=== PATIENT | male | born 1945 | race Caucasian/White ===

== ENCOUNTER 2020-04-14 15:52 | Inpatient (IN) | payer MEDICARE, BC ==
--- NOTE | 2020-04-14 16:37 | ED ---
General Adult HPI - General Chief complaint: Shortness of Breath Stated complaint: Chest Pressure Time Seen by Provider: 04/14/20 15:55 Source: patient, EMS, RN notes reviewed, old records reviewed Mode of arrival: EMS Limitations: no limitations - History of Present Illness Initial comments: This is a 75-year-old male who presents emergency Department stating he has a history of some asthma but it's never been bad enough to take an inhaler. Patient states he also has a little bit of anxiety as well per patient states he was up about 45 minutes away from the hospital when he walked into a restaurant and had a lot of smoke in the room started to have some difficulty breathing and he thought he needed to come into the hospital so they drove 45 minutes to get here by the time they got here his symptoms had resolved. Patient denies any chest pain. Patient denies any fever chills or cough. Patient denies headache patient denies numbness weakness. Patient denies any lightheadedness or dizziness. Patient denies abdominal pain patient denies nausea vomiting or diarrhea. - Related Data Home Medications Medication Instructions Recorded Confirmed Synthroid (Uknown Dose) 05/26/14 05/26/14 Previous Rx's Medication Instructions Recorded Hydrocodone/Acetaminophen [[place] 1 each PO Q6HR PRN #20 tab 05/26/14 5-325] Allergies Allergy/AdvReac Type Severity Reaction Status Date / Time No Known Allergies Allergy Verified 04/14/20 15:59 Review of Systems ROS Statement: Those systems with pertinent positive or pertinent negative responses have been documented in the HPI. ROS Other: All systems not noted in ROS Statement are negative. Past Medical History Past Medical History: Asthma, Thyroid Disorder Additional Past Medical History / Comment(s): gout, History of Any Multi-Drug Resistant Organisms: None Reported Past Surgical History: Appendectomy, Heart Catheterization Past Psychological History: Anxiety Smoking Status: Never smoker Past Alcohol Use History: None Reported Past Drug Use History: None Reported General Exam - General Exam Comments Initial Comments: GENERAL: Patient is well-developed and well-nourished. Patient is nontoxic and well- hydrated and is in no acute distress. ENT: Neck is soft and supple. No significant lymphadenopathy is noted. Oropharynx i s clear. Moist mucous membranes. Neck has full range of motion without eliciting any pain. EYES: The sclera were anicteric and conjunctiva were pink and moist. Extraocular movements were intact and pupils were equal round and reactive to light. Eyelids were unremarkable. PULMONARY: Unlabored respirations. Good breath sounds bilaterally. No audible rales rhonchi or wheezing was noted. CARDIOVASCULAR: There is a regular rate and rhythm without any murmurs gallops or rubs. ABDOMEN: Soft and nontender with normal bowel sounds. No palpable organomegaly was noted. There is no palpable pulsatile mass. SKIN: Skin is clear with no lesions or rashes and otherwise unremarkable. NEUROLOGIC: Patient is alert and oriented x3. Cranial nerves II through XII are grossly intact. Motor and sensory are also intact. Normal speech, volume and content. Symmetrical smile. MUSCULOSKELETAL: Normal extremities with adequate strength and full range of motion. No lower extremity swelling or edema. No calf tenderness. LYMPHATICS: No significant lymphadenopathy is noted PSYCHIATRIC: Normal psychiatric evaluation. Limitations: no limitations Course Vital Signs 04/14/20 15:53 Pulse Rate 81 Respiratory 18 Rate Blood Pressure 132/62 O2 Sat by Pulse 98 Oximetry Medical Decision Making - Medical Decision Making EKG shows sinus rhythm with occasional PVCs at 78 bpm SC interval is 150 QRS is 94 QT interval 352 QTC is 411. Patient is asymptomatic currently. Chest x-ray shows no acute abnormality.I spoke with Dr. Awad he agreed to admit the patient admitted the patient wrote admitting orders. - Lab Data Result diagrams: 04/14/20 16:37 04/14/20 16:37 Lab Results 04/14/20 04/14/20 04/14/20 Range/Units 16:37 16:37 16:37 WBC 6.3 (3.8-10.6) k/uL RBC 2.02 L (4.30-5.90) m/uL Hgb 8.4 L (13.0-17.5) gm/dL Hct 26.9 L (39.0-53.0) % MCV 132.7 H (80.0-100.0) fL MCH 41.3 H (25.0-35.0) pg MCHC 31.1 (31.0-37.0) g/dL RDW 17.3 H (11.5-15.5) % Plt Count 285 (150-450) k/uL Neutrophils % 86 % Lymphocytes % 7 % Monocytes % 5 % Eosinophils % 1 % Basophils % 0 % Neutrophils # 5.4 (1.3-7.7) k/uL Lymphocytes # 0.5 L (1.0-4.8) k/uL Monocytes # 0.3 (0-1.0) k/uL Eosinophils # 0.1 (0-0.7) k/uL Basophils # 0.0 (0-0.2) k/uL Hypochromasia Slight Anisocytosis Slight Macrocytosis Marked A PT 9.6 (9.0-12.0) sec INR 0.9 (<1.2) APTT 21.6 L (22.0-30.0) sec Sodium 138 (137-145) mmol/L Potassium 4.8 (3.5-5.1) mmol/L Chloride 107 (98-107) mmol/L Carbon Dioxide 19 L (22-30) mmol/L Anion Gap 12 mmol/L BUN 42 H (9-20) mg/dL Creatinine 2.06 H (0.66-1.25) mg/dL Est GFR (CKD-EPI)AfAm 35 (>60 ml/min/1.73 sqM) Est GFR (CKD-EPI)NonAf 31 (>60 ml/min/1.73 sqM) Glucose 103 H (74-99) mg/dL Calcium 9.3 (8.4-10.2) mg/dL Magnesium 2.1 (1.6-2.3) mg/dL Total Bilirubin 0.5 (0.2-1.3) mg/dL AST 44 (17-59) U/L ALT 25 (4-49) U/L Alkaline Phosphatase 64 (38-126) U/L Troponin I (0.000-0.034) ng/mL Total Protein 8.4 H (6.3-8.2) g/dL Albumin 4.8 (3.5-5.0) g/dL 04/14/20 Range/Units 16:37 WBC (3.8-10.6) k/uL RBC (4.30-5.90) m/uL Hgb (13.0-17.5) gm/dL Hct (39.0-53.0) % MCV (80.0-100.0) fL MCH (25.0-35.0) pg MCHC (31.0-37.0) g/dL RDW (11.5-15.5) % Plt Count (150-450) k/uL Neutrophils % % Lymphocytes % % Monocytes % % Eosinophils % % Basophils % % Neutrophils # (1.3-7.7) k/uL Lymphocytes # (1.0-4.8) k/uL Monocytes # (0-1.0) k/uL Eosinophils # (0-0.7) k/uL Basophils # (0-0.2) k/uL Hypochromasia Anisocytosis Macrocytosis PT (9.0-12.0) sec INR (<1.2) APTT (22.0-30.0) sec Sodium (137-145) mmol/L Potassium (3.5-5.1) mmol/L Chloride (98-107) mmol/L Carbon Dioxide (22-30) mmol/L Anion Gap mmol/L BUN (9-20) mg/dL Creatinine (0.66-1.25) mg/dL Est GFR (CKD-EPI)AfAm (>60 ml/min/1.73 sqM) Est GFR (CKD-EPI)NonAf (>60 ml/min/1.73 sqM) Glucose (74-99) mg/dL Calcium (8.4-10.2) mg/dL Magnesium (1.6-2.3) mg/dL Total Bilirubin (0.2-1.3) mg/dL AST (17-59) U/L ALT (4-49) U/L Alkaline Phosphatase (38-126) U/L Troponin I <0.012 (0.000-0.034) ng/mL Total Protein (6.3-8.2) g/dL Albumin (3.5-5.0) g/dL Disposition Clinical Impression: Dyspnea, Anemia, Renal insufficiency Disposition: ADMITTED IP TO THIS HOSP Referrals: Chuck Macedo MD [STAFF PHYSICIAN] - 1-2 days Time of Disposition: 18:09
[2020-04-14 16:58] LABS: INR 0.9 (<1.2); Prothrombin Time 9.6 sec (9.0-12.0)
[2020-04-14 16:59] LABS: Albumin 4.8 g/dL (3.5-5.0); Calcium 9.3 mg/dL (8.4-10.2); Magnesium 2.1 mg/dL (1.6-2.3); Potassium 4.8 mmol/L (3.5-5.1); Total Bilirubin 0.5 mg/dL (0.2-1.3); Total Protein 8.4 g/dL (6.3-8.2)
--- NOTE | 2020-04-14 17:12 | XR ---
EXAMINATION TYPE: XR chest 2V DATE OF EXAM: 04/14/2020 COMPARISON: 04/13/2012 HISTORY: Difficulty breathing TECHNIQUE: FINDINGS: Heart and mediastinum are normal. Lungs are clear. Diaphragm is normal. Bony thorax appears normal. IMPRESSION: Normal chest. No change.
[2020-04-14 17:17] LABS: Partial Thromboplastin Time 21.6 sec (22.0-30.0)
[2020-04-14 17:21] LABS: Anisocytosis Slight; Basophils % (A) 0 %; Eosinophils # (A) 0.1 k/uL (0-0.7); Eosinophils % (A) 1 %; HCT 26.9 % (39.0-53.0); HGB 8.4 gm/dL (13.0-17.5); Hypochromasia Slight; Lymphocytes # (A) 0.5 k/uL (1.0-4.8); Lymphocytes % (A) 7 %; MCH 41.3 pg (25.0-35.0); MCHC 31.1 g/dL (31.0-37.0); MCV 132.7 fL (80.0-100.0); Macrocytosis Marked; Mean Platelet Volume 9.6; Monocytes # (A) 0.3 k/uL (0-1.0); Monocytes % (A) 5 %; Neutrophils # (A) 5.4 k/uL (1.3-7.7); Neutrophils % (A) 86 %; Platelet Count 285 k/uL (150-450); RBC 2.02 m/uL (4.30-5.90); RDW 17.3 % (11.5-15.5); WBC 6.3 k/uL (3.8-10.6)
[2020-04-14] MEDS ORDERED: SODIUM CHLORIDE 0.9% 1,000 ML IV ONE (18:10)
[2020-04-14 18:32] LABS: Reticulocyte % 2.2 % (0.5-2.0)
[2020-04-14] MEDS ORDERED: ACETAMINOPHEN TAB 500 MG TAB PO STA (18:50)
--- NOTE | 2020-04-14 22:30 | HP ---
HISTORY AND PHYSICAL This patient is a 75-year-old white male with history of some asthma, was unable to take inhaler. He walked into a restaurant with a lot of smoking and today he had difficulty breathing. Came to the hospital 45 minutes he could not breathe. Denies any fevers or cough. Denies headache or weakness. Denies lightheadedness, dizziness, syncope. Denies abdominal pain, nausea, vomiting. HOME MEDICINES: Synthroid. ALLERGIES: NEGATIVE. REVIEW OF SYSTEMS: Otherwise negative. PAST MEDICAL HISTORY: Asthma, thyroid disorder, history of appendectomy, heart catheterization, gout, anxiety. PHYSICAL EXAMINATION: Well developed, well nourished, nontoxic. Well hydrated. No acute distress. HEENT: Neck supple. No mass. Ophthalmologic: Pupils equal, round, reactive to light and accommodation. LUNGS: Good air flow bilaterally. HEART: Regular rate and rhythm. ABDOMEN: Soft, nontender. Normal bowel sounds. SKIN: No rash, excoriations or bruising. NEUROLOGIC: Alert and oriented x3. MUSCULOSKELETAL: Full range of motion. No lymphadenopathy. PSYCH: Normal. VITAL SIGNS: Pulse 81, respiratory rate 18-20, blood pressure 132/62, O2 98%. EKG sinus rhythm, PVCs. Chest x-ray negative. Hemoglobin is 8.4, which is new onset. BUN is 42, creatinine 2.06. ASSESSMENT: 1. Acute on acute on chronic anemia, unclear etiology. Check stools for bleeding. 2. Acute prerenal renal insufficiency. 3. Acute renal tubular insult. 4. Renal insufficiency. 5. Anemia. 6. Dyspnea. Admit the patient. Monitor for signs of bleeding. Continue to rehydrate overnight. Prognosis guarded. Please see further orders. MMODL / IJN: [id number] /
[2020-04-15] MEDS ORDERED: ACETAMINOPHEN TAB 325 MG TAB PO PRN (01:27)
[2020-04-15 03:04] LABS: % Iron Saturation 12.24 (15.00-50.00)
[2020-04-15 03:14] LABS: Ferritin 118.7 ng/mL (22.0-322.0)
[2020-04-15] MEDS: LEVOTHYROXINE 137 MCG TAB PO SCH (04:44)
[2020-04-15 07:11] LABS: Glucose,Whole Blood 124 mg/dL (75-99)
[2020-04-15] MEDS: TAMSULOSIN 0.4 MG CAP.ER.24H PO SCH (08:01)
[2020-04-15 08:11] LABS: Albumin 3.9 g/dL (3.5-5.0); Calcium 8.4 mg/dL (8.4-10.2); Phosphorus 2.8 mg/dL (2.5-4.5); Potassium 4.3 mmol/L (3.5-5.1); Total Bilirubin 0.6 mg/dL (0.2-1.3); Total Protein 6.9 g/dL (6.3-8.2)
[2020-04-15 09:18] LABS: Anisocytosis Slight; Basophils % (A) 0 %; Eosinophils # (A) 0.1 k/uL (0-0.7); Eosinophils % (A) 1 %; HCT 21.6 % (39.0-53.0); Hypochromasia Moderate; Lymphocytes # (A) 0.7 k/uL (1.0-4.8); Lymphocytes % (A) 10 %; MCHC 32.5 g/dL (31.0-37.0); MCV 132.7 fL (80.0-100.0); Macrocytosis Marked; Monocytes # (A) 0.4 k/uL (0-1.0); Monocytes % (A) 6 %; Neutrophils # (A) 5.3 k/uL (1.3-7.7); Neutrophils % (A) 82 %; Platelet Count 205 k/uL (150-450); RBC 1.62 m/uL (4.30-5.90); RDW 17.5 % (11.5-15.5); WBC 6.4 k/uL (3.8-10.6)
[2020-04-15 09:25] LABS: MCH 43.1 pg (25.0-35.0)
[2020-04-15 10:47] LABS: Polychromasia Present; RBC Fragments Present
[2020-04-15 10:48] LABS: Poikilocytosis (M) Present
[2020-04-15 10:56] LABS: C Reactive Protein 40.9 mg/L (<10.0); LDH 530 U/L (313-618)
[2020-04-15 11:23] LABS: Reticulocyte % 2.1 % (0.5-2.0)
[2020-04-15 11:43] LABS: Glucose,Whole Blood 99 mg/dL (75-99)
[2020-04-15] MEDS: SODIUM FERRIC GLUCONAT-SUCROSE 125 MG in SODIUM CHLORIDE 0.9% 100 ML IVPB SCH (11:56)
--- NOTE | 2020-04-15 12:55 | US ---
EXAMINATION TYPE: US kidneys/renal and bladder DATE OF EXAM: 04/15/2020 COMPARISON: NONE CLINICAL HISTORY: RF. RF EXAM MEASUREMENTS: Right Kidney: 9.7 x 5.9 x 5.1 cm Left Kidney: 12.3 x 7.1 x 4.0 cm Right Kidney: severe hydronephrosis, hydroureter Left Kidney: severe hydronephrosis, hydroureter Bladder: debris noted within Bilateral Jets seen: no Prostate appears prominent = 6.8cm IMPRESSION: Severe bilateral hydronephrosis and hydroureter. Debris within the bladder should be correlated with urinalysis for infectious etiology or hematuria. Prostate appears to be markedly enlarged. Correlate with PSA.
--- NOTE | 2020-04-15 13:05 | CONS ---
CONSULTATION REASON FOR CONSULT: Renal failure. HISTORY OF PRESENT ILLNESS: Patient is a 75-year-old male who was admitted to the hospital with complaints of shortness of breath. He stated [place] and inhaled the smoke from cigarette and developed significant shortness of breath. He denied any fever, chills. No nausea, vomiting, abdominal pain or diarrhea. Patient also denied Sharon previous kidney diseases. His serum creatinine was 2.0 mg/dL on admission it is down to 1.89. Review of previous labs in 2013 showed creatinine 1.0. The patient is currently maintained on IV fluids. He states he is voiding okay. The patient denies use of any nonsteroidal anti- inflammatory agents prior to admission. He was maintained on oral Lasix. PAST MEDICAL HISTORY: Type 2 diabetes, hypertension, hypothyroidism, asthma. PAST SURGICAL HISTORY: Appendectomy, cardiac catheterization. SOCIAL HISTORY: Negative for smoking, drug abuse or alcohol abuse. MEDICATIONS: Medications at home prior to admission included Synthroid, [place], Glucotrol, Glucophage, Zyloprim, Flomax in past medical history add type 2 diabetes and BPH allergies none. PHYSICAL EXAMINATION: Patient is comfortable, awake, not in any acute distress. Blood pressure is 130/61, heart rate 66 per minute, he is had a temperature of 100.7 degrees Fahrenheit early this morning. ASSESSMENT: 1. Acute kidney injury prerenal currently improving with IV hydration. I will continue with the IV fluids. Check postvoid residual rule out urine retention. Check ultrasound of the kidneys and check urinalysis. 2. Fever. No evidence of infiltrates on chest x-ray. Check urinalysis. 3. Anemia. No active bleeding noted. Check iron profile. Check stool for occult blood. Iron profile was ordered. There is evidence of iron deficiency, so I will start the patient on IV iron plan start IV iron. PLAN Check UA, urine culture continuE to hold off on the metformin for now. Repeat labs in a.m. Check ultrasound of the kidneys.Check post void residual. Thank you for this consultation. Will continue to follow the patient with you during his hospitalization. IVANA / ROSALINDA: [id number] / MTDSandro
[2020-04-15 16:24] LABS: Appearance,Urine Clear (Clear); Bacteria,Urine Occasional /hpf; Bilirubin,Urine Negative (Negative); Blood,Urine Moderate (Negative); Color,Urine Light Yellow; Glucose,Urine (UA) Negative (Negative); Ketones,Urine Negative (Negative); Leukocyte Esterase,Urine Large (Negative); Nitrite,Urine Negative (Negative); Protein,Urine Negative (Negative); RBC,Urine 5 /hpf (0-5); Specific Gravity,Urine 1.007 (1.001-1.035); Urobilinogen,Urine <2.0 mg/dL (<2.0); WBC,Urine 27 /hpf (0-5)
[2020-04-15 16:40] LABS: Glucose,Whole Blood 93 mg/dL (75-99)
--- NOTE | 2020-04-15 17:20 | P.CONS ---
History of Present Illness - Reason for Consult Consult date: 04/15/20 Anemia Requesting physician: Chuck Awad - Chief Complaint Fever/Chills - History of Present Illness Arnav is a pleasant male patient who has controlled overall medical problems. He presents after being on a day trip with family, after a long car ride he states he developed rigors and felt horrible, therefore he was brought to hospital through ER for further evaluation. He has fever 100.4 - 101. He does complain of lower back pain, but states this is generally chronic in nature. He has urinary hesistance, and frequency as well at baseline. He denies any loss of blood via stool or urine. No change in appetite or bowels. Patient has been johnson cultured and urine culture and blood cultures ordered. On presentation he is found to be macrocytic anemia and therefore hematology consulted. He also as acute renal insufficiency. Bladder and renal ultrasound reveals severe hydronephrosis. A fll anemia work-up has been ordered. On presentation there is high suspicion for a pyelonephritis, so we will hold off on parental iron if this is low. Review of Systems A 14 point review of systems assessed and completed and all negative except HPI Past Medical History Past Medical History: Asthma, Heart Failure, Diabetes Mellitus, Prostate Disorder, Thyroid Disorder Additional Past Medical History / Comment(s): gout, chf History of Any Multi-Drug Resistant Organisms: None Reported Past Surgical History: Appendectomy, Heart Catheterization Past Psychological History: Depression Additional Psychological History / Comment(s): states when he was very depressed 25 years ago Smoking Status: Never smoker Past Alcohol Use History: None Reported Past Drug Use History: None Reported Medications and Allergies Home Medications Medication Instructions Recorded Confirmed Type Allopurinol [Zyloprim] 100 mg PO BID 04/14/20 04/14/20 History Furosemide [Lasix] 20 mg PO DAILY 04/14/20 04/14/20 History Levothyroxine Sodium [Synthroid] 137 mcg PO DAILY 04/14/20 04/14/20 History Tamsulosin [Flomax] 0.4 mg PO DAILY 04/14/20 04/14/20 History glipiZIDE [Glucotrol XL] 2.5 mg PO DAILY 04/14/20 04/14/20 History metFORMIN HCL [Glucophage] 500 mg PO BID 04/14/20 04/14/20 History Allergies Allergy/AdvReac Type Severity Reaction Status Date / Time No Known Allergies Allergy Verified 04/14/20 18:42 Physical Exam Vitals: Vital Signs Temp Pulse Pulse Resp BP BP BP 04/15/20 14:28 99.6 F 66 17 115/55 04/15/20 07:45 66 17 04/15/20 07:00 99.6 F 66 17 130/61 04/15/20 04:00 100.0 F H 04/15/20 01:19 100.7 F H 78 24 128/62 04/14/20 23:10 16 04/14/20 20:24 04/14/20 20:00 99.5 F 67 16 119/50 04/14/20 18:44 100.4 F H 85 16 126/57 Pulse Ox 04/15/20 14:28 98 04/15/20 07:45 04/15/20 07:00 97 04/15/20 04:00 04/15/20 01:19 98 04/14/20 23:10 04/14/20 20:24 97 04/14/20 20:00 97 04/14/20 18:44 99 Intake and Output 04/15/20 04/15/20 04/15/20 06:59 14:59 22:59 Other: Voiding Method Toilet Toilet # Voids 5 4 Weight 92 kg - Constitutional General appearance: cooperative, no acute distress - EENT Eyes: EOMI, PERRLA ENT: NA/AT, normal oropharynx - Neck no lymphadenopathy Neck: normal ROM - Respiratory Respiratory: bilateral: CTA - Cardiovascular Rhythm: regular Heart sounds: normal: S1, S2 - Gastrointestinal General gastrointestinal: normal bowel sounds, soft, tenderness - Integumentary Integumentary: pale - Musculoskeletal Musculoskeletal: generalized weakness, strength equal bilaterally - Psychiatric Psychiatric: A&O x's 3, appropriate affect, intact judgment & insight Results CBC & Chem 7: 04/15/20 07:11 04/15/20 07:11 Labs: Abnormal Lab Results - Last 24 Hours (Table) 04/14/20 04/14/20 04/14/20 Range/Units 16:37 16:37 17:50 RBC 2.02 L (4.30-5.90) m/uL Hgb 8.4 L (13.0-17.5) gm/dL Hct 26.9 L (39.0-53.0) % MCV 132.7 H (80.0-100.0) fL MCH 41.3 H (25.0-35.0) pg RDW 17.3 H (11.5-15.5) % Lymphocytes # 0.5 L (1.0-4.8) k/uL Macrocytosis Marked A Retic Count 2.2 H (0.5-2.0) % APTT 21.6 L (22.0-30.0) sec Chloride (98-107) mmol/L Carbon Dioxide (22-30) mmol/L BUN (9-20) mg/dL Creatinine (0.66-1.25) mg/dL Glucose (74-99) mg/dL POC Glucose (mg/dL) (75-99) mg/dL Iron (65-175) ug/dL % Saturation (15.00-50.00) C-Reactive Protein (<10.0) mg/L Urine Blood (Negative) Ur Leukocyte Esterase (Negative) Urine WBC (0-5) /hpf Urine Bacteria (None) /hpf 04/14/20 04/15/20 04/15/20 Range/Units 17:50 07:10 07:11 RBC (4.30-5.90) m/uL Hgb (13.0-17.5) gm/dL Hct (39.0-53.0) % MCV (80.0-100.0) fL MCH (25.0-35.0) pg RDW (11.5-15.5) % Lymphocytes # (1.0-4.8) k/uL Macrocytosis Retic Count (0.5-2.0) % APTT (22.0-30.0) sec Chloride 109 H (98-107) mmol/L Carbon Dioxide 21 L (22-30) mmol/L BUN 37 H (9-20) mg/dL Creatinine 1.89 H (0.66-1.25) mg/dL Glucose 104 H (74-99) mg/dL POC Glucose (mg/dL) 124 H (75-99) mg/dL Iron 42 L (65-175) ug/dL % Saturation 12.24 L (15.00-50.00) C-Reactive Protein (<10.0) mg/L Urine Blood (Negative) Ur Leukocyte Esterase (Negative) Urine WBC (0-5) /hpf Urine Bacteria (None) /hpf 04/15/20 04/15/20 04/15/20 Range/Units 07:11 07:11 07:11 RBC 1.62 L (4.30-5.90) m/uL Hgb 7.0 L (13.0-17.5) gm/dL Hct 21.6 L (39.0-53.0) % MCV 132.7 H (80.0-100.0) fL MCH 43.1 H (25.0-35.0) pg RDW 17.5 H (11.5-15.5) % Lymphocytes # 0.7 L (1.0-4.8) k/uL Macrocytosis Marked A Retic Count 2.1 H (0.5-2.0) % APTT (22.0-30.0) sec Chloride (98-107) mmol/L Carbon Dioxide (22-30) mmol/L BUN (9-20) mg/dL Creatinine (0.66-1.25) mg/dL Glucose (74-99) mg/dL POC Glucose (mg/dL) (75-99) mg/dL Iron (65-175) ug/dL % Saturation (15.00-50.00) C-Reactive Protein 40.9 H (<10.0) mg/L Urine Blood (Negative) Ur Leukocyte Esterase (Negative) Urine WBC (0-5) /hpf Urine Bacteria (None) /hpf 04/15/20 Range/Units 14:35 RBC (4.30-5.90) m/uL Hgb (13.0-17.5) gm/dL Hct (39.0-53.0) % MCV (80.0-100.0) fL MCH (25.0-35.0) pg RDW (11.5-15.5) % Lymphocytes # (1.0-4.8) k/uL Macrocytosis Retic Count (0.5-2.0) % APTT (22.0-30.0) sec Chloride (98-107) mmol/L Carbon Dioxide (22-30) mmol/L BUN (9-20) mg/dL Creatinine (0.66-1.25) mg/dL Glucose (74-99) mg/dL POC Glucose (mg/dL) (75-99) mg/dL Iron (65-175) ug/dL % Saturation (15.00-50.00) C-Reactive Protein (<10.0) mg/L Urine Blood Moderate H (Negative) Ur Leukocyte Esterase Large H (Negative) Urine WBC 27 H (0-5) /hpf Urine Bacteria Occasional H (None) /hpf Assessment and Plan Plan: Macrocytic Anemia: - Full anemia work-up in place - Transfuse hemoglobin less than 7 Fever and Rigors: - Johnson Culture - COncern for pyelonephritis so would hold off on parental iron at this time until blood cultures are resulted - Recommend initiation of antibiotics after all cultures drawn Acute Renal Insufficiency: - Nephrology is following -Ultrasound is ordered
[2020-04-15 17:22] LABS: % Iron Saturation 10.61 (15.00-50.00); Iron 33 ug/dL (65-175); Total Iron Binding Capacity 311 ug/dL (228-460)
[2020-04-15 17:31] LABS: Ferritin 157.7 ng/mL (22.0-322.0); Folate, Serum >24.0 ng/mL
--- NOTE | 2020-04-15 18:20 | P.GSCN ---
History of Present Illness Consult date: 04/15/20 History of present illness: 75-year-old gentleman who came into the hospital with shortness of breath. The evaluation identified anemia, renal failure, bilateral severe hydronephrosis, urine retention. We are asked to see the patient for the hydronephrosis in urine retention. The patient is known to our office many years ago for kidney stones and hematuria secondary to those. He has not been seen in over 10 years. He has not had any problems of kidney stones in the last several years. He denies problems urinating. He denies incontinence excessive frequency blood in the urine infections. He does not urinate a lot of nighttime. He had a bladder scan for over thousand cc. I reviewed the ultrasound that shows significant bilateral hydronephrosis that appears to be chronic. He has anemia which is probably due to chronic renal failure. Review of Systems - Constitutional Reports lethargy, Reports malaise, Reports weakness - Cardiovascular Reports dyspnea on exertion - Genitourinary Reports as per HPI Past Medical History Past Medical History: Asthma, Heart Failure, Diabetes Mellitus, Prostate Disorder, Thyroid Disorder Additional Past Medical History / Comment(s): gout, chf History of Any Multi-Drug Resistant Organisms: None Reported Past Surgical History: Appendectomy, Heart Catheterization Past Psychological History: Depression Additional Psychological History / Comment(s): states when he was very depressed 25 years ago Smoking Status: Never smoker Past Alcohol Use History: None Reported Past Drug Use History: None Reported Medications and Allergies Home Medications Medication Instructions Recorded Confirmed Type Allopurinol [Zyloprim] 100 mg PO BID 04/14/20 04/14/20 History Furosemide [Lasix] 20 mg PO DAILY 04/14/20 04/14/20 History Levothyroxine Sodium [Synthroid] 137 mcg PO DAILY 04/14/20 04/14/20 History Tamsulosin [Flomax] 0.4 mg PO DAILY 04/14/20 04/14/20 History glipiZIDE [Glucotrol XL] 2.5 mg PO DAILY 04/14/20 04/14/20 History metFORMIN HCL [Glucophage] 500 mg PO BID 04/14/20 04/14/20 History Allergies Allergy/AdvReac Type Severity Reaction Status Date / Time No Known Allergies Allergy Verified 04/14/20 18:42 Surgical - Exam Vital Signs Pulse Resp BP Pulse Ox 81 18 132/62 98 04/14/20 15:53 04/14/20 15:53 04/14/20 15:53 04/14/20 15:53 - General Mild distress, pale well developed, well nourished - Eyes PERRL - ENT no hearing loss - Neck no masses, trachea midline - Respiratory normal expansion, normal respiratory effort - Cardiovascular Rhythm: regular - Abdomen Bladder feels full Abdomen: soft, non tender - Genitourinary Prostate is 40-50 g soft and benign normal penis with no external lesions, testicles present - Integumentary no rash, no growths - Neurologic normal coordination, normal sensation - Musculoskeletal normal posture - Psychiatric oriented to time, oriented to person, oriented to place, speech is normal, memory intact Results - Labs 04/15/20 07:11 04/15/20 07:11 Abnormal Lab Results - Last 24 Hours (Table) 04/14/20 04/14/20 04/15/20 Range/Units 17:50 17:50 07:10 RBC (4.30-5.90) m/uL Hgb (13.0-17.5) gm/dL Hct (39.0-53.0) % MCV (80.0-100.0) fL MCH (25.0-35.0) pg RDW (11.5-15.5) % Lymphocytes # (1.0-4.8) k/uL Macrocytosis Retic Count 2.2 H (0.5-2.0) % Chloride (98-107) mmol/L Carbon Dioxide (22-30) mmol/L BUN (9-20) mg/dL Creatinine (0.66-1.25) mg/dL Glucose (74-99) mg/dL POC Glucose (mg/dL) 124 H (75-99) mg/dL Iron 42 L (65-175) ug/dL % Saturation 12.24 L (15.00-50.00) C-Reactive Protein (<10.0) mg/L Vitamin B12 (200.0-944.0) pg/mL Urine Blood (Negative) Ur Leukocyte Esterase (Negative) Urine WBC (0-5) /hpf Urine Bacteria (None) /hpf 04/15/20 04/15/20 04/15/20 Range/Units 07:11 07:11 07:11 RBC 1.62 L (4.30-5.90) m/uL Hgb 7.0 L (13.0-17.5) gm/dL Hct 21.6 L (39.0-53.0) % MCV 132.7 H (80.0-100.0) fL MCH 43.1 H (25.0-35.0) pg RDW 17.5 H (11.5-15.5) % Lymphocytes # 0.7 L (1.0-4.8) k/uL Macrocytosis Marked A Retic Count 2.1 H (0.5-2.0) % Chloride 109 H (98-107) mmol/L Carbon Dioxide 21 L (22-30) mmol/L BUN 37 H (9-20) mg/dL Creatinine 1.89 H (0.66-1.25) mg/dL Glucose 104 H (74-99) mg/dL POC Glucose (mg/dL) (75-99) mg/dL Iron (65-175) ug/dL % Saturation (15.00-50.00) C-Reactive Protein (<10.0) mg/L Vitamin B12 (200.0-944.0) pg/mL Urine Blood (Negative) Ur Leukocyte Esterase (Negative) Urine WBC (0-5) /hpf Urine Bacteria (None) /hpf 04/15/20 04/15/20 Range/Units 07:11 14:35 RBC (4.30-5.90) m/uL Hgb (13.0-17.5) gm/dL Hct (39.0-53.0) % MCV (80.0-100.0) fL MCH (25.0-35.0) pg RDW (11.5-15.5) % Lymphocytes # (1.0-4.8) k/uL Macrocytosis Retic Count (0.5-2.0) % Chloride (98-107) mmol/L Carbon Dioxide (22-30) mmol/L BUN (9-20) mg/dL Creatinine (0.66-1.25) mg/dL Glucose (74-99) mg/dL POC Glucose (mg/dL) (75-99) mg/dL Iron 33 L (65-175) ug/dL % Saturation 10.61 L (15.00-50.00) C-Reactive Protein 40.9 H (<10.0) mg/L Vitamin B12 1165.0 H (200.0-944.0) pg/mL Urine Blood Moderate H (Negative) Ur Leukocyte Esterase Large H (Negative) Urine WBC 27 H (0-5) /hpf Urine Bacteria Occasional H (None) /hpf Diabetes panel 04/15/20 Range/Units 07:11 Sodium 139 (137-145) mmol/L Potassium 4.3 (3.5-5.1) mmol/L Chloride 109 H (98-107) mmol/L Carbon Dioxide 21 L (22-30) mmol/L BUN 37 H (9-20) mg/dL Creatinine 1.89 H (0.66-1.25) mg/dL Glucose 104 H (74-99) mg/dL Calcium 8.4 (8.4-10.2) mg/dL AST 46 (17-59) U/L ALT 32 (4-49) U/L Alkaline Phosphatase 62 (38-126) U/L Total Protein 6.9 (6.3-8.2) g/dL Albumin 3.9 (3.5-5.0) g/dL Thyroid panel 04/15/20 Range/Units 07:11 TSH 0.626 (0.465-4.680) mIU/L Calcium panel 04/15/20 Range/Units 07:11 Calcium 8.4 (8.4-10.2) mg/dL Phosphorus 2.8 (2.5-4.5) mg/dL Albumin 3.9 (3.5-5.0) g/dL Pituitary panel 04/15/20 Range/Units 07:11 Sodium 139 (137-145) mmol/L Potassium 4.3 (3.5-5.1) mmol/L Chloride 109 H (98-107) mmol/L Carbon Dioxide 21 L (22-30) mmol/L BUN 37 H (9-20) mg/dL Creatinine 1.89 H (0.66-1.25) mg/dL Glucose 104 H (74-99) mg/dL Calcium 8.4 (8.4-10.2) mg/dL TSH 0.626 (0.465-4.680) mIU/L Adrenal panel 04/15/20 Range/Units 07:11 Sodium 139 (137-145) mmol/L Potassium 4.3 (3.5-5.1) mmol/L Chloride 109 H (98-107) mmol/L Carbon Dioxide 21 L (22-30) mmol/L BUN 37 H (9-20) mg/dL Creatinine 1.89 H (0.66-1.25) mg/dL Glucose 104 H (74-99) mg/dL Calcium 8.4 (8.4-10.2) mg/dL Total Bilirubin 0.6 (0.2-1.3) mg/dL AST 46 (17-59) U/L ALT 32 (4-49) U/L Alkaline Phosphatase 62 (38-126) U/L Total Protein 6.9 (6.3-8.2) g/dL Albumin 3.9 (3.5-5.0) g/dL - Imaging US - kidney/bladder: report reviewed, image reviewed Assessment and Plan Assessment: Impression: Acute and chronic renal failure. Urinary retention chronic. Bilateral hydronephrosis secondary to urinary retention, chronic. Anemia probably secondary to chronic renal failure. Multiple medical illnesses Recommendations: This patient should have an indwelling catheter which I explained to him and he consents. We'll see whether his urinary function improves with an indwelling catheter. At some point in time he will need urodynamic studies and cystoscopy to assess the lower urinary tract to determine whether he'll need either intermittent catheterization, a long-term indwelling catheter or whether a TURP will be of benefit. He has been on chronic tamsulosin. I wouldn't be surprised if he develops hematuria after the catheter due to decompressed and not of a chronically distended bladder. I will follow this patient with you. Time with Patient: Greater than 30
[2020-04-15 18:40] LABS: Protein, Total 6.3 g/dL (6.2-8.2)
--- NOTE | 2020-04-15 18:53 | P.PN ---
Progress Note - Text Progress Note Date: 04/15/20 The patient had 1500 ml of urine drained. He will need an indwelling catheter for a while. He eventually will need a cmg cysto to determine the function of the bladder and the size of the prostate.
[2020-04-15 20:32] LABS: Hemoglobin A1C 5.3 % (4.0-6.0)
[2020-04-15 20:33] LABS: Glucose,Whole Blood 101 mg/dL (75-99)
--- NOTE | 2020-04-15 23:29 | PN ---
PROGRESS NOTE This patient was seen by Urology today. He had 1500 mL of urine drained. He will need an indwelling catheter for awhile. He eventually will need a cysto to determine the function of the bladder and the size of the prostate. He was seen by Urology today. Bladder ultrasound showed bilateral severe and an enlarged prostate. PSA has been ordered. Hemoglobin is 7. He was given IV iron and GI bleeding workup is being done. BUN is 37, creatinine 1.89. He is being rehydrated for dehydration. ASSESSMENT: 1. Acute on chronic renal failure. 2. Urinary retention, chronic. 3. Bilateral hydronephrosis secondary to urinary retention. 4. Anemia; may be secondary to chronic renal failure. Cystoscopy will be done as an outpatient. Maybe a TURP or long-term Fair catheter will be needed. He has been trying with no success. Prognosis is guarded. Possible transfuse if hemoglobin drops below 7. MMODL / IJN: [id number] /
[2020-04-16] MEDS: LEVOTHYROXINE 137 MCG TAB PO SCH (06:19)
[2020-04-16 07:08] LABS: Glucose,Whole Blood 107 mg/dL (75-99)
[2020-04-16] MEDS: TAMSULOSIN 0.4 MG CAP.ER.24H PO SCH (08:05)
--- NOTE | 2020-04-16 08:19 | P.PN ---
Subjective Progress Note Date: 04/16/20 The patient came in the hospital shortness of breath. He is found to be anemic, renal failure, bilateral hydronephrosis chronic and severe, urine retention. He was catheterized for 1500 mL urine. There were white blood cells and bacteria. A culture will be obtained. He should be started on antibiotic. He'll need indwelling catheter for some time. He'll need a CMG and cystoscopy to determine the function of the bladder and the size of the prostate Objective - Vital Signs Vital signs: Vital Signs Temp 98.2 F 04/16/20 07:02 Pulse 61 04/16/20 07:02 Resp 20 04/16/20 07:02 BP 106/56 04/16/20 07:02 Pulse Ox 95 04/16/20 07:02 Intake & Output 04/15/20 04/16/20 04/16/20 18:59 06:59 18:59 Output Total 1500 3000 Balance -1500 -3000 Weight 90.6 kg Output: Urine 1500 3000 Coude 1500 Other: Voiding Method Toilet Indwelling Catheter # Voids 4 - Labs CBC & Chem 7: 04/15/20 07:11 04/15/20 07:11 Labs: Abnormal Lab Results - Last 24 Hours (Table) 04/15/20 04/15/20 04/15/20 Range/Units 07:11 07:11 07:11 RBC 1.62 L (4.30-5.90) m/uL Hgb 7.0 L (13.0-17.5) gm/dL Hct 21.6 L (39.0-53.0) % MCV 132.7 H (80.0-100.0) fL MCH 43.1 H (25.0-35.0) pg RDW 17.5 H (11.5-15.5) % Lymphocytes # 0.7 L (1.0-4.8) k/uL Macrocytosis Marked A Retic Count 2.1 H (0.5-2.0) % POC Glucose (mg/dL) (75-99) mg/dL Iron (65-175) ug/dL % Saturation (15.00-50.00) C-Reactive Protein (<10.0) mg/L Vitamin B12 (200.0-944.0) pg/mL PTH Intact 93.4 H (14.0-72.0) pg/mL Urine Blood (Negative) Ur Leukocyte Esterase (Negative) Urine WBC (0-5) /hpf Urine Bacteria (None) /hpf 04/15/20 04/15/20 04/15/20 Range/Units 07:11 14:35 20:32 RBC (4.30-5.90) m/uL Hgb (13.0-17.5) gm/dL Hct (39.0-53.0) % MCV (80.0-100.0) fL MCH (25.0-35.0) pg RDW (11.5-15.5) % Lymphocytes # (1.0-4.8) k/uL Macrocytosis Retic Count (0.5-2.0) % POC Glucose (mg/dL) 101 H (75-99) mg/dL Iron 33 L (65-175) ug/dL % Saturation 10.61 L (15.00-50.00) C-Reactive Protein 40.9 H (<10.0) mg/L Vitamin B12 1165.0 H (200.0-944.0) pg/mL PTH Intact (14.0-72.0) pg/mL Urine Blood Moderate H (Negative) Ur Leukocyte Esterase Large H (Negative) Urine WBC 27 H (0-5) /hpf Urine Bacteria Occasional H (None) /hpf 04/16/20 Range/Units 07:06 RBC (4.30-5.90) m/uL Hgb (13.0-17.5) gm/dL Hct (39.0-53.0) % MCV (80.0-100.0) fL MCH (25.0-35.0) pg RDW (11.5-15.5) % Lymphocytes # (1.0-4.8) k/uL Macrocytosis Retic Count (0.5-2.0) % POC Glucose (mg/dL) 107 H (75-99) mg/dL Iron (65-175) ug/dL % Saturation (15.00-50.00) C-Reactive Protein (<10.0) mg/L Vitamin B12 (200.0-944.0) pg/mL PTH Intact (14.0-72.0) pg/mL Urine Blood (Negative) Ur Leukocyte Esterase (Negative) Urine WBC (0-5) /hpf Urine Bacteria (None) /hpf
[2020-04-16] MEDS: SODIUM FERRIC GLUCONAT-SUCROSE 125 MG in SODIUM CHLORIDE 0.9% 100 ML IVPB SCH (08:39)
[2020-04-16 09:24] LABS: Albumin 3.2 g/dL (3.5-5.0); Potassium 4.1 mmol/L (3.5-5.1); Total Bilirubin 0.4 mg/dL (0.2-1.3); Total Protein 6.2 g/dL (6.3-8.2)
[2020-04-16 09:27] LABS: Anisocytosis Slight; Basophils % (A) 0 %; Eosinophils # (A) 0.1 k/uL (0-0.7); Eosinophils % (A) 1 %; Hypochromasia Moderate; Lymphocytes # (A) 0.9 k/uL (1.0-4.8); Lymphocytes % (A) 21 %; MCHC 32.2 g/dL (31.0-37.0); Macrocytosis Marked; Mean Platelet Volume 10.6; Monocytes # (A) 0.4 k/uL (0-1.0); Monocytes % (A) 9 %; Neutrophils # (A) 2.8 k/uL (1.3-7.7); Neutrophils % (A) 66 %; Platelet Count 176 k/uL (150-450); RBC 1.47 m/uL (4.30-5.90); RDW 17.6 % (11.5-15.5); WBC 4.3 k/uL (3.8-10.6)
[2020-04-16 09:33] LABS: MCH 42.5 pg (25.0-35.0)
[2020-04-16 09:37] LABS: HGB 6.2 gm/dL (13.0-17.5)
[2020-04-16 09:38] LABS: HCT 19.4 % (39.0-53.0)
[2020-04-16] MEDS: SULFAMETHOX-TMP 800-160MG 1 EACH TAB PO SCH ×2 (09:39→21:00)
[2020-04-16 10:19] LABS: Free Kappa Lt Chain Qnt, Serum 6.11 mg/dL (0.33-1.94)
[2020-04-16 11:31] LABS: Glucose,Whole Blood 96 mg/dL (75-99)
[2020-04-16 12:15] LABS: Large Platelets Present
[2020-04-16 12:17] LABS: Poikilocytosis (M) Present
[2020-04-16 12:53] LABS: Albumin 3.36 g/dL (3.80-4.90); Gamma Globulin 1.23 g/dL (0.70-1.50)
[2020-04-16 13:14] LABS: Immunoglobulin M 76.3 mg/dL (40.0-280.0)
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
[2020-04-16 16:29] LABS: Glucose,Whole Blood 86 mg/dL (75-99)
[2020-04-16] MEDS ORDERED: FUROSEMIDE 10 MG/ML 2 ML VIAL IV STA (16:58)
--- NOTE | 2020-04-16 17:01 | PN ---
PROGRESS NOTE Patient is seen for followup for acute kidney injury. He was found to have significant bilateral hydronephrosis. The patient was seen by Urology. Initially he was refusing the Fair catheter but currently has an indwelling Fair catheter with good urine output. Patient has had urine retention and bilateral hydronephrosis previously as well. On examination today he is comfortable. Blood pressure is 122/69, heart rate is 60 per minute. He is afebrile. EXAMINATION OF THE HEART: S1 and S2. EXAMINATION OF LUNGS: Bilateral breath sounds are heard. ABDOMEN: Soft, non-tender. Examination of lower extremities shows no significant edema. SR. LOGISTICS ANALYST exam is grossly intact. Labs show hemoglobin 6.2, white cell count 4.3, sodium 138, potassium 4.1, chloride 112. CO2 is 18, BUN 32, creatinine 1.6 mg/dL. ASSESSMENT: 1. Acute kidney injury, mostly obstructive uropathy, currently improving. 2. Anemia. No active bleeding noted. The patient has received packed RBCs transfusion. 3. Low-grade fever, currently improved. The patient is currently on Bactrim. His UA showed 27 WBCs. Urine culture is pending. 4. Non-gap metabolic acidosis. Add oral sodium bicarb. PLAN: Add oral sodium bicarb. Add IV iron as well. Continue with Flomax. Continue with indwelling Fair catheter. Patient is advised to follow up as outpatient with Urology. MMODL / IJN: [id number] /
--- NOTE | 2020-04-16 20:13 | P.PN ---
Subjective Progress Note Date: 04/16/20 Principal diagnosis: Fever and Anemia Objective - Vital Signs Vital signs: Vital Signs Temp 98.7 F 04/16/20 19:46 Pulse 61 04/16/20 19:46 Resp 17 04/16/20 19:46 BP 130/68 04/16/20 19:46 Pulse Ox 99 04/16/20 19:46 Intake & Output 04/16/20 04/16/20 04/17/20 06:59 18:59 06:59 Intake Total 1093 Output Total 3000 4250 Balance -3000 -3157 Weight 90.6 kg Intake: Oral 473 Blood Product 620 Rc Pheresis 2 As3 Unit 310 [id number] Rc Pheresis As-3 Unit 310 [id number] Output: Urine 3000 4250 Other: Voiding Method Indwelling Catheter Indwelling Catheter Indwelling Catheter # Voids 2 # Bowel Movements 1 - Exam - Constitutional General appearance: cooperative, no acute distress - EENT Eyes: EOMI, PERRLA ENT: NA/AT, normal oropharynx - Neck no lymphadenopathy Neck: normal ROM - Respiratory Respiratory: bilateral: CTA - Cardiovascular Rhythm: regular Heart sounds: normal: S1, S2 - Gastrointestinal General gastrointestinal: normal bowel sounds, soft, tenderness - Integumentary Integumentary: pale - Musculoskeletal Musculoskeletal: generalized weakness, strength equal bilaterally - Psychiatric Psychiatric: A&O x's 3, appropriate affect, intact judgment & insight - Labs CBC & Chem 7: 04/16/20 07:10 04/16/20 07:10 Labs: Abnormal Lab Results - Last 24 Hours (Table) 04/15/20 04/15/20 04/15/20 Range/Units 07:11 11:01 11:01 RBC (4.30-5.90) m/uL Hgb (13.0-17.5) gm/dL Hct (39.0-53.0) % MCV (80.0-100.0) fL MCH (25.0-35.0) pg RDW (11.5-15.5) % Lymphocytes # (1.0-4.8) k/uL Macrocytosis Chloride (98-107) mmol/L Carbon Dioxide (22-30) mmol/L BUN (9-20) mg/dL Creatinine (0.66-1.25) mg/dL POC Glucose (mg/dL) (75-99) mg/dL Calcium (8.4-10.2) mg/dL Erythropoietin 322.42 H (2.00-30.00) mIU/mL Total Protein (6.3-8.2) g/dL Albumin (3.5-5.0) g/dL Albumin (PEP) 3.36 L (3.80-4.90) g/dL RBC Folate 1,901 H (280 - 791) ng/mL Free [place] LC, Quant 6.11 H (0.33-1.94) mg/dL Free Lambda LC, Quant 3.69 H (0.57-2.63) mg/dL Crossmatch 04/15/20 04/16/20 04/16/20 Range/Units 20:32 07:06 07:10 RBC 1.47 L (4.30-5.90) m/uL Hgb 6.2 L* (13.0-17.5) gm/dL Hct 19.4 L* (39.0-53.0) % MCV 132.0 H (80.0-100.0) fL MCH 42.5 H (25.0-35.0) pg RDW 17.6 H (11.5-15.5) % Lymphocytes # 0.9 L (1.0-4.8) k/uL Macrocytosis Marked A Chloride (98-107) mmol/L Carbon Dioxide (22-30) mmol/L BUN (9-20) mg/dL Creatinine (0.66-1.25) mg/dL POC Glucose (mg/dL) 101 H 107 H (75-99) mg/dL Calcium (8.4-10.2) mg/dL Erythropoietin (2.00-30.00) mIU/mL Total Protein (6.3-8.2) g/dL Albumin (3.5-5.0) g/dL Albumin (PEP) (3.80-4.90) g/dL RBC Folate (280 - 791) ng/mL Free [place] LC, Quant (0.33-1.94) mg/dL Free Lambda LC, Quant (0.57-2.63) mg/dL Crossmatch 04/16/20 04/16/20 Range/Units 07:10 10:45 RBC (4.30-5.90) m/uL Hgb (13.0-17.5) gm/dL Hct (39.0-53.0) % MCV (80.0-100.0) fL MCH (25.0-35.0) pg RDW (11.5-15.5) % Lymphocytes # (1.0-4.8) k/uL Macrocytosis Chloride 112 H (98-107) mmol/L Carbon Dioxide 18 L (22-30) mmol/L BUN 32 H (9-20) mg/dL Creatinine 1.60 H (0.66-1.25) mg/dL POC Glucose (mg/dL) (75-99) mg/dL Calcium 8.0 L (8.4-10.2) mg/dL Erythropoietin (2.00-30.00) mIU/mL Total Protein 6.2 L (6.3-8.2) g/dL Albumin 3.2 L (3.5-5.0) g/dL Albumin (PEP) (3.80-4.90) g/dL RBC Folate (280 - 791) ng/mL Free [place] LC, Quant (0.33-1.94) mg/dL Free Lambda LC, Quant (0.57-2.63) mg/dL Crossmatch See Detail Microbiology - Last 24 Hours (Table) 04/16/20 09:00 Urine Culture - Preliminary Urine,Catheterized 04/15/20 11:01 Blood Culture - Preliminary Blood No Growth after 24 hours Assessment and Plan Plan: Macrocytic Anemia: - Full anemia work-up in place - Transfuse hemoglobin less than 7 - MCV is quite elevated although the preliminary anemia work-up all appears to be without abnormalities. - Will plan bone marrow biopsy next week Sunday by Dr. Saavedra, this has been discussed with patient in detail and understanding stated. Fever and Rigors: Afebrile since day 1 admission - [place] Culture Acute Renal Insufficiency: Improving - Nephrology is following - Ultrasound reviewed revealing hydronephrosis. Urology is following Physician Attest: I have completed the full history and physical and agree with above dictation, dictated as a scribe.
[2020-04-16] MEDS: SODIUM BICARBONATE TAB 650 MG TAB PO SCH (21:01)
[2020-04-16 21:11] LABS: Glucose,Whole Blood 103 mg/dL (75-99)
--- NOTE | 2020-04-17 02:31 | PN ---
PROGRESS NOTE Followup anemia, dyspnea, hydronephrosis. The patient was given 2 units of blood for severe hematuria. Cardiovascular S1-S2. Lungs clear. GI soft. Hematology: Negative Homans. ASSESSMENT: 1. Anemia. 2. Hydronephrosis. GI workup pending. 3. Hematuria. Continue current treatment. Possible discharge home once sources of bleeding are stopped. MMODL / IJN: [id number] /
[2020-04-17] MEDS: LEVOTHYROXINE 137 MCG TAB PO SCH (05:52)
[2020-04-17 06:56] LABS: Glucose,Whole Blood 101 mg/dL (75-99)
[2020-04-17] MEDS: SODIUM BICARBONATE TAB 650 MG TAB PO SCH ×2 (07:51→21:48)
[2020-04-17] MEDS: TAMSULOSIN 0.4 MG CAP.ER.24H PO SCH (07:51)
[2020-04-17] MEDS: SULFAMETHOX-TMP 800-160MG 1 EACH TAB PO SCH (07:52)
[2020-04-17] MEDS: SODIUM FERRIC GLUCONAT-SUCROSE 125 MG in SODIUM CHLORIDE 0.9% 100 ML IVPB SCH (10:18)
--- NOTE | 2020-04-17 10:21 | P.PN ---
Subjective Progress Note Date: 04/17/20 The patient came in the hospital with shortness of breath. He is found to be anemic with chronic renal failure due to urine retention with bilateral hydronephrosis. He apparently has significant damage to his kidney based on the renal ultrasound. He is making voluminous amounts of urine post drainage as expected. I suspect his ability to concentrate his urine is diminished.. From a urologic standpoint he'll need a cystometrogram and cystoscopy. Hopefully his bladder function will recuperate and a TURP can liberate him of his urine retention. He may however need clean intermittent catheterization of the bladder function does not return. Urine culture is pending Objective - Vital Signs Vital signs: Vital Signs Temp 98.6 F 04/17/20 07:00 Pulse 55 L 04/17/20 08:00 Resp 18 04/17/20 08:00 BP 105/57 04/17/20 07:00 Pulse Ox 98 04/17/20 07:00 Intake & Output 04/16/20 04/17/20 04/17/20 18:59 06:59 18:59 Intake Total 1093 Output Total 4250 2800 Balance -3157 -2800 Weight 90.5 kg Intake: Oral 473 Blood Product 620 Rc Pheresis 2 As3 Unit 310 [id number] Rc Pheresis As-3 Unit 310 [id number] Output: Urine 4250 2800 Other: Voiding Method Indwelling Catheter Indwelling Catheter Indwelling Catheter # Voids 2 # Bowel Movements 1 - Labs CBC & Chem 7: 04/16/20 07:10 04/16/20 07:10 Labs: Abnormal Lab Results - Last 24 Hours (Table) 04/15/20 04/15/20 04/15/20 Range/Units 07:11 11:01 11:01 RBC (4.30-5.90) m/uL Hgb (13.0-17.5) gm/dL Hct (39.0-53.0) % MCV (80.0-100.0) fL MCH (25.0-35.0) pg RDW (11.5-15.5) % Lymphocytes # (1.0-4.8) k/uL Macrocytosis POC Glucose (mg/dL) (75-99) mg/dL Erythropoietin 322.42 H (2.00-30.00) mIU/mL Albumin (PEP) 3.36 L (3.80-4.90) g/dL RBC Folate 1,901 H (280 - 791) ng/mL Free [place] LC, Quant 6.11 H (0.33-1.94) mg/dL Free Lambda LC, Quant 3.69 H (0.57-2.63) mg/dL Crossmatch 04/16/20 04/16/20 04/16/20 Range/Units 07:10 10:45 21:04 RBC 1.47 L (4.30-5.90) m/uL Hgb 6.2 L* (13.0-17.5) gm/dL Hct 19.4 L* (39.0-53.0) % MCV 132.0 H (80.0-100.0) fL MCH 42.5 H (25.0-35.0) pg RDW 17.6 H (11.5-15.5) % Lymphocytes # 0.9 L (1.0-4.8) k/uL Macrocytosis Marked A POC Glucose (mg/dL) 103 H (75-99) mg/dL Erythropoietin (2.00-30.00) mIU/mL Albumin (PEP) (3.80-4.90) g/dL RBC Folate (280 - 791) ng/mL Free [place] LC, Quant (0.33-1.94) mg/dL Free Lambda LC, Quant (0.57-2.63) mg/dL Crossmatch See Detail 04/17/20 Range/Units 06:55 RBC (4.30-5.90) m/uL Hgb (13.0-17.5) gm/dL Hct (39.0-53.0) % MCV (80.0-100.0) fL MCH (25.0-35.0) pg RDW (11.5-15.5) % Lymphocytes # (1.0-4.8) k/uL Macrocytosis POC Glucose (mg/dL) 101 H (75-99) mg/dL Erythropoietin (2.00-30.00) mIU/mL Albumin (PEP) (3.80-4.90) g/dL RBC Folate (280 - 791) ng/mL Free [place] LC, Quant (0.33-1.94) mg/dL Free Lambda LC, Quant (0.57-2.63) mg/dL Crossmatch Microbiology - Last 24 Hours (Table) 04/16/20 09:00 Urine Culture - Preliminary Urine,Catheterized 04/15/20 11:01 Blood Culture - Preliminary Blood No Growth after 24 hours
[2020-04-17 11:31] LABS: Glucose,Whole Blood 37 mg/dL (75-99)
[2020-04-17] MEDS ORDERED: GLUCAGON 1 MG/ML VIAL ONE (11:35)
[2020-04-17 11:46] LABS: Glucose,Whole Blood 74 mg/dL (75-99)
[2020-04-17] MEDS ORDERED: DEXTROSE 50% SYRINGE 50 ML IVP ONE (11:52)
[2020-04-17 12:11] LABS: Anisocytosis Marked; HCT 25.8 % (39.0-53.0); Hypochromasia Moderate; MCH 36.3 pg (25.0-35.0); MCV 113.4 fL (80.0-100.0); Macrocytosis Marked; Mean Platelet Volume 9.9; Platelet Count 197 k/uL (150-450); RBC 2.28 m/uL (4.30-5.90); WBC 3.9 k/uL (3.8-10.6)
[2020-04-17 12:24] LABS: HGB 8.3 gm/dL (13.0-17.5)
[2020-04-17 12:27] LABS: Calcium 8.4 mg/dL (8.4-10.2); Potassium 3.5 mmol/L (3.5-5.1)
[2020-04-17 12:46] LABS: Eosinophils # (M) 0.12 k/uL (0-0.7); Lymphocytes # (M) 1.13 k/uL (1.0-4.8); Mixed Population RBC Present; Monocytes # (M) 0.35 k/uL (0-1.0); Neutrophils % (M) 59 %; Nucleated Red Blood Cells 0 /100 WBC (0-0); Total Cells Counted 100
[2020-04-17 12:47] LABS: Poikilocytosis (M) Present
--- NOTE | 2020-04-17 13:05 | PN ---
PROGRESS NOTE Patient is seen for followup for acute kidney injury which was mainly obstructive uropathy. Patient is currently with an indwelling Fair catheter. Renal function had improved and creatinine was down to 1.6 yesterday. PHYSICAL EXAMINATION: On examination, blood pressure is 105/57, heart rate 55 per minute, patient is afebrile. Examination of the heart S1, S2. Examination of the lungs, bilateral breath sounds are heard. Abdomen is soft, nontender. Examination of lower extremities shows no significant edema. LABS: Not available from today. ASSESSMENT: 1. Acute kidney injury, obstructive uropathy, currently improved. Patient has an indwelling Fair catheter. He will follow up with Urology as outpatient. 2. Anemia with evidence of iron deficiency maintained on IV iron. No active bleeding noted. 3. Fever, maintained on Bactrim. Urine culture is pending. UA showed 25 WBCs. 4. Hematuria associated with bladder decompression. Repeat CBC today. PLAN: Repeat CBC today and follow up with Urology post discharge. MMODL / IJN: [id number] /
[2020-04-17 13:58] LABS: Glucose,Whole Blood 88 mg/dL (75-99)
--- NOTE | 2020-04-17 16:06 | P.PN ---
Subjective Progress Note Date: 04/17/20 Principal diagnosis: This is a 75-year-old male who was recently admitted with severe hematuria, anemia and is being closely monitored. Patient was also found to be short of breath. patient was also found to have acute kidney injury with obstructive uropathy. Currently patient denies any chest pains, shortness of breath, or palpitations. Patient is afebrile. No reports of nausea or vomiting and patient is tolerating diet. Patient was also found to have bilateral hydroneph rosis and urology following. During hospitalization patient has received 2 units of PRBCs and hemoglobin today is 8.3 with no active signs of bleeding at this time. Patient does have an indwelling Fair catheter that is clear yellow urine on exam. nephrology and urology following. patient will be following up with urology in the outpatient setting. Objective - Vital Signs Vital signs: Vital Signs Temp 97.9 F 04/17/20 15:00 Pulse 57 L 04/17/20 15:00 Resp 17 04/17/20 15:00 BP 99/51 04/17/20 15:00 Pulse Ox 94 L 04/17/20 15:00 Intake & Output 04/16/20 04/17/20 04/17/20 18:59 06:59 18:59 Intake Total 1093 Output Total 4250 2800 Balance -3157 -2800 Weight 90.5 kg Intake: Oral 473 Blood Product 620 Rc Pheresis 2 As3 Unit 310 [id number] Rc Pheresis As-3 Unit 310 [id number] Output: Urine 4250 2800 Other: Voiding Method Indwelling Catheter Indwelling Catheter Indwelling Catheter # Voids 2 2 # Bowel Movements 1 - Exam Gen: This is a 75-year-old male sitting up in bed awake, alert and oriented 3, well-developed, well-nourished. HEENT: Head is atraumatic, normocephalic. Pupils equal, round. Sclerae is anicteric. NECK: Supple. No JVD. No lymphadenopathy. No thyromegaly. LUNGS: menisci sounds bilaterally with no wheezing or rhonchi noted. No intercostal retractions. HEART: Regular rate and rhythm. No murmur. ABDOMEN: Soft. Bowel sounds are present. No masses. No tenderness. indwelling Fair catheter noted. EXTREMITIES: No pedal edema. No calf tenderness. NEUROLOGICAL: Patient is awake, alert and oriented x3. Cranial nerves 2 through 12 are grossly intact. - Labs CBC & Chem 7: 04/17/20 11:51 04/17/20 11:51 Labs: Abnormal Lab Results - Last 24 Hours (Table) 04/15/20 04/16/20 04/16/20 Range/Units 07:11 10:45 21:04 RBC (4.30-5.90) m/uL Hgb (13.0-17.5) gm/dL Hct (39.0-53.0) % MCV (80.0-100.0) fL MCH (25.0-35.0) pg RDW (11.5-15.5) % Macrocytosis Chloride (98-107) mmol/L Carbon Dioxide (22-30) mmol/L BUN (9-20) mg/dL Creatinine (0.66-1.25) mg/dL POC Glucose (mg/dL) 103 H (75-99) mg/dL RBC Folate 1,901 H (280 - 791) ng/mL Crossmatch See Detail 04/17/20 04/17/20 04/17/20 Range/Units 06:55 11:27 11:44 RBC (4.30-5.90) m/uL Hgb (13.0-17.5) gm/dL Hct (39.0-53.0) % MCV (80.0-100.0) fL MCH (25.0-35.0) pg RDW (11.5-15.5) % Macrocytosis Chloride (98-107) mmol/L Carbon Dioxide (22-30) mmol/L BUN (9-20) mg/dL Creatinine (0.66-1.25) mg/dL POC Glucose (mg/dL) 101 H 37 L 74 L (75-99) mg/dL RBC Folate (280 - 791) ng/mL Crossmatch 04/17/20 04/17/20 Range/Units 11:51 11:51 RBC 2.28 L (4.30-5.90) m/uL Hgb 8.3 L D (13.0-17.5) gm/dL Hct 25.8 L (39.0-53.0) % MCV 113.4 H D (80.0-100.0) fL MCH 36.3 H (25.0-35.0) pg RDW 27.0 H (11.5-15.5) % Macrocytosis Marked A Chloride 112 H (98-107) mmol/L Carbon Dioxide 21 L (22-30) mmol/L BUN 33 H (9-20) mg/dL Creatinine 1.67 H (0.66-1.25) mg/dL POC Glucose (mg/dL) (75-99) mg/dL RBC Folate (280 - 791) ng/mL Crossmatch Microbiology - Last 24 Hours (Table) 04/15/20 11:01 Blood Culture - Preliminary Blood No Growth after 48 hours 04/16/20 09:00 Urine Culture - Final Urine,Catheterized Assessment and Plan Assessment: anemia Hydronephrosis Hematuria acute kidney injury, obstructive uropathy diabetes mellitus 2 with hypoglycemia episode plan: Bactrim will be discontinued and patient will be maintained on IV ceftriaxone and will continue at this time. Patient to continue on sodium bicarbonate tablets and fluids have been discontinued. Patient had a episodeof hypoglycemia and was given an amp of D50 and is eating and tolerating. Patient is also being maintained on iron infusion. Nephrology and urology following. Will repeat a.m. labs and monitor hemoglobin closely. Further recommendations to follow.
[2020-04-17 16:15] LABS: Glucose,Whole Blood 115 mg/dL (75-99)
[2020-04-17] MEDS: INSULIN ASPART (NovoLOG) 100 UNIT/ML VIAL SQ SCH ×2 (18:31→21:48)
[2020-04-17 20:30] LABS: Glucose,Whole Blood 116 mg/dL (75-99)
[2020-04-18] MEDS: LEVOTHYROXINE 137 MCG TAB PO SCH (06:33)
[2020-04-18 07:07] LABS: Glucose,Whole Blood 106 mg/dL (75-99)
[2020-04-18] MEDS: INSULIN ASPART (NovoLOG) 100 UNIT/ML VIAL SQ SCH ×4 (08:01→21:40)
[2020-04-18] MEDS: TAMSULOSIN 0.4 MG CAP.ER.24H PO SCH (08:14)
[2020-04-18 08:27] LABS: Anisocytosis Marked; HCT 26.6 % (39.0-53.0); HGB 8.4 gm/dL (13.0-17.5); Hypochromasia Moderate; MCH 36.3 pg (25.0-35.0); MCHC 31.6 g/dL (31.0-37.0); Macrocytosis Marked; Mean Platelet Volume 10.6; Platelet Count 199 k/uL (150-450); RBC 2.32 m/uL (4.30-5.90); WBC 3.9 k/uL (3.8-10.6)
[2020-04-18 08:32] LABS: MCV 114.9 fL (80.0-100.0); RDW 26.3 % (11.5-15.5)
[2020-04-18 08:38] LABS: Calcium 8.4 mg/dL (8.4-10.2); Potassium 4.7 mmol/L (3.5-5.1)
[2020-04-18] MEDS: SODIUM BICARBONATE TAB 650 MG TAB PO SCH ×2 (09:01→21:40)
--- NOTE | 2020-04-18 11:15 | PN ---
PROGRESS NOTE Patient is seen for followup for acute kidney injury, which is mostly obstructive uropathy, currently with indwelling Fair catheter. His renal function has improved with creatinine staying at about 1.6-1.7 mg/dL now. We do not have any recent old labs for patient's baseline renal function. Previous creatinine was 1, but that was in 2014. PHYSICAL EXAMINATION: On examination today, blood pressure is 103/51, heart rate 58 per minute, he is afebrile. Examination of the heart S1, S2. Examination of the lungs, bilateral breath sounds are heard. Abdomen is soft, nontender. Examination of lower extremities shows no evidence of edema. [employer] exam grossly intact. LAB: Show sodium of 139, potassium 4.7, chloride 110, CO2 is 19, BUN 33, creatinine 1.7, hemoglobin 8.4 g/dL. ASSESSMENT: 1. Acute kidney injury, obstructive uropathy with bilateral hydronephrosis, mostly chronic. Currently with indwelling Fair catheter. To follow up with Urology as outpatient. 2. Anemia with evidence of iron deficiency maintained on IV iron. No active bleeding noted. 3. Hematuria, currently resolved. 4. Possible underlying chronic kidney disease, NKF stage 3. Baseline not known. Previous creatinine 1.0 in 2014, however, most recently serum creatinine has been staying at 1.6-1.7. Etiology is secondary to chronic obstructive uropathy. We will continue to monitor renal function down the road for possible further improvement. The patient will need followup as outpatient in 1-2 weeks post discharge with Nephrology and Urology. MMODL / IJN: [id number] /
[2020-04-18 11:51] LABS: Glucose,Whole Blood 117 mg/dL (75-99)
[2020-04-18 16:34] LABS: Glucose,Whole Blood 118 mg/dL (75-99)
[2020-04-18 20:37] LABS: Glucose,Whole Blood 131 mg/dL (75-99)
--- NOTE | 2020-04-18 23:45 | PN ---
PROGRESS NOTE This 75-year-old white male with severe hematuria, anemia. He is closely monitored. He was found to be short of breath. The patient has acute kidney injury with obstructive uropathy. Currently patient denies any chest pain or shortness of breath, or palpitations. No nausea, vomiting. He has had 2 units of packed red blood cells. Hemoglobin is 8.3 with no active signs of bleeding at this time. The patient does have an indwelling Fair catheter, it is clear yellow at this time. Temperature 97.9, pulse 57 to 60, respiratory rate 16 to 18, O2 of 94, blood pressure is 99/51. CARDIOVASCULAR: S1, S2. HEMATOLOGY: Negative Homans. PSYCH: Fair mood and affect. VASCULAR: Normal dorsalis pedis, posterior tibial and radial pulse. OPHTHALMOLOGIC: Pupils equal, round, reactive. Hemoglobin is 8.3, white count 3.9, BUN is 33, creatinine 1.67. ASSESSMENT: 1. Anemia. 2. Hydronephrosis. 3. Hematuria. 4. Acute kidney injury. 5. Type 2 diabetes mellitus. 6. Hyperglycemia. Glipizide has been discontinued. Antibiotics will be discontinued orally, start on IV Rocephin, sodium bicarbonate fluids, continue D50, eating and tolerating. Patient has been maintained on . Possible discharge home with patient stabilized. MMODL / IJN: [id number] /
[2020-04-19] MEDS: LEVOTHYROXINE 137 MCG TAB PO SCH (06:01)
[2020-04-19 06:41] LABS: Glucose,Whole Blood 124 mg/dL (75-99)
[2020-04-19 07:37] LABS: Anisocytosis Marked; Basophils % (A) 1 %; Eosinophils # (A) 0.1 k/uL (0-0.7); Eosinophils % (A) 5 %; HCT 25.2 % (39.0-53.0); Hypochromasia Marked; Lymphocytes # (A) 1.1 k/uL (1.0-4.8); Lymphocytes % (A) 33 %; MCHC 31.9 g/dL (31.0-37.0); Macrocytosis Marked; Mean Platelet Volume 10.8; Monocytes # (A) 0.2 k/uL (0-1.0); Monocytes % (A) 5 %; Neutrophils # (A) 1.7 k/uL (1.3-7.7); Neutrophils % (A) 54 %; Platelet Count 208 k/uL (150-450); RBC 2.17 m/uL (4.30-5.90); WBC 3.2 k/uL (3.8-10.6)
[2020-04-19] MEDS: INSULIN ASPART (NovoLOG) 100 UNIT/ML VIAL SQ SCH ×4 (07:40→21:25)
[2020-04-19 07:47] LABS: Albumin 3.3 g/dL (3.5-5.0); Calcium 8.1 mg/dL (8.4-10.2); Potassium 4.7 mmol/L (3.5-5.1); Total Bilirubin 0.5 mg/dL (0.2-1.3); Total Protein 6.3 g/dL (6.3-8.2)
[2020-04-19 08:22] LABS: RDW 25.8 % (11.5-15.5)
[2020-04-19 08:58] LABS: RBC Fragments Present
[2020-04-19] MEDS: TAMSULOSIN 0.4 MG CAP.ER.24H PO SCH (09:13)
[2020-04-19] MEDS: SODIUM BICARBONATE TAB 650 MG TAB PO SCH ×2 (09:19→21:25)
[2020-04-19 09:48] LABS: Methylmalonic Acid 0.47 umol/L (<0.40)
[2020-04-19 11:35] LABS: Glucose,Whole Blood 104 mg/dL (75-99)
--- NOTE | 2020-04-19 11:51 | P.PN ---
Subjective Patient is seen in follow-up for acute kidney injury secondary to obstructive uropathy. He has a Fair catheter. Nonoliguric. Creatinine down to 1.43 today. Oral intake is good. No vomiting or diarrhea. Vital signs are stable. General: The patient appeared well nourished and normally developed. HEENT: Head exam is unremarkable. Neck is without jugular venous distension. LUNGS: Lungs are clear to auscultation and percussion. Breath sounds decreased. HEART: Rate and Rhythm are regular. ABDOMEN: Soft, nontender. EXTREMITITES: No clubbing, cyanosis, or edema. Objective - Vital Signs Vital signs: Vital Signs Temp 98.3 F 04/19/20 07:00 Pulse 66 04/19/20 07:00 Resp 18 04/19/20 07:00 BP 111/61 04/19/20 07:00 Pulse Ox 97 04/19/20 07:00 Intake & Output 04/18/20 04/19/20 04/19/20 18:59 06:59 18:59 Intake Total 250 Output Total 1600 3400 510 Balance -1350 -3400 -510 Weight 90.3 kg Intake: Oral 250 Output: Urine 1600 3400 510 Coude 1500 Other: Voiding Method Indwelling Catheter Indwelling Catheter Indwelling Catheter # Voids 2 2 - Labs CBC & Chem 7: 04/19/20 06:32 04/19/20 06:32 Labs: Abnormal Lab Results - Last 24 Hours (Table) 04/15/20 04/18/20 04/18/20 Range/Units 07:11 11:48 16:32 WBC (3.8-10.6) k/uL RBC (4.30-5.90) m/uL Hgb (13.0-17.5) gm/dL Hct (39.0-53.0) % MCV (80.0-100.0) fL MCH (25.0-35.0) pg RDW (11.5-15.5) % Macrocytosis Chloride (98-107) mmol/L Carbon Dioxide (22-30) mmol/L BUN (9-20) mg/dL Creatinine (0.66-1.25) mg/dL Glucose (74-99) mg/dL POC Glucose (mg/dL) 117 H 118 H (75-99) mg/dL Calcium (8.4-10.2) mg/dL ALT (4-49) U/L Albumin (3.5-5.0) g/dL Methylmalonic Acid 0.47 H (<0.40) umol/L 04/18/20 04/19/20 04/19/20 Range/Units 20:34 06:32 06:32 WBC 3.2 L (3.8-10.6) k/uL RBC 2.17 L (4.30-5.90) m/uL Hgb 8.0 L (13.0-17.5) gm/dL Hct 25.2 L (39.0-53.0) % MCV 116.0 H (80.0-100.0) fL MCH 37.0 H (25.0-35.0) pg RDW 25.8 H (11.5-15.5) % Macrocytosis Marked A Chloride 114 H (98-107) mmol/L Carbon Dioxide 21 L (22-30) mmol/L BUN 30 H (9-20) mg/dL Creatinine 1.43 H (0.66-1.25) mg/dL Glucose 108 H (74-99) mg/dL POC Glucose (mg/dL) 131 H (75-99) mg/dL Calcium 8.1 L (8.4-10.2) mg/dL ALT 75 H (4-49) U/L Albumin 3.3 L (3.5-5.0) g/dL Methylmalonic Acid (<0.40) umol/L 04/19/20 04/19/20 Range/Units 06:39 11:34 WBC (3.8-10.6) k/uL RBC (4.30-5.90) m/uL Hgb (13.0-17.5) gm/dL Hct (39.0-53.0) % MCV (80.0-100.0) fL MCH (25.0-35.0) pg RDW (11.5-15.5) % Macrocytosis Chloride (98-107) mmol/L Carbon Dioxide (22-30) mmol/L BUN (9-20) mg/dL Creatinine (0.66-1.25) mg/dL Glucose (74-99) mg/dL POC Glucose (mg/dL) 124 H 104 H (75-99) mg/dL Calcium (8.4-10.2) mg/dL ALT (4-49) U/L Albumin (3.5-5.0) g/dL Methylmalonic Acid (<0.40) umol/L Microbiology - Last 24 Hours (Table) 04/15/20 11:01 Blood Culture - Preliminary Blood No Growth after 72 hours Assessment and Plan Plan: Assessment: 1. Acute kidney injury secondary to obstructive uropathy. Renal function improving. Creatinine 1.43 today. No proteinuria on UA. 2. Metabolic acidosis secondary to acute kidney injury. Improving. Maintained on oral sodium bicarbonate. 3. Urinary retention with bilateral hydronephrosis. Urology following. Potential cystoscopy outpatient. Currently has Fair catheter. Also on Flomax. 4. Acute blood loss anemia status post blood transfusion. Stable. Plan: Stable for discharge from nephrology standpoint. Follow up outpatient in 2 weeks.
--- NOTE | 2020-04-19 14:11 | P.PN ---
Subjective Progress Note Date: 04/19/20 Principal diagnosis: Anemia and mild leukopenia In follow-up today patient states feeling pretty well, he denies any complaints of a 10 point review of systems. Objective - Vital Signs Vital signs: Vital Signs Temp 98.3 F 04/19/20 07:00 Pulse 66 04/19/20 07:00 Resp 18 04/19/20 07:00 BP 111/61 04/19/20 07:00 Pulse Ox 97 04/19/20 07:00 Intake & Output 04/18/20 04/19/20 04/19/20 18:59 06:59 18:59 Intake Total 250 Output Total 1600 3400 510 Balance -1350 -3400 -510 Weight 90.3 kg Intake: Oral 250 Output: Urine 1600 3400 510 Coude 1500 Other: Voiding Method Indwelling Catheter Indwelling Catheter Indwelling Catheter # Voids 2 2 - Constitutional General appearance: Present: average body habitus, cooperative, no acute distress - EENT Eyes: Present: anicteric sclerae, EOMI ENT: Present: hearing grossly normal - Respiratory Respiratory: bilateral: CTA - Cardiovascular Rhythm: regular Heart sounds: normal: S1, S2 Abnormal Heart Sounds: Present: systolic murmur - Peripheral edema leg Peripheral Edema: bilateral: None - Gastrointestinal General gastrointestinal: Present: normal bowel sounds, soft - Neurologic Neurologic: Present: CNII-XII intact - Musculoskeletal Musculoskeletal: Present: strength equal bilaterally - Psychiatric Psychiatric: Present: A&O x's 3, appropriate affect, intact judgment & insight - Labs CBC & Chem 7: 04/19/20 06:32 04/19/20 06:32 Labs: Abnormal Lab Results - Last 24 Hours (Table) 04/15/20 04/18/20 04/18/20 Range/Units 07:11 11:48 16:32 WBC (3.8-10.6) k/uL RBC (4.30-5.90) m/uL Hgb (13.0-17.5) gm/dL Hct (39.0-53.0) % MCV (80.0-100.0) fL MCH (25.0-35.0) pg RDW (11.5-15.5) % Macrocytosis Chloride (98-107) mmol/L Carbon Dioxide (22-30) mmol/L BUN (9-20) mg/dL Creatinine (0.66-1.25) mg/dL Glucose (74-99) mg/dL POC Glucose (mg/dL) 117 H 118 H (75-99) mg/dL Calcium (8.4-10.2) mg/dL ALT (4-49) U/L Albumin (3.5-5.0) g/dL Methylmalonic Acid 0.47 H (<0.40) umol/L 04/18/20 04/19/20 04/19/20 Range/Units 20:34 06:32 06:32 WBC 3.2 L (3.8-10.6) k/uL RBC 2.17 L (4.30-5.90) m/uL Hgb 8.0 L (13.0-17.5) gm/dL Hct 25.2 L (39.0-53.0) % MCV 116.0 H (80.0-100.0) fL MCH 37.0 H (25.0-35.0) pg RDW 25.8 H (11.5-15.5) % Macrocytosis Marked A Chloride 114 H (98-107) mmol/L Carbon Dioxide 21 L (22-30) mmol/L BUN 30 H (9-20) mg/dL Creatinine 1.43 H (0.66-1.25) mg/dL Glucose 108 H (74-99) mg/dL POC Glucose (mg/dL) 131 H (75-99) mg/dL Calcium 8.1 L (8.4-10.2) mg/dL ALT 75 H (4-49) U/L Albumin 3.3 L (3.5-5.0) g/dL Methylmalonic Acid (<0.40) umol/L 04/19/20 Range/Units 06:39 WBC (3.8-10.6) k/uL RBC (4.30-5.90) m/uL Hgb (13.0-17.5) gm/dL Hct (39.0-53.0) % MCV (80.0-100.0) fL MCH (25.0-35.0) pg RDW (11.5-15.5) % Macrocytosis Chloride (98-107) mmol/L Carbon Dioxide (22-30) mmol/L BUN (9-20) mg/dL Creatinine (0.66-1.25) mg/dL Glucose (74-99) mg/dL POC Glucose (mg/dL) 124 H (75-99) mg/dL Calcium (8.4-10.2) mg/dL ALT (4-49) U/L Albumin (3.5-5.0) g/dL Methylmalonic Acid (<0.40) umol/L Microbiology - Last 24 Hours (Table) 04/15/20 11:01 Blood Culture - Preliminary Blood No Growth after 72 hours Assessment and Plan (1) Bicytopenia Current Visit: Yes Status: Acute Priority: High Code(s): D75.89 - OTHER SPECIFIED DISEASES OF BLOOD AND BLOOD-FORMING ORGANS SNOMED Code(s): 65826316 (2) Renal insufficiency Current Visit: Yes Status: Acute Code(s): N28.9 - DISORDER OF KIDNEY AND URETER, UNSPECIFIED SNOMED Code(s): 408837899 Plan: Bone marrow biopsy and aspirate scheduled for tomorrow morning at 7 AM. Patient does have iron deficiency as well as chronic kidney disease. GI workup in the future would be appropriate. EPO levels are elevated, BM Bx and asp sched for AM
[2020-04-19 16:41] LABS: Glucose,Whole Blood 88 mg/dL (75-99)
[2020-04-19 20:34] LABS: Glucose,Whole Blood 118 mg/dL (75-99)
--- NOTE | 2020-04-20 00:21 | PN ---
PROGRESS NOTE Anemia, mild leukopenia. He Is giving appropriate answers. No chest pain. No shortness of breath. No lightheadedness, dizziness or syncope. O2 of 97. Blood pressure 111/61, temperature 98.3, pulse 60s, respiratory rate 18 to 20. GI: Soft. Fair catheter is clear urine. CARDIOVASCULAR: S1, S2. LUNGS: Clear. White count 3.2, hemoglobin 8, platelets , BUN 30, creatinine 1.43. ASSESSMENT: 1. Renal insufficiency. 2. Bicytopenia, unclear etiology. 3. Severe anemia despite hematuria which has resolved. He is going to get a bone marrow biopsy and aspirate tomorrow morning at 7 a.m. 4. Iron deficiency. 5. Chronic kidney disease. GI workup would be appropriate. EPO levels are elevated. Bone marrow biopsy and aspiration is scheduled for morning. Continue current treatment. MMODL / IJN: [id number] /
[2020-04-20] MEDS: LEVOTHYROXINE 137 MCG TAB PO SCH (06:47)
[2020-04-20] MEDS ORDERED: LIDOCAINE 2% INJ 20 MG/ML SQ ONE ×2 (07:05→07:16)
[2020-04-20] MEDS ORDERED: ePHEDrine SULFATE/0.9% NACL/PF 50 MG/5 ML SYRINGE IV ONE (07:09)
[2020-04-20] MEDS ORDERED: MIDAZOLAM 2 MG/2 ML VIAL ONE (07:09)
[2020-04-20] MEDS ORDERED: LIDOCAINE 1% INJ 10MG/ML (20 ML MDV) ONE (07:09)
[2020-04-20] MEDS ORDERED: fentaNYL (PF) 50 MCG/ML 2 ML AMP ONE (07:09)
[2020-04-20] MEDS ORDERED: PROPOFOL 10 MG/ML 20 ML VIAL IV ONE (07:09)
[2020-04-20] MEDS ORDERED: IV FLUID CONTINUATION 1,000 ML IV ONE (07:09)
--- NOTE | 2020-04-20 07:26 | P.PCN ---
Date of Procedure: 04/20/20 Preoperative Diagnosis: Macrocytic anemia Postoperative Diagnosis: Same Procedure(s) Performed: Bone marrow aspiration and biopsy Anesthesia: MAC Surgeon: Braden Saavedra [employer] #1: Stated None Pathology: other Condition: stable Disposition: floor Indications for Procedure: Macrocytic anemia with negative lab work up Operative Findings: Adequate samples Description of Procedure: The procedure was explained in detail to the patient on the floor. Informed consent was obtained on the floor. He was brought to outpatient endoscopy suite and placed in the left lateral decubitus position. The area over both posterior iliac crest was cleaned and prepped with chlorhexidine and sterile draping. IV sedation was then initiated. Local anesthesia was administered with Xylocaine to the right posterior iliac crest. A Jamshidi needle was then inserted and bone marrow aspirate and biopsy obtained. On withdrawal of the needle hemostasis was easily achieved. Blood loss was minimal and recovery from sedation was satisfactory. He appeared to have tolerated the procedure well without any obvious immediate complications.
[2020-04-20 07:42] LABS: Glucose,Whole Blood 110 mg/dL (75-99)
[2020-04-20] MEDS: INSULIN ASPART (NovoLOG) 100 UNIT/ML VIAL SQ SCH ×4 (07:57→20:46)
[2020-04-20] MEDS: TAMSULOSIN 0.4 MG CAP.ER.24H PO SCH (08:00)
[2020-04-20] MEDS: SODIUM BICARBONATE TAB 650 MG TAB PO SCH ×2 (08:00→20:53)
[2020-04-20 08:51] LABS: Anisocytosis Marked; HCT 26.6 % (39.0-53.0); HGB 8.5 gm/dL (13.0-17.5); Hypochromasia Marked; MCH 36.7 pg (25.0-35.0); MCHC 31.8 g/dL (31.0-37.0); MCV 115.5 fL (80.0-100.0); Macrocytosis Marked; Mean Platelet Volume 10.7; Platelet Count 279 k/uL (150-450); RBC 2.31 m/uL (4.30-5.90); WBC 4.2 k/uL (3.8-10.6)
[2020-04-20 09:21] LABS: Albumin 3.8 g/dL (3.5-5.0); Calcium 8.5 mg/dL (8.4-10.2); Potassium 5.2 mmol/L (3.5-5.1); Total Bilirubin 0.5 mg/dL (0.2-1.3); Total Protein 7.1 g/dL (6.3-8.2)
[2020-04-20 09:27] LABS: RDW 25.9 % (11.5-15.5)
[2020-04-20 11:19] LABS: Band Neutrophils % 2 %; Eosinophils # (M) 0.08 k/uL (0-0.7); Monocytes # (M) 0.38 k/uL (0-1.0); Neutrophils % (M) 56 %; Nucleated Red Blood Cells 0 /100 WBC (0-0); Total Cells Counted 100
[2020-04-20 11:20] LABS: Large Platelets Present
[2020-04-20 11:23] LABS: Poikilocytosis (M) Present
[2020-04-20 11:27] LABS: Reticulocyte % 1.6 % (0.5-2.0)
[2020-04-20 11:47] LABS: Glucose,Whole Blood 121 mg/dL (75-99)
--- NOTE | 2020-04-20 13:01 | P.PN ---
Subjective Patient is seen in follow-up for acute kidney injury secondary to obstructive uropathy. He has a Fair catheter. Nonoliguric. Renal function stable. Creatinine 1.4 today. Oral intake is good. No vomiting or diarrhea. Vital signs are stable. General: The patient appeared well nourished and normally developed. HEENT: Head exam is unremarkable. Neck is without jugular venous distension. LUNGS: Lungs are clear to auscultation and percussion. Breath sounds decreased. HEART: Rate and Rhythm are regular. ABDOMEN: Soft, nontender. EXTREMITITES: No clubbing, cyanosis, or edema. Objective - Vital Signs Vital signs: Vital Signs Temp 97.7 F 04/20/20 07:00 Pulse 54 L 04/20/20 07:00 Resp 18 04/20/20 08:00 BP 107/63 04/20/20 07:00 Pulse Ox 96 04/20/20 07:00 Intake & Output 04/19/20 04/20/20 04/20/20 18:59 06:59 18:59 Intake Total 1200 200 Output Total 2690 600 Balance -1490 -600 200 Weight 90.4 kg Intake: IV 200 Oral 1200 Output: Urine 2690 600 Coude 2180 Other: Voiding Method Indwelling Catheter Indwelling Catheter Indwelling Catheter # Voids 1 - Labs CBC & Chem 7: 04/20/20 08:08 04/20/20 08:08 Labs: Abnormal Lab Results - Last 24 Hours (Table) 04/16/20 04/19/20 04/20/20 Range/Units 07:10 20:32 07:40 RBC (4.30-5.90) m/uL Hgb (13.0-17.5) gm/dL Hct (39.0-53.0) % MCV (80.0-100.0) fL MCH (25.0-35.0) pg RDW (11.5-15.5) % Macrocytosis Potassium (3.5-5.1) mmol/L Chloride (98-107) mmol/L BUN (9-20) mg/dL Creatinine (0.66-1.25) mg/dL POC Glucose (mg/dL) 118 H 110 H (75-99) mg/dL ALT (4-49) U/L Total PSA 4.2 H (<=4.0) ng/mL 04/20/20 04/20/20 04/20/20 Range/Units 08:08 08:08 11:46 RBC 2.31 L (4.30-5.90) m/uL Hgb 8.5 L (13.0-17.5) gm/dL Hct 26.6 L (39.0-53.0) % MCV 115.5 H (80.0-100.0) fL MCH 36.7 H (25.0-35.0) pg RDW 25.9 H (11.5-15.5) % Macrocytosis Marked A Potassium 5.2 H (3.5-5.1) mmol/L Chloride 111 H (98-107) mmol/L BUN 32 H (9-20) mg/dL Creatinine 1.48 H (0.66-1.25) mg/dL POC Glucose (mg/dL) 121 H (75-99) mg/dL ALT 69 H (4-49) U/L Total PSA (<=4.0) ng/mL Microbiology - Last 24 Hours (Table) 04/15/20 11:01 Blood Culture - Preliminary Blood No Growth after 96 hours Assessment and Plan Plan: Assessment: 1. Acute kidney injury secondary to obstructive uropathy. Renal function stable. Creatinine 1.48 today. No proteinuria on UA. 2. Metabolic acidosis secondary to acute kidney injury. Improving. Maintained on oral sodium bicarbonate. 3. Urinary retention with bilateral hydronephrosis. Urology following. Potential cystoscopy outpatient. Currently has Fair catheter. Also on Flomax. 4. Acute blood loss anemia status post blood transfusion. Stable. Status post bone marrow biopsy this morning. Plan: Check iron studies. Continue to monitor renal function and urine output.juju
[2020-04-20 17:04] LABS: Glucose,Whole Blood 110 mg/dL (75-99)
[2020-04-20 20:06] LABS: Glucose,Whole Blood 100 mg/dL (75-99)
[2020-04-20 21:22] LABS: % Iron Saturation 43.87 (15.00-50.00); Ferritin 554.5 ng/mL (22.0-322.0)
--- NOTE | 2020-04-21 00:29 | PN ---
PROGRESS NOTE A 75-year-old white male has large amount hematuria tonight. We are going to monitor him for large hematuria and GI bleeding. Wait for bone marrow biopsy to be done. Otherwise patient could be discharged except for the severe bleeding from urine too. CARDIOVASCULAR: S1, S2. LUNGS: Clear. GI: Soft. ASSESSMENT: 1. Severe anemia. 2. Hematuria of unclear etiology. 3. Urinary hematuria. Prognosis guarded. Follow up in the next 24 to 48 hours for possible discharge if hematuria stops. Fair catheter is still in place. He feels good. Will recheck hemoglobin in the morning. Prognosis guarded due to large amount of blood in the urine. MMODL / IJN: [id number] /
[2020-04-21] MEDS: LEVOTHYROXINE 137 MCG TAB PO SCH (05:54)
[2020-04-21 06:59] LABS: Glucose,Whole Blood 144 mg/dL (75-99)
[2020-04-21] MEDS: SODIUM BICARBONATE TAB 650 MG TAB PO SCH (07:19)
[2020-04-21] MEDS: INSULIN ASPART (NovoLOG) 100 UNIT/ML VIAL SQ SCH ×2 (07:19→11:47)
[2020-04-21] MEDS: TAMSULOSIN 0.4 MG CAP.ER.24H PO SCH (07:19)
[2020-04-21 08:38] LABS: Albumin 3.8 g/dL (3.5-5.0); Calcium 8.5 mg/dL (8.4-10.2); Magnesium 1.7 mg/dL (1.6-2.3); Potassium 4.7 mmol/L (3.5-5.1); Total Bilirubin 0.4 mg/dL (0.2-1.3); Total Protein 6.9 g/dL (6.3-8.2)
[2020-04-21 08:49] LABS: Anisocytosis Marked; Basophils % (A) 0 %; Eosinophils # (A) 0.1 k/uL (0-0.7); Eosinophils % (A) 3 %; HCT 25.5 % (39.0-53.0); HGB 8.3 gm/dL (13.0-17.5); Hypochromasia Marked; Lymphocytes # (A) 1.4 k/uL (1.0-4.8); Lymphocytes % (A) 38 %; MCH 37.8 pg (25.0-35.0); MCHC 32.4 g/dL (31.0-37.0); MCV 116.6 fL (80.0-100.0); Macrocytosis Marked; Mean Platelet Volume 10.9; Monocytes # (A) 0.2 k/uL (0-1.0); Monocytes % (A) 5 %; Neutrophils # (A) 1.9 k/uL (1.3-7.7); Neutrophils % (A) 52 %; Platelet Count 224 k/uL (150-450); RBC 2.18 m/uL (4.30-5.90); WBC 3.7 k/uL (3.8-10.6)
[2020-04-21 08:50] LABS: RDW 25.9 % (11.5-15.5)
--- NOTE | 2020-04-21 09:13 | P.PN ---
Subjective Progress Note Date: 04/21/20 The patient is in the hospital with acute renal failure on chronic with urine retention, acute and probably chronic. The patient has done well. From a urologic standpoint I would leave the catheter in upon discharge and he should be set up in the office for cmg and cystoscopy Objective - Vital Signs Vital signs: Vital Signs Temp 98.0 F 04/21/20 07:00 Pulse 56 L 04/21/20 07:00 Resp 16 04/21/20 07:15 BP 103/56 04/21/20 07:00 Pulse Ox 96 04/21/20 07:00 Intake & Output 04/20/20 04/21/20 04/21/20 18:59 06:59 18:59 Intake Total 200 260 Output Total 1400 Balance 200 -1140 Weight 90.3 kg Intake: IV 200 Intake, IV Titration 260 Amount IV Fluid Continuation 1, 260 000 ml @ 0 mls/hr IV .[employer] [facility] Rx#:[id number] Output: Urine 1400 Other: Voiding Method Indwelling Catheter Indwelling Catheter Indwelling Catheter - Labs CBC & Chem 7: 04/21/20 08:03 04/21/20 08:03 Labs: Abnormal Lab Results - Last 24 Hours (Table) 04/20/20 04/20/20 04/20/20 Range/Units 07:00 08:08 08:08 WBC (3.8-10.6) k/uL RBC 2.31 L (4.30-5.90) m/uL Hgb 8.5 L (13.0-17.5) gm/dL Hct 26.6 L (39.0-53.0) % MCV 115.5 H (80.0-100.0) fL MCH 36.7 H (25.0-35.0) pg RDW 25.9 H (11.5-15.5) % Macrocytosis Marked A Potassium 5.2 H (3.5-5.1) mmol/L Chloride 111 H (98-107) mmol/L Carbon Dioxide (22-30) mmol/L BUN 32 H (9-20) mg/dL Creatinine 1.48 H (0.66-1.25) mg/dL Glucose (74-99) mg/dL POC Glucose (mg/dL) (75-99) mg/dL Ferritin 554.5 H (22.0-322.0) ng/mL ALT 69 H (4-49) U/L 04/20/20 04/20/20 04/20/20 Range/Units 11:46 17:03 20:05 WBC (3.8-10.6) k/uL RBC (4.30-5.90) m/uL Hgb (13.0-17.5) gm/dL Hct (39.0-53.0) % MCV (80.0-100.0) fL MCH (25.0-35.0) pg RDW (11.5-15.5) % Macrocytosis Potassium (3.5-5.1) mmol/L Chloride (98-107) mmol/L Carbon Dioxide (22-30) mmol/L BUN (9-20) mg/dL Creatinine (0.66-1.25) mg/dL Glucose (74-99) mg/dL POC Glucose (mg/dL) 121 H 110 H 100 H (75-99) mg/dL Ferritin (22.0-322.0) ng/mL ALT (4-49) U/L 04/21/20 04/21/20 04/21/20 Range/Units 06:57 08:03 08:03 WBC 3.7 L (3.8-10.6) k/uL RBC 2.18 L (4.30-5.90) m/uL Hgb 8.3 L (13.0-17.5) gm/dL Hct 25.5 L (39.0-53.0) % MCV 116.6 H (80.0-100.0) fL MCH 37.8 H (25.0-35.0) pg RDW 25.9 H (11.5-15.5) % Macrocytosis Marked A Potassium (3.5-5.1) mmol/L Chloride 110 H (98-107) mmol/L Carbon Dioxide 21 L (22-30) mmol/L BUN 36 H (9-20) mg/dL Creatinine 1.44 H (0.66-1.25) mg/dL Glucose 134 H (74-99) mg/dL POC Glucose (mg/dL) 144 H (75-99) mg/dL Ferritin (22.0-322.0) ng/mL ALT (4-49) U/L Microbiology - Last 24 Hours (Table) 04/15/20 11:01 Blood Culture - Preliminary Blood No Growth after 120 hours
[2020-04-21 09:30] LABS: Poikilocytosis (M) Present
--- NOTE | 2020-04-21 09:58 | P.PN ---
Subjective Patient is seen in follow-up for acute kidney injury secondary to obstructive uropathy. He has a Fair catheter. Nonoliguric. Renal function stable. Creatinine 1.44 today. Oral intake is good. No vomiting or diarrhea. Hematuria noted in the Fair bag. He has been seen by urology this morning. Vital signs are stable. General: The patient appeared well nourished and normally developed. HEENT: Head exam is unremarkable. Neck is without jugular venous distension. LUNGS: Lungs are clear to auscultation and percussion. Breath sounds decreased. HEART: Rate and Rhythm are regular. ABDOMEN: Soft, nontender. EXTREMITITES: No clubbing, cyanosis, or edema. Objective - Vital Signs Vital signs: Vital Signs Temp 98.0 F 04/21/20 07:00 Pulse 56 L 04/21/20 07:00 Resp 16 04/21/20 07:15 BP 103/56 04/21/20 07:00 Pulse Ox 96 04/21/20 07:00 Intake & Output 04/20/20 04/21/20 04/21/20 18:59 06:59 18:59 Intake Total 200 260 Output Total 1400 Balance 200 -1140 Weight 90.3 kg Intake: IV 200 Intake, IV Titration 260 Amount IV Fluid Continuation 1, 260 000 ml @ 0 mls/hr IV .[facility] ONE Rx#:[id number] Output: Urine 1400 Other: Voiding Method Indwelling Catheter Indwelling Catheter Indwelling Catheter - Labs CBC & Chem 7: 04/21/20 08:03 04/21/20 08:03 Labs: Abnormal Lab Results - Last 24 Hours (Table) 04/20/20 04/20/20 04/20/20 Range/Units 07:00 08:08 11:46 WBC (3.8-10.6) k/uL RBC 2.31 L (4.30-5.90) m/uL Hgb 8.5 L (13.0-17.5) gm/dL Hct 26.6 L (39.0-53.0) % MCV 115.5 H (80.0-100.0) fL MCH 36.7 H (25.0-35.0) pg RDW 25.9 H (11.5-15.5) % Macrocytosis Marked A Chloride (98-107) mmol/L Carbon Dioxide (22-30) mmol/L BUN (9-20) mg/dL Creatinine (0.66-1.25) mg/dL Glucose (74-99) mg/dL POC Glucose (mg/dL) 121 H (75-99) mg/dL Ferritin 554.5 H (22.0-322.0) ng/mL 04/20/20 04/20/20 04/21/20 Range/Units 17:03 20:05 06:57 WBC (3.8-10.6) k/uL RBC (4.30-5.90) m/uL Hgb (13.0-17.5) gm/dL Hct (39.0-53.0) % MCV (80.0-100.0) fL MCH (25.0-35.0) pg RDW (11.5-15.5) % Macrocytosis Chloride (98-107) mmol/L Carbon Dioxide (22-30) mmol/L BUN (9-20) mg/dL Creatinine (0.66-1.25) mg/dL Glucose (74-99) mg/dL POC Glucose (mg/dL) 110 H 100 H 144 H (75-99) mg/dL Ferritin (22.0-322.0) ng/mL 04/21/20 04/21/20 Range/Units 08:03 08:03 WBC 3.7 L (3.8-10.6) k/uL RBC 2.18 L (4.30-5.90) m/uL Hgb 8.3 L (13.0-17.5) gm/dL Hct 25.5 L (39.0-53.0) % MCV 116.6 H (80.0-100.0) fL MCH 37.8 H (25.0-35.0) pg RDW 25.9 H (11.5-15.5) % Macrocytosis Marked A Chloride 110 H (98-107) mmol/L Carbon Dioxide 21 L (22-30) mmol/L BUN 36 H (9-20) mg/dL Creatinine 1.44 H (0.66-1.25) mg/dL Glucose 134 H (74-99) mg/dL POC Glucose (mg/dL) (75-99) mg/dL Ferritin (22.0-322.0) ng/mL Microbiology - Last 24 Hours (Table) 04/15/20 11:01 Blood Culture - Preliminary Blood No Growth after 120 hours Assessment and Plan Plan: Assessment: 1. Acute kidney injury secondary to obstructive uropathy. Renal function stable. Creatinine 1.44 today. No proteinuria on UA. 2. Metabolic acidosis secondary to acute kidney injury. Improving. Maintained on oral sodium bicarbonate. 3. Urinary retention with bilateral hydronephrosis. Urology following. Potential cystoscopy outpatient. Currently has Fair catheter. Also on Flomax. 4. Acute blood loss anemia status post blood transfusion. Stable. Status post bone marrow biopsy on April 20. Iron replete. Plan: Stable for discharge from nephrology standpoint. Follow up outpatient in 2 weeks.
[2020-04-21 11:36] LABS: Glucose,Whole Blood 85 mg/dL (75-99)
[2020-04-21 13:24] VITALS: BMI 24.8
[2020-04-21 14:23] VITALS: BP 125/62; PULSE 52; RESP 17; TEMP 97.9
--- NOTE | 2020-04-21 14:49 | P.PN ---
Subjective Progress Note Date: 04/21/20 Principal diagnosis: Anemia and mild leukopenia In follow-up today patient is in good spirits. He denies any pain, his bone marrow biopsy site is not painful. She has no complaints of a 10 point review of system. Objective - Vital Signs Vital signs: Vital Signs Temp 97.9 F 04/21/20 14:22 Pulse 52 L 04/21/20 14:22 Resp 17 04/21/20 14:22 BP 125/62 04/21/20 14:22 Pulse Ox 96 04/21/20 14:22 Intake & Output 04/20/20 04/21/20 04/21/20 18:59 06:59 18:59 Intake Total 200 260 Output Total 1400 Balance 200 -1140 Weight 90.3 kg 90.3 kg Intake: IV 200 Intake, IV Titration 260 Amount IV Fluid Continuation 1, 260 000 ml @ 0 mls/hr IV [email or web address] ONE Rx#:[id number] Output: Urine 1400 Other: Voiding Method Indwelling Catheter Indwelling Catheter Indwelling Catheter - Exam Well-developed, well-nourished, no acute distress, alert and oriented 4, independently ambulatory, patient looks well, able to carry on a conversation without any difficulty breathing. Bone marrow biopsy site evaluated, pressure dressing still in place, no palpable hematoma, swelling, no pain in the area. - Labs CBC & Chem 7: 04/21/20 08:03 04/21/20 08:03 Labs: Abnormal Lab Results - Last 24 Hours (Table) 04/20/20 04/20/20 04/20/20 Range/Units 07:00 17:03 20:05 WBC (3.8-10.6) k/uL RBC (4.30-5.90) m/uL Hgb (13.0-17.5) gm/dL Hct (39.0-53.0) % MCV (80.0-100.0) fL MCH (25.0-35.0) pg RDW (11.5-15.5) % Macrocytosis Chloride (98-107) mmol/L Carbon Dioxide (22-30) mmol/L BUN (9-20) mg/dL Creatinine (0.66-1.25) mg/dL Glucose (74-99) mg/dL POC Glucose (mg/dL) 110 H 100 H (75-99) mg/dL Ferritin 554.5 H (22.0-322.0) ng/mL 04/21/20 04/21/20 04/21/20 Range/Units 06:57 08:03 08:03 WBC 3.7 L (3.8-10.6) k/uL RBC 2.18 L (4.30-5.90) m/uL Hgb 8.3 L (13.0-17.5) gm/dL Hct 25.5 L (39.0-53.0) % MCV 116.6 H (80.0-100.0) fL MCH 37.8 H (25.0-35.0) pg RDW 25.9 H (11.5-15.5) % Macrocytosis Marked A Chloride 110 H (98-107) mmol/L Carbon Dioxide 21 L (22-30) mmol/L BUN 36 H (9-20) mg/dL Creatinine 1.44 H (0.66-1.25) mg/dL Glucose 134 H (74-99) mg/dL POC Glucose (mg/dL) 144 H (75-99) mg/dL Ferritin (22.0-322.0) ng/mL Microbiology - Last 24 Hours (Table) 04/15/20 11:01 Blood Culture - Final Blood No Growth after 144 hours Assessment and Plan (1) Bicytopenia Current Visit: Yes Status: Acute Priority: High Code(s): D75.89 - OTHER SPECIFIED DISEASES OF BLOOD AND BLOOD-FORMING ORGANS SNOMED Code(s): 21886737 (2) Renal insufficiency Current Visit: Yes Status: Acute Code(s): N28.9 - DISORDER OF KIDNEY AND URETER, UNSPECIFIED SNOMED Code(s): 392208445 Plan: Persistent anemia, no need for transfusion. Bone marrow biopsy and aspirate completed yesterday. Follow-up 7-10 days for results. Patient does have iron deficiency as well as chronic kidney disease. GI workup in the future would be appropriate. Patient is going to go home with Fair catheter with follow-up with Urology.
== END 2020-04-21 15:25 | disposition home or self-care (01) | DRG 683 ==
LOC: EC 15:52 → 4SSUR 18:10
PROVIDERS: ADMIT Family Medicine; ATTEND Family Medicine
PROC: 30233N1 Transfusion of Nonautologous Red Blood Cells into Peripheral Vein, Percutaneous Approach (ICD-10-PCS; 2020-04-16)
PROC: 07DR3ZX Extraction of Iliac Bone Marrow, Percutaneous Approach, Diagnostic (ICD-10-PCS; principal; 2020-04-20 07:00)
DX: N17.9 Acute kidney failure, unspecified (principal); D62 Acute posthemorrhagic anemia; E87.2 Acidosis; I13.0 Hypertensive heart and chronic kidney disease with heart failure and stage 1 through stage 4 chronic kidney disease, or unspecified chronic kidney disease; N18.3 Chronic kidney disease, stage 3 (moderate); N13.30 Unspecified hydronephrosis; D63.1 Anemia in chronic kidney disease; E11.22 Type 2 diabetes mellitus with diabetic chronic kidney disease; I50.9 Heart failure, unspecified; E11.65 Type 2 diabetes mellitus with hyperglycemia; D50.9 Iron deficiency anemia, unspecified; D53.9 Nutritional anemia, unspecified; D72.819 Decreased white blood cell count, unspecified; E03.9 Hypothyroidism, unspecified; E86.0 Dehydration; F41.9 Anxiety disorder, unspecified; I49.3 Ventricular premature depolarization; J45.909 Unspecified asthma, uncomplicated; Z20.828 Contact with and (suspected) exposure to other viral communicable diseases; N40.0 Benign prostatic hyperplasia without lower urinary tract symptoms; F32.9 Major depressive disorder, single episode, unspecified; M10.9 Gout, unspecified; M54.5 Low back pain; R31.9 Hematuria, unspecified; R33.8 Other retention of urine; G89.29 Other chronic pain; Z79.84 Long term (current) use of oral hypoglycemic drugs; Z79.890 Hormone replacement therapy; Z79.899 Other long term (current) drug therapy; Z87.442 Personal history of urinary calculi; Z90.49 Acquired absence of other specified parts of digestive tract
CPT/HCPCS: 36415; 38222; 71046; 76770; 80048; 80053; 81001; 82272; 82607; 82668; 82728; 82746; 82747; 82784; 83010; 83036; 83540; 83550; 83615; 83735; 83883; 83921; 83970; 84100; 84153; 84154; 84165; 84443; 84484; 85025; 85027; 85045; 85610; 85730; 86140; 86334; 86850; 86900; 86901; 86920; 87040; 87086; 93005; 94760; 99285

== ENCOUNTER 2020-05-22 07:39 | Emergency (ER) | payer MEDICARE, BC ==
[2020-05-22 07:48] VITALS: BP 105/51; PULSE 76; RESP 18; TEMP 98.3
--- NOTE | 2020-05-22 07:58 | ED ---
Male Urogenital HPI - General Source: patient, RN notes reviewed Mode of arrival: wheelchair Limitations: no limitations <Tolu Kumar - Last Filed: 05/22/20 08:19> <Zeb Wilson - Last Filed: 05/22/20 08:32> - General Chief complaint: Urogenital Stated complaint: catheter problem Time Seen by Provider: 05/22/20 07:42 - History of Present Illness Initial comments: This is a 75-year-old male presents emergency Department with chief complaint of Fair catheter problem. Patient states that he had prostate surgery by Dr. Le yesterday afternoon. Patient states that his Fair catheter is not draining. He states that he feels not pressure buildup and states that weeks around his catheter that is bloody. He does have some lower abdominal pressure. Denies fevers or chills. Patient denies any diarrhea constipation patient offers no other associated complaints. (Tolu Kumar) - Related Data Home Medications Medication Instructions Recorded Confirmed Allopurinol [Zyloprim] 100 mg PO BID 04/14/20 04/14/20 Furosemide [Lasix] 20 mg PO DAILY 04/14/20 04/14/20 Levothyroxine Sodium [Synthroid] 137 mcg PO DAILY 04/14/20 04/14/20 Tamsulosin [Flomax] 0.4 mg PO DAILY 04/14/20 04/14/20 glipiZIDE [Glucotrol XL] 2.5 mg PO DAILY 04/14/20 04/14/20 metFORMIN HCL [Glucophage] 500 mg PO BID 04/14/20 04/14/20 Allergies Allergy/AdvReac Type Severity Reaction Status Date / Time No Known Allergies Allergy Verified 05/22/20 07:43 Review of Systems ROS Other: All systems not noted in ROS Statement are negative. <Tolu Kumar - Last Filed: 05/22/20 08:19> ROS Other: All systems not noted in ROS Statement are negative. <Zeb Wilson - Last Filed: 05/22/20 08:32> ROS Statement: Those systems with pertinent positive or pertinent negative responses have been documented in the HPI. Past Medical History Past Medical History: Asthma, Heart Failure, Diabetes Mellitus, Prostate Disorder, Thyroid Disorder Additional Past Medical History / Comment(s): gout, chf History of Any Multi-Drug Resistant Organisms: None Reported Past Surgical History: Appendectomy, Heart Catheterization, Prostate Surgery Past Psychological History: Depression Smoking Status: Never smoker Past Alcohol Use History: None Reported Past Drug Use History: None Reported <Tolu Kumar - Last Filed: 05/22/20 08:19> General Exam Limitations: no limitations General appearance: alert, in no apparent distress Head exam: Present: atraumatic, normocephalic, normal inspection Respiratory exam: Present: normal lung sounds bilaterally. Absent: respiratory distress, wheezes, rales, rhonchi, stridor Cardiovascular Exam: Present: regular rate, normal rhythm, normal heart sounds. Absent: systolic murmur, diastolic murmur, rubs, gallop, clicks GI/Abdominal exam: Present: soft, tenderness (Lower abdominal tenderness), normal bowel sounds. Absent: distended, guarding, rebound, rigid exam: Present: other (Fully catheter in place was blood-tinged urine noted) Neurological exam: Present: alert, oriented X3 Skin exam: Present: warm, dry, intact, normal color. Absent: rash <Tolu Kumar - Last Filed: 05/22/20 08:19> Course <Tolu Kumar - Last Filed: 05/22/20 08:19> <Zeb Wilson - Last Filed: 05/22/20 08:32> Vital Signs 05/22/20 07:43 Temperature 98.3 F Pulse Rate 76 Respiratory 18 Rate Blood Pressure 105/51 O2 Sat by Pulse 99 Oximetry - Reevaluation(s) Reevaluation #1: 05/22/20 07:58 Patient was evaluated, catheter will be irrigated by RN for possible blood clot causing obstruction (Tolu Kumar) Reevaluation #2: 05/22/20 08:31 PA supervision: I proceeded [id number] evaluation the patient. He did present with complaints of inability to urinate through his Fair catheter. He's been having leaking around the catheter since last night. He states he has a prostate procedure done yesterday. Complains of suprapubic pain no fever chills nausea vomiting sweats or other symptoms. He did have a distended bladder. Fair catheter was placed she did get decompression and feels much improved. I do agree with the assessment and plan (Zeb Wilson) Medical Decision Making <Tolu Kumar - Last Filed: 05/22/20 08:19> - Medical Decision Making 75-year-old male presented for 40 catheter from. Fair catheter was irrigated, balloon was deflated and advanced. Patient's catheter is draining with no comp medications. Patient states pain has resolved. Patient will be discharged in stable condition. (Tolu Kumar) Disposition Is patient prescribed a controlled substance at d/c from ED?: No Time of Disposition: 08:21 <Tolu Kumar - Last Filed: 05/22/20 08:19> <Zeb Wilson - Last Filed: 05/22/20 08:32> Clinical Impression: Fair catheter problem Disposition: HOME SELF-CARE Condition: Stable Instructions (If sedation given, give patient instructions): Fair Catheter Placement and Care (ED) Additional Instructions: Please return to the Emergency Department if symptoms worsen or any other concerns. Referrals: Chuck Awad MD [Primary Care Provider] - 1-2 days Luis F Le MD [STAFF PHYSICIAN] - 1-2 days
== END 2020-05-22 08:33 | disposition home or self-care (01) ==
LOC: EC 07:39
DX: T83.098A Other mechanical complication of other urinary catheter, initial encounter (principal); R10.2 Pelvic and perineal pain; E11.9 Type 2 diabetes mellitus without complications; I50.9 Heart failure, unspecified; M10.9 Gout, unspecified; E07.9 Disorder of thyroid, unspecified; Z79.899 Other long term (current) drug therapy; Z79.84 Long term (current) use of oral hypoglycemic drugs; Z95.5 Presence of coronary angioplasty implant and graft; Z98.890 Other specified postprocedural states
CPT/HCPCS: 99283

== ENCOUNTER → 2020-10-19 | Outpatient (CLI) | payer MEDICARE, BC ==
--- NOTE | 2020-10-20 10:24 | US ---
EXAMINATION TYPE: US renals and bladder DATE OF EXAM: 10/19/2020 COMPARISON: NONE CLINICAL HISTORY: R94.4 Abnormal Renal Function Test. abnormal labs. Patient states having right fla nk pain. EXAM MEASUREMENTS: Right Kidney: 10.4 x 5.3 x 5.1 cm Left Kidney: 10.9 x 4.6 x 5.7 cm Right Kidney: Moderate/Severe hydronephrosis visualized Left Kidney: Moderate/Severe hydronephrosis visualized Bladder: Distended, anechoic Bilateral Jets seen Prominent prostate visualized = 6.2 x 5.6 x 5.1 cm IMPRESSION: 1. Moderate to severe bilateral hydronephrosis. 2 Prominent prostate
== END | disposition home or self-care (01) ==
LOC: RADUSWWP 15:42
PROVIDERS: ATTEND Internal Medicine Hematology & Oncology
DX: N13.30 Unspecified hydronephrosis (principal)
CPT/HCPCS: 76770

== ENCOUNTER → 2021-02-04 | Outpatient (CLI) | payer MEDICARE, BC ==
--- NOTE | 2021-02-04 16:53 | US ---
EXAMINATION TYPE: US kidneys/renal and bladder DATE OF EXAM: 02/04/2021 COMPARISON: US's CLINICAL HISTORY: R93.41 ABN RADIOLOGIC FINDINGS. EXAM MEASUREMENTS: Right Kidney: 10.0 x 4.8 x 5.6 cm Left Kidney: 11.2 x 5.4 x 4.6 cm Right Kidney: moderate to severe hydronephrosis. Unchanged compared to prior examination. Left Kidney: mild hydro Bladder: wnl Bilateral Jets seen: Yes No nephrolithiasis is seen. No masses are identified. The urinary bladder is anechoic. Bilateral u reteral jets are seen. IMPRESSION: Moderately severe hydronephrosis on the right. Mild hydronephrosis on the left. Left-sided is improve d and no change on the right.
== END | disposition home or self-care (01) ==
LOC: RADUSWWP 16:19
PROVIDERS: ATTEND Internal Medicine Hematology & Oncology
DX: N13.30 Unspecified hydronephrosis (principal)
CPT/HCPCS: 76770

== ENCOUNTER → 2021-07-22 | Outpatient (CLI) | payer MEDICARE, BC ==
--- NOTE | 2021-07-22 11:28 | CT ---
EXAMINATION TYPE: High-resolution CT chest DATE OF EXAM: 07/22/2021 COMPARISON: Chest radiograph 04/14/2020 HISTORY: 76-year-old male R06.00, Dyspnea, shortness of breath TECHNIQUE: High-resolution axial scanning of the chest utilizing 1 mm slice thickness and 1 cm gap wi thout IV contrast per HRCT protocol. Both prone and supine imaging was performed. CT DLP: 220 mGycm Automated exposure control for dose reduction was used. FINDINGS: Heart normal size without pericardial effusion. Three-vessel coronary artery calcifications are prese nt. Mild to moderate aortic valvular calcifications. Ectatic ascending aorta 3.8 cm. Conventional arch vessel branching anatomy. No thoracic lymphadenopathy by CT size criteria. Minimal biapical pleural-parenchymal scarring. No cystic change, dominant groundglass, bronchiectasis , honeycombing, or thickening of the bronchovascular bundles is identified. No tree-in-bud opacities are significant interstitial thickening. While we note mild hyperinflation, no significant emphysematous cysts are identified. No consolidation or pleural effusion. Visualized upper abdomen shows a right renal calculus measuring 5 mm. Either parapelvic cysts or bila teral hydronephrosis partially visualized. Suspect a small 3 mm gallstone. Bones: Limited by HRCT technique. No osseous destructive process identified. IMPRESSION: 1. NO SPECIFIC FINDINGS OF INTERSTITIAL LUNG DISEASE OR INTERSTITIAL PNEUMONITIS. 2. HYPERINFLATION MAY REFLECT DEPTH OF INSPIRATION OR SUBTLE UNDERLYING EMPHYSEMA. NO DISCRETE EMPHYS EMATOUS CYSTS ARE IDENTIFIED. 3. 5 MM NONOBSTRUCTIVE RIGHT RENAL CALCULUS. EITHER BILATERAL PARAPELVIC CYSTS IN THE KIDNEYS OR BILA TERAL HYDRONEPHROSIS PARTIALLY VISUALIZED. FURTHER CLINICAL CORRELATION AND WORKUP INDICATED. 4. CAD.
== END | disposition home or self-care (01) ==
LOC: RADCTMAIN 08:33
PROVIDERS: ATTEND Internal Medicine Critical Care Medicine
DX: R91.8 Other nonspecific abnormal finding of lung field (principal); N20.0 Calculus of kidney
CPT/HCPCS: 71250

== ENCOUNTER → 2022-02-27 | Outpatient (CLI) | payer MEDICARE, BC ==
[2022-02-27 14:31] LABS: HCT 25.6 % (39.6-50.0); HGB 8.1 g/dL (13.0-17.0); MCH 41.8 pg (27.0-32.0); MCHC 31.6 g/dL (32.0-37.0); Mean Platelet Volume 12.3 fL (9.5-12.2); NRBC Per 100 WBC 0 /100 WBCS (0.0-0.0); Platelet Count 310 X 10*3/uL (140-440); RBC 1.94 X 10*6/uL (4.40-5.60); RDW 18.2 % (11.5-14.5); WBC 5.45 X 10*3/uL (4.50-10.00)
[2022-02-27 15:47] LABS: Magnesium 2.2 mg/dL (1.5-2.4); Phosphorus 2.7 mg/dL (2.4-5.1)
[2022-02-27 15:48] LABS: % Iron Saturation 32.41 (15.00-50.00); African American GFR (CKD) 40.3 (60.0-200.0); Albumin 4.4 g/dL (3.8-4.9); Albumin/Globulin Ratio 1.24 (1.60-3.17); Anion Gap 15.9 mmol/L (10.00-18.00); BUN/Creat Ratio 15.16 Ratio (12.00-20.00); Blood Urea Nitrogen 27.6 mg/dL (9.0-27.0); Calcium 9.1 mg/dL (8.7-10.3); Carbon Dioxide 19.7 mmol/L (20.0-27.5); Globulin 3.6 g/dL (1.6-3.3); Non-African American GFR(CKD) 34.8 (60.0-200.0); Potassium 4.3 mmol/L (3.5-5.5); Total Bilirubin 0.6 mg/dL (0.30-1.20); Uric Acid 5.9 mg/dL (3.7-8.7)
== END | disposition home or self-care (01) ==
LOC: LABWHC1 10:11
PROVIDERS: ATTEND Nurse Practitioner Family
DX: E55.9 Vitamin D deficiency, unspecified (principal); E21.3 Hyperparathyroidism, unspecified; D64.9 Anemia, unspecified; M10.9 Gout, unspecified; N18.4 Chronic kidney disease, stage 4 (severe); N39.0 Urinary tract infection, site not specified
CPT/HCPCS: 36415; 80053; 82306; 82728; 83540; 83550; 83735; 83970; 84100; 84550; 85027

== ENCOUNTER → 2022-05-10 | Outpatient (CLI) | payer MEDICARE, BC ==
--- NOTE | 2022-05-10 14:38 | US ---
EXAMINATION TYPE: US kidneys/renal and bladder DATE OF EXAM: 05/10/2022 COMPARISON: previous renal us 09/2020 CLINICAL HISTORY: 77-year-old male N13.30 HYDRONEPHROSIS. TECHNIQUE: Multiple sonographic images of the kidneys and bladder are obtained. FINDINGS: EXAM MEASUREMENTS: Right Kidney: 9.7 x 4.7 x 5.4 cm Left Kidney: 10.9 x 5.0 x 4.9cm cm Post Void Residual Volume: 606 mL Right Kidney: cortical lobulation, mild hydronephrosis Left Kidney: cortical lobulation, 1.2cm cyst at the upper pole, mildly prominent collecting system at the lower pole Bilateral cortical thinning suggests chronic medical renal disease. Bladder: enlarged prostate indenting the bladder base, pt unable to void Bilateral Jets seen: yet Normal Post Void Residual: no IMPRESSION: 1. Mild hydronephrosis on the right and developing pelvicaliectasis on the left. 2. Prominent distention of the bladder with a markedly increased post void bladder volume of 606 mL s uggesting bladder outlet obstruction and urinary retention. 3. Prostatomegaly with enlarged gland impressing onto the base of the bladder. Correlate for BPH.
== END | disposition home or self-care (01) ==
LOC: RADUSWWP 09:32
PROVIDERS: ATTEND Urology
DX: N13.30 Unspecified hydronephrosis (principal); N40.1 Benign prostatic hyperplasia with lower urinary tract symptoms
CPT/HCPCS: 76770

== ENCOUNTER 2022-06-25 23:08 | Inpatient (IN) | payer MEDICARE, BC ==
[2022-06-25] MEDS ORDERED: SODIUM CHLORIDE 0.9% 1,000 ML IV STA (23:22)
[2022-06-25] MEDS ORDERED: MORPHINE SULFATE 2 MG/ML SYRINGE IVP STA (23:22)
--- NOTE | 2022-06-25 23:23 | ED ---
Chest Pain HPI - General Chief Complaint: Shortness of Breath Stated Complaint: Shortness of Breath Time Seen by Provider: 06/25/22 23:21 Source: patient, RN notes reviewed, old records reviewed Mode of arrival: EMS Limitations: no limitations - History of Present Illness Initial Comments: Is a 69-year-old male DF for evaluation, severe shortness of breath hypoxia and chest pain. Patient is mildly altered mental status secondary to work of breathing and distress, history obtained from EMS and patient's prior charting MD Complaint: chest pain -: hour(s) Pain Location: substernal Pain Radiation: none Severity: moderate Severity scale (1-10): 4 Quality: aching Improves With: nothing Worsens With: nothing Anginal Symptoms: nausea Other Symptoms: palpitations Treatments Prior to Arrival: none - Related Data Home Medications Medication Instructions Recorded Confirmed Furosemide [Lasix] 20 mg PO DAILY 04/14/20 12/26/21 Levothyroxine Sodium [Synthroid] 137 mcg PO DAILY 04/14/20 12/26/21 Tamsulosin [Flomax] 0.4 mg PO DAILY 04/14/20 12/26/21 allopurinoL [Zyloprim] 100 mg PO BID 04/14/20 12/26/21 glipiZIDE [Glucotrol XL] 2.5 mg PO DAILY 04/14/20 12/26/21 Allergies Allergy/AdvReac Type Severity Reaction Status Date / Time No Known Allergies Allergy Verified 06/25/22 23:11 Review of Systems ROS Statement: Those systems with pertinent positive or pertinent negative responses have been documented in the HPI. ROS Other: All systems not noted in ROS Statement are negative. Past Medical History Past Medical History: Asthma, Heart Failure, Diabetes Mellitus, Prostate Disorder, Thyroid Disorder Additional Past Medical History / Comment(s): gout, chf, "blood cancer History of Any Multi-Drug Resistant Organisms: None Reported Past Surgical History: Appendectomy, Heart Catheterization, Prostate Surgery Past Anesthesia/Blood Transfusion Reactions: Unable to Obtain Past Psychological History: Depression Smoking Status: Never smoker General Exam Limitations: no limitations General appearance: alert, anxious, in distress Head exam: Present: atraumatic, normocephalic, normal inspection Eye exam: Present: normal appearance, PERRL, EOMI. Absent: scleral icterus, conjunctival injection, periorbital swelling ENT exam: Present: normal exam, mucous membranes moist Neck exam: Present: normal inspection. Absent: tenderness, meningismus, lymp hadenopathy Respiratory exam: Present: normal lung sounds bilaterally. Absent: respiratory distress, wheezes, rales, rhonchi, stridor Cardiovascular Exam: Present: regular rate, normal rhythm, normal heart sounds. Absent: systolic murmur, diastolic murmur, rubs, gallop, clicks GI/Abdominal exam: Present: soft, normal bowel sounds. Absent: distended, tenderness, guarding, rebound, rigid Extremities exam: Present: normal inspection, full ROM, normal capillary refill. Absent: tenderness, pedal edema, joint swelling, calf tenderness Back exam: Present: normal inspection Neurological exam: Present: alert, oriented X3, CN II-XII intact Psychiatric exam: Present: normal affect, normal mood Skin exam: Present: warm, dry, intact, normal color. Absent: rash Course Vital Signs 06/25/22 06/25/22 06/25/22 23:11 23:54 23:56 Temperature 98.4 F Pulse Rate 92 116 H Respiratory 32 H 32 H Rate Blood Pressure 97/31 109/39 O2 Sat by Pulse 98 Oximetry Fraction of 60 Inspired Oxygen (FIO2) - Reevaluation(s) Reevaluation #1: 06/25/22 23:43 medical record is reviewed Reevaluation #2: 06/25/22 23:43 STEMI is activated based on EKG Reevaluation #3: 06/26/22 00:02 Patient placed on BiPAP secondary to work of breathing - Consultations Consultation #1: Dr Holman, Dr Cortez aware of STEMI Consultation #2: spoke w [facility] aware of admission and will admit Chest Pain MDM - MDM 69 male to the emergency department positive ST elevated NV history of anemia severe shortness of breath and asthma placed on BiPAP. Critical Care Time Critical Care Time: Yes Total Critical Care Time: 31 Disposition Clinical Impression: Bicytopenia, Dyspnea, Anemia, STEMI (ST elevation myocardial infarction) Disposition: ADMITTED IP TO THIS HOSP Condition: Critical Is patient prescribed a controlled substance at d/c from ED?: No
[2022-06-25 23:39] LABS: Glucose,Whole Blood 112 mg/dL (70-110)
[2022-06-25] MEDS ORDERED: NITROGLYCERIN SL TABS 0.4 MG TAB SUBLINGUAL PRN (23:41)
[2022-06-25] MEDS ORDERED: HEPARIN SODIUM 1,000 UN/ML (10ML VL) IV ONE (23:41)
[2022-06-25] MEDS ORDERED: MORPHINE SULFATE 4 MG/ML SYRINGE IV PRN (23:41)
[2022-06-25] MEDS ORDERED: ASPIRIN 81 MG PO STA (23:41)
[2022-06-25] MEDS ORDERED: HEPARIN SOD,PORK IN 0.45% NACL 25,000 UNIT in 0.45% NACL 1 250ML.BAG IV SCH (23:45)
[2022-06-25] MEDS: NOREPINEPHRINE 4 MG in SODIUM CHLORIDE 0.9% 250 ML IV ONE (23:54)
[2022-06-26 00:07] LABS: Anisocytosis Slight; HCT 20.4 % (39.0-53.0); Hypochromasia Slight; MCHC 31.8 g/dL (31.0-37.0); MCV 126.1 fL (80.0-100.0); Macrocytosis Marked; Mean Platelet Volume 10.8; Platelet Count 212 k/uL (150-450); Poikilocytosis Slight; RBC 1.62 m/uL (4.30-5.90); RDW 18.9 % (11.5-15.5)
[2022-06-26 00:11] LABS: HGB 6.6 gm/dL (13.0-17.5); MCH 40.1 pg (25.0-35.0); Prothrombin Time 10.6 sec (9.0-12.0)
[2022-06-26 00:13] LABS: Albumin 3.9 g/dL (3.5-5.0); Calcium 9.1 mg/dL (8.4-10.2); Magnesium 1.7 mg/dL (1.6-2.3); Potassium 3.6 mmol/L (3.5-5.1); Total Bilirubin 0.8 mg/dL (0.2-1.3); Total Protein 7.1 g/dL (6.3-8.2)
[2022-06-26 00:15] LABS: Partial Thromboplastin Time 19.3 sec (22.0-30.0)
[2022-06-26] MEDS ORDERED: HYDROmorphone 0.5 MG/0.5 ML SYRINGE IVP ONE (00:17)
[2022-06-26] MEDS: MIDAZOLAM 2 MG/2 ML VIAL IVP ONE ×2 (00:18→00:55)
[2022-06-26] MEDS ORDERED: LIDOCAINE 1% INJ 10MG/ML (30 ML VIAL-PF) SQ ONE (00:19)
[2022-06-26] MEDS ORDERED: HEPARIN SODIUM 1,000 UN/ML (10ML VL) ONE (00:21)
[2022-06-26] MEDS ORDERED: IV FLUID CONTINUATION 1,000 ML IV ONE ×2 (00:26)
[2022-06-26] MEDS ORDERED: CLOPIDOGREL 75 MG TAB ONE (00:33)
[2022-06-26] MEDS: HEPARIN SODIUM 1,000 UN/ML (10ML VL) IV ONE ×4 (00:34→01:07)
[2022-06-26] MEDS ORDERED: CLOPIDOGREL 75 MG TAB PO ONE (00:37)
[2022-06-26 00:38] LABS: WBC 1.7 k/uL (3.8-10.6)
[2022-06-26 00:42] LABS: Anisocytosis (M) Present; Band Neutrophils % 8 %; Monocytes # (M) 0.07 k/uL (0-1.0); Neutrophils % (M) 76 %; Nucleated Red Blood Cells 0 /100 WBC (0-0); Poikilocytosis (M) Present; Polychromasia Present; Rouleaux Present; Total Cells Counted 100
--- NOTE | 2022-06-26 00:45 | XR ---
EXAMINATION TYPE: XR chest 1V portable DATE OF EXAM: 06/25/2022 COMPARISON: 04/13/2012 HISTORY: Short of breath TECHNIQUE: FINDINGS: Heart and mediastinum are normal. Lungs are clear. Diaphragm is normal. Bony thorax is inta ct. IMPRESSION: Normal chest. No change.
[2022-06-26] MEDS ORDERED: IOPAMIDOL-370 125ML BTL INJ ONE ×2 (00:59→01:08)
[2022-06-26] MEDS ORDERED: METOPROLOL TARTRATE 5 MG/5 ML VIAL IVP ONE ×2 (01:01→01:07)
[2022-06-26] MEDS ORDERED: ATROPINE SULFATE 0.1 MG/ML 10ML SYRINGE IV PRN (01:09)
[2022-06-26] MEDS ORDERED: RX INFO: IV CONTRAST WAS GIVEN 1 EACH MISC MISCELLANE PRN (01:09)
[2022-06-26] MEDS ORDERED: MAG HYDROX/AL HYDROX/SIMETH 30 ML CUP PO PRN (01:09)
[2022-06-26] MEDS ORDERED: ZOLPIDEM 5 MG TAB PO PRN (01:09)
[2022-06-26] MEDS ORDERED: NITROGLYCERIN SL TABS 0.4 MG TAB SUBLINGUAL PRN (01:09)
[2022-06-26] MEDS ORDERED: SODIUM CHLORIDE 0.9% 1,000 ML in EMPTY BAG 1 BAG IV SCH (01:15)
--- NOTE | 2022-06-26 01:18 | P.CARDCATH ---
Date of Procedure: 06/26/22 Description of Procedure: PERCUTANEOUS TRANSLUMINAL CORONARY ANGIOPLASTY CLINICAL INFORMATION: The patient is 77-year-old male who presented with an acute inferior wall myocardial infarction he had severe anemia and leukopenia and baseline renal insufficiency, he underwent cardiac catheterization by Dr. Emiliano colin and was found subtotally occluded distal dominant left circumflex. The patient was hypotensive on norepinephrine from the start of the procedure and on BiPAP. Recommendations were made regarding angioplasty and stenting. The procedure as well as the risks and the complications were discussed with the patient who was in full understanding and agreement. PROCEDURE: A 6 [place] EBU 4 guiding catheter was introduced into the system. After cannulating the left main, a 0.0 14 BMW GI was advanced across the lesion and positioned distally. Following that a 2.5 x 12 Treck balloon was advanced and inflated at 8 atmosphere. Following that and after removing the balloon a 0.014 BMW J wire was positioned in the left PDA. Following that a 3.0 x 15 Xience stent was deployed. It was dilated at 16. After the last inflation, after appropriate wait, the balloon and the guidewire were withdrawn back into the guiding catheter. Images were obtained and repeated. Those images reveal stable successful stenting. At that point, the guiding catheter, the balloon, and guidewire were removed. Attempt to cannulate the right coronary artery were unsuccessful but appears to be small nondominant and because of his renal function the decision was made not to pursue it further. The sheath was removed. Hemostasis was obtained with deployment of an Angio-Seal. There were no immediate complications. The patient was returned to the room in stable condition. Of note, the patient received 8000 units of heparin as well as Plavix. His ACT was followed. There was no immediate complications. His chest discomfort resolved. He had episodes of atrial fibrillation RESULTS: Successful stenting of the distal dominant left circumflex with reduction of stenosis from 99 % to 0 %. RECOMMENDATIONS: He will continue on dual antiplatelet treatment his aspirin and Plavix without any disruption for one year. He will be transfused and we will obtain hematology consultation. The prognosis is guarded. The findings and recommendations were discussed with the patient and the family, they are in full understanding and agreement. Duration of sedation: 32 minutes
[2022-06-26] MEDS ORDERED: AMIODARONE 50 MG/ML 3 ML VIAL IV ONE (01:35)
[2022-06-26 01:43] LABS: Glucose,Whole Blood 143 mg/dL (70-110)
[2022-06-26] MEDS ORDERED: AMIODARONE 360 MG in DEXTROSE 5% IN WATER 200 ML IV ONE ×2 (02:00)
[2022-06-26] MEDS: NOREPINEPHRINE 4 MG in SODIUM CHLORIDE 0.9% 250 ML IV ONE ×3 (04:41→16:27)
[2022-06-26] MEDS ORDERED: ASPIRIN 325 MG TAB PO SCH (09:00)
[2022-06-26] MEDS: ASPIRIN 81 MG PO SCH (09:30)
[2022-06-26] MEDS: METOPROLOL TARTRATE 25 MG TAB PO SCH ×2 (09:30→20:44)
[2022-06-26] MEDS: AMIODARONE 450 MG in DEXTROSE 5% IN WATER 250 ML IV SCH ×4 (09:31→23:00)
--- NOTE | 2022-06-26 09:45 | CONS ---
CONSULTATION CHIEF COMPLAINT: Chest pain. HISTORY OF PRESENT ILLNESS: This is a 77-year-old gentleman with history of myelodysplastic syndrome with severe anemia, who presented to hospital with shortness of breath, chest pain, and not feeling well. Apparently, the symptoms started this morning. He was found to be hypoxic and hypotensive on his initial presentation. An EKG showed acute ST-segment elevation in leads 3 and aVF. These are new compared to prior EKG. There is also extensive ST- segment depression in 1 to aVL. STEMI were called and I met the patient for the first time on his way to the cath lab tech. The patient is in pain, restless. He is on a BiPAP machine and Levophed was started per my instruction. I am not able to obtain any meaningful information from this patient, but he has history of myelodysplastic syndrome and has severe anemia on this presentation with hemoglobin of 6.5, and creatinine is elevated at 2. MEDICATIONS: As charted. ALLERGIES: As charted. REVIEW OF SYSTEMS: I am not able to obtain. PHYSICAL EXAMINATION: VITAL SIGNS: Heart rate is 90 beats per minute, blood pressure is 110/78, and respiratory rate is 36. GENERAL: The patient is in moderate respiratory distress. CHEST: Exam reveals diminished air entry with occasional rhonchi. HEART: Exam reveals first and second heart sounds, no gallop. ABDOMEN: Soft. EXTREMITIES: Did not reveal any edema. Peripheral pulses are palpable. ASSESSMENT: 1. Acute inferior wall myocardial infarction. 2. Cardiogenic shock. 3. Respiratory failure. 4. Renal insufficiency. 5. Severe anemia with a hemoglobin of 6.5. 6. History of myelodysplastic syndrome with leukopenia. PLAN: The patient will undergo emergent cardiac catheterization, it is a high-risk procedure, being considered as a life-saving measure at this time. MMODL / IJN: [id number] /
--- NOTE | 2022-06-26 09:51 | CC ---
CARDIAC CATHETERIZATION REPORT PROCEDURE NOTE: After obtaining informed consent, left heart catheterization and coronary angiogram were performed via the right femoral artery using standard Richa catheters. The left coronary artery was engaged using a size right Richa catheter. We could not selectively engage the right coronary artery. The hemodynamics were obtained using the right Richa. The patient received moderate conscious sedation. Total sedation time was 15 minutes. FINDINGS: 1. Left main coronary artery is a normal-sized vessel and is free of stenosis, divides into left anterior descending coronary artery and circumflex coronary artery. LAD and its branches show mild nonobstructive disease. Circumflex coronary artery is a large dominant vessel, has an area of plaque rupture and subtotal occlusion in the distal AV groove circ. 2. Right coronary artery will be engaged after the angioplasty. Left ventricular hemodynamics were obtained using right Richa. The left ventricular end-diastolic pressure appears elevated at 14 to 16 mm. There is no significant gradient across the aortic valve. 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 PLAN: The patient will undergo angioplasty with stent placement of the same. Given the profound anemia, he is going to receive 2 units of packed RBCs. PROGNOSIS: Guarded. MMODL / IJN: [id number] /
[2022-06-26 10:39] LABS: Anisocytosis Marked; HCT 24.9 % (39.0-53.0); Hypochromasia Slight; MCHC 32.3 g/dL (31.0-37.0); Macrocytosis Marked; Mean Platelet Volume 11.8; Platelet Count 253 k/uL (150-450); Poikilocytosis Slight; RBC 2.18 m/uL (4.30-5.90); WBC 21.1 k/uL (3.8-10.6)
[2022-06-26 10:42] LABS: HGB 8.1 gm/dL (13.0-17.5)
[2022-06-26 10:43] LABS: MCV 114.7 fL (80.0-100.0)
[2022-06-26 10:48] LABS: Albumin 3.3 g/dL (3.5-5.0); Potassium 3.9 mmol/L (3.5-5.1); Total Bilirubin 2.4 mg/dL (0.2-1.3); Total Protein 6.4 g/dL (6.3-8.2)
--- NOTE | 2022-06-26 10:48 | CA ---
Transthoracic Echo Report Name: Arnav Loza Age: 77 Gender: M : 1945 Exam Date: 06/26/2022 08:26 Exam Location: [facility] Ht (in): 72 Wt (lb): 220 Ordering Physician: Timothy Cortez MD ([id number]) Attending/Referring Phys: Post Adoption Coordinator Skye Rush RDCS Procedure CPT: Indications: [place] Cardiac Hx: Technical Quality: Technically difficult study Contrast 1: Lumason Total Dose (mL): Contrast 2: Total Dose (mL): MEASUREMENTS (Male / Female) Normal Values 2D ECHO LV Diastolic Diameter PLAX 5.2 cm 4.2 - 5.9 / 3.9 - 5.3 cm LV Systolic Diameter PLAX 3.8 cm IVS Diastolic Thickness 1.1 cm 0.6 - 1.0 / 0.6 - 0.9 cm LVPW Diastolic Thickness 1.3 cm 0.6 - 1.0 / 0.6 - 0.9 cm LV Relative Wall Thickness 0.5 RV Internal Dim ED PLAX 3.8 cm LA Systolic Diameter LX 4.3 cm 3.0 - 4.0 / 2.7 - 3.8 cm M-MODE Aortic Root Diameter MM 2.6 cm LA Systolic Diameter MM 4.6 cm LA Ao Ratio MM 1.8 MV E Point Septal Separation 0.4 cm AV Cusp Separation MM 1.4 cm DOPPLER AV Peak Velocity 345.2 cm/s AV Peak Gradient 47.7 mmHg AV Mean Velocity 263.6 cm/s AV Mean Gradient 30.2 mmHg AV Velocity Time Integral 53.8 cm LVOT Peak Velocity 180.1 cm/s LVOT Peak Gradient 13.0 mmHg MV Area PHT 4.9 cm??? Mitral E Point Velocity 119.3 cm/s Mitral A Point Velocity 88.3 cm/s Mitral E to A Ratio 1.4 MV Deceleration Time 153.5 ms MV E' Velocity 11.4 cm/s Mitral E to MV E' Ratio 10.4 TR Peak Velocity 284.7 cm/s TR Peak Gradient 32.4 mmHg Right Ventricular Systolic Press 36.0 mmHg FINDINGS Left Ventricle Left ventricular ejection fraction is estimated at 50-55%. Inferior basal hypokinesis, Mildly increased left ventricular wall thickness. Right Ventricle Right ventricular dilatation. Mild pulmonary hypertension. Right Atrium Left Atrium Mildly increased left atrial diameter. Mildly increased left atrial area. Mitral Valve Mitral annular calcification.mild mitral regurgitation. Aortic Valve Moderate aortic stenosis with a peak gradient of 48 mmHg and a mean gradient of 29 mmHg.aortic valve sclerosis. Tricuspid Valve Structurally normal tricuspid valve. Mild tricuspid regurgitation. Pulmonic Valve Structurally normal pulmonic valve. Pericardium Normal pericardium. Aorta Normal size aortic root and proximal ascending aorta. CONCLUSIONS 1. Mildly pale ventricle systolic function 2. Moderate aortic stenosis with mean gradient 29 mmHg 3. Mild mitral and tricuspid regurgitation Previewed by: Dr. Timothy Cortez MD (Electronically Signed) Final Date: 26 June 2022 10:47
[2022-06-26 11:04] LABS: Band Neutrophils % 7 %; Lymphocytes # (M) 0.42 k/uL (1.0-4.8); Monocytes # (M) 0.63 k/uL (0-1.0); Neutrophils % (M) 88 %; Nucleated Red Blood Cells 0 /100 WBC (0-0); Total Cells Counted 100
[2022-06-26 11:08] LABS: Large Platelets Present; Toxic Granulation Present; Toxic Vacuolation Present
[2022-06-26 13:25] VITALS: BMI 27.5
--- NOTE | 2022-06-26 14:49 | P.CONS ---
History of Present Illness - Reason for Consult Consult date: 06/26/22 Chronic anemia, AL - History of Present Illness Mr Loza is a 77 yr ol white male,Well-known to myself. His hematology history is as follows: He was initially seen in consultation at [facility] on 04/15/20. The patient had presented with rigors and marked malaise. He was found to have a fever up to 101 with complains of lower back pain. Back pain was actually chronic in nature. Bladder and renal ultrasound showed severe hydronephrosis bilaterally with hydroureter. Patient was treated for pyelonephritis. His labs showed hemoglobin of 7 with white count of 6.4, and MCV of 132.7. The patient's lab workup for macrocytosis including testing for deficiency states, hemolysis, and paraproteinemia were all negative. He therefore underwent a bone marrow aspiration biopsy on 04/20/20. 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 Flow cytometry was negative for increase in blasts or for presence of monoclonal B cells. It was therefore felt that this most likely represented a myelodysplastic syndrome if other causes for macrocytosis could be ruled out. he was discharged with a Fair catheter, plans for further urology workup as an outpatient. During hospitalization, WBC was intermittently low, generally in the 3-4 range. the patient was seen by urology as an outpatient and continues to have an indwelling Fair. He states that he was told that the prostate was not enlarged, and it appears that the retention was more due to bladder dysfunction the patient had additional workup with an outpatient for PNH, as well as hemolysis, which were negative. Iron studies were normal. 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 he was therefore started on BERNARDA weekly on 07/05/20. hemoglobin remained in the low 8 range due to with dose was increased to 30,000 units after his visit on 08/23/20. he appeared to respond initially with hemoglobin increasing into the 9 range. dose was increased to 40,000 units subcutaneous every week. However after his office visit in 10/14, it has dropped again into the 7-8 range. hemoglobin actually dropped back into the 7-8 range despite increase in BERNARDA dose to 40,000. He had repeat labs done in late 11/14 for anemia, which were negative. Renal function was actually better with creatinine 2.1, versus 3.3 in 10/14. Sed rate was > 100 The drop in hemoglobin is felt to be more likely due to Recurrent UTIs that he was having at that time.. Therefore he was continued at the same BERNARDA does been seen in 01/12. Hemoglobin was better since, mostly in the 9 range. US KUB in 02/11 showed right moderate to severe hydronephrosis, and mild on the left. He states he was seen by Urology since, and the US was felt to show some improvement patient's hemoglobin however has been again in the 7-8 range mostly, Since late 2020. Dose increase was recommended after his visit in 11/15, but not covered by his insurance. He does not qualify for Luspatercept yet , based on his transfusion requirements Most recent transfusion was in 04/14 Or a hemoglobin of 6.9. The patient has been remarkably well compensated, with generally no symptoms with hemoglobin ranging between high 6-8. The patient was admitted this time, as he developed lower mid chest discomfort which she describes as a tightness and pressure such as with gas. However other symptoms didn't improve he came into the emergency room. EKG And labs showed evidence of acute AL. Chest x-ray was negative. He cardiac catheterization that showed subtotal occlusion in the distal circumflex which was a dominant wasn't. He underwent anoplasty and stent placement. Hemoglobin on admission was 6.6. It had been 7.1 in the office in mid 06/15. Patient received 2 units PRBC, ordered by cardiology. He denied any obvious bleeding. His most recent weekly BERNARDA injection was on 06/19/22, and he was due for his next dose today. Review of Systems Constitutional: Reports fatigue, Denies chills, Denies fever Eyes: denies blurred vision, denies pain Ears: deny: decreased hearing, ear discharge, earache, tinnitus Ears, nose, mouth and throat: Denies headache, Denies sore throat Cardiovascular: Reports as per HPI, Reports chest pain, Reports lightheadedness, Reports shortness of breath Respiratory: Reports dyspnea Gastrointestinal: Denies abdominal pain, Denies diarrhea, Denies nausea, Denies vomiting Genitourinary: Reports as per HPI Musculoskeletal: Denies myalgias Integumentary: Denies pruritus, Denies rash Neurological: Reports weakness Psychiatric: Denies anxiety, Denies depression Endocrine: Reports fatigue Hematologic/Lymphatic: Reports as per HPI Past Medical History Past Medical History: Asthma, Heart Failure, Diabetes Mellitus, Prostate Disorder, Thyroid Disorder Additional Past Medical History / Comment(s): gout, chf, "blood cancer History of Any Multi-Drug Resistant Organisms: None Reported Past Surgical History: Appendectomy, Heart Catheterization, Prostate Surgery Past Anesthesia/Blood Transfusion Reactions: Unable to Obtain Past Psychological History: Depression Smoking Status: Never smoker Medications and Allergies Home Medications Medication Instructions Recorded Confirmed Type Furosemide [Lasix] 20 mg PO DAILY 04/14/20 06/26/22 History Levothyroxine Sodium [Synthroid] 137 mcg PO DAILY 04/14/20 06/26/22 History Tamsulosin [Flomax] 0.8 mg PO DAILY 04/14/20 06/26/22 History allopurinoL [Zyloprim] 100 mg PO BID 04/14/20 06/26/22 History glipiZIDE [Glucotrol XL] 2.5 mg PO DAILY 04/14/20 06/26/22 History Reblozyl 25mg Sq Injection 1 dose SQ Q21D 06/26/22 06/26/22 History Reblozyl 75mg Sq Injection 1 dose SQ Q21D 06/26/22 06/26/22 History Simvastatin [Zocor] 20 mg PO HS 06/26/22 06/26/22 History calcitrioL [Calcitriol] 0.25 mcg PO TUTH 06/26/22 06/26/22 History Allergies Allergy/AdvReac Type Severity Reaction Status Date / Time No Known Allergies Allergy Verified 06/26/22 09:33 Physical Exam Vitals: Vital Signs Temp Pulse Resp BP Pulse Ox FiO2 06/26/22 09:24 98.2 F 86 22 79/54 94 L 06/26/22 09:15 90 29 H 108/52 97 06/26/22 09:00 93 22 103/57 96 06/26/22 08:45 90 20 111/51 95 06/26/22 08:30 90 28 H 109/49 96 06/26/22 08:15 90 20 107/50 96 06/26/22 08:00 98.2 F 92 31 H 104/49 94 L 06/26/22 07:45 93 28 H 106/45 94 L 06/26/22 07:30 90 34 H 105/48 93 L 06/26/22 07:22 96 06/26/22 07:20 90 32 H 105/48 95 06/26/22 07:10 96 32 H 108/59 96 06/26/22 07:00 98 31 H 107/49 96 06/26/22 06:50 93 28 H 107/49 93 L 06/26/22 06:40 91 29 H 95/63 96 06/26/22 06:30 92 21 103/44 97 06/26/22 06:21 98.9 F 92 31 H 85/62 96 06/26/22 06:20 92 30 H 85/62 94 L 06/26/22 06:12 98.4 F 93 30 H 93/34 96 06/26/22 06:10 90 29 H 93/34 96 06/26/22 06:00 88 21 100/44 95 06/26/22 05:55 98.4 F 88 30 H 100/44 95 06/26/22 05:50 92 35 H 100/44 97 06/26/22 05:40 93 29 H 97/42 93 L 06/26/22 05:30 92 8 L 99/45 95 06/26/22 05:29 97.9 F 92 11 L 99/45 95 06/26/22 05:20 90 26 H 99/45 93 L 06/26/22 05:10 89 28 H 100/39 94 L 06/26/22 05:00 91 19 130/59 96 06/26/22 04:50 92 30 H 130/59 94 L 06/26/22 04:40 98 27 H 131/59 88 L 06/26/22 04:30 86 40 H 75/37 97 06/26/22 04:20 85 32 H 67/39 94 L 06/26/22 04:10 90 33 H 88/48 96 06/26/22 04:00 92 27 H 102/54 94 L 06/26/22 03:50 91 30 H 102/54 95 06/26/22 03:40 95 18 105/51 95 06/26/22 03:30 94 31 H 99/50 96 06/26/22 03:20 96 28 H 99/50 95 06/26/22 03:15 98 F 96 22 99/50 94 L 06/26/22 03:10 97 27 H 101/51 95 06/26/22 03:00 96 22 108/47 96 06/26/22 02:55 98.3 F 97 29 H 101/51 95 06/26/22 02:50 97 15 108/47 95 06/26/22 02:45 98.1 F 97 30 H 108/47 06/26/22 02:40 98 23 114/56 95 06/26/22 02:30 98 22 108/54 94 L 06/26/22 02:20 101 H 34 H 108/54 96 06/26/22 02:10 100 29 H 109/56 96 06/26/22 02:00 100 26 H 107/54 93 L 06/26/22 01:50 96 31 H 116/57 94 L 06/26/22 00:03 84/56 06/26/22 00:00 58 L 39 H 77/66 06/25/22 23:56 96 60 06/25/22 23:54 116 H 32 H 109/39 06/25/22 23:50 54 L 32 H 82/44 79 L 06/25/22 23:30 105 H 32 H 96/45 99 06/25/22 23:19 98 37 H 90/39 94 L 06/25/22 23:15 36 H 06/25/22 23:11 98.4 F 92 32 H 97/31 98 Intake and Output 06/25/22 06/26/22 06/26/22 22:59 06:59 14:59 Intake Total 1474.559 845.851 Output Total 200 250 Balance 1274.559 595.851 Intake: IV 800 300 Sodium Chloride 0.9% 1, 400 300 000 ml @ 100 mls/hr IV . Q10H STA Rx#:[id number] Intake, IV Titration 54.559 235.851 Amount Norepinephrine 4 mg In 54.559 235.851 Sodium Chloride 0.9% 250 ml @ 0.03 MCG/KG/MIN 11. 406 mls/hr IV .[id number] ONE Rx#:[id number] Blood Product 620 310 Rc As-1 Unit 310 [id number] Rc As-1 Unit 0 310 [id number] Output: Urine 200 250 Other: Voiding Method Urinal Weight 99.79 kg - Constitutional General appearance: no acute distress - EENT Eyes: EOMI, PERRLA ENT: hearing grossly normal, normal oropharynx - Neck Neck: no lymphadenopathy Thyroid: bilateral: normal size - Respiratory Respiratory: bilateral: CTA - Cardiovascular Rhythm: regular Heart sounds: normal: S1, S2 - Gastrointestinal General gastrointestinal: normal bowel sounds, soft - Integumentary Integumentary: normal - Neurologic Neurologic: CNII-XII intact - Musculoskeletal Musculoskeletal: generalized weakness, strength equal bilaterally - Psychiatric Psychiatric: A&O x's 3 Results CBC & Chem 7: 06/26/22 10:00 06/26/22 10:00 Labs: Abnormal Lab Results - Last 24 Hours (Table) 06/25/22 06/25/22 06/25/22 Range/Units 23:28 23:28 23:28 WBC 1.7 L (3.8-10.6) k/uL RBC 1.62 L (4.30-5.90) m/uL Hgb 6.6 L* (13.0-17.5) gm/dL Hct 20.4 L (39.0-53.0) % MCV 126.1 H (80.0-100.0) fL MCH 40.1 H (25.0-35.0) pg RDW 18.9 H (11.5-15.5) % Lymphocytes # (Manual) 0.20 L (1.0-4.8) k/uL Macrocytosis Marked A APTT 19.3 L (22.0-30.0) sec Carbon Dioxide 18 L (22-30) mmol/L BUN 33 H (9-20) mg/dL Creatinine 2.02 H (0.66-1.25) mg/dL Glucose 111 H (74-99) mg/dL POC Glucose (mg/dL) (70-110) mg/dL ALT 52 H (4-49) U/L Crossmatch 06/25/22 06/25/22 06/26/22 Range/Units 23:30 23:37 01:42 WBC (3.8-10.6) k/uL RBC (4.30-5.90) m/uL Hgb (13.0-17.5) gm/dL Hct (39.0-53.0) % MCV (80.0-100.0) fL MCH (25.0-35.0) pg RDW (11.5-15.5) % Lymphocytes # (Manual) (1.0-4.8) k/uL Macrocytosis APTT (22.0-30.0) sec Carbon Dioxide (22-30) mmol/L BUN (9-20) mg/dL Creatinine (0.66-1.25) mg/dL Glucose (74-99) mg/dL POC Glucose (mg/dL) 112 H 143 H (70-110) mg/dL ALT (4-49) U/L Crossmatch See Detail Comments: Cardiac catheterization report, echocardiogram report and EKG images reviewed Chest x-ray: report reviewed Assessment and Plan (1) Anemia Narrative/Plan: The patient is hypoproliferative anemia due to anemia of chronic kidney disease and MDS. Hemoglobin has been mostly in the low 7, occasionally 8 and occasionally high 6 range, since late 2020. The patient has been continued on the BERNARDA dose that he was on previously, without further increase. However he is not yet a candidate for the next step in treatment,Luspatercept, based on the criteria of transfusion requirements. - Actually says the patient received 2 units PRBCs this admission, he might become a candidate for the same, which can then be started at the time of discharge. - Continue to monitor and transfuse to keep hemoglobin greater than 7 Current Visit: Yes Status: Acute Code(s): D64.9 - ANEMIA, UNSPECIFIED SN OMED Code(s): 472954567 (2) STEMI (ST elevation myocardial infarction) Narrative/Plan: The patient did have evidence of Subtotal occlusion, and plaque rupture, and therefore primary CAD is felt to be the major component of his AL. The patient' s anemia is more likely to be a minor component, at most, as he has been very well compensated symptomatically with the same level of hemoglobin now for many months. - From the hematology standpoint, agree with supportive transfusions as needed - Defer to cardiology for ongoing management of his presenting complaint - No contraindication to endotracheal therapy, or anticoagulation from the hematology standpoint. Current Visit: Yes Status: Acute Code(s): I21.3 - ST ELEVATION (STEMI) MYOCARDIAL INFARCTION OF [facility] SITE SNOMED Code(s): 76329501
[2022-06-26 16:15] LABS: Chol/HDL Ratio 2.97 Ratio; LDL Cholesterol,Calculated 44.1 mg/dL (0.0-131.0)
--- NOTE | 2022-06-26 20:22 | P.HPIM ---
History of Present Illness H&P Date: 06/26/22 Chief Complaint: Chest pressure Patient is a 77-year-old male with a known history of diabetes type 2 [id number], hypothyroidism, hypertension, asthma and depression presents to ER with complaints of chest pressure millimeters styloglossus with shortness of breath and bilateral arm pain. Patient also states that he did have dizziness and diaphoretic. Patient was watching TV at home when he developed symptoms. Patient was placed on BiPAP secondary to labored breathing on admission. EKG showed ST elevation ND and patient also has history of severe anemia. Patient underwent cardiac catheterization with successful stenting of the distal dominant left circumflex with reduction of stenosis from 99 to 0%. Patient did improve symptomatically after the catheterization. Laboratory showed WBC 1.7 hemoglobin 6.6 and platelets 212 and MCV 126.1 Sodium 139 potassium 3.6 chloride 105 bicarb is 18 BUN 33 and creatinine 2.02 Liver enzymes are not elevated troponin 0.012 and 7.64 Lipase 112 Coronavirus PCR not detected. Chest x-ray showed normal chest. No change. Review of Systems Constitutional: Patient denies any fever or chills . no Generalized weakness. Abdomen: Patient denied any nausea or vomiting or abd. pain Cardiovascular: Patient denies any chest pain or short of breath no palpitations. Respiratory: patient denied any cough . no sputum production. No shortness of breath Neurologic: Patient denied any numbness or tingling headache. Musculoskeletal: Patient denies any complaints of joint swelling or deformity. Skin: Negative Psychiatric: Negative Endocrine: No heat or cold intolerance. No recent weight gain. Genitourinary: No dysuria or hematuria. All other 14 point ROS negative except the above Past Medical History Past Medical History: Asthma, Heart Failure, Diabetes Mellitus, Prostate Disorder, Thyroid Disorder Additional Past Medical History / Comment(s): gout, chf, "blood cancer History of Any Multi-Drug Resistant Organisms: None Reported Past Surgical History: Appendectomy, Heart Catheterization, Prostate Surgery Past Anesthesia/Blood Transfusion Reactions: Unable to Obtain Past Psychological History: Depression Smoking Status: Never smoker Medications and Allergies Home Medications Medication Instructions Recorded Confirmed Type Furosemide [Lasix] 20 mg PO DAILY 04/14/20 06/26/22 History Levothyroxine Sodium [Synthroid] 137 mcg PO DAILY 04/14/20 06/26/22 History Tamsulosin [Flomax] 0.8 mg PO DAILY 04/14/20 06/26/22 History allopurinoL [Zyloprim] 100 mg PO BID 04/14/20 06/26/22 History glipiZIDE [Glucotrol XL] 2.5 mg PO DAILY 04/14/20 06/26/22 History Reblozyl 25mg Sq Injection 1 dose SQ Q21D 06/26/22 06/26/22 History Reblozyl 75mg Sq Injection 1 dose SQ Q21D 06/26/22 06/26/22 History Simvastatin [Zocor] 20 mg PO HS 06/26/22 06/26/22 History calcitrioL [Calcitriol] 0.25 mcg PO TUTH 06/26/22 06/26/22 History Allergies Allergy/AdvReac Type Severity Reaction Status Date / Time No Known Allergies Allergy Verified 06/26/22 09:33 Physical Exam Vitals: Vital Signs Temp Pulse Resp BP Pulse Ox FiO2 06/26/22 11:00 76 11 L 88/57 96 06/26/22 10:45 75 18 71/44 96 06/26/22 10:30 78 12 95 06/26/22 10:15 5 L 61/42 96 06/26/22 10:00 82 27 H 117/62 97 06/26/22 09:45 83 23 105/46 95 06/26/22 09:30 88 24 79/54 96 06/26/22 09:24 98.2 F 86 22 79/54 94 L 06/26/22 09:15 90 29 H 108/52 97 06/26/22 09:00 93 22 103/57 96 06/26/22 08:45 90 20 111/51 95 06/26/22 08:30 90 28 H 109/49 96 06/26/22 08:15 90 20 107/50 96 06/26/22 08:00 98.2 F 92 31 H 104/49 94 L 06/26/22 07:45 93 28 H 106/45 94 L 06/26/22 07:30 90 34 H 105/48 93 L 06/26/22 07:22 96 06/26/22 07:20 90 32 H 105/48 95 06/26/22 07:10 96 32 H 108/59 96 06/26/22 07:00 98 31 H 107/49 96 06/26/22 06:50 93 28 H 107/49 93 L 10/03/22 06:40 91 29 H 95/63 96 06/26/22 06:30 92 21 103/44 97 06/26/22 06:21 98.9 F 92 31 H 85/62 96 06/26/22 06:20 92 30 H 85/62 94 L 06/26/22 06:12 98.4 F 93 30 H 93/34 96 06/26/22 06:10 90 29 H 93/34 96 06/26/22 06:00 88 21 100/44 95 06/26/22 05:55 98.4 F 88 30 H 100/44 95 06/26/22 05:50 92 35 H 100/44 97 06/26/22 05:40 93 29 H 97/42 93 L 06/26/22 05:30 92 8 L 99/45 95 06/26/22 05:29 97.9 F 92 11 L 99/45 95 06/26/22 05:20 90 26 H 99/45 93 L 06/26/22 05:10 89 28 H 100/39 94 L 06/26/22 05:00 91 19 130/59 96 06/26/22 04:50 92 30 H 130/59 94 L 06/26/22 04:40 98 27 H 131/59 88 L 06/26/22 04:30 86 40 H 75/37 97 06/26/22 04:20 85 32 H 67/39 94 L 06/26/22 04:10 90 33 H 88/48 96 06/26/22 04:00 92 27 H 102/54 94 L 06/26/22 03:50 91 30 H 102/54 95 06/26/22 03:40 95 18 105/51 95 06/26/22 03:30 94 31 H 99/50 96 06/26/22 03:20 96 28 H 99/50 95 06/26/22 03:15 98 F 96 22 99/50 94 L 06/26/22 03:10 97 27 H 101/51 95 06/26/22 03:00 96 22 108/47 96 06/26/22 02:55 98.3 F 97 29 H 101/51 95 06/26/22 02:50 97 15 108/47 95 06/26/22 02:45 98.1 F 97 30 H 108/47 06/26/22 02:40 98 23 114/56 95 06/26/22 02:30 98 22 108/54 94 L 06/26/22 02:20 101 H 34 H 108/54 96 06/26/22 02:10 100 29 H 109/56 96 06/26/22 02:00 100 26 H 107/54 93 L 06/26/22 01:50 96 31 H 116/57 94 L 06/26/22 00:03 84/56 06/26/22 00:00 58 L 39 H 77/66 06/25/22 23:56 96 60 06/25/22 23:54 116 H 32 H 109/39 06/25/22 23:50 54 L 32 H 82/44 79 L 06/25/22 23:30 105 H 32 H 96/45 99 06/25/22 23:19 98 37 H 90/39 94 L 06/25/22 23:15 36 H 06/25/22 23:11 98.4 F 92 32 H 97/31 98 Intake and Output 06/25/22 06/26/22 06/26/22 22:59 06:59 14:59 Intake Total 5998.121 5793.851 Output Total 200 550 Balance 1274.559 495.851 Intake: IV 800 500 Sodium Chloride 0.9% 1, 400 500 000 ml @ 100 mls/hr IV . Q10H [facility] Rx#:[id number] Intake, IV Titration 54.559 235.851 Amount Norepinephrine 4 mg In 54.559 235.851 Sodium Chloride 0.9% 250 ml @ 0.03 MCG/KG/MIN 11. 406 mls/hr IV .[id number] [facility] Rx#:[id number] Blood Product 620 310 As-1 Unit 310 [id number] As-1 Unit 0 310 [id number] Output: Urine 200 550 Other: Voiding Method Urinal Weight 99.79 kg PHYSICAL EXAMINATION: Patient is lying in the bed comfortably, no acute distress, awake alert and oriented.. HEENT: Normocephalic. Neck is supple. Pupils reactive. Nostrils clear. Oral cavity is moist. Neck reveals no JVD, carotid bruits, or thyromegaly. CHEST EXAMINATION: Trachea is central. Symmetrical expansion. Lung diane clear to auscultation and percussion. CARDIAC: Normal S1, S2 with no gallops. No murmurs ABDOMEN: Soft. Bowel sounds present. Nontender. No organomegaly. No abdominal bruits. Extremities: reveal no edema. No clubbing or cyanosis Neurologically awake, alert, oriented x3 with well-coordinated movements. No focal deficits noted Skin: No rash or skin lesions. Psychiatric: Coperative. Nonsuicidal, Musculoskeletal: No joint swelling or deformity. Normal range of motion. Results CBC & Chem 7: 06/26/22 10:00 06/26/22 10:00 Labs: Abnormal Lab Results - Last 24 Hours (Table) 06/25/22 06/25/22 06/25/22 Range/Units 23:28 23:28 23:28 WBC 1.7 L (3.8-10.6) k/uL RBC 1.62 L (4.30-5.90) m/uL Hgb 6.6 L* (13.0-17.5) gm/dL Hct 20.4 L (39.0-53.0) % MCV 126.1 H (80.0-100.0) fL MCH 40.1 H (25.0-35.0) pg RDW 18.9 H (11.5-15.5) % Neutrophils # (Manual) (1.3-7.7) k/uL Lymphocytes # (Manual) 0.20 L (1.0-4.8) k/uL Macrocytosis Marked A APTT 19.3 L (22.0-30.0) sec Carbon Dioxide 18 L (22-30) mmol/L BUN 33 H (9-20) mg/dL Creatinine 2.02 H (0.66-1.25) mg/dL Glucose 111 H (74-99) mg/dL POC Glucose (mg/dL) (70-110) mg/dL Calcium (8.4-10.2) mg/dL Total Bilirubin (0.2-1.3) mg/dL AST (17-59) U/L ALT 52 H (4-49) U/L Troponin I (0.000-0.034) ng/mL Albumin (3.5-5.0) g/dL Crossmatch 06/25/22 06/25/22 06/26/22 Range/Units 23:30 23:37 01:42 WBC (3.8-10.6) k/uL RBC (4.30-5.90) m/uL Hgb (13.0-17.5) gm/dL Hct (39.0-53.0) % MCV (80.0-100.0) fL MCH (25.0-35.0) pg RDW (11.5-15.5) % Neutrophils # (Manual) (1.3-7.7) k/uL Lymphocytes # (Manual) (1.0-4.8) k/uL Macrocytosis APTT (22.0-30.0) sec Carbon Dioxide (22-30) mmol/L BUN (9-20) mg/dL Creatinine (0.66-1.25) mg/dL Glucose (74-99) mg/dL POC Glucose (mg/dL) 112 H 143 H (70-110) mg/dL Calcium (8.4-10.2) mg/dL Total Bilirubin (0.2-1.3) mg/dL AST (17-59) U/L ALT (4-49) U/L Troponin I (0.000-0.034) ng/mL Albumin (3.5-5.0) g/dL Crossmatch See Detail 06/26/22 06/26/22 06/26/22 Range/Units 10:00 10:00 10:00 WBC 21.1 H (3.8-10.6) k/uL RBC 2.18 L (4.30-5.90) m/uL Hgb 8.1 L D (13.0-17.5) gm/dL Hct 24.9 L (39.0-53.0) % MCV 114.7 H D (80.0-100.0) fL MCH 37.0 H (25.0-35.0) pg RDW 25.0 H (11.5-15.5) % Neutrophils # (Manual) 20.00 H (1.3-7.7) k/uL Lymphocytes # (Manual) 0.42 L (1.0-4.8) k/uL Macrocytosis Marked A APTT (22.0-30.0) sec Carbon Dioxide 16 L (22-30) mmol/L BUN 31 H (9-20) mg/dL Creatinine 2.25 H (0.66-1.25) mg/dL Glucose (74-99) mg/dL POC Glucose (mg/dL) (70-110) mg/dL Calcium 8.0 L (8.4-10.2) mg/dL Total Bilirubin 2.4 H (0.2-1.3) mg/dL AST 136 H (17-59) U/L ALT 71 H (4-49) U/L Troponin I 7.640 H* (0.000-0.034) ng/mL Albumin 3.3 L (3.5-5.0) g/dL Crossmatch Thrombosis Risk Factor Assmnt - DVT/VTE Prophylaxis DVT/VTE Prophylaxis: Pharmacologic Prophylaxis ordered Assessment and Plan Assessment: Acute ST elevated ND status post cardiac catheterization and stent placement to circumflex distal dominant circumflex artery Cardiogenic shock requiring pressor support Acute hypoxic respiratory failure on admission requiring BiPAP Chronic kidney disease stage III Hypoproliferative anemia due to CKD and MDS. Patient does have chronic anemia with hemoglobin around 7. Diabetes type 2 [id number] Hypothyroidism Depression History of gout BPH Asthma not in exacerbation DVT prophylaxis Plan: Patient is currently in the MICU. Was continued on heparin drip status postcardiac catheterization and stent placement to distal circumflex artery. Patient will be continued on aspirin Plavix statins and metoprolol. Patient is also on amiodarone drip and pressor support due to hypotension. Monitor renal function closely. Cardiology and hematology is on board. Prognosis is guarded at this time. Time with Patient: Greater than 30
[2022-06-26] MEDS: ATORVASTATIN 80 MG TAB PO SCH (20:44)
[2022-06-26] MEDS: NOREPINEPHRINE 4 MG in SODIUM CHLORIDE 0.9% 250 ML IV SCH (23:00)
--- NOTE | 2022-06-27 05:48 | PN ---
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 The patient is hemodynamically stable and his blood pressure is about 108 systolic. His Levophed is being weaned off. He is resting comfortably at the time of my evaluation. Vitals are stable. He is back in sinus rhythm. He developed atrial fibrillation transiently. He is on IV amiodarone which is being continued till tomorrow. He presented with an acute ST-elevation DE with ST elevation in lead 3 and aVF and also extensive ST depression in precordial leads. He also has a myelodysplastic syndrome with anemia requiring blood transfusions. He is on a second blood transfusion at the time of my evaluation. He seems to be resting comfortably at the time of my evaluation following the PCI of circumflex coronary artery. Circumflex is a dominant and distal circumflex was stented. His LAD does not have any significant disease. The right coronary artery was not cannulated. OBJECTIVE: VITALS: Stable. Blood pressure is 108/70. He is on a small dose of Levophed. HEART: S1, S2 heard normally, short systolic murmur at left sternal border. LUNGS: Revealed decent air entry. ABDOMEN: Exam unchanged. LOWER EXTREMITIES: Exam unchanged. PLAN: To continue current medications including blood transfusion and amiodarone. We will not do long-term anticoagulation for this patient. MMODL / IJN: [id number] /
[2022-06-27] MEDS ORDERED: methylPREDNISolone SOD SUCCI 125 MG/2 ML VIAL IV STA (08:35)
[2022-06-27] MEDS: CLOPIDOGREL 75 MG TAB PO SCH (08:59)
[2022-06-27] MEDS: ASPIRIN 81 MG PO SCH (08:59)
[2022-06-27] MEDS: METOPROLOL TARTRATE 25 MG TAB PO SCH (08:59)
[2022-06-27] MEDS: ALBUTEROL NEBULIZED 2.5 MG/3 ML INHALATION PRN (09:17)
[2022-06-27] MEDS: SYMBICORT 160-4.5 MCG INHALER INHALATION SCH ×2 (09:17→19:30)
--- NOTE | 2022-06-27 09:18 | XR ---
EXAMINATION TYPE: XR chest 1V portable DATE OF EXAM: 06/27/2022 COMPARISON: 06/25/2022 HISTORY: Shortness of breath TECHNIQUE: Single frontal view of the chest is obtained. FINDINGS: There is no focal air space opacity, pleural effusion, or pneumothorax seen. The cardiac silhouette size is within normal limits. The osseous structures are intact. IMPRESSION: No acute process.
--- NOTE | 2022-06-27 11:17 | P.CNPUL ---
History of Present Illness Consult date: 06/27/22 Requesting physician: Timothy Cortez Reason for consult: dyspnea, cough, COPD, other Chief complaint: Shortness of breath. History of present illness: Pulmonary consult dated 06/27/2022. 69-year-old male who presented to the emergency department, on June 25, complaining of shortness of breath. The patient also apparently had chest pain. The patient apparently was diagnosed as having an ST segment elevation myocardial infarction. On June 26, the patient went to the catheterization laboratory for stent, times one, in his circumflex coronary artery. He is currently in the ICU, room 252. We saw him yesterday passing by, and he recognized me. Yesterday, he was on amiodarone, and norepinephrine. Today, because of increasing shortness of breath, coughing, and wheezing, we were con sulted. The patient does have a history of chronic asthmatic bronchitis. He was seen in the office last year. The patient's on O2 at 2 L, as well as norepinephrine at 6 mcg/m, and saline at 100 mL an hour. We've added duo nebs, Symbicort, and we gave him a 1 time dose of Solu-Medrol, 125 mg IV push. Current laboratory data includes a white count of 21.1, hemoglobin 8.1, hematocrit 24.9, and a platelet count of 253,000. Sodium 138, potassium 3.9, chlorides 106, carbon dioxide 16, anion gap 16, BUN 31, and creatinine 2.25. His troponin was 7.640. Testing for coronavirus was negative. His chest x-ray shows no acute process. Review of Systems REVIEW OF SYSTEMS: CONSTITUTIONAL: [Negative.] NEUROLOGIC: [ Negative.] HEENT: [ Negative.] CARDIAC: Chest pain. PULMONARY: Shortness of breath, cough, wheezing. GI: [Negative.] : [Negative.] RHEUMATOLOGIC: [ Negative.] IMMUNOLOGIC: [ Negative.] ENDOCRINE: [Negative. ] DERMATOLOGIC: [Negative.] Past Medical History Past Medical History: Asthma, Heart Failure, Diabetes Mellitus, Prostate Disorder, Thyroid Disorder Additional Past Medical History / Comment(s): gout, chf, "blood cancer History of Any Multi-Drug Resistant Organisms: None Reported Past Surgical History: Appendectomy, Heart Catheterization, Prostate Surgery Past Anesthesia/Blood Transfusion Reactions: Unable to Obtain Past Psychological History: Depression Smoking Status: Never smoker Medications and Allergies Home Medications Medication Instructions Recorded Confirmed Type Furosemide [Lasix] 20 mg PO DAILY 04/14/20 06/26/22 History Levothyroxine Sodium [Synthroid] 137 mcg PO DAILY 04/14/20 06/26/22 History Tamsulosin [Flomax] 0.8 mg PO DAILY 04/14/20 06/26/22 History allopurinoL [Zyloprim] 100 mg PO BID 04/14/20 06/26/22 History glipiZIDE [Glucotrol XL] 2.5 mg PO DAILY 04/14/20 06/26/22 History Reblozyl 25mg Sq Injection 1 dose SQ Q21D 06/26/22 06/26/22 History Reblozyl 75mg Sq Injection 1 dose SQ Q21D 06/26/22 06/26/22 History Simvastatin [Zocor] 20 mg PO HS 06/26/22 06/26/22 History calcitrioL [Calcitriol] 0.25 mcg PO TUTH 06/26/22 06/26/22 History Allergies Allergy/AdvReac Type Severity Reaction Status Date / Time No Known Allergies Allergy Verified 06/26/22 09:33 Physical Exam Osteopathic Statement: *. No significant issues noted on an osteopathic structural exam other than those noted in the History and Physical/Consult. Vitals: Vital Signs Temp Pulse Resp BP Pulse Ox 06/27/22 09:31 75 06/27/22 09:20 75 06/27/22 09:00 73 18 96/53 96 06/27/22 08:45 73 19 109/56 95 06/27/22 08:30 76 18 107/67 96 06/27/22 08:15 75 19 108/55 92 L 06/27/22 08:00 98.2 F 72 17 112/57 96 06/27/22 07:45 76 17 93/54 96 06/27/22 07:30 76 18 114/62 94 L 06/27/22 07:15 70 20 102/54 96 06/27/22 07:00 68 20 108/55 95 06/27/22 06:45 75 20 96/52 96 06/27/22 06:30 73 20 113/57 96 06/27/22 06:15 76 20 106/60 97 06/27/22 06:00 75 20 103/58 96 06/27/22 05:45 77 20 101/62 95 06/27/22 05:30 75 20 97/54 97 06/27/22 05:15 76 20 106/61 98 06/27/22 05:00 75 20 101/54 96 06/27/22 04:45 75 20 100/53 97 06/27/22 04:30 74 20 104/53 97 06/27/22 04:15 75 20 98/52 96 06/27/22 04:00 98.8 F 75 20 104/83 96 06/27/22 03:45 78 20 109/55 95 06/27/22 03:30 77 20 106/56 97 06/27/22 03:15 78 20 108/54 98 06/27/22 03:00 80 20 110/56 97 06/27/22 02:45 79 20 100/56 97 06/27/22 02:30 79 20 110/65 97 06/27/22 02:15 75 20 111/53 98 06/27/22 02:00 78 20 115/60 98 06/27/22 01:45 78 20 117/60 97 06/27/22 01:30 78 18 104/54 97 06/27/22 01:15 80 18 120/55 97 06/27/22 01:00 80 18 111/53 97 06/27/22 00:45 75 19 107/55 97 06/27/22 00:30 78 18 95/50 98 06/27/22 00:15 77 18 112/55 97 06/27/22 00:00 98.2 F 78 20 120/51 97 06/26/22 23:45 79 20 120/58 97 06/26/22 23:30 78 20 104/55 98 06/26/22 23:15 78 20 97/53 97 06/26/22 23:00 77 20 108/54 97 06/26/22 22:45 79 20 109/84 98 06/26/22 22:30 78 20 118/70 96 06/26/22 22:15 78 20 115/55 96 06/26/22 22:00 79 20 116/55 96 06/26/22 21:45 78 20 114/54 96 06/26/22 21:30 76 20 105/52 96 06/26/22 21:15 80 20 116/54 96 06/26/22 21:00 78 18 109/52 96 06/26/22 20:45 78 18 113/53 96 06/26/22 20:30 79 18 119/61 95 06/26/22 20:15 78 18 115/57 97 06/26/22 20:00 98.1 F 75 16 114/51 97 06/26/22 19:45 75 18 111/54 98 06/26/22 19:00 81 19 114/55 98 06/26/22 18:45 80 20 109/51 97 06/26/22 18:30 78 22 125/59 96 06/26/22 18:15 77 18 52/38 97 06/26/22 18:00 72 18 114/52 95 06/26/22 17:45 77 119/54 98 06/26/22 17:30 76 110/90 97 06/26/22 17:15 78 109/54 97 06/26/22 17:00 73 109/54 97 06/26/22 16:45 73 77/61 97 06/26/22 16:30 72 131/59 96 06/26/22 16:15 74 115/54 96 06/26/22 16:00 98.2 F 75 17 109/48 97 06/26/22 15:53 96 06/26/22 15:45 75 19 117/66 97 06/26/22 15:30 74 19 113/55 97 06/26/22 15:15 76 18 109/56 97 06/26/22 15:00 20 102/50 98 06/26/22 14:45 71 19 106/50 06/26/22 14:30 73 18 104/48 06/26/22 14:15 75 17 99/49 95 06/26/22 14:00 73 18 99/48 98 06/26/22 13:45 73 20 98/47 06/26/22 13:30 73 19 95/47 97 06/26/22 13:15 74 18 90/46 97 06/26/22 13:00 71 17 91/47 97 06/26/22 12:45 72 18 89/49 97 06/26/22 12:30 72 18 92/51 94 L 06/26/22 12:15 70 18 82/49 96 06/26/22 12:00 98.2 F 74 13 93/62 95 06/26/22 11:45 18 91/58 95 06/26/22 11:30 77 22 95/50 95 06/26/22 11:15 75 11 L 86/51 96 Intake and Output 06/26/22 06/27/22 06/27/22 22:59 06:59 14:59 Intake Total 4188.751 1764.342 335.385 Output Total 1900 1100 300 Balance -768.693 143.342 35.385 Intake: IV 800 800 300 Sodium Chloride 0.9% 1, 800 800 300 000 ml @ 100 mls/hr IV . Q10H [facility] Rx#:[id number] Intake, IV Titration 331.307 443.342 35.385 Amount Amiodarone 450 mg In 224.727 Dextrose 5% in Water 250 ml @ 0.5 MG/MIN 16.667 mls/hr IV .Q15H [facility] Rx#: [id number] Norepinephrine 4 mg In 331.307 Sodium Chloride 0.9% 250 ml @ 0.03 MCG/KG/MIN 11. 406 mls/hr IV .[id number] ONE Rx#:[id number] Norepinephrine 4 mg In 218.615 35.385 Sodium Chloride 0.9% 250 ml @ 0.03 MCG/KG/MIN 11. 406 mls/hr IV .[id number] [facility] Rx#:[id number] Output: Urine 1900 1100 300 Other: Voiding Method Urinal Urinal Urinal Weight 99.8 kg No acute distress, oriented 3. Currently on 2 L of oxygen. No conversational dyspnea or use of accessory muscles. No audible wheezing. HEENT examination is grossly unremarkable. Neck supple. Full range of motion. No adenopathy thyromegaly or neck vein distention. Cardiovascular examination reveals regular rhythm rate. S1-S2 normal. No S3 or S4. No discernible murmur noted. Heart rate 71 bpm. Lungs reveal scattered rhonchi, and minimal expiratory wheezes. Breath sounds equal bilaterally. No crackles. Saturations are 96%. Abdomen soft bowel sounds are heard. No masses or tenderness. Extremities are intact. No cyanosis clubbing or edema. Skin is without rash or lesion. Neurologic examination is brief but nonfocal. Results - Laboratory Findings CBC and BMP: 06/26/22 10:00 06/26/22 10:00 PT/INR, D-dimer PT 10.6 sec (9.0-12.0) 06/25/22 23:28 INR 1.0 (<1.2) 06/25/22 23:28 Abnormal lab findings: Abnormal Labs 06/25/22 06/25/22 06/25/22 23:28 23:28 23:28 WBC 1.7 L RBC 1.62 L Hgb 6.6 L* Hct 20.4 L MCV 126.1 H MCH 40.1 H RDW 18.9 H Neutrophils # (Manual) Lymphocytes # (Manual) 0.20 L Macrocytosis Marked A APTT 19.3 L Carbon Dioxide 18 L BUN 33 H Creatinine 2.02 H Glucose 111 H POC Glucose (mg/dL) Calcium Total Bilirubin AST ALT 52 H Troponin I Albumin HDL Cholesterol Crossmatch 06/25/22 06/25/22 06/26/22 23:30 23:37 01:42 WBC RBC Hgb Hct MCV MCH RDW Neutrophils # (Manual) Lymphocytes # (Manual) Macrocytosis APTT Carbon Dioxide BUN Creatinine Glucose POC Glucose (mg/dL) 112 H 143 H Calcium Total Bilirubin AST ALT Troponin I Albumin HDL Cholesterol Crossmatch See Detail 06/26/22 06/26/22 06/26/22 10:00 10:00 10:00 WBC 21.1 H RBC 2.18 L Hgb 8.1 L D Hct 24.9 L MCV 114.7 H D MCH 37.0 H RDW 25.0 H Neutrophils # (Manual) 20.00 H Lymphocytes # (Manual) 0.42 L Macrocytosis Marked A APTT Carbon Dioxide BUN Creatinine Glucose POC Glucose (mg/dL) Calcium Total Bilirubin AST ALT Troponin I 7.640 H* Albumin HDL Cholesterol 33.60 L Crossmatch 06/26/22 10:00 WBC RBC Hgb Hct MCV MCH RDW Neutrophils # (Manual) Lymphocytes # (Manual) Macrocytosis APTT Carbon Dioxide 16 L BUN 31 H Creatinine 2.25 H Glucose POC Glucose (mg/dL) Calcium 8.0 L Total Bilirubin 2.4 H AST 136 H ALT 71 H Troponin I Albumin 3.3 L HDL Cholesterol Crossmatch - Diagnostic Findings Chest x-ray: image reviewed Assessment and Plan Assessment: ST segment elevation myocardial infarction, status post stent, 1, to the circumflex coronary artery, 06/26/2022. Chronic asthmatic bronchitis, currently a bit active. History of CHF. History of diabetes mellitus. History of gout. History of BPH. History of hypothyroidism. Plan: Plan dated 06/27/2022. The patient gets doing nebs, 4 times a day and when necessary. We also place the patient on Symbicort 160/4.5, 2 puffs twice a day. We give him 1 time dose of Solu-Medrol, 125 mg IV push. The patient continues on norepinephrine at 6 mcg/m. He is on oxygen at 2 L. He had a cardiac catheterization and stent placement to the circumflex coronary artery on June 26. We will continue to follow make recommendations along the way. No additional recommendations at this time. Prognosis is guarded. Time with Patient: Greater than 30
[2022-06-27] MEDS: IPRATROPIUM-ALBUTEROL 3 ML NEB INHALATION SCH ×3 (11:54→19:29)
[2022-06-27] MEDS: NOREPINEPHRINE 4 MG in SODIUM CHLORIDE 0.9% 250 ML IV SCH (12:24)
[2022-06-27 12:40] LABS: Calcium 7.7 mg/dL (8.4-10.2); Potassium 4.2 mmol/L (3.5-5.1)
--- NOTE | 2022-06-27 15:57 | P.PN ---
Subjective Progress Note Date: 06/27/22 Patient is a 77-year-old male with a known history of diabetes type 2 tin-oaslaug-fnidwseat, hypothyroidism, hypertension, asthma and depression presents to ER with complaints of chest pressure millimeters styloglossus with shortness of breath and bilateral arm pain. Patient also states that he did have dizziness and diaphoretic. Patient was watching TV at home when he developed symptoms. Patient was placed on BiPAP secondary to labored breathing on admission. EKG showed ST elevation RI and patient also has history of severe anemia. Patient underwent cardiac catheterization with successful stenting of the distal dominant left circumflex with reduction of stenosis from 99 to 0%. Patient did improve symptomatically after the catheterization. Laboratory showed WBC 1.7 hemoglobin 6.6 and platelets 212 and MCV 126.1 Sodium 139 potassium 3.6 chloride 105 bicarb is 18 BUN 33 and creatinine 2.02 Liver enzymes are not elevated troponin 0.012 and 7.64 Lipase 112 Coronavirus PCR not detected. Chest x-ray showed normal chest. No change. 06/27/22. Patient seen and examined. Currently in ICU. Denies any chest pain. Complaining of shortness of breath which he states is improving. Vital signs stable REVIEW OF SYSTEMS: CONSTITUTIONAL: No fever, no malaise, no fatigue. HEENT: No recent visual problems or hearing problems. Denied any sore throat. CARDIOVASCULAR: No chest pain, orthopnea, PND, no palpitations, no syncope. PULMONARY: Complaining of shortness of breath PHYSICAL EXAMINATION: GENERAL: The patient is alert and oriented x3, not in any acute distress. Well developed, well nourished. HEENT: Pupils are round and equally reacting to light. EOMI. No scleral icterus. No conjunctival pallor. Normocephalic, atraumatic. No pharyngeal erythema. No thyromegaly. CARDIOVASCULAR: S1 and S2 present. No murmurs, rubs, or gallops. PULMONARY: Coarse breath sounds bilaterally, no wheeze ABDOMEN: Soft, nontender, nondistended, normoactive bowel sounds. No palpable organomegaly. MUSCULOSKELETAL: No joint swelling or deformity. EXTREMITIES: No cyanosis, clubbing, or pedal edema. NEUROLOGICAL: Gross neurological examination did not reveal any focal deficits. SKIN: No rashes. Assessment and plan Acute ST elevated RI status post cardiac catheterization and stent placement to circumflex distal dominant circumflex artery Cardiogenic shock requiring pressor support Acute hypoxic respiratory failure on admission requiring BiPAP Chronic kidney disease stage III Hypoproliferative anemia due to CKD and MDS. Patient does have chronic anemia with hemoglobin around 7. Diabetes type 2 dqf-ithxidu-qpflrfptc Hypothyroidism Depression History of gout BPH Asthma not in exacerbation DVT prophylaxis Plan: Monitor vital signs Monitor CBC Monitor BMP Continue aspirin Plavix statins and metoprolol. Continue breathing treatments Monitor renal function closely. Cardiology and hematology is on board. Pulmonology consulted DVT prophylaxis: Objective - Vital Signs Vital signs: Vital Signs Temp 97.9 F 06/27/22 12:00 Pulse 79 06/27/22 15:15 Resp 19 06/27/22 15:15 BP 110/61 06/27/22 15:15 Pulse Ox 95 06/27/22 15:15 FiO2 60 06/25/22 23:56 Intake & Output 06/26/22 06/27/22 06/27/22 18:59 06:59 18:59 Intake Total 2077.158 1643.342 383.861 Output Total 1849 2049 1000 Balance 227.158 -406.658 -616.139 Weight 99.79 kg 99.8 kg Intake: IV 1200 1200 300 Sodium Chloride 0.9% 1, 1200 1200 300 000 ml @ 100 mls/hr IV . Q10H [facility] Rx#:[id number] Intake, IV Titration 567.158 443.342 83.861 Amount Amiodarone 450 mg In 224.727 Dextrose 5% in Water 250 ml @ 0.5 MG/MIN 16.667 mls/hr IV .Q15H [facility] Rx#: [id number] Norepinephrine 4 mg In 567.158 Sodium Chloride 0.9% 250 ml @ 0.03 MCG/KG/MIN 11. 406 mls/hr IV .[id number] [facility] Rx#:[id number] Norepinephrine 4 mg In 218.615 83.861 Sodium Chloride 0.9% 250 ml @ 0.03 MCG/KG/MIN 11. 406 mls/hr IV .[id number] [facility] Rx#:[id number] Blood Product 310 Rc As-1 Unit 310 [id number] Output: Urine 1850 0 1000 Other: Voiding Method Urinal Urinal Urinal - Labs CBC & Chem 7: 06/26/22 10:00 06/27/22 11:34 Labs: Abnormal Lab Results - Last 24 Hours (Table) 06/26/22 06/27/22 Range/Units 10:00 11:34 Chloride 111 H (98-107) mmol/L Carbon Dioxide 19 L (22-30) mmol/L BUN 33 H (9-20) mg/dL Creatinine 1.88 H (0.66-1.25) mg/dL Glucose 127 H (74-99) mg/dL Calcium 7.7 L (8.4-10.2) mg/dL HDL Cholesterol 33.60 L (40.00-60.00) mg/dL
[2022-06-27] MEDS: ATORVASTATIN 80 MG TAB PO SCH (20:53)
[2022-06-27] MEDS: METOPROLOL TARTRATE 12.5 MG TAB PO SCH (20:53)
[2022-06-28] MEDS: ALBUTEROL NEBULIZED 2.5 MG/3 ML INHALATION PRN (03:48)
[2022-06-28 04:44] LABS: Anisocytosis Marked; Basophils % (A) 0 %; Eosinophils % (A) 0 %; HGB 7.2 gm/dL (13.0-17.5); Hypochromasia Slight; Lymphocytes # (A) 0.6 k/uL (1.0-4.8); Lymphocytes % (A) 6 %; MCH 39.3 pg (25.0-35.0); MCHC 34.4 g/dL (31.0-37.0); MCV 114.3 fL (80.0-100.0); Macrocytosis Marked; Mean Platelet Volume 11.7; Monocytes # (A) 0.3 k/uL (0-1.0); Monocytes % (A) 3 %; Neutrophils # (A) 8.4 k/uL (1.3-7.7); Neutrophils % (A) 90 %; Platelet Count 175 k/uL (150-450); Poikilocytosis Slight; RBC 1.84 m/uL (4.30-5.90); RDW 24.1 % (11.5-15.5); WBC 9.4 k/uL (3.8-10.6)
[2022-06-28 04:58] LABS: Calcium 7.7 mg/dL (8.4-10.2); Potassium 4.3 mmol/L (3.5-5.1)
[2022-06-28 05:29] LABS: Anisocytosis (M) Present; Large Platelets Present; Polychromasia Present
[2022-06-28 05:30] LABS: Poikilocytosis (M) Present
--- NOTE | 2022-06-28 07:17 | XR ---
EXAMINATION TYPE: XR chest 1V portable DATE OF EXAM: 06/28/2022 6:14 AM COMPARISON: Chest radiograph from one day prior. TECHNIQUE: XR chest 1V portable Portable AP radiograph of the chest. CLINICAL INDICATION:Male, 77 years old with history of Shortness of breath; FINDINGS: Lungs/Pleura: There is no evidence of pleural effusion, focal consolidation, or pneumothorax. Pulmonary vascularity: Unremarkable. Heart/mediastinum: Cardiomediastinal silhouette is unremarkable. Musculoskeletal: No acute osseous pathology. IMPRESSION: No acute cardiopulmonary disease/process.
[2022-06-28] MEDS: IPRATROPIUM-ALBUTEROL 3 ML NEB INHALATION SCH ×4 (07:32→20:48)
[2022-06-28] MEDS: SYMBICORT 160-4.5 MCG INHALER INHALATION SCH ×2 (07:42→20:48)
[2022-06-28] MEDS: CLOPIDOGREL 75 MG TAB PO SCH (07:59)
[2022-06-28] MEDS: ASPIRIN 81 MG PO SCH (07:59)
[2022-06-28] MEDS: METOPROLOL TARTRATE 12.5 MG TAB PO SCH ×2 (07:59→20:11)
--- NOTE | 2022-06-28 09:58 | P.NPCON ---
History of Present Illness - Reason for Consult acute renal failure - History of Present Illness Patient is a 77-year-old female with history of type 2 diabetes, hypertension, chronic kidney disease NKF stage IIIB with baseline creatinine around 1.8 mg/dL. Patient is admitted to the hospital with complaints of chest pain. He also developed shortness of breath. Patient did rule in for acute IN. He is status post cardiac catheterization with successful stenting of the distal dominant left circumflex on 06/26/2022 No complaints of chest pain or shortness of breath today. Blood pressure has not been low Good urine output per patient Serum creatinine 2.2 on initial admission and decreased to 1.8 today. Currently not on any IV fluids. Chest x-ray from today does not show any significant CHF. Review of Systems As per HPI other systems negative Past Medical History Past Medical History: Asthma, Heart Failure, Diabetes Mellitus, Prostate Disorder, Thyroid Disorder Additional Past Medical History / Comment(s): gout, chf, "blood cancer History of Any Multi-Drug Resistant Organisms: None Reported Past Surgical History: Appendectomy, Heart Catheterization, Prostate Surgery Past Anesthesia/Blood Transfusion Reactions: Unable to Obtain Past Psychological History: Depression Smoking Status: Never smoker Medications and Allergies Home Medications Medication Instructions Recorded Confirmed Type Furosemide [Lasix] 20 mg PO DAILY 04/14/20 06/26/22 History Levothyroxine Sodium [Synthroid] 137 mcg PO DAILY 04/14/20 06/26/22 History Tamsulosin [Flomax] 0.8 mg PO DAILY 04/14/20 06/26/22 History allopurinoL [Zyloprim] 100 mg PO BID 04/14/20 06/26/22 History glipiZIDE [Glucotrol XL] 2.5 mg PO DAILY 04/14/20 06/26/22 History Reblozyl 25mg Sq Injection 1 dose SQ Q21D 06/26/22 06/26/22 History Reblozyl 75mg Sq Injection 1 dose SQ Q21D 06/26/22 06/26/22 History Simvastatin [Zocor] 20 mg PO HS 06/26/22 06/26/22 History calcitrioL [Calcitriol] 0.25 mcg PO TUTH 06/26/22 06/26/22 History Allergies Allergy/AdvReac Type Severity Reaction Status Date / Time No Known Allergies Allergy Verified 06/26/22 09:33 Physical Exam Vitals: Vital Signs Temp Pulse Resp BP Pulse Ox 06/28/22 09:00 75 14 111/55 93 L 06/28/22 08:00 97.6 F 76 20 104/50 94 L 06/28/22 07:41 98 06/28/22 07:32 71 06/28/22 07:00 64 20 103/55 95 06/28/22 06:00 72 20 107/57 95 06/28/22 05:00 70 20 108/58 95 06/28/22 04:01 71 06/28/22 04:00 70 20 112/57 97 06/28/22 03:49 71 06/28/22 03:00 67 20 100/60 93 L 06/28/22 02:00 66 20 102/62 95 06/28/22 01:00 70 20 122/70 95 06/28/22 00:00 97.8 F 89 20 102/54 97 06/27/22 23:00 69 22 103/59 95 06/27/22 22:00 71 20 100/54 95 06/27/22 21:00 77 22 106/59 96 06/27/22 20:00 97.6 F 84 20 108/57 96 06/27/22 19:38 73 06/27/22 19:30 72 06/27/22 19:00 71 19 107/61 96 06/27/22 18:00 78 18 95/52 96 06/27/22 17:00 77 18 106/53 97 06/27/22 16:15 80 22 97/50 96 06/27/22 16:00 80 20 101/56 97 06/27/22 15:45 82 19 113/58 96 06/27/22 15:30 84 18 115/62 97 06/27/22 15:15 79 19 110/61 95 06/27/22 15:08 76 06/27/22 15:00 76 18 107/55 96 06/27/22 14:59 75 96 06/27/22 14:45 73 18 110/58 95 06/27/22 14:30 76 18 120/59 95 06/27/22 14:15 72 20 109/54 95 06/27/22 14:00 74 18 114/52 95 06/27/22 13:45 75 19 103/54 94 L 06/27/22 13:30 80 18 105/53 94 L 06/27/22 13:15 80 21 108/57 94 L 06/27/22 13:00 80 22 103/52 93 L 06/27/22 12:45 78 19 106/71 92 L 06/27/22 12:30 82 18 112/61 93 L 06/27/22 12:15 81 16 101/53 94 L 06/27/22 12:06 72 06/27/22 12:00 97.9 F 73 17 113/60 100 06/27/22 11:55 73 06/27/22 11:45 73 18 114/56 93 L 06/27/22 11:30 73 19 106/57 93 L 06/27/22 11:15 71 18 101/80 92 L 06/27/22 11:00 71 22 86/53 96 06/27/22 10:45 72 21 99/53 95 06/27/22 10:30 74 22 98/53 94 L 06/27/22 10:15 70 19 98/56 91 L 06/27/22 10:00 76 19 107/53 96 Intake and Output 06/27/22 06/28/22 06/28/22 22:59 06:59 14:59 Intake Total 490.456 Output Total 900 500 400 Balance -409.544 -500 -400 Intake: Intake, IV Titration 10.456 Amount Norepinephrine 4 mg In 10.456 Sodium Chloride 0.9% 250 ml @ 0.03 MCG/KG/MIN 11. 406 mls/hr IV .[id number] [facility] Rx#:[id number] Oral 480 Output: Urine 900 500 400 Other: Voiding Method Urinal Urinal Urinal # Voids 0 # Bowel Movements 1 Weight 99.4 kg Patient is awake comfortable, not in any acute distress. Alert oriented 3 Examination of the heart S1 and S2 Examination lungs bilateral breath sounds are heard Abdomen is soft nontender Examination lower extremity shows no significant edema [employer] exam grossly intact Results - Lab Results Most recent lab results Calcium 7.7 mg/dL (8.4-10.2) L 06/28/22 03:28 Magnesium 1.7 mg/dL (1.6-2.3) 06/25/22 23:28 06/28/22 03:28 06/28/22 03:28 Assessment and Plan Assessment: 1. Chronic kidney disease NKF stage IIIB secondary to nephrosclerosis. Previous UA in March did not show any evidence of proteinuria. Baseline serum creatinine 1.8-2 mg/dL. Monitor for contrast nephropathy 2. Acute IN status post cardiac catheterization with stenting of distal left circumflex on 06/26/2022, currently chest pain-free. 3. Anemia with hemoglobin of 6.6 on initial admission, currently at 7.2 g/dL, status post 2 units packed RBCs transfusion. No active bleeding noted. History of myelodysplastic syndrome 4. Hypotension/shock on initial admission mostly cardiogenic. Status post pressors currently hemodynamically stable. 5. Type 2 diabetes Plan: Add Aranesp for anemia Repeat labs in a.m. Avoid any nephrotoxic agents. Thank you for the consultation. We'll continue to follow the patient with you during his hospitalization
--- NOTE | 2022-06-28 10:54 | P.PN ---
Subjective Progress Note Date: 06/28/22 Principal diagnosis: Coronary disease. Pulmonary consult dated 06/27/2022. 69-year-old male who presented to the emergency department, on June 25, complaining of shortness of breath. The patient also apparently had chest pain. The patient apparently was diagnosed as having an ST segment elevation myocardial infarction. On June 26, the patient went to the catheterization laboratory for stent, times one, in his circumflex coronary artery. He is currently in the ICU, room 252. We saw him yesterday passing by, and he recognized me. Yesterday, he was on amiodarone, and norepinephrine. Today, because of increasing shortness of breath, coughing, and wheezing, we were consulted. The patient does have a history of chronic asthmatic bronchitis. He was seen in the office last year. The patient's on O2 at 2 L, as well as norepinephrine at 6 mcg/m, and saline at 100 mL an hour. We've added duo nebs, Symbicort, and we gave him a 1 time dose of Solu-Medrol, 125 mg IV push. Current laboratory data includes a white count of 21.1, hemoglobin 8.1, hematocrit 24.9, and a platelet count of 253,000. Sodium 138, potassium 3.9, chlorides 106, carbon dioxide 16, anion gap 16, BUN 31, and creatinine 2.25. His troponin was 7.640. Testing for coronavirus was negative. His chest x-ray shows no acute process. Progress note dated 06/28/2022. 69-year-old male seen yesterday in consultation. He was admitted with a ST segment elevation myocardial infarction, and had a percutaneous coronary intervention, with a stent 1, to the circumflex coronary artery. I was asked to see him because of breathing difficulty, and the patient does have a known history of chronic asthmatic bronchitis. He received appropriate bronchodilators, and 1 dose of IV corticosteroids. From the pulmonary standpoint, is doing much better. He's not receiving any IV fluids. He is curr ently on 2 L. Currently laboratory data includes a white count 9.4, hemoglobin 7.2, hematocrit 21, and platelet count 275,000. Sodium 139, potassium 4.3, chlorides 110, CO2 19, anion gap 10, BUN 39, creatinine 1.88. Chest x-ray from today shows no acute cardiopulmonary process. Objective - Vital Signs Vital signs: Vital Signs Temp 97.6 F 06/28/22 08:00 Pulse 74 06/28/22 10:00 Resp 14 06/28/22 10:00 BP 103/54 06/28/22 10:00 Pulse Ox 94 L 06/28/22 10:00 FiO2 60 06/25/22 23:56 Intake & Output 06/27/22 06/28/22 06/28/22 18:59 06:59 18:59 Intake Total 383.861 480 Output Total 1500 900 400 Balance -1116.139 -420 -400 Weight 99.4 kg Intake: IV 300 Sodium Chloride 0.9% 1, 300 000 ml @ 100 mls/hr IV . Q10H [facility] Rx#:[id number] Intake, IV Titration 83.861 Amount Norepinephrine 4 mg In 83.861 Sodium Chloride 0.9% 250 ml @ 0.03 MCG/KG/MIN 11. 406 mls/hr IV .[id number] [facility] Rx#:[id number] Oral 480 Output: Urine 1500 900 400 Other: Voiding Method Urinal Urinal Urinal # Voids 1 # Bowel Movements 1 - Exam No acute distress, oriented 3. Currently on 2 L of oxygen. No conversational dyspnea or use of accessory muscles. No audible wheezing. HEENT examination is grossly unremarkable. Neck supple. Full range of motion. No adenopathy thyromegaly or neck vein distention. Cardiovascular examination reveals regular rhythm rate. S1-S2 normal. No S3 or S4. No discernible murmur noted. Heart rate 74 bpm. Lungs reveal minimal scattered rhonchi. No wheezes or crackles. Breath sounds are equal bilaterally. Breath sounds are much improved. Saturations are 94% on 2 L of nasal O2. Abdomen soft bowel sounds are heard. No masses or tenderness. Extremities are intact. No cyanosis clubbing or edema. Skin is without rash or lesion. Neurologic examination is brief but nonfocal. - Labs CBC & Chem 7: 06/28/22 03:28 06/28/22 03:28 Labs: Abnormal Lab Results - Last 24 Hours (Table) 06/27/22 06/28/22 06/28/22 Range/Units 11:34 03:28 03:28 RBC 1.84 L (4.30-5.90) m/uL Hgb 7.2 L (13.0-17.5) gm/dL Hct 21.0 L (39.0-53.0) % MCV 114.3 H (80.0-100.0) fL MCH 39.3 H (25.0-35.0) pg RDW 24.1 H (11.5-15.5) % Neutrophils # 8.4 H (1.3-7.7) k/uL Lymphocytes # 0.6 L (1.0-4.8) k/uL Macrocytosis Marked A Chloride 111 H 110 H (98-107) mmol/L Carbon Dioxide 19 L 19 L (22-30) mmol/L BUN 33 H 39 H (9-20) mg/dL Creatinine 1.88 H 1.88 H (0.66-1.25) mg/dL Glucose 127 H 169 H (74-99) mg/dL Calcium 7.7 L 7.7 L (8.4-10.2) mg/dL Assessment and Plan Assessment: ST segment elevation myocardial infarction, status post stent, 1, to the circumflex coronary artery, 06/26/2022. Chronic asthmatic bronchitis, currently a bit active. History of CHF. History of diabetes mellitus. History of gout. History of BPH. History of hypothyroidism. Plan: Plan dated 06/27/2022. The patient gets doing nebs, 4 times a day and when necessary. We also place the patient on Symbicort 160/4.5, 2 puffs twice a day. We give him 1 time dose of Solu-Medrol, 125 mg IV push. The patient continues on norepinephrine at 6 mcg/m. He is on oxygen at 2 L. He had a cardiac catheterization and stent placement to the circumflex coronary artery on June 26. We will continue to follow make recommendations along the way. No additional recommendations at this time. Prognosis is guarded. Plan dated 06/28/2022. The patient appears to be improved. He was started on appropriate bronchodilators yesterday, and also received 125 mg of Solu-Medrol IV push. Clinically his breathing is improved. He feels much better. The patient may be discharged out of the intensive care unit today. We will continue to follow the patient make recommendations along the way. The patient will need follow-up with me after he is discharged. Time with Patient: Less than 30
[2022-06-28] MEDS ORDERED: DARBEPOETIN ALFA 60 MCG/0.3 ML SYRINGE SQ SCH (11:00)
--- NOTE | 2022-06-28 12:47 | PN ---
PROGRESS NOTE SUBJECTIVE: This gentleman early hours of yesterday had presented with ST-elevation OK, underwent stenting of circumflex with a good result. The RCA was not selectively injected, but appears to be nondominant. Ejection fraction on echo is about 50%. The patient is fairly stable. He is on a small dose of Levophed, making decent amount of urine. No chest pain or shortness of breath. Renal function is good. OBJECTIVE: VITAL SIGNS: Stable. NECK: No JVD. HEART: S1, S2 heard normally. Short systolic murmur at left sternal border. LUNGS: Revealed decent air entry. ABDOMEN: Exam is unchanged. LOWER EXTREMITIES: Exam is unchanged. This patient also has myelodysplastic syndrome, received blood transfusion and hemoglobin is 8.1 today. PLAN: Plan is to continue current medical regimen and wean off the Levophed. IVANA / NAYANN: [id number] /
--- NOTE | 2022-06-28 13:18 | P.PN ---
Subjective Progress Note Date: 06/28/22 Patient is a 77-year-old male with a known history of diabetes type 2 cdf-yrnfrmm-eqcukfywj, hypothyroidism, hypertension, asthma and depression presents to ER with complaints of chest pressure millimeters styloglossus with shortness of breath and bilateral arm pain. Patient also states that he did have dizziness and diaphoretic. Patient was watching TV at home when he developed symptoms. Patient was placed on BiPAP secondary to labored breathing on admission. EKG showed ST elevation CA and patient also has history of severe anemia. Patient underwent cardiac catheterization with successful stenting of the distal dominant left circumflex with reduction of stenosis from 99 to 0%. Patient did improve symptomatically after the catheterization. Laboratory showed WBC 1.7 hemoglobin 6.6 and platelets 212 and MCV 126.1 Sodium 139 potassium 3.6 chloride 105 bicarb is 18 BUN 33 and creatinine 2.02 Liver enzymes are not elevated troponin 0.012 and 7.64 Lipase 112 Coronavirus PCR not detected. Chest x-ray showed normal chest. No change. 06/27/22. Patient seen and examined. Currently in ICU. Denies any chest pain. Complaining of shortness of breath which he states is improving. Vital signs stable 06/28/22. Patient seen and examined. Patient breathing has improved, not requiring any supplemental oxygen. Denies any episodes of chest pain. Creatinine has improved to 1.88. Vital signs stable. Case discussed with nursing staff REVIEW OF SYSTEMS: CONSTITUTIONAL: No fever, no malaise, no fatigue. HEENT: No recent visual problems or hearing problems. Denied any sore throat. CARDIOVASCULAR: No chest pain, orthopnea, PND, no palpitations, no syncope. PULMONARY: Complaining of shortness of breath PHYSICAL EXAMINATION: GENERAL: The patient is alert and oriented x3, not in any acute distress. Well developed, well nourished. HEENT: Pupils are round and equally reacting to light. EOMI. No scleral icterus. No conjunctival pallor. Normocephalic, atraumatic. No pharyngeal erythema. No thyromegaly. CARDIOVASCULAR: S1 and S2 present. No murmurs, rubs, or gallops. PULMONARY: Coarse breath sounds bilaterally, no wheeze ABDOMEN: Soft, nontender, nondistended, normoactive bowel sounds. No palpable organomegaly. MUSCULOSKELETAL: No joint swelling or deformity. EXTREMITIES: No cyanosis, clubbing, or pedal edema. NEUROLOGICAL: Gross neurological examination did not reveal any focal deficits. SKIN: No rashes. Assessment and plan Acute ST elevated CA status post cardiac catheterization and stent placement to circumflex distal dominant circumflex artery Cardiogenic shock requiring pressor support Acute hypoxic respiratory failure on admission requiring BiPAP Chronic kidney disease stage III Hypoproliferative anemia due to CKD and MDS. Patient does have chronic anemia with hemoglobin around 7. Diabetes type 2 hsw-hmbctlg-oogszvxnf Hypothyroidism Depression History of gout BPH Asthma not in exacerbation DVT prophylaxis Plan: Monitor vital signs Monitor CBC Monitor BMP Continue aspirin Plavix statins and metoprolol. Continue breathing treatments Monitor renal function closely. Nephrology started patient on [facility] Cardiology and hematology is on board. Follow-up on pulmonary recommendations DVT prophylaxis: Objective - Vital Signs Vital signs: Vital Signs Temp 97.6 F 06/28/22 08:00 Pulse 69 06/28/22 12:00 Resp 16 06/28/22 12:00 BP 84/56 06/28/22 12:00 Pulse Ox 90 L 06/28/22 12:00 FiO2 60 06/25/22 23:56 Intake & Output 06/27/22 06/28/22 06/28/22 18:59 06:59 18:59 Intake Total 383.861 480 Output Total 1500 900 400 Balance -1116.139 -420 -400 Weight 99.4 kg Intake: IV 300 Sodium Chloride 0.9% 1, 300 000 ml @ 100 mls/hr IV . Q10H [facility] Rx#:[id number] Intake, IV Titration 83.861 Amount Norepinephrine 4 mg In 83.861 Sodium Chloride 0.9% 250 ml @ 0.03 MCG/KG/MIN 11. 406 mls/hr IV .[id number] [facility] Rx#:[id number] Oral 480 Output: Urine 1500 900 400 Other: Voiding Method Urinal Urinal Urinal # Voids 1 # Bowel Movements 1 - Labs CBC & Chem 7: 06/28/22 03:28 06/28/22 03:28 Labs: Abnormal Lab Results - Last 24 Hours (Table) 06/28/22 06/28/22 Range/Units 03:28 03:28 RBC 1.84 L (4.30-5.90) m/uL Hgb 7.2 L (13.0-17.5) gm/dL Hct 21.0 L (39.0-53.0) % MCV 114.3 H (80.0-100.0) fL MCH 39.3 H (25.0-35.0) pg RDW 24.1 H (11.5-15.5) % Neutrophils # 8.4 H (1.3-7.7) k/uL Lymphocytes # 0.6 L (1.0-4.8) k/uL Macrocytosis Marked A Chloride 110 H (98-107) mmol/L Carbon Dioxide 19 L (22-30) mmol/L BUN 39 H (9-20) mg/dL Creatinine 1.88 H (0.66-1.25) mg/dL Glucose 169 H (74-99) mg/dL Calcium 7.7 L (8.4-10.2) mg/dL
--- NOTE | 2022-06-28 16:44 | CDI ---
Documentation Clarification Form Date: 06/28/2022 04:42:24 PM From: Chrissie Beck RN, CCDS Admit Date: 06/25/2022 11:41:00 PM Patient Name: Arnav Loza Visit Number: [id number] Discharge Date: ATTENTION: The Clinical Documentation Specialists (CDI) and [facility] Coding Staff appreciate your assistance in clarifying documentation. Please respond to the clarification below the line at the bottom and electronically sign. The CDI & [facility] Coding staff will review the response and follow-up if needed. Please note: Queries are made part of the Legal Health Record. If you have any questions, please contact the author of this message via ITS. Dr. Wilian Vincent Your patient has the documented diagnosis of unspecified CHF in the past medical history. Additional information regarding the type, acuity of CHF is requested. History/Risk Factors: Diabetes Mellitus, Hypertension, NC, Heart Failure Clinical Indicators: 77-year-old male present with severe shortness of breath hypoxia and chest pain. 06/25 VS/Pulse OX: 97/31 92 32 98.4 98% He was ruled in for STEMI. 06/26 Echocardiogram Results: Left ventricular EF is estimated at 50-55 % Inferior basal hypokinesis, mildly increased left ventricular wall thickness. Mild pulmonary hypertension. Moderate aortic stenosis with mean gradient 29 Hg 06/25 CXR: Normal chest Treatment: ICU/Telemetry monitoring Lopressor 25 mg po bid 06/26-06/27 Lipitor 80 mg po 06/26-06/27 In your professional opinion, can you please clarify the acuity and type of CHF if known? [ x] Acute Systolic Heart Failure (reduced EF) [ ] Chronic Systolic Heart Failure (reduced EF) [ ] Acute on Chronic Systolic Heart Failure (reduced EF) [ ] Acute Diastolic Heart Failure (preserved EF) [ ] Chronic Diastolic Heart Failure (preserved EF) [ ] Acute on Chronic Diastolic Heart Failure (preserved EF) [ ] Acute Systolic & Diastolic Heart Failure [ ] Chronic Systolic & Diastolic Heart Failure [ ] Acute on Chronic Heart Failure Systolic & Diastolic Heart Failure [ ] Other, please specify [ ] Unable to determine (Template Last Revised: October 2020) MTDD
[2022-06-28] MEDS: ATORVASTATIN 80 MG TAB PO SCH (20:11)
[2022-06-29] MEDS: ALBUTEROL NEBULIZED 2.5 MG/3 ML INHALATION PRN (04:44)
[2022-06-29 06:11] LABS: Glucose,Whole Blood 98 mg/dL (70-110)
[2022-06-29] MEDS: INSULIN ASPART (NovoLOG) 100 UNIT/ML VIAL SQ SCH ×4 (06:27→21:12)
[2022-06-29] MEDS: IPRATROPIUM-ALBUTEROL 3 ML NEB INHALATION SCH ×4 (07:42→20:08)
[2022-06-29] MEDS: SYMBICORT 160-4.5 MCG INHALER INHALATION SCH ×2 (07:48→20:08)
--- NOTE | 2022-06-29 08:00 | PN ---
PROGRESS NOTE SUBJECTIVE: This is a 77-year-old gentleman with an acute inferior VT, underwent stenting 48 hours ago or more present. He is doing much better today. No chest pain. His hemoglobin however has come down to 7.1. I will request input from Hematology. Cardiac-buck, he is stable. He is off Levophed. Blood pressure is better. No chest pain. OBJECTIVE: VITALS: Vital signs are stable. HEART: S1, S2 with a short systolic murmur noted. LUNGS: Revealed decent air entry. ABDOMEN: Exam is unchanged. LOWER EXTREMITIES: Exam is unchanged. PLAN: Plan is to continue current medications. Increase activity and move him to telemetry and possible discharge soon. We will seek input from Hematology. IVANA / ROSALINDA: [id number] /
[2022-06-29] MEDS: ASPIRIN 81 MG PO SCH (08:48)
[2022-06-29] MEDS: METOPROLOL TARTRATE 12.5 MG TAB PO SCH ×2 (08:48→21:12)
[2022-06-29] MEDS: CLOPIDOGREL 75 MG TAB PO SCH (08:48)
[2022-06-29 08:51] LABS: Anisocytosis Marked; Basophils % (A) 0 %; Eosinophils % (A) 1 %; HCT 22.8 % (39.0-53.0); HGB 7.4 gm/dL (13.0-17.5); Hypochromasia Moderate; Lymphocytes # (A) 1.1 k/uL (1.0-4.8); Lymphocytes % (A) 16 %; MCH 37.6 pg (25.0-35.0); MCHC 32.4 g/dL (31.0-37.0); MCV 115.9 fL (80.0-100.0); Macrocytosis Marked; Monocytes # (A) 0.2 k/uL (0-1.0); Monocytes % (A) 3 %; Neutrophils # (A) 5.6 k/uL (1.3-7.7); Neutrophils % (A) 79 %; Platelet Count 223 k/uL (150-450); Poikilocytosis Slight; RBC 1.97 m/uL (4.30-5.90); RDW 24.4 % (11.5-15.5); WBC 7.1 k/uL (3.8-10.6)
[2022-06-29 09:14] LABS: Albumin 3.1 g/dL (3.5-5.0); Calcium 8.4 mg/dL (8.4-10.2); Potassium 4.2 mmol/L (3.5-5.1); Total Bilirubin 0.6 mg/dL (0.2-1.3); Total Protein 6.2 g/dL (6.3-8.2)
[2022-06-29] MEDS ORDERED: FUROSEMIDE 10 MG/ML 4 ML VIAL IV STA (09:35)
--- NOTE | 2022-06-29 09:37 | XR ---
EXAMINATION TYPE: XR chest 2V DATE OF EXAM: 06/29/2022 9:31 AM COMPARISON: Chest radiographs from 06/28/2022 TECHNIQUE: XR chest 2V Frontal and lateral views of the chest. CLINICAL INDICATION:Male, 77 years old with history of increasing cough; FINDINGS: Lungs/Pleura: There is no evidence of pleural effusion, focal consolidation, or pneumothorax. Pulmonary vascularity: Unremarkable. Heart/mediastinum: Cardiomediastinal silhouette is unremarkable. Musculoskeletal: No acute osseous pathology. IMPRESSION: No acute cardiopulmonary disease/process. No significant change from prior examination.
[2022-06-29 10:34] LABS: Mixed Population RBC Present; Rouleaux Present
[2022-06-29 10:35] LABS: Large Platelets Present
--- NOTE | 2022-06-29 11:40 | P.PN ---
Subjective Patient is seen for follow-up for chronic kidney disease and acute kidney injury. He is status post cardiac catheterization with coronary stent placement on 06/26/2022 This morning patient is complaining of shortness of breath. He denied any chest pains. Renal function is at baseline with creatinine 1.8-1.7 mg/dL. Objective - Vital Signs Vital signs: Vital Signs Temp 98.1 F 06/29/22 08:00 Pulse 73 06/29/22 08:00 Resp 18 06/29/22 08:00 BP 107/57 06/29/22 08:00 Pulse Ox 95 06/29/22 08:00 FiO2 60 06/25/22 23:56 Intake & Output 06/28/22 06/29/22 06/29/22 18:59 06:59 18:59 Intake Total 118 Output Total 400 Balance -400 118 Intake: Oral 118 Output: Urine 400 Other: Voiding Method Urinal Toilet Toilet Urinal Urinal # Voids 0 1 - Exam Patient is awake, comfortable, not in any acute distress Examination of the heart S1 and S2 Examination of the lungs bilateral breath sounds are heard Abdomen is soft nontender Examination of the lower extremities shows trace edema bilaterally [employer] exam grossly intact - Labs CBC & Chem 7: 06/29/22 08:04 06/29/22 08:04 Labs: Abnormal Lab Results - Last 24 Hours (Table) 06/29/22 06/29/22 Range/Units 08:04 08:04 RBC 1.97 L (4.30-5.90) m/uL Hgb 7.4 L (13.0-17.5) gm/dL Hct 22.8 L (39.0-53.0) % MCV 115.9 H (80.0-100.0) fL MCH 37.6 H (25.0-35.0) pg RDW 24.4 H (11.5-15.5) % Macrocytosis Marked A Chloride 113 H (98-107) mmol/L Carbon Dioxide 18 L (22-30) mmol/L BUN 52 H (9-20) mg/dL Creatinine 1.72 H (0.66-1.25) mg/dL AST 78 H (17-59) U/L ALT 58 H (4-49) U/L Total Protein 6.2 L (6.3-8.2) g/dL Albumin 3.1 L (3.5-5.0) g/dL Assessment and Plan Assessment: 1. Chronic kidney disease NKF stage IIIB secondary to nephrosclerosis. Previous UA in March did not show any evidence of proteinuria. Baseline serum creatinine 1.8-2 mg/dL. Monitor for contrast nephropathy 2. Acute CO status post cardiac catheterization with stenting of distal left circumflex on 06/26/2022, currently chest pain-free. 3. Anemia with hemoglobin of 6.6 on initial admission, currently at 7.2 g/dL, status post 2 units packed RBCs transfusion. No active bleeding noted. History of myelodysplastic syndrome 4. Hypotension/shock on initial admission mostly cardiogenic. Status post pressors currently hemodynamically stable. 5. Type 2 diabetes 6. Volume overload Plan: IV Lasix 1 Repeat labs in a.m. Maintain off of IV fluids Continue with Maged
[2022-06-29 11:42] LABS: Glucose,Whole Blood 95 mg/dL (70-110)
--- NOTE | 2022-06-29 12:33 | P.PN ---
Subjective Progress Note Date: 06/29/22 Principal diagnosis: Coronary disease. Pulmonary consult dated 06/27/2022. 69-year-old male who presented to the emergency department, on June 25, complaining of shortness of breath. The patient also apparently had chest pain. The patient apparently was diagnosed as having an ST segment elevation myocardial infarction. On June 26, the patient went to the catheterization laboratory for stent, times one, in his circumflex coronary artery. He is currently in the ICU, room 252. We saw him yesterday passing by, and he recognized me. Yesterday, he was on amiodarone, and norepinephrine. Today, because of increasing shortness of breath, coughing, and wheezing, we were consulted. The patient does have a history of chronic asthmatic bronchitis. He was seen in the office last year. The patient's on O2 at 2 L, as well as norepinephrine at 6 mcg/m, and saline at 100 mL an hour. We've added duo nebs, Symbicort, and we gave him a 1 time dose of Solu-Medrol, 125 mg IV push. Current laboratory data includes a white count of 21.1, hemoglobin 8.1, hematocrit 24.9, and a platelet count of 253,000. Sodium 138, potassium 3.9, chlorides 106, carbon dioxide 16, anion gap 16, BUN 31, and creatinine 2.25. His troponin was 7.640. Testing for coronavirus was negative. His chest x-ray shows no acute process. Progress note dated 06/28/2022. 69-year-old male seen yesterday in consultation. He was admitted with a ST segment elevation myocardial infarction, and had a percutaneous coronary intervention, with a stent 1, to the circumflex coronary artery. I was asked to see him because of breathing difficulty, and the patient does have a known history of chronic asthmatic bronchitis. He received appropriate bronchodilators, and 1 dose of IV corticosteroids. From the pulmonary standpoint, is doing much better. He's not receiving any IV fluids. He is curr ently on 2 L. Currently laboratory data includes a white count 9.4, hemoglobin 7.2, hematocrit 21, and platelet count 275,000. Sodium 139, potassium 4.3, chlorides 110, CO2 19, anion gap 10, BUN 39, creatinine 1.88. Chest x-ray from today shows no acute cardiopulmonary process. Progress note dated 06/29/2022. 77-year-old male who is seen today in room 362. He was admitted with a diagnosis of ST segment elevation myocardial infarction, and had a percutaneous coronary intervention with a stent 1, to the circumflex coronary artery. The patient does have history of chronic lung disease in the form of chronic asthmatic bronchitis. We added some bronchodilators, and today, because his gilbert athing is still giving him some difficulty, we'll add some Solu-Medrol. Currently, the patient is on room air. The patient did receive 2 units of packed red blood cells. He did receive Lasix earlier today, and we will add Solu-Medrol, 60 mg every 6. White count 7.1, hemoglobin 7.4, hematocrit 22.8, and platelet count 223,000. Sodium 141, potassium 4.2, chlorides 113, CO2 18, BUN 52, and creatinine 1.72. Chest x-ray shows no acute cardiopulmonary process. Objective - Vital Signs Vital signs: Vital Signs Temp 97.8 F 06/29/22 12:07 Pulse 73 06/29/22 12:07 Resp 20 06/29/22 12:13 BP 107/57 06/29/22 08:00 Pulse Ox 95 06/29/22 12:07 FiO2 60 06/25/22 23:56 Intake & Output 06/28/22 06/29/22 06/29/22 18:59 06:59 18:59 Intake Total 118 Output Total 400 Balance -400 118 Intake: Oral 118 Output: Urine 400 Other: Voiding Method Urinal Toilet Toilet Urinal Urinal # Voids 0 1 - Exam No acute distress, oriented 3. Currently on room air. No conversational dyspnea or use of accessory muscles. No audible wheezing. HEENT examination is grossly unremarkable. Neck supple. Full range of motion. No adenopathy thyromegaly or neck vein distention. Cardiovascular examination reveals regular rhythm rate. S1-S2 normal. No S3 or S4. No discernible murmur noted. Heart rate 73 bpm. Lungs reveal minimal scattered rhonchi. No wheezes or crackles. Breath sounds are equal bilaterally. Breath sounds are much improved. Saturations are 95% on room air. Abdomen soft bowel sounds are heard. No masses or tenderness. Extremities are intact. No cyanosis clubbing or edema. Skin is without rash or lesion. Neurologic examination is brief but nonfocal. - Labs CBC & Chem 7: 06/29/22 08:04 06/29/22 08:04 Labs: Abnormal Lab Results - Last 24 Hours (Table) 06/29/22 06/29/22 Range/Units 08:04 08:04 RBC 1.97 L (4.30-5.90) m/uL Hgb 7.4 L (13.0-17.5) gm/dL Hct 22.8 L (39.0-53.0) % MCV 115.9 H (80.0-100.0) fL MCH 37.6 H (25.0-35.0) pg RDW 24.4 H (11.5-15.5) % Macrocytosis Marked A Chloride 113 H (98-107) mmol/L Carbon Dioxide 18 L (22-30) mmol/L BUN 52 H (9-20) mg/dL Creatinine 1.72 H (0.66-1.25) mg/dL AST 78 H (17-59) U/L ALT 58 H (4-49) U/L Total Protein 6.2 L (6.3-8.2) g/dL Albumin 3.1 L (3.5-5.0) g/dL Assessment and Plan Assessment: ST segment elevation myocardial infarction, status post stent, 1, to the circumflex coronary artery, 06/26/2022. Chronic asthmatic bronchitis, active. History of CHF. History of diabetes mellitus. History of gout. History of BPH. History of hypothyroidism. Plan: Plan dated 06/27/2022. The patient gets doing nebs, 4 times a day and when necessary. We also place the patient on Symbicort 160/4.5, 2 puffs twice a day. We give him 1 time dose of Solu-Medrol, 125 mg IV push. The patient continues on norepinephrine at 6 mcg/m. He is on oxygen at 2 L. He had a cardiac catheterization and stent placement to the circumflex coronary artery on June 26. We will continue to follow make recommendations along the way. No additional recommendations at this time. Prognosis is guarded. Plan dated 06/28/2022. The patient appears to be improved. He was started on appropriate bronchodilators yesterday, and also received 125 mg of Solu-Medrol IV push. Clinically his breathing is improved. He feels much better. The patient may be discharged out of the intensive care unit today. We will continue to follow the patient make recommendations along the way. The patient will need follow-up with me after he is discharged. Plan dated 06/29/2022. The patient will get some Solu-Medrol added to his regimen today, at 60 mg every 6 hours. He states, that he may be discharged tomorrow. The patient's currently on room air. Saturations are 95%. Labs, x-rays, and medications are reviewed. His chest x-ray shows no acute pulmonary process. Prognosis is guarded. We will continue to follow the patient, make recommendations along the way. In addition, the patient will see me in the office after discharge. Time with Patient: Less than 30
[2022-06-29] MEDS: methylPREDNISolone SOD SUCCI 125 MG/2 ML VIAL IV SCH ×3 (12:35→23:07)
--- NOTE | 2022-06-29 12:38 | CA ---
Transthoracic Echo Report Name: Arnav Loza Age: 77 Gender: M : 1945 Exam Date: 06/29/2022 10:27 Exam Location: [facility] Ht (in): 62 Wt (lb): 219 Ordering Physician: Vi Noyola Attending/Referring Phys: [id number], Dennys Laundry Press Operator Skye Rush RDCS Procedure CPT: Indications: LV function Cardiac Hx: Echo done 06/26/22 Limited study for lv function. Technical Quality: Technically difficult study Contrast 1: Lumason Total Dose (mL): 3 Contrast 2: Total Dose (mL): MEASUREMENTS (Male / Female) Normal Values FINDINGS Left Ventricle Left ventricular ejection fraction is estimated at 45-50%. Inferobasal, mid inferior and basal lateral wall hypokinesis Right Ventricle Right Atrium Left Atrium Mitral Valve Aortic Valve Tricuspid Valve Pulmonic Valve Pericardium Aorta CONCLUSIONS Limited echo. Lumason ECHO contrast used for improved visualization of the endocardial borders (inadequate visualization of two or more contiguous segments). 1. Mildly impaired left ventricle systolic function 2. Segmental wall motion abnormality consistent CAD Previewed by: Dr. Timothy Cortez MD (Electronically Signed) Final Date: 29 June 2022 12:37
--- NOTE | 2022-06-29 12:55 | P.PN ---
Subjective Progress Note Date: 06/29/22 Patient is a 77-year-old male with a known history of diabetes type 2 [id number], hypothyroidism, hypertension, asthma and depression presents to ER with complaints of chest pressure millimeters styloglossus with shortness of breath and bilateral arm pain. Patient also states that he did have dizziness and diaphoretic. Patient was watching TV at home when he developed symptoms. Patient was placed on BiPAP secondary to labored breathing on admission. EKG showed ST elevation MO and patient also has history of severe anemia. Patient underwent cardiac catheterization with successful stenting of the distal dominant left circumflex with reduction of stenosis from 99 to 0%. Patient did improve symptomatically after the catheterization. Laboratory showed WBC 1.7 hemoglobin 6.6 and platelets 212 and MCV 126.1 Sodium 139 potassium 3.6 chloride 105 bicarb is 18 BUN 33 and creatinine 2.02 Liver enzymes are not elevated troponin 0.012 and 7.64 Lipase 112 Coronavirus PCR not detected. Chest x-ray showed normal chest. No change. 06/27/22. Patient seen and examined. Currently in ICU. Denies any chest pain. Complaining of shortness of breath which he states is improving. Vital signs stable 06/28/22. Patient seen and examined. Patient breathing has improved, not requiring any supplemental oxygen. Denies any episodes of chest pain. Creatinine has improved to 1.88. Vital signs stable. Case discussed with nursing staff 06/29/22. Patient seen and examined. Complaining of shortness of breath. States she had a rough night. Not requiring any oxygen at this time. States sh ortness of breath becomes worse when he lays down. Denies any chest pain REVIEW OF SYSTEMS: CONSTITUTIONAL: No fever, no malaise, no fatigue. HEENT: No recent visual problems or hearing problems. Denied any sore throat. CARDIOVASCULAR: No chest pain, PND, no palpitations, no syncope. PULMONARY: Complaining of shortness of breath PHYSICAL EXAMINATION: GENERAL: The patient is alert and oriented x3, not in any acute distress. Well developed, well nourished. HEENT: Pupils are round and equally reacting to light. EOMI. No scleral icterus. No conjunctival pallor. Normocephalic, atraumatic. No pharyngeal erythema. No thyromegaly. CARDIOVASCULAR: S1 and S2 present. No murmurs, rubs, or gallops. PULMONARY: Coarse breath sounds bilaterally, no wheeze, crackles audible ABDOMEN: Soft, nontender, nondistended, normoactive bowel sounds. No palpable organomegaly. MUSCULOSKELETAL: No joint swelling or deformity. EXTREMITIES: No cyanosis, clubbing, or pedal edema. NEUROLOGICAL: Gross neurological examination did not reveal any focal deficits. SKIN: No rashes. 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 Patient does have chronic anemia with hemoglobin around 7. Diabetes type 2 [id number] Hypothyroidism Depression History of gout BPH Asthma not in exacerbation DVT prophylaxis Plan: Monitor vital signs Monitor CBC Monitor BMP Continue aspirin Plavix statins and metoprolol. Ordered chest x-ray Patient given 1 dose of Lasix 40 mg Continue breathing treatments Monitor renal function closely. Continue IV steroids Follow-up in nephrology recommendations Cardiology and hematology is on board. Follow-up on pulmonary recommendations DVT prophylaxis: Objective - Vital Signs Vital signs: Vital Signs Temp 97.8 F 06/29/22 12:07 Pulse 67 06/29/22 12:50 Resp 20 06/29/22 12:13 BP 107/57 06/29/22 08:00 Pulse Ox 95 06/29/22 12:07 FiO2 60 06/25/22 23:56 Intake & Output 06/28/22 06/29/22 06/29/22 18:59 06:59 18:59 Intake Total 118 Output Total 400 Balance -400 118 Intake: Oral 118 Output: Urine 400 Other: Voiding Method Urinal Toilet Toilet Urinal Urinal # Voids 0 1 - Labs CBC & Chem 7: 06/29/22 08:04 06/29/22 08:04 Labs: Abnormal Lab Results - Last 24 Hours (Table) 06/29/22 06/29/22 Range/Units 08:04 08:04 RBC 1.97 L (4.30-5.90) m/uL Hgb 7.4 L (13.0-17.5) gm/dL Hct 22.8 L (39.0-53.0) % MCV 115.9 H (80.0-100.0) fL MCH 37.6 H (25.0-35.0) pg RDW 24.4 H (11.5-15.5) % Macrocytosis Marked A Chloride 113 H (98-107) mmol/L Carbon Dioxide 18 L (22-30) mmol/L BUN 52 H (9-20) mg/dL Creatinine 1.72 H (0.66-1.25) mg/dL AST 78 H (17-59) U/L ALT 58 H (4-49) U/L Total Protein 6.2 L (6.3-8.2) g/dL Albumin 3.1 L (3.5-5.0) g/dL
[2022-06-29 16:36] LABS: Glucose,Whole Blood 191 mg/dL (70-110)
[2022-06-29 19:52] LABS: Glucose,Whole Blood 229 mg/dL (70-110)
[2022-06-29] MEDS: ATORVASTATIN 80 MG TAB PO SCH (21:12)
[2022-06-30 02:28] VITALS: RESP 20
--- NOTE | 2022-06-30 06:08 | PN ---
PROGRESS NOTE SUBJECTIVE: This is a 77-year-old gentleman with ST-elevation CO and circumflex stenting. He developed shortness of breath yesterday and received some IV Lasix. He has chronic kidney disease, myelodysplastic disease with low hemoglobin, requiring transfusion and now CAD with stenting of circumflex in the setting of ST-elevation CO. I am recommending we will do a limited echo. A chest x-ray was also performed in view of his episode of shortness of breath, but he showed improvement following his breathing treatment. He is also getting additional Lasix as advised by Dr. Whitman. I am suggesting a limited echocardiogram and also, we will seek input from Dr. Saavedra, and we plan discharge in the next 24 to 48 hours based on his clinical course. A chest x-ray was reviewed, suggests no evidence of any pulmonary vascular congestion. The patient may have some COPD and has shown some improvement with his breathing treatment. However, I will get an assessment of echo as well. OBJECTIVE: VITAL SIGNS: Stable. NECK: JVD, 1 cm. No carotid bruit. HEART: S1, S2 heard normally. Short systolic murmur noted. LUNGS: Reveal bilateral scattered rhonchi. ABDOMEN: Soft. LOWER EXTREMITIES: Reveal diminished pulses. CENTRAL NERVOUS SYSTEM: Grossly within normal limits. MMODL / IJN: [id number] /
[2022-06-30 06:11] LABS: Glucose,Whole Blood 239 mg/dL (70-110)
[2022-06-30] MEDS: INSULIN ASPART (NovoLOG) 100 UNIT/ML VIAL SQ SCH ×2 (06:33→12:25)
[2022-06-30] MEDS: methylPREDNISolone SOD SUCCI 125 MG/2 ML VIAL IV SCH ×2 (06:33→12:25)
[2022-06-30] MEDS: SYMBICORT 160-4.5 MCG INHALER INHALATION SCH (08:44)
[2022-06-30] MEDS: IPRATROPIUM-ALBUTEROL 3 ML NEB INHALATION SCH ×2 (08:44→11:46)
[2022-06-30 09:04] LABS: Albumin 3.6 g/dL (3.5-5.0); Calcium 8.4 mg/dL (8.4-10.2); Total Bilirubin 0.9 mg/dL (0.2-1.3); Total Protein 7.2 g/dL (6.3-8.2)
[2022-06-30 09:05] LABS: Anisocytosis Moderate; HCT 26.1 % (39.0-53.0); HGB 8.5 gm/dL (13.0-17.5); Hypochromasia Slight; MCH 36.9 pg (25.0-35.0); MCHC 32.7 g/dL (31.0-37.0); Macrocytosis Marked; Mean Platelet Volume 11.4; Platelet Count 265 k/uL (150-450); RBC 2.31 m/uL (4.30-5.90); RDW 23.7 % (11.5-15.5); WBC 3.5 k/uL (3.8-10.6)
[2022-06-30] MEDS: CLOPIDOGREL 75 MG TAB PO SCH (09:43)
[2022-06-30] MEDS: ASPIRIN 81 MG PO SCH (09:43)
[2022-06-30] MEDS: METOPROLOL TARTRATE 12.5 MG TAB PO SCH (09:43)
[2022-06-30 10:05] LABS: Lymphocytes # (M) 0.25 k/uL (1.0-4.8); Monocytes # (M) 0.14 k/uL (0-1.0); Neutrophils # (M) 3.15 k/uL (1.3-7.7); Neutrophils % (M) 90 %; Nucleated Red Blood Cells 0 /100 WBC (0-0); Total Cells Counted 200
[2022-06-30 10:07] LABS: Rouleaux Present
[2022-06-30 11:08] VITALS: BP 107/52; PULSE 68; TEMP 97.6
--- NOTE | 2022-06-30 11:16 | P.PN ---
Subjective Patient is seen for follow-up for chronic kidney disease and acute kidney injury. He is status post cardiac catheterization with coronary stent placement on 06/26/2022 No complaints today. Status post IV Lasix yesterday Renal function is at baseline with creatinine 1.8-1.7 mg/dL. Objective - Vital Signs Vital signs: Vital Signs Temp 97.6 F 06/30/22 11:07 Pulse 68 06/30/22 11:07 Resp 20 06/30/22 11:07 BP 107/52 06/30/22 11:07 Pulse Ox 93 L 06/30/22 11:07 FiO2 60 06/25/22 23:56 Intake & Output 06/29/22 06/30/22 06/30/22 18:59 06:59 18:59 Intake Total 476 118 Balance 476 118 Intake: Oral 476 118 Other: Voiding Method Toilet Toilet Urinal Urinal # Voids 2 1 1 - Exam Patient is awake, comfortable, not in any acute distress Examination of the heart S1 and S2 Examination of the lungs bilateral breath sounds are heard Abdomen is soft nontender Examination of the lower extremities shows trace edema bilaterally [employer] exam grossly intact - Labs CBC & Chem 7: 06/30/22 08:15 06/30/22 08:15 Labs: Abnormal Lab Results - Last 24 Hours (Table) 06/29/22 06/29/22 06/30/22 Range/Units 16:34 19:50 06:09 WBC (3.8-10.6) k/uL RBC (4.30-5.90) m/uL Hgb (13.0-17.5) gm/dL Hct (39.0-53.0) % MCV (80.0-100.0) fL MCH (25.0-35.0) pg RDW (11.5-15.5) % Lymphocytes # (Manual) (1.0-4.8) k/uL Macrocytosis Chloride (98-107) mmol/L Carbon Dioxide (22-30) mmol/L BUN (9-20) mg/dL Creatinine (0.66-1.25) mg/dL Glucose (74-99) mg/dL POC Glucose (mg/dL) 191 H 229 H 239 H (70-110) mg/dL AST (17-59) U/L ALT (4-49) U/L 06/30/22 06/30/22 Range/Units 08:15 08:15 WBC 3.5 L (3.8-10.6) k/uL RBC 2.31 L (4.30-5.90) m/uL Hgb 8.5 L (13.0-17.5) gm/dL Hct 26.1 L (39.0-53.0) % MCV 113.0 H (80.0-100.0) fL MCH 36.9 H (25.0-35.0) pg RDW 23.7 H (11.5-15.5) % Lymphocytes # (Manual) 0.25 L (1.0-4.8) k/uL Macrocytosis Marked A Chloride 109 H (98-107) mmol/L Carbon Dioxide 18 L (22-30) mmol/L BUN 59 H (9-20) mg/dL Creatinine 1.63 H (0.66-1.25) mg/dL Glucose 145 H (74-99) mg/dL POC Glucose (mg/dL) (70-110) mg/dL AST 66 H (17-59) U/L ALT 61 H (4-49) U/L Assessment and Plan Assessment: 1. Chronic kidney disease NKF stage IIIB secondary to nephrosclerosis. Previous UA in March did not show any evidence of proteinuria. Baseline serum creatinine 1.8-2 mg/dL. Monitor for contrast nephropathy 2. Acute MT status post cardiac catheterization with stenting of distal left circumflex on 06/26/2022, currently chest pain-free. 3. Anemia with hemoglobin of 6.6 on initial admission, currently at 7.2 g/dL, status post 2 units packed RBCs transfusion. No active bleeding noted. History of myelodysplastic syndrome 4. Hypotension/shock on initial admission mostly cardiogenic. Status post pressors currently hemodynamically stable. 5. Type 2 diabetes 6. Volume overload, improved Plan: Add oral Lasix at 40 mg by mouth daily. Patient was taking 20 mg at home previously. Patient is stable for discharge from nephrology standpoint Follow-up as outpatient for CK D.
[2022-06-30] MEDS ORDERED: FUROSEMIDE 40 MG TAB PO SCH (11:30)
[2022-06-30 11:51] LABS: Glucose,Whole Blood 180 mg/dL (70-110)
--- NOTE | 2022-06-30 11:57 | P.DS ---
Providers Date of admission: 06/25/22 23:41 Expected date of discharge: 06/30/22 Attending physician: Kristel Kelley Consults: 06/25/22 23:41 Consult Physician Urgent Consulting Provider: Timothy Cortez Consult Reason/Comments: stemi Do you want consulting provider notified?: Yes 06/26/22 01:09 Consult Physician Routine Consulting Provider: [facility] Consult Reason/Comments: Post Interventional Patient Do you want consulting provider notified?: Already Contacted 06/26/22 08:51 Consult Physician Routine Consulting Provider: Braden Saavedra Consult Reason/Comments: anemia Do you want consulting provider notified?: Yes 06/27/22 07:45 Consult Physician Routine Consulting Provider: Zeb Monterroso Consult Reason/Comments: asthma Do you want consulting provider notified?: Already Contacted 06/28/22 08:18 Consult Physician Routine Consulting Provider: Yordy Barrios Consult Reason/Comments: Kervin Do you want consulting provider notified?: Yes Primary care physician: Stated None Hospital Course: Discharge diagnoses; Acute ST elevated DC status post cardiac catheterization and stent placement to circumflex distal dominant circumflex artery Cardiogenic shock requiring pressor support Acute hypoxic respiratory failure on admission requiring BiPAP Chronic kidney disease stage III Hypoproliferative anemia due to CKD and MDS. Patient does have chronic anemia with hemoglobin around 7. Diabetes type 2 [id number]-[id number] Hypothyroidism Depression History of gout BPH Asthma not in exacerbation Plan: Being discharged on aspirin, Plavix, statin, Lopressor. Outpatient follow-up with cardiology. Being discharged on albuterol, Symbicort and prednisone for 5 days. Outpatient follow-up with pulmonology Hospital course; Patient is a 77-year-old male with a known history of diabetes type 2 wcl-yjygqao-usipuloco, hypothyroidism, hypertension, asthma and depression presents to ER with complaints of chest pressure millimeters styloglossus with shortness of breath and bilateral arm pain. Patient also states that he did have dizziness and diaphoretic. Patient was watching TV at home when he developed symptoms. Patient was placed on BiPAP secondary to labored breathing on admission. EKG showed ST elevation DC and patient also has history of severe anemia. Patient underwent cardiac catheterization with successful stenting of the distal dominant left circumflex with reduction of stenosis from 99 to 0%. Patient did improve symptomatically after the catheterization. Laboratory showed WBC 1.7 hemoglobin 6.6 and platelets 212 and MCV 126.1 Sodium 139 potassium 3.6 chloride 105 bicarb is 18 BUN 33 and creatinine 2.02 Liver enzymes are not elevated troponin 0.012 and 7.64 Lipase 112 Coronavirus PCR not detected. Chest x-ray showed normal chest. No change. 06/27/22. Patient seen and examined. Currently in ICU. Denies any chest pain. Complaining of shortness of breath which he states is improving. Vital signs stable 06/28/22. Patient seen and examined. Patient breathing has improved, not requiring any supplemental oxygen. Denies any episodes of chest pain. Creati nine has improved to 1.88. Vital signs stable. Case discussed with nursing staff 06/29/22. Patient seen and examined. Complaining of shortness of breath. States she had a rough night. Not requiring any oxygen at this time. States shortness of breath becomes worse when he lays down. Denies any chest pain 06/30/22. Patient seen and examined. Patient laying comfortably in the bed, states shortness of breath is improved. Nephrology cleared the patient for discharge. Pulmonology also cleared the patient for discharge PHYSICAL EXAMINATION: GENERAL: The patient is alert and oriented x3, not in any acute distress. Well developed, well nourished. HEENT: Pupils are round and equally reacting to light. EOMI. No scleral icterus. No conjunctival pallor. Normocephalic, atraumatic. No pharyngeal erythema. No thyromegaly. CARDIOVASCULAR: S1 and S2 present. No murmurs, rubs, or gallops. PULMONARY: Coarse breath sounds Bilaterally, No Wheeze ABDOMEN: Soft, nontender, nondistended, normoactive bowel sounds. No palpable organomegaly. MUSCULOSKELETAL: No joint swelling or deformity. EXTREMITIES: No cyanosis, clubbing, or pedal edema. NEUROLOGICAL: Gross neurological examination did not reveal any focal deficits. SKIN: No rashes. Patient Condition at Discharge: Stable Plan - Discharge Summary New Discharge Prescriptions: New Aspirin 81 mg PO DAILY #30 tab Atorvastatin [Lipitor] 80 mg PO HS #30 tab Darbepoetin Guzman [Aranesp] 60 mcg SQ Q7D each predniSONE [Deltasone] 40 mg PO DAILY 5 Days #10 tab Metoprolol Tartrate [Lopressor] 12.5 mg PO BID #30 tab Nitroglycerin Sl Tabs [Nitrostat] 0.4 mg SUBLINGUAL Q5M PRN #30 tab PRN Reason: Chest Pain Clopidogrel [Plavix] 75 mg PO DAILY #30 tab Budesonide-Formot 160-4.5 Mcg [Symbicort 160-4.5 Mcg Inhaler] 2 puff INHALATION RT-BID #1 each Albuterol Inhaler [Ventolin Hfa Inhaler] 2 puff INHALATION Q6H PRN 30 Days #30 unit NS PRN Reason: Shortness Of Breath Continue glipiZIDE [Glucotrol XL] 2.5 mg PO DAILY Tamsulosin [Flomax] 0.8 mg PO DAILY Levothyroxine Sodium [Synthroid] 137 mcg PO DAILY Furosemide [Lasix] 20 mg PO DAILY allopurinoL [Zyloprim] 100 mg PO BID Reblozyl 25mg Sq Injection 1 dose SQ Q21D Reblozyl 75mg Sq Injection 1 dose SQ Q21D calcitrioL [Calcitriol] 0.25 mcg PO TUTH Discontinued Simvastatin [Zocor] 20 mg PO HS Discharge Medication List Furosemide [Lasix] 20 mg PO DAILY 04/14/20 [History] Levothyroxine Sodium [Synthroid] 137 mcg PO DAILY 04/14/20 [History] Tamsulosin [Flomax] 0.8 mg PO DAILY 04/14/20 [History] allopurinoL [Zyloprim] 100 mg PO BID 04/14/20 [History] glipiZIDE [Glucotrol XL] 2.5 mg PO DAILY 04/14/20 [History] Reblozyl 25mg Sq Injection 1 dose SQ Q21D 06/26/22 [History] Reblozyl 75mg Sq Injection 1 dose SQ Q21D 06/26/22 [History] calcitrioL [Calcitriol] 0.25 mcg PO TUTH 06/26/22 [History] Albuterol Inhaler [Ventolin Hfa Inhaler] 2 puff INHALATION Q6H PRN 30 Days #30 unit NS 06/30/22 [Rx] Aspirin 81 mg PO DAILY #30 tab 06/30/22 [Rx] Atorvastatin [Lipitor] 80 mg PO HS #30 tab 06/30/22 [Rx] Budesonide-Formot 160-4.5 Mcg [Symbicort 160-4.5 Mcg Inhaler] 2 puff INHALATION RT-BID #1 each 06/30/22 [Rx] Clopidogrel [Plavix] 75 mg PO DAILY #30 tab 06/30/22 [Rx] Darbepoetin Guzman [Aranesp] 60 mcg SQ Q7D each 06/30/22 [Rx] Metoprolol Tartrate [Lopressor] 12.5 mg PO BID #30 tab 06/30/22 [Rx] Nitroglycerin Sl Tabs [Nitrostat] 0.4 mg SUBLINGUAL Q5M PRN #30 tab 06/30/22 [Rx] predniSONE [Deltasone] 40 mg PO DAILY 5 Days #10 tab 06/30/22 [Rx] Follow up Appointment(s)/Referral(s): Zeb Monterroso DO [Doctor of Osteopathic Medicine] - 1 Week None,Stated [Primary Care Provider] - 1-2 days Timothy Cortez MD [STAFF PHYSICIAN] - 1 Week Discharge Disposition: HOME SELF-CARE
--- NOTE | 2022-06-30 12:28 | P.PN ---
Subjective Progress Note Date: 06/30/22 Principal diagnosis: Coronary disease. Pulmonary consult dated 06/27/2022. 69-year-old male who presented to the emergency department, on June 25, complaining of shortness of breath. The patient also apparently had chest pain. The patient apparently was diagnosed as having an ST segment elevation myocardial infarction. On June 26, the patient went to the catheterization laboratory for stent, times one, in his circumflex coronary artery. He is currently in the ICU, room 252. We saw him yesterday passing by, and he recognized me. Yesterday, he was on amiodarone, and norepinephrine. Today, because of increasing shortness of breath, coughing, and wheezing, we were consulted. The patient does have a history of chronic asthmatic bronchitis. He was seen in the office last year. The patient's on O2 at 2 L, as well as norepinephrine at 6 mcg/m, and saline at 100 mL an hour. We've added duo nebs, Symbicort, and we gave him a 1 time dose of Solu-Medrol, 125 mg IV push. Current laboratory data includes a white count of 21.1, hemoglobin 8.1, hematocrit 24.9, and a platelet count of 253,000. Sodium 138, potassium 3.9, chlorides 106, carbon dioxide 16, anion gap 16, BUN 31, and creatinine 2.25. His troponin was 7.640. Testing for coronavirus was negative. His chest x-ray shows no acute process. Progress note dated 06/28/2022. 69-year-old male seen yesterday in consultation. He was admitted with a ST segment elevation myocardial infarction, and had a percutaneous coronary intervention, with a stent 1, to the circumflex coronary artery. I was asked to see him because of breathing difficulty, and the patient does have a known history of chronic asthmatic bronchitis. He received appropriate bronchodilators, and 1 dose of IV corticosteroids. From the pulmonary standpoint, is doing much better. He's not receiving any IV fluids. He is curr ently on 2 L. Currently laboratory data includes a white count 9.4, hemoglobin 7.2, hematocrit 21, and platelet count 275,000. Sodium 139, potassium 4.3, chlorides 110, CO2 19, anion gap 10, BUN 39, creatinine 1.88. Chest x-ray from today shows no acute cardiopulmonary process. Progress note dated 06/29/2022. 77-year-old male who is seen today in room 362. He was admitted with a diagnosis of ST segment elevation myocardial infarction, and had a percutaneous coronary intervention with a stent 1, to the circumflex coronary artery. The patient does have history of chronic lung disease in the form of chronic asthmatic bronchitis. We added some bronchodilators, and today, because his gilbert athing is still giving him some difficulty, we'll add some Solu-Medrol. Currently, the patient is on room air. The patient did receive 2 units of packed red blood cells. He did receive Lasix earlier today, and we will add Solu-Medrol, 60 mg every 6. White count 7.1, hemoglobin 7.4, hematocrit 22.8, and platelet count 223,000. Sodium 141, potassium 4.2, chlorides 113, CO2 18, BUN 52, and creatinine 1.72. Chest x-ray shows no acute cardiopulmonary process. Progress note dated 06/30/2022. 77-year-old male, seen again today in room 362. He was initially admitted with a diagnosis of ST segment elevation myocardial infarction. He had a PCI, with a stent placed 1 to his circumflex coronary artery. He has a history of chronic lung disease in the form of chronic asthmatic bronchitis. The patient did receive 2 units of packed red blood cells. We gave him Solu-Medrol, and breathing treatments, because his lung disease was a bit active. The patient is being considered for possible discharge today. He is on room air. He's not receiving any IV fluids. He will follow-up with me in the office in 2 weeks or so. White count 3.5, hemoglobin 8.5, hematocrit 26.1, and platelet count 265,000. Sodium 141, potassium 5, chlorides 109, CO2 18, anion gap 14, BUN 59, creatinine 1.63. Objective - Vital Signs Vital signs: Vital Signs Temp 97.6 F 06/30/22 11:07 Pulse 68 06/30/22 11:07 Resp 20 06/30/22 11:07 BP 107/52 06/30/22 11:07 Pulse Ox 93 L 06/30/22 11:07 FiO2 60 06/25/22 23:56 Intake & Output 06/29/22 06/30/22 06/30/22 18:59 06:59 18:59 Intake Total 476 118 Balance 476 118 Intake: Oral 476 118 Other: Voiding Method Toilet Toilet Urinal Urinal # Voids 2 1 1 - Exam No acute distress, oriented 3. Currently on room air. No conversational dyspnea or use of accessory muscles. No audible wheezing. HEENT examination is grossly unremarkable. Neck supple. Full range of motion. No adenopathy thyromegaly or neck vein distention. Cardiovascular examination reveals regular rhythm rate. S1-S2 normal. No S3 or S4. No discernible murmur noted. Heart rate 70 bpm. Lungs reveal minimal scattered rhonchi. No wheezes or crackles. Breath sounds are equal bilaterally. Breath sounds are much improved. Saturations are 93% on room air. Abdomen soft bowel sounds are heard. No masses or tenderness. Extremities are intact. No cyanosis clubbing or edema. Skin is without rash or lesion. Neurologic examination is brief but nonfocal. - Labs CBC & Chem 7: 06/30/22 08:15 06/30/22 08:15 Labs: Abnormal Lab Results - Last 24 Hours (Table) 06/29/22 06/29/22 06/30/22 Range/Units 16:34 19:50 06:09 WBC (3.8-10.6) k/uL RBC (4.30-5.90) m/uL Hgb (13.0-17.5) gm/dL Hct (39.0-53.0) % MCV (80.0-100.0) fL MCH (25.0-35.0) pg RDW (11.5-15.5) % Lymphocytes # (Manual) (1.0-4.8) k/uL Macrocytosis Chloride (98-107) mmol/L Carbon Dioxide (22-30) mmol/L BUN (9-20) mg/dL Creatinine (0.66-1.25) mg/dL Glucose (74-99) mg/dL POC Glucose (mg/dL) 191 H 229 H 239 H (70-110) mg/dL AST (17-59) U/L ALT (4-49) U/L 06/30/22 06/30/22 06/30/22 Range/Units 08:15 08:15 11:49 WBC 3.5 L (3.8-10.6) k/uL RBC 2.31 L (4.30-5.90) m/uL Hgb 8.5 L (13.0-17.5) gm/dL Hct 26.1 L (39.0-53.0) % MCV 113.0 H (80.0-100.0) fL MCH 36.9 H (25.0-35.0) pg RDW 23.7 H (11.5-15.5) % Lymphocytes # (Manual) 0.25 L (1.0-4.8) k/uL Macrocytosis Marked A Chloride 109 H (98-107) mmol/L Carbon Dioxide 18 L (22-30) mmol/L BUN 59 H (9-20) mg/dL Creatinine 1.63 H (0.66-1.25) mg/dL Glucose 145 H (74-99) mg/dL POC Glucose (mg/dL) 180 H (70-110) mg/dL AST 66 H (17-59) U/L ALT 61 H (4-49) U/L Assessment and Plan Assessment: ST segment elevation myocardial infarction, status post stent, 1, to the circumflex coronary artery, 06/26/2022. Chronic asthmatic bronchitis, active. History of CHF. History of diabetes mellitus. History of gout. History of BPH. History of hypothyroidism. Plan: Plan dated 06/27/2022. The patient gets doing nebs, 4 times a day and when necessary. We also place the patient on Symbicort 160/4.5, 2 puffs twice a day. We give him 1 time dose of Solu-Medrol, 125 mg IV push. The patient continues on norepinephrine at 6 mcg/m. He is on oxygen at 2 L. He had a cardiac catheterization and stent placement to the circumflex coronary artery on June 26. We will continue to follow make recommendations along the way. No additional recommendations at this time. Prognosis is guarded. Plan dated 06/28/2022. The patient appears to be improved. He was started on appropriate bronchodilators yesterday, and also received 125 mg of Solu-Medrol IV push. Clinically his breathing is improved. He feels much better. The patient may be discharged out of the intensive care unit today. We will continue to follow the patient make recommendations along the way. The patient will need follow-up with me after he is discharged. Plan dated 06/29/2022. The patient will get some Solu-Medrol added to his regimen today, at 60 mg every 6 hours. He states, that he may be discharged tomorrow. The patient's currently on room air. Saturations are 95%. Labs, x-rays, and medications are reviewed. His chest x-ray shows no acute pulmonary process. Prognosis is guarded. We will continue to follow the patient, make recommendations along the way. In addition, the patient will see me in the office after discharge. Plan dated 06/30/2022. The patient's doing much better from the breathing standpoint. The corticosteroids have helped tremendously. He will follow-up with me in the office. He will likely be discharged home today. His breathing is much improved. Labs, x-rays, and medications are reviewed. We will continue to follow and make recommendations along the way. Overall prognosis is guarded. Time with Patient: Less than 30
--- NOTE | 2022-07-01 04:50 | PN ---
PROGRESS NOTE SUBJECTIVE: Mr. Loza is feeling much better today. He has myeloproliferative disease with anemia, chronic kidney disease, recent ST elevation NC. His ejection fraction is in the 50% range. Chest x-ray did not reveal congestion. Plan is to continue current medications, increase activity, and he can be discharged and see Dr. Holman in 1 week. OBJECTIVE: VITAL SIGNS: Stable. NECK: No JVD. HEART: S1, S2 heard normally. Short systolic murmur noted. LUNGS: Clear. ABDOMEN: Exam unchanged. LOWER EXTREMITIES: Exam unchanged. MMODL / IJN: [id number] /
== END 2022-06-30 14:37 | disposition home or self-care (01) | DRG 246 ==
LOC: EC 23:08 → 2SICU 23:41 → 3SCARD 06-28 22:56
PROVIDERS: ADMIT Hospitalist; ATTEND Hospitalist
PROC: 5A09357 Assistance with Respiratory Ventilation, Less than 24 Consecutive Hours, Continuous Positive Airway Pressure (ICD-10-PCS; principal; 2022-06-25)
PROC: 4A023N7 Measurement of Cardiac Sampling and Pressure, Left Heart, Percutaneous Approach (ICD-10-PCS; 2022-06-26)
PROC: B2111ZZ Fluoroscopy of Multiple Coronary Arteries using Low Osmolar Contrast (ICD-10-PCS; 2022-06-26)
PROC: 30233N1 Transfusion of Nonautologous Red Blood Cells into Peripheral Vein, Percutaneous Approach (ICD-10-PCS; 2022-06-26)
PROC: 3E033XZ Introduction of Vasopressor into Peripheral Vein, Percutaneous Approach (ICD-10-PCS; 2022-06-26)
PROC: 027034Z Dilation of Coronary Artery, One Artery with Drug-eluting Intraluminal Device, Percutaneous Approach (ICD-10-PCS; 2022-06-26 00:10)
DX: I21.19 ST elevation (STEMI) myocardial infarction involving other coronary artery of inferior wall (principal); D61.89 Other specified aplastic anemias and other bone marrow failure syndromes; R57.0 Cardiogenic shock; J96.01 Acute respiratory failure with hypoxia; I50.21 Acute systolic (congestive) heart failure; N17.9 Acute kidney failure, unspecified; I13.0 Hypertensive heart and chronic kidney disease with heart failure and stage 1 through stage 4 chronic kidney disease, or unspecified chronic kidney disease; D47.1 Chronic myeloproliferative disease; I27.20 Pulmonary hypertension, unspecified; D63.1 Anemia in chronic kidney disease; E11.22 Type 2 diabetes mellitus with diabetic chronic kidney disease; D46.9 Myelodysplastic syndrome, unspecified; J44.9 Chronic obstructive pulmonary disease, unspecified; E03.9 Hypothyroidism, unspecified; F32.A Depression, unspecified; N18.32 Chronic kidney disease, stage 3b; I08.3 Combined rheumatic disorders of mitral, aortic and tricuspid valves; I48.91 Unspecified atrial fibrillation; I25.10 Atherosclerotic heart disease of native coronary artery without angina pectoris; D63.0 Anemia in neoplastic disease; M10.9 Gout, unspecified; N40.0 Benign prostatic hyperplasia without lower urinary tract symptoms; Z20.822 Contact with and (suspected) exposure to COVID-19; Z79.899 Other long term (current) drug therapy; Z79.890 Hormone replacement therapy; Z79.84 Long term (current) use of oral hypoglycemic drugs; Z79.52 Long term (current) use of systemic steroids; Z28.310 Unvaccinated for COVID-19
CPT/HCPCS: 36415; 71045; 71046; 80048; 80053; 80061; 82150; 83690; 83735; 84484; 85025; 85610; 85730; 86850; 86900; 86901; 86920; 87635; 93005; 93306; 93308; 93458; 94640; 94660; 94760; 96361; 96374; 96375; 99291

== ENCOUNTER → 2022-07-06 | Outpatient (CLI) | payer MEDICARE, BC ==
--- NOTE | 2022-07-06 11:55 | US ---
EXAMINATION TYPE: US venous doppler duplex UE RT DATE OF EXAM: 07/06/2022 COMPARISON: NONE CLINICAL HISTORY: 77-year-old male Right upper extremity; R22.31. Pain and edema right arm. Recent IV right antecubital fossa TECHNIQUE: Grayscale, color doppler, spectral doppler imaging performed of the deep veins of the upp er extremities. SIDE PERFORMED: right FINDINGS: Right Arm: Legal Activity Adjudicator notes: Technical limitations, patient has limited mobility of right arm. No ev idence of DVT. Superficial thrombus right cephalic vein. IMPRESSION: 1. Exam positive for her SVT involving the right cephalic vein. 2. Some technical limitations but no DVT identified in the right upper extremity.
== END | disposition home or self-care (01) ==
LOC: RADUSWWP 11:03
PROVIDERS: ATTEND Internal Medicine Critical Care Medicine
DX: I47.1 Supraventricular tachycardia (principal)

== ENCOUNTER → 2023-03-05 | Outpatient (CLI) | payer MEDICARE, BC ==
--- NOTE | 2023-03-05 10:41 | US ---
EXAMINATION TYPE: US kidneys/renal and bladder DATE OF EXAM: 03/05/2023 COMPARISON: NONE CLINICAL INDICATION: Male, 78 years old with history of N18.32 CHRONIC KIDNEY DISEASE STAGE 3B; CKD EXAM MEASUREMENTS: Right Kidney: 9.3 x 5.0 x 5.1 cm Left Kidney: 10.9 x 4.7 x 5.4 cm Right Kidney: Mild hydro as visualized on prior Left Kidney: Cyst upper pole= 1.4 x 1.1 x 1.3 cm/ Cortical thinning Bladder: [place] distended, lobulated posterior wall Bilateral Jets seen: Only right jet visualized No nephrolithiasis is seen. No solid masses are identified. The urinary bladder is anechoic. Bilat eral ureteral jets are seen. IMPRESSION: 1. Right-sided hydronephrosis unchanged from prior examination. 2. Left-sided renal cystic change.
== END | disposition home or self-care (01) ==
LOC: RADUSWWP 08:28
PROVIDERS: ATTEND Internal Medicine
DX: N18.32 Chronic kidney disease, stage 3b (principal); N28.1 Cyst of kidney, acquired
CPT/HCPCS: 76770

== ENCOUNTER 2023-05-07 08:28 | Emergency (ER) | payer MEDICARE, BC ==
--- NOTE | 2023-05-07 08:50 | ED ---
General Adult HPI - General Chief complaint: Recheck/Abnormal Lab/Rx Stated complaint: Abnormal Labs, Low Hemog Time Seen by Provider: 05/07/23 08:38 Source: patient, RN notes reviewed, old records reviewed Mode of arrival: ambulatory Limitations: no limitations - History of Present Illness Initial comments: This is a 78-year-old male presents emergency Department stating that he has leukemia and his hemoglobin was low but today it was 5.7 he was told to come in to get a blood transfusion. Patient denies any symptoms. Patient denies fatigue. Patient denies any weakness. Patient denies headache patient denies numbness. Patient denies any lightheadedness or dizziness. Patient denies chest pain palpitations difficulty breathing or shortness of breath. - Related Data Home Medications Medication Instructions Recorded Confirmed Furosemide [Lasix] 20 mg PO DAILY 04/14/20 04/30/23 Levothyroxine Sodium [Synthroid] 137 mcg PO DAILY 04/14/20 04/30/23 Tamsulosin [Flomax] 0.8 mg PO DAILY 04/14/20 04/30/23 allopurinoL [Zyloprim] 100 mg PO BID 04/14/20 04/30/23 glipiZIDE [Glucotrol XL] 2.5 mg PO DAILY 04/14/20 04/30/23 calcitrioL [Calcitriol] 0.25 mcg PO TUTH 06/26/22 04/30/23 Previous Rx's Medication Instructions Recorded Albuterol Inhaler [Ventolin Hfa 2 puff INHALATION Q6H PRN 30 Days 06/30/22 Inhaler] #30 unit NS Aspirin 81 mg PO DAILY #30 tab 06/30/22 Atorvastatin [Lipitor] 80 mg PO HS #30 tab 06/30/22 Clopidogrel [Plavix] 75 mg PO DAILY #30 tab 06/30/22 Metoprolol Tartrate [Lopressor] 12.5 mg PO BID #30 tab 06/30/22 Allergies Allergy/AdvReac Type Severity Reaction Status Date / Time No Known Allergies Allergy Verified 05/07/23 08:35 Review of Systems ROS Statement: Those systems with pertinent positive or pertinent negative responses have been documented in the HPI. ROS Other: All systems not noted in ROS Statement are negative. Past Medical History Past Medical History: Asthma, Cancer, Heart Failure, Diabetes Mellitus, Prostate Disorder, Thyroid Disorder Additional Past Medical History / Comment(s): gout, "blood cancer" History of Any Multi-Drug Resistant Organisms: None Reported Past Surgical History: Appendectomy, Heart Catheterization, Prostate Surgery Past Anesthesia/Blood Transfusion Reactions: No Reported Reaction Past Psychological History: Depression Smoking Status: Former smoker Past Alcohol Use History: None Reported Past Drug Use History: None Reported General Exam - General Exam Comments Initial Comments: GENERAL: Patient is well-developed and well-nourished. Patient is nontoxic and well-hydrated and is in no acute distress. ENT: Neck is soft and supple. No significant lymphadenopathy is noted. Oropharynx is clear. Moist mucous membranes. Neck has full range of motion without eliciting any pain. EYES: The sclera were anicteric and conjunctiva were pink and moist. Extraocular move ments were intact and pupils were equal round and reactive to light. Eyelids were unremarkable. PULMONARY: Unlabored respirations. Good breath sounds bilaterally. No audible rales rhonchi or wheezing was noted. CARDIOVASCULAR: There is a regular rate and rhythm without any murmurs gallops or rubs. ABDOMEN: Soft and nontender with normal bowel sounds. SKIN: Patient's skin is pale. NEUROLOGIC: Patient is alert and oriented x3. Cranial nerves II through XII are grossly intact. Motor and sensory are also intact. Normal speech, volume and content. Symmetrical smile. MUSCULOSKELETAL: Normal extremities with adequate strength and full range of motion. LYMPHATICS: No significant lymphadenopathy is noted PSYCHIATRIC: Normal psychiatric evaluation. Limitations: no limitations Course Vital Signs 05/07/23 05/07/23 05/07/23 08:29 08:39 09:06 Temperature 98 F 97.8 F Pulse Rate 68 61 Respiratory 18 18 16 Rate Blood Pressure 104/59 99/58 O2 Sat by Pulse 98 99 Oximetry 05/07/23 05/07/23 10:06 10:35 Temperature 97.7 F 97.5 F L Pulse Rate 65 61 Respiratory 18 18 Rate Blood Pressure 96/50 95/49 O2 Sat by Pulse 100 97 Oximetry Medical Decision Making - Medical Decision Making EKG is interpreted by myself. EKG shows sinus rhythm at 64 bpm DC interval is 185 QRS 160 QT interval 427 QTC is 436. Patient's EKG is a right bundle branch block. Was pt. sent in by a medical professional or institution (, PA, CONDUCTOR ROAD FREIGHT, urgent care, hospital, or penitentiary...) When possible be specific @ -Patient was sent over by his java xml developer Did you speak to anyone other than the patient for history (EMS, parent, family, police, friend...)? What history was obtained from this source @ -I spoke with the java xml developer nurse practitioner about the patient's history Did you review nursing and triage notes (agree or disagree)? Why? @ -I reviewed and agree with nursing and triage notes Were old charts reviewed (outside hosp., previous admission, EMS record, old EKG, old radiological studies, urgent care reports/EKG's, penitentiary records)? Report findings @ -I reviewed prior lab work from prior charts this patient Differential Diagnosis (chest pain, altered mental status, abdominal pain women, abdominal pain men, vaginal bleeding, weakness, fever, dyspnea, syncope, headache, dizziness, GI bleed, back pain, seizure, CVA, palpatations, mental health, musculoskeletal)? @ -Anemia, GI bleed, coagulopathy, leukemia this is not all extensive list EKG interpreted by me (3pts min.). @ -As above X-rays interpreted by me (1pt min.). @ -None done CT interpreted by me (1pt min.). @ -None done U/S interpreted by me (1pt. min.). @ -None done What testing was considered but not performed or refused? (CT, X-rays, U/S, labs)? Why? @ -None What meds were considered but not given or refused? Why? @ -None Did you discuss the management of the patient with other professionals (professionals i.e. , PA, CONDUCTOR ROAD FREIGHT, lab, RT, psych nurse, community mental health social worker, printing specialist, teacher, conservation enforcement officer, foster care case manager)? Give summary @ -I spoke with the java xml developer and he wanted only 1 unit of blood and he will follow-up with the patient on Sunday Was smoking cessation discussed for >3mins.? @ -No Was critical care preformed (if so, how long)? @ -No Were there social determinants of health that impacted care today? How? (Homelessness, low income, unemployed, alcoholism, drug addiction, transportation, low edu. Level, literacy, decrease access to med. care, senior living, rehab)? @ -No Was there de-escalation of care discussed even if they declined (Discuss DNR or withdrawal of care, Hospice)? DNR status @ -No What co-morbidities impacted this encounter? (DM, HTN, Smoking, COPD, CAD, Cancer, CVA, ARF, Chemo, Hep., AIDS, mental health diagnosis, sleep apnea, morbid obesity)? @ -None Was patient admitted / discharged? Hospital course, mention meds given and route, prescriptions, significant lab abnormalities, going to OR and other pertinent info. @ -Patient received 1 unit of packed red blood cells will be discharged home he will follow-up on Sunday for another blood draw with hematology Undiagnosed new problem with uncertain prognosis? @ -No Drug Therapy requiring intensive monitoring for toxicity (Heparin, Nitro, Insulin, Cardizem)? @ -No Were any procedures done? @ -No Diagnosis/symptom? @ -Anemia Acute, or Chronic, or Acute on Chronic? @ -Acute Uncomplicated (without systemic symptoms) or Complicated (systemic symptoms)? @ -default Side effects of treatment? @ -No Exacerbation, Progression, or Severe Exacerbation? @ -No Poses a threat to life or bodily function? How? (Chest pain, USA, [place], pneumonia, PE, COPD, DKA, ARF, appy, cholecystitis, CVA, Diverticulitis, Homicidal, Suicidal, threat to staff... and all critical care pts) @ -No - Lab Data Result diagrams: 05/07/23 08:52 05/07/23 08:52 Lab Results 05/07/23 05/07/23 05/07/23 Range/Units 08:52 08:52 08:52 WBC 3.5 L (3.8-10.6) k/uL RBC 1.77 L (4.30-5.90) m/uL Hgb 6.2 L* (13.0-17.5) gm/dL Hct 17.8 L* (39.0-53.0) % MCV 100.4 H D (80.0-100.0) fL MCH 35.2 H (25.0-35.0) pg MCHC 35.1 (31.0-37.0) g/dL RDW 23.2 H (11.5-15.5) % Plt Count 237 (150-450) k/uL MPV 10.1 Anisocytosis Moderate Macrocytosis Marked A PT 9.7 (9.0-12.0) sec INR 0.9 (<1.2) APTT 21.5 L (22.0-30.0) sec Sodium 138 (137-145) mmol/L Potassium 4.5 (3.5-5.1) mmol/L Chloride 108 H (98-107) mmol/L Carbon Dioxide 19 L (22-30) mmol/L Anion Gap 11 mmol/L BUN 53 H (9-20) mg/dL Creatinine 2.24 H (0.66-1.25) mg/dL Est GFR (CKD-EPI)AfAm 31 (>60 ml/min/1.73 sqM) Est GFR (CKD-EPI)NonAf 27 (>60 ml/min/1.73 sqM) Glucose 152 H (74-99) mg/dL Calcium 8.3 L (8.4-10.2) mg/dL Total Bilirubin 0.7 (0.2-1.3) mg/dL AST 42 (17-59) U/L ALT 52 H (4-49) U/L Alkaline Phosphatase 120 (38-126) U/L Total Protein 7.7 (6.3-8.2) g/dL Albumin 3.6 (3.5-5.0) g/dL Blood Type Blood Type Recheck Bld Type Recheck Status Antibody Screen Crossmatch Spec Expiration Date 05/07/23 Range/Units 09:00 WBC (3.8-10.6) k/uL RBC (4.30-5.90) m/uL Hgb (13.0-17.5) gm/dL Hct (39.0-53.0) % MCV (80.0-100.0) fL MCH (25.0-35.0) pg MCHC (31.0-37.0) g/dL RDW (11.5-15.5) % Plt Count (150-450) k/uL MPV Anisocytosis Macrocytosis PT (9.0-12.0) sec INR (<1.2) APTT (22.0-30.0) sec Sodium (137-145) mmol/L Potassium (3.5-5.1) mmol/L Chloride (98-107) mmol/L Carbon Dioxide (22-30) mmol/L Anion Gap mmol/L BUN (9-20) mg/dL Creatinine (0.66-1.25) mg/dL Est GFR (CKD-EPI)AfAm (>60 ml/min/1.73 sqM) Est GFR (CKD-EPI)NonAf (>60 ml/min/1.73 sqM) Glucose (74-99) mg/dL Calcium (8.4-10.2) mg/dL Total Bilirubin (0.2-1.3) mg/dL AST (17-59) U/L ALT (4-49) U/L Alkaline Phosphatase (38-126) U/L Total Protein (6.3-8.2) g/dL Albumin (3.5-5.0) g/dL Blood Type A Negative Blood Type Recheck A Neg Bld Type Recheck Status No Antibody Screen NEGATIVE Crossmatch See Detail Spec Expiration Date 05/10/20232311 Disposition Clinical Impression: Anemia Disposition: HOME SELF-CARE Condition: Good Instructions (If sedation given, give patient instructions): Anemia (ED) Additional Instructions: Patient is to follow-up on Sunday for another blood draw with hematology Is patient prescribed a controlled substance at d/c from ED?: No Referrals: Braden Saavedra [STAFF PHYSICIAN] - 05/09/23 8:00 am (This is a lab encounter at [address] 2nd [address] for CBC, possible blood transfusion) Cristela,Physician [Primary Care Provider] - 1-2 days Time of Disposition: 10:41
[2023-05-07 09:26] LABS: Anisocytosis Moderate; Basophils % (A) 0 %; Eosinophils % (A) 1 %; Lymphocytes # (A) 0.8 k/uL (1.0-4.8); Lymphocytes % (A) 22 %; MCH 35.2 pg (25.0-35.0); MCHC 35.1 g/dL (31.0-37.0); MCV 100.4 fL (80.0-100.0); Macrocytosis Marked; Mean Platelet Volume 10.1; Monocytes # (A) 0.1 k/uL (0-1.0); Monocytes % (A) 2 %; Neutrophils # (A) 2.6 k/uL (1.3-7.7); Neutrophils % (A) 73 %; RBC 1.77 m/uL (4.30-5.90); RDW 23.2 % (11.5-15.5); WBC 3.5 k/uL (3.8-10.6)
[2023-05-07 09:29] LABS: ALT 52 U/L (4-49); AST 42 U/L (17-59); African American GFR (CKD) 31 (>60 ml/min/1.73 sqM); Albumin 3.6 g/dL (3.5-5.0); Alkaline Phosphatase 120 U/L (38-126); Anion Gap 11 mmol/L; Blood Urea Nitrogen 53 mg/dL (9-20); Calcium 8.3 mg/dL (8.4-10.2); Carbon Dioxide 19 mmol/L (22-30); Chloride 108 mmol/L (98-107); Glucose 152 mg/dL (74-99); Non-African American GFR(CKD) 27 (>60 ml/min/1.73 sqM); Potassium 4.5 mmol/L (3.5-5.1); Sodium 138 mmol/L (137-145); Total Bilirubin 0.7 mg/dL (0.2-1.3); Total Protein 7.7 g/dL (6.3-8.2)
[2023-05-07 09:34] LABS: HCT 17.8 % (39.0-53.0); HGB 6.2 gm/dL (13.0-17.5)
[2023-05-07 10:08] LABS: INR 0.9 (<1.2); Prothrombin Time 9.7 sec (9.0-12.0)
[2023-05-07 10:10] LABS: Partial Thromboplastin Time 21.5 sec (22.0-30.0)
[2023-05-07 11:02] LABS: Large Platelets Present
[2023-05-07 11:03] LABS: Platelet Count 237 k/uL (150-450)
[2023-05-07 12:22] VITALS: BP 116/63; PULSE 62; RESP 19; TEMP 98.3
== END 2023-05-07 12:33 | disposition home or self-care (01) ==
LOC: EC 08:28
DX: D64.9 Anemia, unspecified (principal); J45.909 Unspecified asthma, uncomplicated; I50.9 Heart failure, unspecified; E11.9 Type 2 diabetes mellitus without complications; Z87.891 Personal history of nicotine dependence; Z79.890 Hormone replacement therapy; Z79.84 Long term (current) use of oral hypoglycemic drugs; Z86.59 Personal history of other mental and behavioral disorders
CPT/HCPCS: 36415; 93005; 86900; 86901; 80053; 85025; 85610; 85730; 86850; 86920; 99284; 36430; P9016

== ENCOUNTER 2023-05-15 12:06 | Inpatient (IN) | payer MEDICARE, BC ==
--- NOTE | 2023-05-15 12:33 | ED ---
General Adult HPI - General Chief complaint: Recheck/Abnormal Lab/Rx Stated complaint: poss infection Time Seen by Provider: 05/15/23 12:10 Source: patient, RN/MD, RN notes reviewed Mode of arrival: wheelchair Limitations: no limitations - History of Present Illness Initial comments: Patient is a pleasant 78-year-old male presenting to the emergency department with concern for abnormal labs. Patient is unclear what this could be. Patient does admit that he has a history of leukemia. Patient does complain of some discomfort of his right index finger extending up his arm and to the proximal forearm. Patient states this is been around 3 days since he had a needle stick to draw his blood. Patient states Dr. Segura advised him to come to the emergency department. Patient is a poor historian. - Related Data Home Medications Medication Instructions Recorded Confirmed Furosemide [Lasix] 20 mg PO DAILY 04/14/20 05/15/23 Levothyroxine Sodium [Synthroid] 137 mcg PO DAILY 04/14/20 05/15/23 Tamsulosin [Flomax] 0.8 mg PO DAILY 04/14/20 05/15/23 allopurinoL [Zyloprim] 100 mg PO BID 04/14/20 05/15/23 glipiZIDE [Glucotrol XL] 2.5 mg PO DAILY 04/14/20 05/15/23 calcitrioL [Calcitriol] 0.25 mcg PO TUTH 06/26/22 05/15/23 Previous Rx's Medication Instructions Recorded Albuterol Inhaler [Ventolin Hfa 2 puff INHALATION Q6H PRN 30 Days 06/30/22 Inhaler] #30 unit NS Aspirin 81 mg PO DAILY #30 tab 06/30/22 Atorvastatin [Lipitor] 80 mg PO HS #30 tab 06/30/22 Clopidogrel [Plavix] 75 mg PO DAILY #30 tab 06/30/22 Metoprolol Tartrate [Lopressor] 12.5 mg PO BID #30 tab 06/30/22 Allergies Allergy/AdvReac Type Severity Reaction Status Date / Time No Known Allergies Allergy Verified 05/15/23 08:44 Review of Systems ROS Statement: Those systems with pertinent positive or pertinent negative responses have been documented in the HPI. ROS Other: All systems not noted in ROS Statement are negative. Constitutional: Denies: fever Eyes: Denies: eye pain ENT: Denies: ear pain Respiratory: Denies: cough Cardiovascular: Denies: chest pain Endocrine: Reports: fatigue Past Medical History Past Medical History: Asthma, Cancer, Heart Failure, Diabetes Mellitus, Prostate Disorder, Thyroid Disorder Additional Past Medical History / Comment(s): gout, "blood cancer" History of Any Multi-Drug Resistant Organisms: None Reported Past Surgical History: Appendectomy, Heart Catheterization, Prostate Surgery Past Anesthesia/Blood Transfusion Reactions: No Reported Reaction Past Psychological History: Depression Smoking Status: Former smoker Past Alcohol Use History: None Reported Past Drug Use History: None Reported General Exam Limitations: no limitations General appearance: alert, in no apparent distress Head exam: Present: normocephalic Eye exam: Present: normal appearance Neck exam: Present: normal inspection Respiratory exam: Present: normal lung sounds bilaterally Cardiovascular Exam: Present: regular rate, normal rhythm GI/Abdominal exam: Present: soft. Absent: tenderness Extremities exam: Present: other (Patient does have some skin thickening and minimal erythema right distal index finger. There is trace erythema with swelling and tenderness dorsum of the forearm.) Neurological exam: Present: alert. Absent: motor sensory deficit Psychiatric exam: Present: normal affect, normal mood Skin exam: Present: erythema Course Vital Signs 05/15/23 12:16 Temperature 98.7 F Pulse Rate 91 Respiratory 20 Rate Blood Pressure 135/53 O2 Sat by Pulse 100 Oximetry - Reevaluation(s) Reevaluation #1: 05/15/23 12:38 Case was discussed with practitioner Cornelia stevens who will come evaluate patient. 05/15/23 15:53 There is concern for possible cellulitis/infection diagnosed at 1553. Blood culture and lactic acid and antibiotics will be ordered EKG Findings - EKG Results: EKG: interpreted by ERMD (Left axis. Right bundle branch block.), sinus rhythm, normal ST/T Medical Decision Making - Medical Decision Making Was pt. sent in by a medical professional or institution (, PA, DRILLING MACHINE OPERATOR, urgent care, hospital, or retirement...) When possible be specific @ -Patient was sent in by oncology Did you speak to anyone other than the patient for history (EMS, parent, family, police, friend...)? What history was obtained from this source @ -No Did you review nursing and triage notes (agree or disagree)? Why? @ -I reviewed and agree with nursing and triage notes Were old charts reviewed (outside hosp., previous admission, EMS record, old EKG, old radiological studies, urgent care reports/EKG's, retirement records)? Report findings @ -Previous chart reviews history of leukemia. Chest x-ray reviewed from earlier today Differential Diagnosis (chest pain, altered mental status, abdominal pain women, abdominal pain men, vaginal bleeding, weakness, fever, dyspnea, syncope, headache, dizziness, GI bleed, back pain, seizure, CVA, palpatations, mental health, musculoskeletal)? @ -Differential Weakness: Hypoglycemia, shock, sepsis, hyponatremia, anemia, infection, VT, ETOH, adverse medicine reaction, overdose, stroke, this is not meant to be an all-inclusive list. EKG interpreted by me (3pts min.). @ -As above X-rays interpreted by me (1pt min.). @ -Chest x-ray from earlier in the day reveals no acute process CT interpreted by me (1pt min.). @ -None done U/S interpreted by me (1pt. min.). @ -None done What testing was considered but not performed or refused? (CT, X-rays, U/S, labs)? Why? @ -Right forearm x-ray ordered What meds were considered but not given or refused? Why? @ -None Did you discuss the management of the patient with other professionals (professionals i.e. , PA, DRILLING MACHINE OPERATOR, lab, RT, psych nurse, social services assistant, burn out tender lace, teacher, chief communications officer, casework manager)? Give summary @ -Case was discussed with practitioner Ling stevens who does recommend admission and has concern for possible early infection. Case also discussed with Dr. Reyez, who will admit covering hospital call. Was smoking cessation discussed for >3mins.? @ -No Was critical care preformed (if so, how long)? @ -No Were there social determinants of health that impacted care today? How? (Homelessness, low income, unemployed, alcoholism, drug addiction, transportation, low edu. Level, literacy, decrease access to med. care, senior care, rehab)? @ -No Was there de-escalation of care discussed even if they declined (Discuss DNR or withdrawal of care, Hospice)? DNR status @ -No What co-morbidities impacted this encounter? (DM, HTN, Smoking, COPD, CAD, Cancer, CVA, ARF, Chemo, Hep., AIDS, mental health diagnosis, sleep apnea, morbid obesity)? @ -None Was patient admitted / discharged? Hospital course, mention meds given and route, prescriptions, significant lab abnormalities, going to OR and other pertinent info. @ -Patient reevaluated and updated. Patient will be admitted with consults with orthopedics and oncology. Patient will be provided antibiotics. Undiagnosed new problem with uncertain prognosis? @ -No Drug Therapy requiring intensive monitoring for toxicity (Heparin, Nitro, Insulin, Cardizem)? @ -No Were any procedures done? @ - Diagnosis/symptom? @ -Neutropenia, anemia, cellulitis Acute, or Chronic, or Acute on Chronic? @ -Acute, acute on chronic, acute Uncomplicated (without systemic symptoms) or Complicated (systemic symptoms)? @ -default Side effects of treatment? @ -No Exacerbation, Progression, or Severe Exacerbation? @ -No Poses a threat to life or bodily function? How? (Chest pain, USA, [place], pneumonia, PE, COPD, DKA, ARF, appy, cholecystitis, CVA, Diverticulitis, Homicidal, Suicidal, threat to staff... and all critical care pts) @ -No - Lab Data Result diagrams: 05/15/23 12:44 05/15/23 12:44 Lab Results 05/15/23 05/15/23 05/15/23 Range/Units 12:44 12:44 12:44 WBC 0.3 L* (3.8-10.6) k/uL RBC 2.11 L (4.30-5.90) m/uL Hgb 6.9 L* (13.0-17.5) gm/dL Hct 19.2 L* (39.0-53.0) % MCV 91.3 D (80.0-100.0) fL MCH 32.7 (25.0-35.0) pg MCHC 35.9 (31.0-37.0) g/dL RDW 20.1 H (11.5-15.5) % Plt Count 20 L D (150-450) k/uL MPV 11.9 Poikilocytosis Slight Anisocytosis Moderate Macrocytosis Slight Rouleaux Present PT 10.1 (9.0-12.0) sec INR 0.9 (<1.2) APTT 22.2 (22.0-30.0) sec Sodium (137-145) mmol/L Potassium (3.5-5.1) mmol/L Chloride (98-107) mmol/L Carbon Dioxide (22-30) mmol/L Anion Gap mmol/L BUN (9-20) mg/dL Creatinine (0.66-1.25) mg/dL Est GFR (CKD-EPI)AfAm (>60 ml/min/1.73 sqM) Est GFR (CKD-EPI)NonAf (>60 ml/min/1.73 sqM) Glucose (74-99) mg/dL Plasma Lactic Acid [place] (0.7-2.0) mmol/L Calcium (8.4-10.2) mg/dL Total Bilirubin (0.2-1.3) mg/dL AST (17-59) U/L ALT (4-49) U/L Alkaline Phosphatase (38-126) U/L Total Protein (6.3-8.2) g/dL Albumin (3.5-5.0) g/dL Urine Color Light Yellow Urine Appearance Cloudy (Clear) Urine pH 7.0 (5.0-8.0) Ur Specific [place] 1.008 (1.001-1.035) Urine Protein 1+ H (Negative) Urine Glucose (UA) Negative (Negative) Urine Ketones Negative (Negative) Urine Blood Small H (Negative) Urine Nitrite Negative (Negative) Urine Bilirubin Negative (Negative) Urine Urobilinogen <2.0 (<2.0) mg/dL Ur Leukocyte Esterase Small H (Negative) Urine RBC 1 (0-5) /hpf Ur Squamous Epith Cells 1 (0-4) /hpf Amorphous Sediment Rare H (None) /hpf Urine Bacteria Rare H (None) /hpf Urine Mucus Rare H (None) /hpf 05/15/23 05/15/23 Range/Units 12:44 12:44 WBC (3.8-10.6) k/uL RBC (4.30-5.90) m/uL Hgb (13.0-17.5) gm/dL Hct (39.0-53.0) % MCV (80.0-100.0) fL MCH (25.0-35.0) pg MCHC (31.0-37.0) g/dL RDW (11.5-15.5) % Plt Count (150-450) k/uL MPV Poikilocytosis Anisocytosis Macrocytosis Rouleaux PT (9.0-12.0) sec INR (<1.2) APTT (22.0-30.0) sec Sodium 134 L (137-145) mmol/L Potassium 4.5 (3.5-5.1) mmol/L Chloride 106 (98-107) mmol/L Carbon Dioxide 16 L (22-30) mmol/L Anion Gap 12 mmol/L BUN 67 H (9-20) mg/dL Creatinine 2.86 H (0.66-1.25) mg/dL Est GFR (CKD-EPI)AfAm 23 (>60 ml/min/1.73 sqM) Est GFR (CKD-EPI)NonAf 20 (>60 ml/min/1.73 sqM) Glucose 172 H (74-99) mg/dL Plasma Lactic Acid [place] 1.6 (0.7-2.0) mmol/L Calcium 8.3 L (8.4-10.2) mg/dL Total Bilirubin 3.8 H (0.2-1.3) mg/dL AST 34 (17-59) U/L ALT 47 (4-49) U/L Alkaline Phosphatase 131 H (38-126) U/L Total Protein 7.6 (6.3-8.2) g/dL Albumin 3.4 L (3.5-5.0) g/dL Urine Color Urine Appearance (Clear) Urine pH (5.0-8.0) Ur Specific [place] (1.001-1.035) Urine Protein (Negative) Urine Glucose (UA) (Negative) Urine Ketones (Negative) Urine Blood (Negative) Urine Nitrite (Negative) Urine Bilirubin (Negative) Urine Urobilinogen (<2.0) mg/dL Ur Leukocyte Esterase (Negative) Urine RBC (0-5) /hpf Ur Squamous Epith Cells (0-4) /hpf Amorphous Sediment (None) /hpf Urine Bacteria (None) /hpf Urine Mucus (None) /hpf Disposition Clinical Impression: Neutropenia, Anemia, Cellulitis Disposition: ADMITTED IP TO THIS HOSP Is patient prescribed a controlled substance at d/c from ED?: No Referrals: Reinier Berrios, PAC [Primary Care Provider] - 1-2 days Time of Disposition: 15:53
[2023-05-15] MEDS ORDERED: MORPHINE SULFATE 4 MG/ML SYRINGE IVP STA (12:34)
[2023-05-15 13:32] LABS: Anisocytosis Moderate; MCH 32.7 pg (25.0-35.0); MCHC 35.9 g/dL (31.0-37.0); Macrocytosis Slight; Mean Platelet Volume 11.9; Poikilocytosis Slight; RBC 2.11 m/uL (4.30-5.90); RDW 20.1 % (11.5-15.5)
[2023-05-15 13:36] LABS: Amorphous Sediment,Urine Rare /hpf; Appearance,Urine Cloudy (Clear); Bacteria,Urine Rare /hpf; Bilirubin,Urine Negative (Negative); Blood,Urine Small (Negative); Color,Urine Light Yellow; Glucose,Urine (UA) Negative (Negative); Ketones,Urine Negative (Negative); Leukocyte Esterase,Urine Small (Negative); Mucus,Urine Rare /hpf; Nitrite,Urine Negative (Negative); Protein,Urine 1+ (Negative); RBC,Urine 1 /hpf (0-5); Specific Gravity,Urine 1.008 (1.001-1.035); Squamous Epithelial Cell,Urine 1 /hpf (0-4); Urobilinogen,Urine <2.0 mg/dL (<2.0)
[2023-05-15 13:39] LABS: HCT 19.2 % (39.0-53.0); HGB 6.9 gm/dL (13.0-17.5); WBC 0.3 k/uL (3.8-10.6)
[2023-05-15 13:40] LABS: MCV 91.3 fL (80.0-100.0)
[2023-05-15 13:41] LABS: INR 0.9 (<1.2); Partial Thromboplastin Time 22.2 sec (22.0-30.0); Prothrombin Time 10.1 sec (9.0-12.0)
[2023-05-15 13:53] LABS: Platelet Count 20 k/uL (150-450)
[2023-05-15 13:54] LABS: ALT 47 U/L (4-49); AST 34 U/L (17-59); African American GFR (CKD) 23 (>60 ml/min/1.73 sqM); Albumin 3.4 g/dL (3.5-5.0); Alkaline Phosphatase 131 U/L (38-126); Anion Gap 12 mmol/L; Blood Urea Nitrogen 67 mg/dL (9-20); Calcium 8.3 mg/dL (8.4-10.2); Carbon Dioxide 16 mmol/L (22-30); Chloride 106 mmol/L (98-107); Glucose 172 mg/dL (74-99); Non-African American GFR(CKD) 20 (>60 ml/min/1.73 sqM); Potassium 4.5 mmol/L (3.5-5.1); Sodium 134 mmol/L (137-145); Total Bilirubin 3.8 mg/dL (0.2-1.3); Total Protein 7.6 g/dL (6.3-8.2)
[2023-05-15 13:55] LABS: Rouleaux Present
--- NOTE | 2023-05-15 14:57 | US ---
EXAMINATION TYPE: US extremity nonvasculr ltd RT DATE OF EXAM: 05/15/2023 COMPARISON: NONE CLINICAL INDICATION: Male, 78 years old with history of pain; infection at injection site TECHNIQUE: several images obtained at area of injection. FINDINGS: no fluid collections or abnormalities seen IMPRESSION: No discrete abnormality seen at the site of clinical concern.
--- NOTE | 2023-05-15 14:57 | US ---
EXAMINATION TYPE: US venous doppler duplex UE RT DATE OF EXAM: 05/15/2023 COMPARISON: NONE CLINICAL INDICATION: Male, 78 years old with history of pain; SIDE PERFORMED: Right Right Arm: Negative for DVT exam technically difficult due to limited patient positioning and very small veins IMPRESSION: Grayscale, color doppler, spectral doppler imaging performed of the deep veins of the upper extremiti es. There is normal flow, compressibility and vascular waveforms.
[2023-05-15] MEDS ORDERED: NALOXONE 0.4 MG/ML 1 ML VIAL IV PRN (15:55)
[2023-05-15] MEDS ORDERED: MORPHINE SULFATE 4 MG/ML SYRINGE IV PRN (15:55)
--- NOTE | 2023-05-15 16:14 | XR ---
EXAMINATION TYPE: XR forearm RT DATE OF EXAM: 05/15/2023 4:08 PM INDICATION: Patient age:Male; 78 years old; Reason for study: pain; PHH. COMPARISON: None TECHNIQUE: The right forearm was examined in the lateral projection. FINDINGS: No acute fracture or dislocation identified within the cervical view. There is mild soft t issue swelling of the posterior aspect of the midforearm. No definitive soft tissue gas identified. N o osseous erosions. No radiopaque foreign bodies. IMPRESSION: 1. No evidence of acute fracture. No osseous erosions or radiopaque foreign body. 2. Mild soft tissue swelling of the posterior aspect of the midforearm.
[2023-05-15] MEDS: SODIUM CHLORIDE 0.9% 1,000 ML IV SCH ×2 (16:35→23:30)
[2023-05-15] MEDS: CEFEPIME 1 GM in SODIUM CHLORIDE 0.9% 50 ML IVPB SCH (16:36)
[2023-05-15] MEDS: ACETAMINOPHEN TAB 325 MG TAB PO PRN ×2 (16:39→22:21)
[2023-05-15] MEDS ORDERED: ALPRAZolam 0.25 MG TAB PO PRN (16:45)
[2023-05-15] MEDS ORDERED: ALBUTEROL NEBULIZED 2.5 MG/3 ML INHALATION PRN (16:45)
[2023-05-15] MEDS ORDERED: DEXTROSE 50% SYRINGE 50 ML IVP PRN ×2 (16:48)
--- NOTE | 2023-05-15 16:49 | P.HPIM ---
History of Present Illness H&P Date: 05/15/23 Patient is a 78-year-old male with history of MDS, coronary artery disease status post stent, chronic kidney disease, type 2 diabetes, hypothyroidism, dyslipidemia presenting from with concerns of abnormal labs as well as right arm cellulitis. He has difficult to treat MDS, was recently started on new chemotherapy. He has been feeling tired ever since he got his chemotherapy. He did get injection on his right arm a few days ago, and since then his arm has been extremely tender and erythematous. He denies any fevers or chills. He claims that he has had poor oral intake for the last few days. Denies any chest pain, shortness of breath, abdominal pain, nausea, vomiting, diarrhea or constipation. In the ED, temperature was 98.7, pulse 91, respiratory rate blood pressure 135/53, saturating 100% on room air. Laboratory analysis showed WBC of 0.3, hemoglobin 6.9, sodium 134, bicarbonate 16, anion gap 12, creatinine is 2.86, glucose 172. EKG independently interpreted shows right bundle branch block, sinus rhythm. Right upper extremity ultrasound shows no discrete abnormality. Right arm shows no DVT. Patient admitted for pancytopenia and right arm cellulitis. Pertinent positives and negatives as discussed in HPI, a complete review of systems was performed and all other systems are negative. Patient seen and examined at bedside. Vital signs reviewed General: nontoxic, no distress, appears at stated age Derm: warm, dry, right arm tenderness and erythema Head: atraumatic, normocephalic, symmetric Eyes: EOMI, no lid lag, anicteric sclera, pupils equal round reactive to light ENT: Nose and ears atraumatic Neck: No thyromegaly, supple Mouth: no lip lesion, mucus membranes moist Cardiovascular: S1S2 reg, no murmur, no edema Lungs: clear to auscultation bilateral, no rhonchi, no rales, no wheeze, no accessory muscle use Abdominal: soft, nontender to palpation, no guarding, no appreciable organomegaly Ext: no gross muscle atrophy, muscle strength muscle strength 5 out of 5 in all 4 extremities, no contractures Neuro: CN II-XII grossly intact Psych: Alert, oriented, appropriate affect Assessment/Plan: Right arm cellulitis Pancytopenia History of MDS Acute kidney injury on chronic kidney disease Type 2 diabetes Coronary artery disease status post stent -On cefepime -Blood cultures pending -Pancytopenia likely related to MDS -Oncology consulted -Continue IV fluids, hold diuretics -Sliding scale insulin -Continue aspirin and Plavix, statin Chronic: Hypothyroidism Hypertension Dyslipidemia COPD The patient is admitted with an anticipated greater than 2 midnight stay as inpatient status for evaluation of pancytopenia. Surrogate decision-maker: Daughter CODE STATUS: Full code DVT prophylaxis: SCDs Anticipated discharge date: Pending clinical course Anticipated discharge place: Pending clinical course A total of 55 minutes was spent on the care of this complex patient more than 50% of the time was spent in counseling and care coordination. Past Medical History Past Medical History: Asthma, Cancer, Heart Failure, Diabetes Mellitus, Prostate Disorder, Thyroid Disorder Additional Past Medical History / Comment(s): gout, "blood cancer" History of Any Multi-Drug Resistant Organisms: None Reported Past Surgical History: Appendectomy, Heart Catheterization, Prostate Surgery Past Anesthesia/Blood Transfusion Reactions: No Reported Reaction Past Psychological History: Depression Smoking Status: Former smoker Past Alcohol Use History: None Reported Past Drug Use History: None Reported Medications and Allergies Home Medications Medication Instructions Recorded Confirmed Type Furosemide [Lasix] 20 mg PO DAILY@79904/14/20 05/15/23 History Levothyroxine Sodium [Synthroid] 137 mcg PO DAILY@79904/14/20 05/15/23 History Tamsulosin [Flomax] 0.8 mg PO AC-BRKFST@82904/14/20 05/15/23 History allopurinoL [Zyloprim] 100 mg PO BID-W/MEALS@04/14/20 05/15/23 History glipiZIDE [Glucotrol XL] 2.5 mg PO DAILY@89904/14/20 05/15/23 History calcitrioL [Calcitriol] 0.25 mcg PO MOWEFR@0800 06/26/22 05/15/23 History ALPRAZolam [Xanax] 0.25 mg PO BID PRN 05/15/23 05/15/23 History Albuterol Inhaler [Ventolin Hfa 2 puff INHALATION RT-Q6H PRN 05/15/23 05/15/23 History Inhaler] Aspirin 81 mg PO DAILY@79905/15/23 05/15/23 History Atorvastatin [Lipitor] 80 mg PO HS@2100 05/15/23 05/15/23 History Budesonide/Formoterol Fumarate 2 puff INHALATION RT-BID@0800,1700 05/15/23 05/15/23 History [Symbicort 160-4.5 Mcg Inhaler] Cholecalciferol [Vitamin D3 (25 50 mcg PO DAILY@0800 05/15/23 05/15/23 History Mcg = 1000 Iu)] Clopidogrel [Plavix] 75 mg PO DAILY@0800 05/15/23 05/15/23 History Cyclobenzaprine [Flexeril] 5 mg PO TID PRN 05/15/23 05/15/23 History Guaifenesin/Dextromethorphan 5 - 10 ml PO Q8H PRN 05/15/23 05/15/23 History [Guaifenesin-Dm 100-10 mg/5 ml] HYDROcodone/APAP 5-325MG [[place] 1 tab PO Q6H PRN 05/15/23 05/15/23 History 5-325] Midodrine HCl [ProAmatine] 10 mg PO TID PRN 05/15/23 05/15/23 History Midodrine HCl [ProAmatine] 10 mg PO TID@0800,1400,2100 05/15/23 05/15/23 History Nitroglycerin Sl Tabs [Nitrostat] 0.4 mg SUBLINGUAL Q5M PRN 05/15/23 05/15/23 History Sildenafil Citrate 50 mg PO DAILY@0800 05/15/23 05/15/23 History Sildenafil Citrate [Sildenafil] 20 - 40 mg PO BID PRN 05/15/23 05/15/23 History Sodium Bicarbonate 325 mg PO DAILY@0805/15/23 05/15/23 History alprostadiL [Caverject] 10 mcg INJ DIRECTED 05/15/23 05/15/23 History Allergies Allergy/AdvReac Type Severity Reaction Status Date / Time No Known Allergies Allergy Verified 05/15/23 15:55 Physical Exam Vitals: Vital Signs Temp Pulse Resp BP Pulse Ox 05/15/23 16:33 102.3 F H 100 18 117/48 97 05/15/23 12:16 98.7 F 91 20 135/53 100 Intake and Output 08/22/23 08/22/23 08/22/23 06:59 14:59 22:59 Other: Weight 104.326 kg Results CBC & Chem 7: 05/15/23 12:44 05/15/23 12:44 Labs: Abnormal Lab Results - Last 24 Hours (Table) 05/15/23 05/15/23 05/15/23 Range/Units 12:44 12:44 12:44 WBC 0.3 L* (3.8-10.6) k/uL RBC 2.11 L (4.30-5.90) m/uL Hgb 6.9 L* (13.0-17.5) gm/dL Hct 19.2 L* (39.0-53.0) % RDW 20.1 H (11.5-15.5) % Plt Count 20 L D (150-450) k/uL Sodium 134 L (137-145) mmol/L Carbon Dioxide 16 L (22-30) mmol/L BUN 67 H (9-20) mg/dL Creatinine 2.86 H (0.66-1.25) mg/dL Glucose 172 H (74-99) mg/dL Calcium 8.3 L (8.4-10.2) mg/dL Total Bilirubin 3.8 H (0.2-1.3) mg/dL Alkaline Phosphatase 131 H (38-126) U/L Albumin 3.4 L (3.5-5.0) g/dL Urine Protein 1+ H (Negative) Urine Blood Small H (Negative) Ur Leukocyte Esterase Small H (Negative) Amorphous Sediment Rare H (None) /hpf Urine Bacteria Rare H (None) /hpf Urine Mucus Rare H (None) /hpf
--- NOTE | 2023-05-15 17:45 | P.CONS ---
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 He presented with rigors and malaise, Fever and low back pain. [facility] ultrasound showed severe hydronephrosis bilaterally with hydroureter, treated for pyelonephritis. Hemoglobin was 7 white count 6.4, MCV 132.7. Workup for macrocytic anemia was all negative. Bone marrow biopsy and aspiration 04/20/20 showed slightly hypercellular marrow with megaloblastoid changes involving the third line as well as hypo-lobulated and multilobulated f orms in the megakaryocyte line. Flow cytometry was negative for increase in blasts or for presence of monoclonal B cells. It was therefore felt that this most likely represented a myelodysplastic syndrome if other causes for macrocytosis could be ruled out. The workup for PNH, hemolysis were all negative, iron studies were normal. MDS NGS revealed SF3B1 mutation. Final diagnosis myelodysplastic syndrome with some additional dysfunction of the red cell line due to chronic kidney disease. He was started on weekly BERNARDA. He responded for some time then unfortunately, despite dose increase as per package insert, Hgb remained mostly in the 7-8 range. He did not qualify for Luspatercept, based on his transfusion requirements, he met criteria early 07/15, when he was admitted with a TN, and had PTCA with stent to the distal circumflex. He did require 2 PRBC transfusions inpt. He started the same on 08/28/22. He was tried on all 3 doses adjustments per package insert , without significant stability in hemoglobin, transfusion need increasing. Bone marrow biopsy repeated 04/06/23. This showed evidence of dysplastic changes in the megakaryocyte and granulocyte lines, consistent with MDS with multilineage dysplasia. There was some increase in plasma cells, mild rouleaux formation se en. Flow cytometry showed 4.2% blasts with minor population of mass cells and CD5 positive monoclonal B cells. He was started on treatment with Dacogen. He is status post his first 5 day regimen, 04/30 through 05/04. He has been having CBCs 1-2 times a week with transfusions when necessary. He was in for a transfusion today when nursing contacted our office and informed us of patient not feeling well, his right forearm was very swollen and tender and red. He was sent to the emergency department after transfusion. When I saw patient in ER he c/o weakness, legs feel rubbery, and the pain in his forearm. He denied fevers, chills, nausea, vomiting, he actually has been eating pretty well, denies shortness of breath, cough, abd pain, acute changes in bowel or bladder. Duplex right upper extremity negative for DVT, forearm x-ray no evidence of acute fracture no erosions or foreign body, mild soft tissue swelling at the posterior aspect of the mid forearm, no discrete abnormality seen on ultrasound at the site of clinical concern. Admission in the office hemoglobin was 7.2, WBC 0.4, platelet count 44,000. WBC 0.3, hemoglobin 6.9, hematocrit 19.2, platelet count 20,000. BUN 67 creatinine 2.86, baseline creatinine in the high 1 to low 2 range. It was noted that the patient did have a fever of 102.3 Fahrenheit about 4 PM. He is now admitted. Review of Systems Point review of systems is negative except as stated in HPI Past Medical History Past Medical History: Asthma, Cancer, Heart Failure, Diabetes Mellitus, Prostate Disorder, Thyroid Disorder Additional Past Medical History / Comment(s): gout, "blood cancer" History of Any Multi-Drug Resistant Organisms: None Reported Past Surgical History: Appendectomy, Heart Catheterization, Prostate Surgery Past Anesthesia/Blood Transfusion Reactions: No Reported Reaction Past Psychological History: Depression Smoking Status: Former smoker Past Alcohol Use History: None Reported Past Drug Use History: None Reported - Past Family History Father Family Medical History: No Reported History Mother Family Medical History: No Reported History Medications and Allergies Home Medications Medication Instructions Recorded Confirmed Type Furosemide [Lasix] 20 mg PO DAILY@79904/14/20 05/15/23 History Levothyroxine Sodium [Synthroid] 137 mcg PO DAILY@79904/14/20 05/15/23 History Tamsulosin [Flomax] 0.8 mg PO AC-BRKFST@82904/14/20 05/15/23 History allopurinoL [Zyloprim] 100 mg PO BID-W/MEALS@04/14/20 05/15/23 History glipiZIDE [Glucotrol XL] 2.5 mg PO DAILY@0900 04/14/20 05/15/23 History calcitrioL [Calcitriol] 0.25 mcg PO MOWEFR@0800 06/26/22 05/15/23 History ALPRAZolam [Xanax] 0.25 mg PO BID PRN 05/15/23 05/15/23 History Albuterol Inhaler [Ventolin Hfa 2 puff INHALATION RT-Q6H PRN 05/15/23 05/15/23 History Inhaler] Aspirin 81 mg PO DAILY@0805/15/23 05/15/23 History Atorvastatin [Lipitor] 80 mg PO HS@2100 05/15/23 05/15/23 History Budesonide/Formoterol Fumarate 2 puff INHALATION RT-BID@0800,1700 05/15/23 05/15/23 History [Symbicort 160-4.5 Mcg Inhaler] Cholecalciferol [Vitamin D3 (25 50 mcg PO DAILY@79905/15/23 05/15/23 History Mcg = 1000 Iu)] Clopidogrel [Plavix] 75 mg PO DAILY@0805/15/23 05/15/23 History Cyclobenzaprine [Flexeril] 5 mg PO TID PRN 05/15/23 05/15/23 History Guaifenesin/Dextromethorphan 5 - 10 ml PO Q8H PRN 05/15/23 05/15/23 History [Guaifenesin-Dm 100-10 mg/5 ml] HYDROcodone/APAP 5-325MG [[place] 1 tab PO Q6H PRN 05/15/23 05/15/23 History 5-325] Midodrine HCl [ProAmatine] 10 mg PO TID PRN 05/15/23 05/15/23 History Midodrine HCl [ProAmatine] 10 mg PO TID@0800,1400,2100 05/15/23 05/15/23 History Nitroglycerin Sl Tabs [Nitrostat] 0.4 mg SUBLINGUAL Q5M PRN 05/15/23 05/15/23 History Sildenafil Citrate 50 mg PO DAILY@0800 05/15/23 05/15/23 History Sildenafil Citrate [Sildenafil] 20 - 40 mg PO BID PRN 05/15/23 05/15/23 History Sodium Bicarbonate 325 mg PO DAILY@0800 05/15/23 05/15/23 History alprostadiL [Caverject] 10 mcg INJ DIRECTED 05/15/23 05/15/23 History Allergies Allergy/AdvReac Type Severity Reaction Status Date / Time No Known Allergies Allergy Verified 05/15/23 15:55 Physical Exam Vitals: Vital Signs Temp Pulse Resp BP Pulse Ox 05/15/23 16:33 102.3 F H 100 18 117/48 97 05/15/23 12:16 98.7 F 91 20 135/53 100 Intake and Output 05/15/23 05/15/23 05/15/23 06:59 14:59 22:59 Other: Weight 104.326 kg - Constitutional General appearance: average body habitus, cooperative, no acute distress - EENT Dry mucous membranes, small cut on the tongue, no thrush or lesions seen Eyes: anicteric sclerae, EOMI ENT: hearing grossly normal - Neck Neck: no lymphadenopathy - Respiratory Respiratory: bilateral: CTA - Cardiovascular Rhythm: regular Heart sounds: normal: S1, S2 Abnormal Heart Sounds: no systolic murmur, no diastolic murmur, no rub, no S3 Gallop, no S4 Gallop, no click, no other leg Peripheral Edema: bilateral: Trace - Gastrointestinal General gastrointestinal: no absent bowel sounds, no decreased bowel sounds, no distended, no hepatomegaly, no hyperactive bowel sounds, normal bowel sounds, no organomegaly, no rigid, no scaphoid, soft, no splenomegaly, no tenderness, no umbilical hernia, no ventral hernia - Integumentary Right forearm red, swollen, warm to the touch, patient a response is out of proportion to what would be anticipated when the arm is straightened out. Integumentary: pale - Neurologic Neurologic: CNII-XII intact - Musculoskeletal Musculoskeletal: generalized weakness, strength equal bilaterally - Psychiatric Psychiatric: A&O x's 3, appropriate affect, intact judgment & insight Results CBC & Chem 7: 05/15/23 12:44 05/15/23 12:44 Labs: Abnormal Lab Results - Last 24 Hours (Table) 05/15/23 05/15/23 05/15/23 Range/Units 12:44 12:44 12:44 WBC 0.3 L* (3.8-10.6) k/uL RBC 2.11 L (4.30-5.90) m/uL Hgb 6.9 L* (13.0-17.5) gm/dL Hct 19.2 L* (39.0-53.0) % RDW 20.1 H (11.5-15.5) % Plt Count 20 L D (150-450) k/uL Sodium 134 L (137-145) mmol/L Carbon Dioxide 16 L (22-30) mmol/L BUN 67 H (9-20) mg/dL Creatinine 2.86 H (0.66-1.25) mg/dL Glucose 172 H (74-99) mg/dL Calcium 8.3 L (8.4-10.2) mg/dL Total Bilirubin 3.8 H (0.2-1.3) mg/dL Alkaline Phosphatase 131 H (38-126) U/L Albumin 3.4 L (3.5-5.0) g/dL Urine Protein 1+ H (Negative) Urine Blood Small H (Negative) Ur Leukocyte Esterase Small H (Negative) Amorphous Sediment Rare H (None) /hpf Urine Bacteria Rare H (None) /hpf Urine Mucus Rare H (None) /hpf Comments: X-ray of the forearm report reviewed Doppler report of the forearm report reviewed US of the right forearm report reviewed Venous US: report reviewed Assessment and Plan (1) Neutropenic fever Current Visit: Yes Status: Acute Priority: High Code(s): D70.9 - NEUTROPENIA, UNSPECIFIED; R50.81 - FEVER PRESENTING WITH CONDITIONS CLASSIFIED ELSEWHERE SNOMED Code(s): 984874317 (2) Pancytopenia due to chemotherapy Current Visit: Yes Status: Acute Priority: High Code(s): D61.810 - ANTIN EOPLASTIC CHEMOTHERAPY INDUCED PANCYTOPENIA SNOMED Code(s): 7709341 (3) MDS (myelodysplastic syndrome) Current Visit: Yes Status: Acute Code(s): D46.9 - MYELODYSPLASTIC SYNDROME, UNSPECIFIED SNOMED Code(s): 055219908 Plan: Neutropenic fever -Case discussed with Emergency Physician -Pancultures pending-Chest x-ray showed no acute process -Duplex right upper extremity negative for DVT, forearm x-ray no evidence of ac carol fracture no erosions or foreign body, mild soft tissue swelling at the posterior aspect of the mid forearm, no discrete abnormality seen on ultrasound at the site of clinical concern. -Empiric antibiotics were prescribed Pancytopenia secondary to chemotherapy -Patient anemic secondary to disease, chronic kidney disease and chemotherapy. Transfuse for hemoglobin less then 7. Patient has already been transfused today, wait until CBC in the a.m. to make further transfusion decisions, unless evidence of gross blood loss. -Platelets 20,000. Transfuse for platelet count less than 10,000 or if symptomatic. No aspirin, NSAIDs or anticoagulation. Use SCDs for DVT prophylaxis -WBC 0.3, no ANC reported. G-CSF ordered. Use as few doses as possible. CBC with differential daily. Based on patient's progress, may hold after ANC reaches 500 or, if patient still not doing well, may wait until ANC is 1000. Myelodysplastic syndrome -Red Cell aplasia -Has been on BERNARDA is without significant stability and hemoglobin or reduction in transfusion need -Just started on treatment with Dacogen. He is status post the first 5 day cycle, started 04/30-05/04 -Follow-up with Dr. Saavedra prior to resuming any therapy Time with Patient: Greater than 30
[2023-05-15 18:08] LABS: Glucose,Whole Blood 162 mg/dL (70-110)
[2023-05-15] MEDS: INSULIN ASPART (NovoLOG) 100 UNIT/ML VIAL SQ SCH ×2 (19:26→20:55)
[2023-05-15] MEDS: MIDODRINE 5 MG TAB PO SCH (19:27)
[2023-05-15] MEDS: ATORVASTATIN 80 MG TAB PO SCH (19:28)
[2023-05-15] MEDS: allopurinoL 100 MG TAB PO SCH (19:28)
[2023-05-15] MEDS: SYMBICORT 160-4.5 MCG INHALER INHALATION SCH (20:20)
[2023-05-15 20:32] LABS: Glucose,Whole Blood 152 mg/dL (70-110)
[2023-05-15] MEDS: FILGRASTIM-SNDZ 480 MCG/0.8 ML SYRINGE SQ SCH (21:16)
[2023-05-16] MEDS ORDERED: SODIUM CHLORIDE 0.9% 1,000 ML IV ONE (01:26)
--- NOTE | 2023-05-16 01:38 | P.EN ---
A team called for hypotension , patient admitted for neutropenic fever on antibiotics he is asymptomatic at this time , denies any chest pain or trouble breathing, denies dizziness, or lightheadedness. he reports that his blood pressure is low most of the time, he is on midodrine 3 times a day for that. RN , reported urine may be darker , did not quantify exact output over past few hours. he is running 130 cc per hour general alert awake, oriented X3 Chest clear bilaterally , good breath sounds, no leg edema bilaterally plan 1 L bolus NS 0.9% close monitoring of urine output goal is averaging 50 cc per hour urine output over 4 hours continue current management on 5N re-evaluate in 1-2 hours
[2023-05-16] MEDS: CEFEPIME 1 GM in SODIUM CHLORIDE 0.9% 50 ML IVPB SCH ×2 (05:37→17:46)
[2023-05-16 07:29] LABS: Glucose,Whole Blood 130 mg/dL (70-110)
[2023-05-16] MEDS: INSULIN ASPART (NovoLOG) 100 UNIT/ML VIAL SQ SCH ×4 (07:57→20:37)
[2023-05-16] MEDS ORDERED: ASPIRIN 81 MG PO SCH (08:00)
[2023-05-16] MEDS ORDERED: NON FORMULARY DRUG (Sildenafil Citrate [Sildenafil Citrate] 50 MG Tablet) PO SCH (08:00)
[2023-05-16] MEDS ORDERED: CLOPIDOGREL 75 MG TAB PO SCH (08:00)
[2023-05-16 08:08] LABS: Anisocytosis Moderate; MCHC 34.3 g/dL (31.0-37.0); MCV 96.2 fL (80.0-100.0); Macrocytosis Slight; Mean Platelet Volume 12.2; Poikilocytosis Slight; RDW 20.4 % (11.5-15.5)
[2023-05-16 08:21] LABS: WBC 0.2 k/uL (3.8-10.6)
[2023-05-16 08:22] LABS: Platelet Count 12 k/uL (150-450)
[2023-05-16 08:24] LABS: HCT 17.3 % (39.0-53.0); HGB 5.9 gm/dL (13.0-17.5)
[2023-05-16] MEDS: SODIUM BICARBONATE TAB 650 MG TAB PO SCH (08:32)
[2023-05-16] MEDS: TAMSULOSIN 0.4 MG CAP.ER.24H PO SCH (08:32)
[2023-05-16] MEDS: traMADol 50 MG TAB PO PRN ×2 (08:32→16:43)
[2023-05-16] MEDS: CHOLECALCIFEROL 25 MCG (1000 IU) TABLET PO SCH (08:32)
[2023-05-16] MEDS: allopurinoL 100 MG TAB PO SCH ×2 (08:33→20:32)
[2023-05-16 09:06] LABS: ALT 42 U/L (10-49); AST 75 U/L (14-35); Albumin 2.9 d/dL (3.8-4.9); Albumin/Globulin Ratio 0.85 Ratio (1.60-3.17); Alkaline Phosphatase 96 U/L (41-126); BUN/Creat Ratio 20.45 Ratio (12.00-20.00); Blood Urea Nitrogen 67.5 mg/dL (9.0-27.0); Calcium 8.2 mg/dL (8.7-10.3); Carbon Dioxide 14.9 mmol/L (21.6-31.8); Chloride 108 mmol/L (96-109); Globulin 3.4 d/dL (1.6-3.3); Glucose 93 mg/dL (70-110); Potassium 4.7 mmol/L (3.5-5.5); Sodium 137 mmol/L (135-145); Total Bilirubin 3.8 mg/dL (0.3-1.2); Total Protein 6.3 d/dL (6.2-8.2)
[2023-05-16] MEDS: SYMBICORT 160-4.5 MCG INHALER INHALATION SCH ×2 (09:17→20:13)
[2023-05-16] MEDS: MIDODRINE 5 MG TAB PO SCH ×3 (09:37→20:31)
[2023-05-16] MEDS: LEVOTHYROXINE 137 MCG TAB PO SCH (09:37)
--- NOTE | 2023-05-16 09:51 | P.CNOR ---
History of Present Illness - [facility] Consult date: 05/16/23 Consult reason: other (Right upper extremity pain, concern for right upper extremity cellulitis) History of present illness: Patient is a 78-year-old male with a very extensive past medical history. Patient presented to [facility] on 05/15/2023 with concern of abnormal labs. Patient does have a history of myelodysplastic syndrome and does follow with the hematology group in [place]. Patient was recently in the hospital on 05/07/2023 where he did receive 1 unit of packed RBCs. Patient is a rather poor historian when it comes to his most recent events that led to the discomfort issues with the right upper extremity. He feels that since his last lab draw which she states was 12 days ago he has noticed worsening pain and swelling in that extremity. Patient was admitted to [facility] for further evaluation, he is being followed by both internal medicine and hemat ology/oncology. Patient was evaluated today at bedside, he is resting comfortably. He does notes significant discomfort in the right forearm/elbow region. He denies any fevers or chills at this time. He denies any recent trauma to that upper extremity. Denies any previous surgery to the right upper extremity. Patient states he does reside in the assisted-living home in the area. Patient has been utilizing wheelchair for many years, he is not very active. Patient does admit to a history of gout which has affected his big toes in the past, he does take allopurinol for this. Images and reports were reviewed of forearm x-ray, no acute fractures or dislocations. Reports that he upper extremity ultrasound and Doppler also reviewed, no acute fluid collections, no evidence of DVT. Review of Systems Constitutional: Reports as per [facility] Past Medical History Past Medical History: Asthma, Cancer, Heart Failure, Diabetes Mellitus, Prostate Disorder, Thyroid Disorder Additional Past Medical History / Comment(s): gout, "blood cancer" History of Any Multi-Drug Resistant Organisms: None Reported Past Surgical History: Appendectomy, Heart Catheterization, Prostate Surgery Past Anesthesia/Blood Transfusion Reactions: No Reported Reaction Smoking Status: Never smoker - Past Family History Father Family Medical History: No Reported History Mother Family Medical History: No Reported History Medications and Allergies Home Medications Medication Instructions Recorded Confirmed Type Furosemide [Lasix] 20 mg PO DAILY@0800 04/14/20 05/15/23 History Levothyroxine Sodium [Synthroid] 137 mcg PO DAILY@0804/14/20 05/15/23 History Tamsulosin [Flomax] 0.8 mg PO AC-BRKFST@82904/14/20 05/15/23 History allopurinoL [Zyloprim] 100 mg PO BID-W/MEALS@04/14/20 05/15/23 History glipiZIDE [Glucotrol XL] 2.5 mg PO DAILY@89904/14/20 05/15/23 History calcitrioL [Calcitriol] 0.25 mcg PO MOWEFR@0800 06/26/22 05/15/23 History ALPRAZolam [Xanax] 0.25 mg PO BID PRN 05/15/23 05/15/23 History Albuterol Inhaler [Ventolin Hfa 2 puff INHALATION RT-Q6H PRN 05/15/23 05/15/23 History Inhaler] Aspirin 81 mg PO DAILY@79905/15/23 05/15/23 History Atorvastatin [Lipitor] 80 mg PO HS@2100 05/15/23 05/15/23 History Budesonide/Formoterol Fumarate 2 puff INHALATION RT-BID@0800,1700 05/15/23 05/15/23 History [Symbicort 160-4.5 Mcg Inhaler] Cholecalciferol [Vitamin D3 (25 50 mcg PO DAILY@79905/15/23 05/15/23 History Mcg = 1000 Iu)] Clopidogrel [Plavix] 75 mg PO DAILY@79905/15/23 05/15/23 History Cyclobenzaprine [Flexeril] 5 mg PO TID PRN 05/15/23 05/15/23 History Guaifenesin/Dextromethorphan 5 - 10 ml PO Q8H PRN 05/15/23 05/15/23 History [Guaifenesin-Dm 100-10 mg/5 ml] HYDROcodone/APAP 5-325MG [Spickard 1 tab PO Q6H PRN 05/15/23 05/15/23 History 5-325] Midodrine HCl [ProAmatine] 10 mg PO TID PRN 05/15/23 05/15/23 History Midodrine HCl [ProAmatine] 10 mg PO TID@0800,1400,2100 05/15/23 05/15/23 History Nitroglycerin Sl Tabs [Nitrostat] 0.4 mg SUBLINGUAL Q5M PRN 05/15/23 05/15/23 History Sildenafil Citrate 50 mg PO DAILY@0800 05/15/23 05/15/23 History Sildenafil Citrate [Sildenafil] 20 - 40 mg PO BID PRN 05/15/23 05/15/23 History Sodium Bicarbonate 325 mg PO DAILY@0805/15/23 05/15/23 History alprostadiL [Caverject] 10 mcg INJ DIRECTED 05/15/23 05/15/23 History Allergies Allergy/AdvReac Type Severity Reaction Status Date / Time No Known Allergies Allergy Verified 05/15/23 15:55 Physical Examination Right upper extremity: No significant areas of erythema present throughout the extremity. There is some soft tissue swelling present in the elbow and proximal forearm Significant tenderness with palpation to the elbow and dorsal proximal aspect of the forearm. Patient has minimal tenderness with palpation of lower forearm. No tenderness with palpation to the hand and wrist. Patient is nontender with palpation surrounding the humerus, this concluded shoulder joint Passive range of motion of the shoulder reproduces no significant pain. Patient's elbow remains flexed at about 120, I can extend this out to about 80 of flexion before pain is reproduced. Extension and flexion of the elbow reproduces minimal pain. Passive pronation and supination reproduces no ce rvical pain at the elbow. Patient is able wiggle the fingers with minimal difficulty Strength testing was not assessed of the right upper extremity due to pain Sensory exam to light touch is intact throughout the extremity Radial/ulnar pulses are 2+ Negative Concepcion test Results - Labs Labs: Abnormal Lab Results - Last 24 Hours (Table) 05/15/23 05/15/23 05/15/23 Range/Units 12:44 12:44 12:44 WBC 0.3 L* (3.8-10.6) k/uL RBC 2.11 L (4.30-5.90) m/uL Hgb 6.9 L* (13.0-17.5) gm/dL Hct 19.2 L* (39.0-53.0) % RDW 20.1 H (11.5-15.5) % Plt Count 20 L D (150-450) k/uL Sodium 134 L (137-145) mmol/L Carbon Dioxide 16 L (22-30) mmol/L Anion Gap (4.00-12.00) mmol/L BUN 67 H (9-20) mg/dL Creatinine 2.86 H (0.66-1.25) mg/dL Est GFR (CKD-EPI) (>=60) BUN/Creatinine Ratio (12.00-20.00) Ratio Glucose 172 H (74-99) mg/dL POC Glucose (mg/dL) (70-110) mg/dL Calcium 8.3 L (8.4-10.2) mg/dL Total Bilirubin 3.8 H (0.2-1.3) mg/dL AST (14-35) U/L Alkaline Phosphatase 131 H (38-126) U/L Albumin 3.4 L (3.5-5.0) g/dL Globulin (1.6-3.3) d/dL Albumin/Globulin Ratio (1.60-3.17) Ratio Urine Protein 1+ H (Negative) Urine Blood Small H (Negative) Ur Leukocyte Esterase Small H (Negative) Amorphous Sediment Rare H (None) /hpf Urine Bacteria Rare H (None) /hpf Urine Mucus Rare H (None) /hpf 05/15/23 05/15/23 05/16/23 Range/Units 18:07 20:30 03:58 WBC (3.8-10.6) k/uL RBC (4.30-5.90) m/uL Hgb (13.0-17.5) gm/dL Hct (39.0-53.0) % RDW (11.5-15.5) % Plt Count (150-450) k/uL Sodium (137-145) mmol/L Carbon Dioxide 14.9 L (22-30) mmol/L Anion Gap 14.10 H (4.00-12.00) mmol/L BUN 67.5 H (9-20) mg/dL Creatinine 3.3 H (0.66-1.25) mg/dL Est GFR (CKD-EPI) 18 L (>=60) BUN/Creatinine Ratio 20.45 H (12.00-20.00) Ratio Glucose (74-99) mg/dL POC Glucose (mg/dL) 162 H 152 H (70-110) mg/dL Calcium 8.2 L (8.4-10.2) mg/dL Total Bilirubin 3.8 H (0.2-1.3) mg/dL AST 75 H (14-35) U/L Alkaline Phosphatase (38-126) U/L Albumin 2.9 L (3.5-5.0) g/dL Globulin 3.4 H (1.6-3.3) d/dL Albumin/Globulin Ratio 0.85 L (1.60-3.17) Ratio Urine Protein (Negative) Urine Blood (Negative) Ur Leukocyte Esterase (Negative) Amorphous Sediment (None) /hpf Urine Bacteria (None) /hpf Urine Mucus (None) /hpf 05/16/23 05/16/23 Range/Units 07:28 07:29 WBC 0.2 L* (3.8-10.6) k/uL RBC 1.80 L (4.30-5.90) m/uL Hgb 5.9 L* (13.0-17.5) gm/dL Hct 17.3 L* (39.0-53.0) % RDW 20.4 H (11.5-15.5) % Plt Count 12 L* (150-450) k/uL Sodium (137-145) mmol/L Carbon Dioxide (22-30) mmol/L Anion Gap (4.00-12.00) mmol/L BUN (9-20) mg/dL Creatinine (0.66-1.25) mg/dL Est GFR (CKD-EPI) (>=60) BUN/Creatinine Ratio (12.00-20.00) Ratio Glucose (74-99) mg/dL POC Glucose (mg/dL) 130 H (70-110) mg/dL Calcium (8.4-10.2) mg/dL Total Bilirubin (0.2-1.3) mg/dL AST (14-35) U/L Alkaline Phosphatase (38-126) U/L Albumin (3.5-5.0) g/dL Globulin (1.6-3.3) d/dL Albumin/Globulin Ratio (1.60-3.17) Ratio Urine Protein (Negative) Urine Blood (Negative) Ur Leukocyte Esterase (Negative) Amorphous Sediment (None) /hpf Urine Bacteria (None) /hpf Urine Mucus (None) /hpf H & H 05/15/23 05/16/23 Range/Units 12:44 07:29 Hgb 6.9 L* 5.9 L* (13.0-17.5) gm/dL Hct 19.2 L* 17.3 L* (39.0-53.0) % Coagulation 05/15/23 Range/Units 12:44 INR 0.9 (<1.2) Result Diagrams: 05/16/23 07:29 05/16/23 03:58 - Diagnostic results Elbow x-ray: report reviewed (1 image of the right forearm and report were reviewed. No evidence of foreign bodies or fractures or dislocations.), image reviewed Assessment and Plan Assessment: Right elbow pain Right forearm pain Possible gouty arthropathy right elbow Concern for right upper extremity cellulitis Myelodysplastic syndrome Multiple medical comorbidities Plan: I was able to discuss the case, this concluded with physical exam findings and most recent imaging studies with my attending Dr. Moon. No emergent orthopedic surgical intervention is recommended at this time. Additional x-rays will be ordered for right elbow for further evaluation Difficult to assess the whole clinical picture due to patient being a poor historian. This could represent a low-grade cellulitis from his multiple blood draws and transfusions. Low concern for septic arthropathy of the right elbow or abscess at this time. Patient also does have a history of gout, patient's symptoms almost present like that due to how hypersensitive he is on exam. Difficult to determine how long the patient has been dealing with these current symptoms, but his elbow has started to develop significant stiffness which is making it hard to extend and flex. Could consider dose of colchicine and monitor symptoms Ice pack was applied to elbow, recommend elevating a basic range of motion exercises to HIS GI and DVT prophylaxis per primary medical service Other medical specialty recommendations appreciated We'll continue to follow during inpatient stay Time with Patient: Less than 30
--- NOTE | 2023-05-16 10:56 | P.PN ---
Subjective Progress Note Date: 05/16/23 Principal diagnosis: Febrile neutropenia In follow-up today patient denies any fever, nausea, vomiting, diarrhea, abdominal pain. His right upper extremity is still very tender but, he thinks it might be a little better. He reports that these scabs on his right lower extremity are from flea bites. Objective - Vital Signs Vital signs: Vital Signs Temp 98.5 F 05/16/23 07:27 Pulse 86 05/16/23 07:27 Resp 18 05/16/23 07:27 BP 92/54 05/16/23 07:27 Pulse Ox 97 05/16/23 09:19 FiO2 Intake & Output 05/15/23 05/16/23 05/16/23 18:59 06:59 18:59 Intake Total 3050 Output Total 2500 1300 Balance 550 -1300 Weight 104.326 kg 104.326 kg Intake: Intake, IV Titration 2550 Amount Cefepime 1 gm In Sodium 50 Chloride 0.9% 50 ml @ 12. 5 mls/hr IVPB Q12H [facility] Rx #:[id number] Sodium Chloride 0.9% 1, 1500 000 ml @ 130 mls/hr IV . Q7H42M [facility] Rx#:[id number] Sodium Chloride 0.9% 1, 1000 000 ml @ 999 mls/hr IV . Q1H1M [facility] Rx#:[id number] Oral 500 Output: Urine 2500 1300 Other: Voiding Method Urinal Diaper Incontinent # Voids 1 - Constitutional General appearance: Present: average body habitus, cooperative, no acute distress - EENT Eyes: Present: anicteric sclerae, EOMI ENT: Present: hearing grossly normal - Respiratory Respiratory: bilateral: CTA - Cardiovascular Rhythm: regular Heart sounds: normal: S1, S2 Abnormal Heart Sounds: Absent: systolic murmur, diastolic murmur, rub, S3 Gallop, S4 Gallop, click, other - Peripheral edema leg Peripheral Edema: bilateral: None - Gastrointestinal Gastrointestinal Comment(s): No rebound tenderness General gastrointestinal: Present: normal bowel sounds, soft. Absent: absent bowel sounds, decreased bowel sounds, distended, hepatomegaly, hyperactive bowel sounds, organomegaly, rigid, scaphoid, splenomegaly, tenderness, umbilical hernia, ventral hernia - Integumentary Integumentary Comment(s): About a dozen scabs on the right lower extremity, no signs or symptoms of infection Integumentary: Present: pale - Neurologic Neurologic: Present: CNII-XII intact (grossly) - Musculoskeletal Musculoskeletal: Present: generalized weakness, strength equal bilaterally - Psychiatric Psychiatric: Present: A&O x's 3, appropriate affect, intact judgment & insight - Labs CBC & Chem 7: 05/16/23 07:29 05/16/23 03:58 Labs: Abnormal Lab Results - Last 24 Hours (Table) 05/15/23 05/15/23 05/15/23 Range/Units 12:44 12:44 12:44 WBC 0.3 L* (3.8-10.6) k/uL RBC 2.11 L (4.30-5.90) m/uL Hgb 6.9 L* (13.0-17.5) gm/dL Hct 19.2 L* (39.0-53.0) % RDW 20.1 H (11.5-15.5) % Plt Count 20 L D (150-450) k/uL Sodium 134 L (137-145) mmol/L Carbon Dioxide 16 L (22-30) mmol/L Anion Gap (4.00-12.00) mmol/L BUN 67 H (9-20) mg/dL Creatinine 2.86 H (0.66-1.25) mg/dL Est GFR (CKD-EPI) (>=60) BUN/Creatinine Ratio (12.00-20.00) Ratio Glucose 172 H (74-99) mg/dL POC Glucose (mg/dL) (70-110) mg/dL Calcium 8.3 L (8.4-10.2) mg/dL Total Bilirubin 3.8 H (0.2-1.3) mg/dL AST (14-35) U/L Alkaline Phosphatase 131 H (38-126) U/L Albumin 3.4 L (3.5-5.0) g/dL Globulin (1.6-3.3) d/dL Albumin/Globulin Ratio (1.60-3.17) Ratio Urine Protein 1+ H (Negative) Urine Blood Small H (Negative) Ur Leukocyte Esterase Small H (Negative) Amorphous Sediment Rare H (None) /hpf Urine Bacteria Rare H (None) /hpf Urine Mucus Rare H (None) /hpf 05/15/23 05/15/23 05/16/23 Range/Units 18:07 20:30 03:58 WBC (3.8-10.6) k/uL RBC (4.30-5.90) m/uL Hgb (13.0-17.5) gm/dL Hct (39.0-53.0) % RDW (11.5-15.5) % Plt Count (150-450) k/uL Sodium (137-145) mmol/L Carbon Dioxide 14.9 L (22-30) mmol/L Anion Gap 14.10 H (4.00-12.00) mmol/L BUN 67.5 H (9-20) mg/dL Creatinine 3.3 H (0.66-1.25) mg/dL Est GFR (CKD-EPI) 18 L (>=60) BUN/Creatinine Ratio 20.45 H (12.00-20.00) Ratio Glucose (74-99) mg/dL POC Glucose (mg/dL) 162 H 152 H (70-110) mg/dL Calcium 8.2 L (8.4-10.2) mg/dL Total Bilirubin 3.8 H (0.2-1.3) mg/dL AST 75 H (14-35) U/L Alkaline Phosphatase (38-126) U/L Albumin 2.9 L (3.5-5.0) g/dL Globulin 3.4 H (1.6-3.3) d/dL Albumin/Globulin Ratio 0.85 L (1.60-3.17) Ratio Urine Protein (Negative) Urine Blood (Negative) Ur Leukocyte Esterase (Negative) Amorphous Sediment (None) /hpf Urine Bacteria (None) /hpf Urine Mucus (None) /hpf 05/16/23 05/16/23 Range/Units 07:28 07:29 WBC 0.2 L* (3.8-10.6) k/uL RBC 1.80 L (4.30-5.90) m/uL Hgb 5.9 L* (13.0-17.5) gm/dL Hct 17.3 L* (39.0-53.0) % RDW 20.4 H (11.5-15.5) % Plt Count 12 L* (150-450) k/uL Sodium (137-145) mmol/L Carbon Dioxide (22-30) mmol/L Anion Gap (4.00-12.00) mmol/L BUN (9-20) mg/dL Creatinine (0.66-1.25) mg/dL Est GFR (CKD-EPI) (>=60) BUN/Creatinine Ratio (12.00-20.00) Ratio Glucose (74-99) mg/dL POC Glucose (mg/dL) 130 H (70-110) mg/dL Calcium (8.4-10.2) mg/dL Total Bilirubin (0.2-1.3) mg/dL AST (14-35) U/L Alkaline Phosphatase (38-126) U/L Albumin (3.5-5.0) g/dL Globulin (1.6-3.3) d/dL Albumin/Globulin Ratio (1.60-3.17) Ratio Urine Protein (Negative) Urine Blood (Negative) Ur Leukocyte Esterase (Negative) Amorphous Sediment (None) /hpf Urine Bacteria (None) /hpf Urine Mucus (None) /hpf Assessment and Plan (1) Neutropenic fever Current Visit: Yes Status: Acute Priority: High Code(s): D70.9 - NEUTROPENIA, UNSPECIFIED; R50.81 - FEVER PRESENTING WITH CONDITIONS CLASSIFIED ELSEWHERE SNOMED Code(s): 915728242 (2) Pancytopenia due to chemotherapy Current Visit: Yes Status: Acute Priority: High Code(s): D61.810 - ANTINEOPLASTIC CHEMOTHERAPY INDUCED PANCYTOPENIA SNOMED Code(s): 1712956 (3) MDS (myelodysplastic syndrome) Current Visit: Yes Status: Acute Code(s): D46.9 - MYELODYSPLASTIC SYNDROME, UNSPECIFIED SNOMED Code(s): 619288793 Plan: Neutropenic fever -Pancultures-Chest x-ray showed no acute process, urine not highly suspicious, culture pending. Blood cultures pending -Duplex right upper extremity negative for DVT, forearm x-ray no evidence of acute fracture no erosions or foreign body, mild soft tissue swelling at the posterior aspect of the mid forearm, no discrete abnormality seen on ultrasound at the site of clinical concern. Orthopedics as evaluated patient. -Empiric antibiotics ordered -GCSF ordered Pancytopenia secondary to chemotherapy -Patient anemic secondary to disease, chronic kidney disease and chemotherapy. He received 1 unit PRBCs 05/15/23 at [facility]. He has not received any additional units. Hemoglobin is 5.9. Pending transfusion. -Platelets 12,000. Transfuse for platelet count less than 10,000 or if symptomatic. No aspirin, NSAIDs or anticoagulation. Use SCDs for DVT prophylaxis -WBC 0.2, no ANC reported. G-CSF started yesterday. Plan to use as few doses as possible. Based on patient's progress, may hold after ANC reaches 500 or, if patient still not doing well, may wait until ANC is 1000. -CBC with differential daily. Myelodysplastic syndrome -Red Cell aplasia -Has been on BERNARDA is without significant stability of hemoglobin or reduction in transfusion need -Just started on treatment with Dacogen. He is status post the first 5 day cycle, started 04/30-05/04 -Dr. Saavedra discussed with the patient significant pancytopenia, neutropenic fever. Plan is for treatment of infection-likely source the forearm. Administer G-CSF and transfusions as needed. -Dr. Saavedra reviewed CODE STATUS with the patient, explained full code status, CPR and intubation, and when it is used. Discussed the unfortunate likelihood that patient would not derive quantity or quality of life from CPR or intubation due to irreversible underlying disease. Patient had the opportunity to ask questions. Nursing was present. Patient agreed to no CODE STATUS. This is been updated in the patient medical record. Doctor attests: I performed a history and physical examination of this patient, developed impression and plan of care. Discussed with dictator. I agree with dictators note, documented as a scribe.
[2023-05-16 11:53] LABS: Glucose,Whole Blood 161 mg/dL (70-110)
[2023-05-16] MEDS: SODIUM CHLORIDE 0.9% 1,000 ML IV SCH ×2 (13:39→15:25)
--- NOTE | 2023-05-16 13:43 | P.PN ---
Subjective Progress Note Date: 05/16/23 Hospital Course: 78-year-old male with history of MDS, coronary artery disease status post stent, chronic kidney disease, type 2 diabetes, hypothyroidism, dyslipidemia presenting from with concerns of abnormal labs as well as right arm cellulitis. In the ED, temperature was 98.7, pulse 91, respiratory rate blood pressure 135/53, saturating 100% on room air. Laboratory analysis showed WBC of 0.3, hemoglobin 6.9, sodium 134, bicarbonate 16, anion gap 12, creatinine is 2.86, glucose 172. EKG independently interpreted shows right bundle branch block, sinus rhythm. Right upper extremity ultrasound shows no discrete abnormality. Right arm shows no DVT. Patient did have fever following admission. Has neutropenic fever, currently on IV antibiotics. Orthopedics and oncology also following. Subjective: Patient seen and examined at bedside. Overnight patient was hypotensive, requiring more IV fluids. Denies any significant complaints at the moment. Still continues to have some right arm pain. Pertinent positives and negatives as discussed above, a complete review of systems was performed and all other systems are negative. Vitals Signs Reviewed. General: nontoxic, no distress, appears at stated age Derm: warm, dry, right arm tenderness and erythema Head: atraumatic, normocephalic, symmetric Eyes: EOMI, no lid lag, anicteric sclera, pupils equal round reactive to light ENT: Nose and ears atraumatic Neck: No thyromegaly, supple Mouth: no lip lesion, mucus membranes moist Cardiovascular: S1S2 reg, no murmur, no edema Lungs: clear to auscultation bilateral, no rhonchi, no rales, no wheeze, no accessory muscle use Abdominal: soft, nontender to palpation, no guarding, no appreciable organomegaly Ext: no gross muscle atrophy, muscle strength muscle strength 5 out of 5 in all 4 extremities, no contractures Neuro: CN II-XII grossly intact Psych: Alert, oriented, appropriate affect Data Reviewed Today: Pertinent Labs: WBC 0.2, hemoglobin 5.9, platelet 12, creatinine 2.3, blood glucose ranged between 93-161 Imaging: No new imaging Assessment and Plan: Neutropenic fever Sepsis secondary to right arm cellulitis Pancytopenia History of MDS nonoliguric Acute kidney injury on chronic kidney disease Type 2 diabetes Coronary artery disease status post stent History of orthostatic hypotension -On cefepime -Blood cultures pending -Pancytopenia likely related to MDS -Oncology note reviewed, transfusion pending, continue IV antibiotics, filgrastrim ordered CODE STATUS changed to no code -Continue IV fluids, hold diuretics -Renal function worsening, renal ultrasound ordered -Sliding scale insulin -Continue aspirin and Plavix, statin -Continue midodrine Chronic: Hypothyroidism Hypertension Dyslipidemia COPD DVT ppx: Not indicated Code status: No code Anticipated discharge place: Pending clinical course Anticipated discharge time: Pending clinical course Objective - Vital Signs Vital signs: Vital Signs Temp 98.6 F 05/16/23 12:15 Pulse 79 05/16/23 12:35 Resp 18 05/16/23 12:35 BP 91/50 05/16/23 12:35 Pulse Ox 97 05/16/23 12:35 FiO2 Intake & Output 05/15/23 05/16/23 05/16/23 18:59 06:59 18:59 Intake Total 3050 0 Output Total 2500 1300 Balance 550 -1300 Weight 104.326 kg 104.326 kg Intake: Intake, IV Titration 2550 Amount Cefepime 1 gm In Sodium 50 Chloride 0.9% 50 ml @ 12. 5 mls/hr IVPB Q12H [facility] Rx #:[id number] Sodium Chloride 0.9% 1, 1500 000 ml @ 130 mls/hr IV . Q7H42M [facility] Rx#:[id number] Sodium Chloride 0.9% 1, 1000 000 ml @ 999 mls/hr IV . Q1H1M [facility] Rx#:[id number] Oral 500 Blood Product 0 Unit 0 Output: Urine 2500 1300 Other: Voiding Method Urinal Urinal Diaper Diaper Incontinent Incontinent # Voids 1 - Labs CBC & Chem 7: 05/16/23 07:29 05/16/23 03:58 Labs: Abnormal Lab Results - Last 24 Hours (Table) 05/15/23 05/15/23 05/15/23 Range/Units 12:44 12:44 12:44 WBC (3.8-10.6) k/uL RBC (4.30-5.90) m/uL Hgb (13.0-17.5) gm/dL Hct (39.0-53.0) % RDW (11.5-15.5) % Plt Count 20 L D (150-450) k/uL Sodium 134 L (137-145) mmol/L Carbon Dioxide 16 L (22-30) mmol/L Anion Gap (4.00-12.00) mmol/L BUN 67 H (9-20) mg/dL Creatinine 2.86 H (0.66-1.25) mg/dL Est GFR (CKD-EPI) (>=60) BUN/Creatinine Ratio (12.00-20.00) Ratio Glucose 172 H (74-99) mg/dL POC Glucose (mg/dL) (70-110) mg/dL Calcium 8.3 L (8.4-10.2) mg/dL Total Bilirubin 3.8 H (0.2-1.3) mg/dL AST (14-35) U/L Alkaline Phosphatase 131 H (38-126) U/L Albumin 3.4 L (3.5-5.0) g/dL Globulin (1.6-3.3) d/dL Albumin/Globulin Ratio (1.60-3.17) Ratio Urine Protein 1+ H (Negative) Urine Blood Small H (Negative) Ur Leukocyte Esterase Small H (Negative) Amorphous Sediment Rare H (None) /hpf Urine Bacteria Rare H (None) /hpf Urine Mucus Rare H (None) /hpf Crossmatch 05/15/23 05/15/23 05/16/23 Range/Units 18:07 20:30 03:58 WBC (3.8-10.6) k/uL RBC (4.30-5.90) m/uL Hgb (13.0-17.5) gm/dL Hct (39.0-53.0) % RDW (11.5-15.5) % Plt Count (150-450) k/uL Sodium (137-145) mmol/L Carbon Dioxide 14.9 L (22-30) mmol/L Anion Gap 14.10 H (4.00-12.00) mmol/L BUN 67.5 H (9-20) mg/dL Creatinine 3.3 H (0.66-1.25) mg/dL Est GFR (CKD-EPI) 18 L (>=60) BUN/Creatinine Ratio 20.45 H (12.00-20.00) Ratio Glucose (74-99) mg/dL POC Glucose (mg/dL) 162 H 152 H (70-110) mg/dL Calcium 8.2 L (8.4-10.2) mg/dL Total Bilirubin 3.8 H (0.2-1.3) mg/dL AST 75 H (14-35) U/L Alkaline Phosphatase (38-126) U/L Albumin 2.9 L (3.5-5.0) g/dL Globulin 3.4 H (1.6-3.3) d/dL Albumin/Globulin Ratio 0.85 L (1.60-3.17) Ratio Urine Protein (Negative) Urine Blood (Negative) Ur Leukocyte Esterase (Negative) Amorphous Sediment (None) /hpf Urine Bacteria (None) /hpf Urine Mucus (None) /hpf Crossmatch 05/16/23 05/16/23 05/16/23 Range/Units 07:28 07:29 09:38 WBC 0.2 L* (3.8-10.6) k/uL RBC 1.80 L (4.30-5.90) m/uL Hgb 5.9 L* (13.0-17.5) gm/dL Hct 17.3 L* (39.0-53.0) % RDW 20.4 H (11.5-15.5) % Plt Count 12 L* (150-450) k/uL Sodium (137-145) mmol/L Carbon Dioxide (22-30) mmol/L Anion Gap (4.00-12.00) mmol/L BUN (9-20) mg/dL Creatinine (0.66-1.25) mg/dL Est GFR (CKD-EPI) (>=60) BUN/Creatinine Ratio (12.00-20.00) Ratio Glucose (74-99) mg/dL POC Glucose (mg/dL) 130 H (70-110) mg/dL Calcium (8.4-10.2) mg/dL Total Bilirubin (0.2-1.3) mg/dL AST (14-35) U/L Alkaline Phosphatase (38-126) U/L Albumin (3.5-5.0) g/dL Globulin (1.6-3.3) d/dL Albumin/Globulin Ratio (1.60-3.17) Ratio Urine Protein (Negative) Urine Blood (Negative) Ur Leukocyte Esterase (Negative) Amorphous Sediment (None) /hpf Urine Bacteria (None) /hpf Urine Mucus (None) /hpf Crossmatch See Detail 05/16/23 Range/Units 11:51 WBC (3.8-10.6) k/uL RBC (4.30-5.90) m/uL Hgb (13.0-17.5) gm/dL Hct (39.0-53.0) % RDW (11.5-15.5) % Plt Count (150-450) k/uL Sodium (137-145) mmol/L Carbon Dioxide (22-30) mmol/L Anion Gap (4.00-12.00) mmol/L BUN (9-20) mg/dL Creatinine (0.66-1.25) mg/dL Est GFR (CKD-EPI) (>=60) BUN/Creatinine Ratio (12.00-20.00) Ratio Glucose (74-99) mg/dL POC Glucose (mg/dL) 161 H (70-110) mg/dL Calcium (8.4-10.2) mg/dL Total Bilirubin (0.2-1.3) mg/dL AST (14-35) U/L Alkaline Phosphatase (38-126) U/L Albumin (3.5-5.0) g/dL Globulin (1.6-3.3) d/dL Albumin/Globulin Ratio (1.60-3.17) Ratio Urine Protein (Negative) Urine Blood (Negative) Ur Leukocyte Esterase (Negative) Amorphous Sediment (None) /hpf Urine Bacteria (None) /hpf Urine Mucus (None) /hpf Crossmatch
--- NOTE | 2023-05-16 14:56 | XR ---
EXAMINATION TYPE: XR elbow limited RT DATE OF EXAM: 05/16/2023 COMPARISON: None HISTORY: Pain and swelling TECHNIQUE: 2 view right elbow FINDINGS: Anterior fat pad is normal. No elevation of posterior fat pad is evident. Radius aligns nor richie with the humerus. Follow up exams can be performed 7-10 days from acute trauma for continued pain. IMPRESSION: 1. No acute osseous abnormality right elbow.
--- NOTE | 2023-05-16 15:00 | US ---
EXAMINATION TYPE: US renals and bladder DATE OF EXAM: 05/16/2023 COMPARISON: US 03/05/23 CLINICAL INDICATION: Male, 78 years old with history of abeb; abbe; hx of hydronephrosis EXAM MEASUREMENTS: Right Kidney: 10.1 x 5.3 x 4.7 cm Left Kidney: 10.7 x 4.5 x 4.0 cm Right Kidney: Moderate Hydronephrosis Left Kidney: Limited evaluation; cortical thinning Bladder: Fair catheter. Urinary bladder cannot be evaluated. Difficult exam due patient immobility IMPRESSION: Moderate right hydronephrosis unknown etiology
[2023-05-16 17:34] LABS: Glucose,Whole Blood 140 mg/dL (70-110)
[2023-05-16] MEDS: FILGRASTIM-SNDZ 480 MCG/0.8 ML SYRINGE SQ SCH (17:45)
[2023-05-16 20:31] LABS: Glucose,Whole Blood 156 mg/dL (70-110)
[2023-05-16] MEDS: ATORVASTATIN 80 MG TAB PO SCH (20:32)
[2023-05-16] MEDS: ACETAMINOPHEN TAB 325 MG TAB PO PRN (20:37)
[2023-05-17] MEDS: traMADol 50 MG TAB PO PRN ×3 (00:07→11:57)
[2023-05-17] MEDS: SODIUM CHLORIDE 0.9% 1,000 ML IV SCH ×3 (00:16→21:10)
[2023-05-17] MEDS: ACETAMINOPHEN TAB 325 MG TAB PO PRN (05:21)
[2023-05-17] MEDS: CEFEPIME 1 GM in SODIUM CHLORIDE 0.9% 50 ML IVPB SCH ×2 (06:05→18:11)
[2023-05-17] MEDS: SYMBICORT 160-4.5 MCG INHALER INHALATION SCH ×2 (07:27→20:11)
[2023-05-17 07:35] LABS: Glucose,Whole Blood 138 mg/dL (70-110)
[2023-05-17 08:00] LABS: Anisocytosis Slight; MCH 33.2 pg (25.0-35.0); MCHC 36.1 g/dL (31.0-37.0); Macrocytosis Slight; Mean Platelet Volume 10.2; RBC 1.84 m/uL (4.30-5.90); RDW 19.7 % (11.5-15.5)
[2023-05-17 08:06] LABS: Platelet Count 10 k/uL (150-450); WBC 0.1 k/uL (3.8-10.6)
[2023-05-17 08:12] LABS: HGB 6.1 gm/dL (13.0-17.5)
[2023-05-17 08:13] LABS: HCT 16.9 % (39.0-53.0)
[2023-05-17] MEDS: INSULIN ASPART (NovoLOG) 100 UNIT/ML VIAL SQ SCH ×5 (08:39→21:16)
[2023-05-17] MEDS: SODIUM BICARBONATE TAB 650 MG TAB PO SCH (09:28)
[2023-05-17] MEDS: MIDODRINE 5 MG TAB PO SCH ×3 (09:29→21:09)
[2023-05-17] MEDS: LEVOTHYROXINE 137 MCG TAB PO SCH (09:29)
[2023-05-17] MEDS: TAMSULOSIN 0.4 MG CAP.ER.24H PO SCH (09:29)
[2023-05-17] MEDS: allopurinoL 100 MG TAB PO SCH ×2 (09:29→18:13)
[2023-05-17] MEDS: CHOLECALCIFEROL 25 MCG (1000 IU) TABLET PO SCH (09:29)
--- NOTE | 2023-05-17 10:02 | P.PN ---
Subjective Progress Note Date: 05/17/23 Principal diagnosis: Right upper extremity pain Patient was evaluated today at bedside, he is resting his hospital bed. He states that the right upper extremity, including the forearm and elbow are improved today. He was utilizing the ice yesterday, he is currently not utilizi ng any ice at bedside today. He denies any obvious fevers or chills at this time. He denies any numbness or tingling to the extremity. He feels that he is moving the extremity little better at this time. Objective - Vital Signs Vital signs: Vital Signs Temp 97.7 F 05/17/23 08:00 Pulse 82 05/17/23 08:00 Resp 16 05/17/23 08:00 BP 85/47 05/17/23 08:00 Pulse Ox 95 05/17/23 08:00 FiO2 Intake & Output 05/16/23 05/17/23 05/17/23 18:59 06:59 18:59 Intake Total 285 500 Output Total 1300 5200 Balance -1015 -4700 Intake: Oral 500 Blood Product 285 Rc Pheresis 2 As3 Unit 285 [id number] Output: Urine 1300 5200 Uretheral (Fair) 2100 Other: Voiding Method Urinal Diaper Diaper Indwelling Catheter Incontinent - Exam Right upper extremity: No significant areas of erythema present throughout the extremity. There is some soft tissue swelling present in the elbow and proximal forearm Tenderness with palpation to the elbow and dorsal proximal aspect of the forearm. Patient has minimal tenderness with palpation of lower forearm. No tenderness with palpation to the hand and wrist. Patient is nontender with palpation surrounding the humerus, this concluded shoulder joint Passive range of motion of the shoulder reproduces no significant pain. Exten ger and flexion of the elbow reproduces minimal pain. Passive pronation and supination reproduces no cervical pain at the elbow. Patient is able wiggle the fingers with minimal difficulty Strength testing was not assessed of the right upper extremity due to pain Sensory exam to light touch is intact throughout the extremity Radial/ulnar pulses are 2+ Negative Concepcion test - Labs CBC & Chem 7: 05/17/23 07:10 05/16/23 03:58 Labs: Abnormal Lab Results - Last 24 Hours (Table) 05/16/23 05/16/23 05/16/23 Range/Units 09:38 11:51 17:33 WBC (3.8-10.6) k/uL RBC (4.30-5.90) m/uL Hgb (13.0-17.5) gm/dL Hct (39.0-53.0) % RDW (11.5-15.5) % Plt Count (150-450) k/uL POC Glucose (mg/dL) 161 H 140 H (70-110) mg/dL Crossmatch See Detail 05/16/23 05/17/23 05/17/23 Range/Units 20:28 07:10 07:34 WBC 0.1 L* (3.8-10.6) k/uL RBC 1.84 L (4.30-5.90) m/uL Hgb 6.1 L* (13.0-17.5) gm/dL Hct 16.9 L* (39.0-53.0) % RDW 19.7 H (11.5-15.5) % Plt Count 10 L* (150-450) k/uL POC Glucose (mg/dL) 156 H 138 H (70-110) mg/dL Crossmatch Microbiology - Last 24 Hours (Table) 05/15/23 12:44 Blood Culture - Preliminary Blood 05/15/23 12:44 Blood Culture - Preliminary Blood Assessment and Plan Assessment: Right elbow pain Right forearm pain Possible gouty arthropathy right elbow Concern for right upper extremity cellulitis Myelodysplastic syndrome Multiple medical comorbidities Plan: Additional x-rays were reviewed of the elbow, no fractures or dislocations, no foreign bodies were evident. Patient's symptoms seem improved since yesterday. Very little concern for septic arthropathy versus abscess at this time. Recommend continuation of conservative measures, this including icing and gentle range of motion exercises. Ice pack was applied to elbow, recommend elevating a basic range of motion exercises GI and DVT prophylaxis per primary medical service Other medical specialty recommendations appreciated Orthopedically patient remains stable, please contact our service any further questions regarding this patient. Time with Patient: Less than 30
[2023-05-17 10:11] LABS: Rouleaux Present
--- NOTE | 2023-05-17 11:27 | P.PN ---
Subjective Progress Note Date: 05/17/23 Hospital Course: 78-year-old male with history of MDS, coronary artery disease status post stent, chronic kidney disease, type 2 diabetes, hypothyroidism, dyslipidemia presenting from with concerns of abnormal labs as well as right arm cellulitis. In the ED, temperature was 98.7, pulse 91, respiratory rate blood pressure 135/53, saturating 100% on room air. Laboratory analysis showed WBC of 0.3, hemoglobin 6.9, sodium 134, bicarbonate 16, anion gap 12, creatinine is 2.86, glucose 172. EKG independently interpreted shows right bundle branch block, sinus rhythm. Right upper extremity ultrasound shows no discrete abnormality. Right arm shows no DVT. Patient did have fever following admission. Has neutropenic fever, currently on IV antibiotics. Orthopedics and oncology also following. Right arm symptoms improving. Renal function did get worse. Renal ultrasound shows a moderate right hydronephrosis. Subjective: Patient seen and examined at bedside. No acute events overnight. Right arm pain improving. Pertinent positives and negatives as discussed above, a complete review of systems was performed and all other systems are negative. Vitals Signs Reviewed. General: nontoxic, no distress, appears at stated age Derm: warm, dry, right arm tenderness and erythema Head: atraumatic, normocephalic, symmetric Eyes: EOMI, no lid lag, anicteric sclera, pupils equal round reactive to light ENT: Nose and ears atraumatic Neck: No thyromegaly, supple Mouth: no lip lesion, mucus membranes moist Cardiovascular: S1S2 reg, no murmur, no edema Lungs: clear to auscultation bilateral, no rhonchi, no rales, no wheeze, no accessory muscle use Abdominal: soft, nontender to palpation, no guarding, no appreciable organomegaly Ext: no gross muscle atrophy, muscle strength muscle strength 5 out of 5 in all 4 extremities, no contractures Neuro: CN II-XII grossly intact Psych: Alert, oriented, appropriate affect Data Reviewed Today: Pertinent Labs: WBC 0.1, hemoglobin 6.1, platelet 10, BMP pending, will be reviewed when available, blood sugars range between 138-156 Imaging: No new imaging Assessment and Plan: Neutropenic fever Sepsis secondary to right arm cellulitis Pancytopenia History of MDS nonoliguric Acute kidney injury on chronic kidney disease Moderate Right hydronephrosis Type 2 diabetes Coronary artery disease status post stent History of orthostatic hypotension -On cefepime -Blood cultures pending -Pancytopenia likely related to MDS -Oncology following, transfusing second unit of PRBCs, on filgrastrim -Patient may also need platelets -Continue IV fluids, hold diuretics -Renal function worsening, renal ultrasound that showed no moderate right hydronephrosis, etiology not found, repeat BMP pending -Patient continues to make urine, oriented hypotension -Sliding scale insulin -Continue aspirin and Plavix, statin -Continue midodrine Chronic: Hypothyroidism Hypertension Dyslipidemia COPD DVT ppx: Not indicated Code status: No code Anticipated discharge place: Pending clinical course Anticipated discharge time: Pending clinical course Objective - Vital Signs Vital signs: Vital Signs Temp 98.0 F 05/17/23 11:08 Pulse 82 05/17/23 11:08 Resp 18 05/17/23 11:08 BP 74/40 05/17/23 11:08 Pulse Ox 97 05/17/23 11:08 FiO2 Intake & Output 05/16/23 05/17/23 05/17/23 18:59 06:59 18:59 Intake Total 285 500 0 Output Total 1300 5200 2100 Balance -1015 -1090 -2100 Intake: Oral 500 Blood Product 285 0 Rc As-1 Unit 0 [id number] Rc Pheresis 2 As3 Unit 285 [id number] Output: Urine 1300 5200 2100 Uretheral (Fair) 2100 2100 Other: Voiding Method Urinal Diaper Diaper Diaper Indwelling Catheter Indwelling Catheter Incontinent - Labs CBC & Chem 7: 05/17/23 07:10 05/16/23 03:58 Labs: Abnormal Lab Results - Last 24 Hours (Table) 05/16/23 05/16/23 05/16/23 Range/Units 09:38 11:51 17:33 WBC (3.8-10.6) k/uL RBC (4.30-5.90) m/uL Hgb (13.0-17.5) gm/dL Hct (39.0-53.0) % RDW (11.5-15.5) % Plt Count (150-450) k/uL POC Glucose (mg/dL) 161 H 140 H (70-110) mg/dL Crossmatch See Detail 05/16/23 05/17/23 05/17/23 Range/Units 20:28 07:10 07:34 WBC 0.1 L* (3.8-10.6) k/uL RBC 1.84 L (4.30-5.90) m/uL Hgb 6.1 L* (13.0-17.5) gm/dL Hct 16.9 L* (39.0-53.0) % RDW 19.7 H (11.5-15.5) % Plt Count 10 L* (150-450) k/uL POC Glucose (mg/dL) 156 H 138 H (70-110) mg/dL Crossmatch Microbiology - Last 24 Hours (Table) 05/15/23 12:44 Blood Culture - Preliminary Blood 05/15/23 12:44 Blood Culture - Preliminary Blood
[2023-05-17 12:07] LABS: Glucose,Whole Blood 162 mg/dL (70-110)
[2023-05-17 15:43] LABS: African American GFR (CKD) 25 (>60 ml/min/1.73 sqM); Anion Gap 14 mmol/L; Blood Urea Nitrogen 66 mg/dL (9-20); Carbon Dioxide 11 mmol/L (22-30); Chloride 106 mmol/L (98-107); Glucose 143 mg/dL (74-99); Non-African American GFR(CKD) 21 (>60 ml/min/1.73 sqM); Potassium 4.1 mmol/L (3.5-5.1); Sodium 131 mmol/L (137-145)
--- NOTE | 2023-05-17 16:01 | P.PN ---
Subjective Progress Note Date: 05/17/23 Principal diagnosis: Febrile neutropenia In follow-up today patient reports chest discomfort-his HR was 130s-denied diaphoresis, SOB, N. He feels weak. He reports is rt forearm is feeling better. Denies recent fever, bleeding. Objective - Vital Signs Vital signs: Vital Signs Temp 97.9 F 05/17/23 11:28 Pulse 77 05/17/23 11:28 Resp 18 05/17/23 11:28 BP 85/45 05/17/23 11:28 Pulse Ox 97 05/17/23 11:08 FiO2 Intake & Output 05/16/23 05/17/23 05/17/23 18:59 06:59 18:59 Intake Total 285 500 0 Output Total 1300 5200 2100 Balance -1015 -4700 -2100 Intake: Oral 500 Blood Product 285 0 Rc As-1 Unit 0 [id number] Rc Pheresis 2 As3 Unit 285 [id number] Output: Urine 1300 5200 2100 Uretheral (Fair) 2100 2100 Other: Voiding Method Urinal Diaper Diaper Diaper Indwelling Catheter Indwelling Catheter Incontinent - Constitutional General appearance: Present: average body habitus, cooperative, no acute distress - EENT Eyes: Present: anicteric sclerae, EOMI ENT: Present: hearing grossly normal, normal oropharynx - Respiratory Respiratory: bilateral: CTA - Cardiovascular Details: tachy - Peripheral edema leg Peripheral Edema: bilateral: None - Gastrointestinal General gastrointestinal: Present: soft - Integumentary Integumentary: Present: pale - Neurologic Neurologic: Present: CNII-XII intact - Musculoskeletal Musculoskeletal: Present: generalized weakness - Psychiatric Psychiatric: Present: A&O x's 3, appropriate affect, intact judgment & insight - Labs CBC & Chem 7: 05/17/23 07:10 05/17/23 14:45 Labs: Abnormal Lab Results - Last 24 Hours (Table) 05/16/23 05/16/23 05/16/23 Range/Units 09:38 17:33 20:28 WBC (3.8-10.6) k/uL RBC (4.30-5.90) m/uL Hgb (13.0-17.5) gm/dL Hct (39.0-53.0) % RDW (11.5-15.5) % Plt Count (150-450) k/uL POC Glucose (mg/dL) 140 H 156 H (70-110) mg/dL Crossmatch See Detail 05/17/23 05/17/23 05/17/23 Range/Units 07:10 07:34 12:06 WBC 0.1 L* (3.8-10.6) k/uL RBC 1.84 L (4.30-5.90) m/uL Hgb 6.1 L* (13.0-17.5) gm/dL Hct 16.9 L* (39.0-53.0) % RDW 19.7 H (11.5-15.5) % Plt Count 10 L* (150-450) k/uL POC Glucose (mg/dL) 138 H 162 H (70-110) mg/dL Crossmatch Microbiology - Last 24 Hours (Table) 05/15/23 12:44 Blood Culture - Preliminary Blood 05/15/23 12:44 Blood Culture - Preliminary Blood Assessment and Plan (1) Neutropenic fever Current Visit: Yes Status: Acute Priority: High Code(s): D70.9 - NEUTROPENIA, UNSPECIFIED; R50.81 - FEVER PRESENTING WITH CONDITIONS CLASSIFIED ELSEWHERE SNOMED Code(s): 544549580 (2) Pancytopenia due to chemotherapy Current Visit: Yes Status: Acute Priority: High Code(s): D61.810 - ANTINEOPLASTIC CHEMOTHERAPY INDUCED PANCYTOPENIA SNOMED Code(s): 9056651 (3) MDS (myelodysplastic syndrome) Current Visit: Yes Status: Acute Code(s): D46.9 - MYELODYSPLASTIC SYNDROME, UNSPECIFIED SNOMED Code(s): 095713696 Plan: Neutropenic fever -Pancultures-Chest x-ray showed no acute process, urine not highly suspicious, culture pending. Blood cultures neg at 24 hours -Duplex right upper extremity negative for DVT, forearm x-ray no evidence of acute fracture no erosions or foreign body, mild soft tissue swelling at the posterior aspect of the mid forearm, no discrete abnormality seen on ultrasound at the site of clinical concern. Orthopedics as evaluated patient. -Pt reporting less pain in the rt forearm -Empiric antibiotics continue -GCSF ordered and continues Pancytopenia secondary to chemotherapy -Patient anemic secondary to MDS, CKD and chemotherapy. He has received 2 units PRBCs since admit. Hgb 6.1 today, no significant increase in Hgb post transfusions. Transfuse for Hgb <7 or if symptomatic -Platelets 10,000 today. Transfuse for platelet count less than 10,000 or if symptomatic. No aspirin, NSAIDs or anticoagulation. Use SCDs for DVT prophyla xis -WBC 0.1, no ANC reported. G-CSF started 05/15. Plan to use as few doses as possible. Based on patient's progress, may hold after ANC reaches 500 or, if patient still not doing well, may wait until ANC is 1000. -CBC with differential daily. -Reviewed with the patient concerns for the significant, persistent pancytopenia. He understands that this is effects of disease and treatment. This unfortunately is common when treating progressive MDS. Supportive care, transfusions, abx is standard of care in hopes that pt is able to recover. -Treat for infection-likely source the forearm. -Cont to administer G-CSF and give transfusions as needed. Myelodysplastic syndrome -Red Cell aplasia -Has been on BERNARDA without significant stability of hemoglobin or reduction in transfusions needed -Just started on treatment with Dacogen. He is status post the first 5 day cycle, started 04/30-05/04
[2023-05-17] MEDS: traMADol 50 MG TAB PO SCH ×2 (16:18→21:08)
[2023-05-17 17:31] LABS: Glucose,Whole Blood 184 mg/dL (70-110)
[2023-05-17] MEDS: FILGRASTIM-SNDZ 480 MCG/0.8 ML SYRINGE SQ SCH (18:12)
[2023-05-17 20:46] LABS: Glucose,Whole Blood 196 mg/dL (70-110)
[2023-05-17] MEDS: ATORVASTATIN 80 MG TAB PO SCH (21:08)
[2023-05-18] MEDS: traMADol 50 MG TAB PO SCH ×5 (01:08→17:04)
[2023-05-18 01:36] LABS: Blood Urea Nitrogen 62.7 mg/dL (9.0-27.0); Calcium 7.5 mg/dL (8.7-10.3); Carbon Dioxide 12.9 mmol/L (21.6-31.8); Chloride 106 mmol/L (96-109); Glucose 120 mg/dL (70-110); Potassium 4.4 mmol/L (3.5-5.5); Sodium 133 mmol/L (135-145)
[2023-05-18] MEDS: ACETAMINOPHEN TAB 325 MG TAB PO PRN (03:08)
[2023-05-18] MEDS ORDERED: traMADol 50 MG TAB ONE (04:00)
[2023-05-18] MEDS: SYMBICORT 160-4.5 MCG INHALER INHALATION SCH ×2 (06:40→20:40)
[2023-05-18] MEDS: SODIUM CHLORIDE 0.9% 1,000 ML IV SCH ×2 (06:47→13:46)
[2023-05-18] MEDS: CEFEPIME 1 GM in SODIUM CHLORIDE 0.9% 50 ML IVPB SCH ×2 (06:47→18:09)
[2023-05-18 07:47] LABS: Glucose,Whole Blood 184 mg/dL (70-110)
[2023-05-18] MEDS: allopurinoL 100 MG TAB PO SCH ×2 (07:56→18:10)
[2023-05-18] MEDS: INSULIN ASPART (NovoLOG) 100 UNIT/ML VIAL SQ SCH ×4 (07:56→22:07)
[2023-05-18] MEDS: SODIUM BICARBONATE TAB 650 MG TAB PO SCH (07:56)
[2023-05-18] MEDS: TAMSULOSIN 0.4 MG CAP.ER.24H PO SCH (07:56)
[2023-05-18] MEDS: MIDODRINE 5 MG TAB PO SCH ×3 (07:57→22:13)
[2023-05-18] MEDS: LEVOTHYROXINE 137 MCG TAB PO SCH (07:57)
[2023-05-18] MEDS: CHOLECALCIFEROL 25 MCG (1000 IU) TABLET PO SCH (07:57)
[2023-05-18 08:05] LABS: Anisocytosis Slight; MCH 32.1 pg (25.0-35.0); MCHC 35.2 g/dL (31.0-37.0); MCV 91.2 fL (80.0-100.0); Macrocytosis Slight; Mean Platelet Volume 10.5; RBC 2.02 m/uL (4.30-5.90)
[2023-05-18 08:06] LABS: Platelet Count 13 k/uL (150-450); WBC 0.2 k/uL (3.8-10.6)
[2023-05-18 08:13] LABS: HCT 18.4 % (39.0-53.0); HGB 6.5 gm/dL (13.0-17.5)
[2023-05-18 09:50] LABS: African American GFR (CKD) 26 (>60 ml/min/1.73 sqM); Anion Gap 14 mmol/L; Blood Urea Nitrogen 60 mg/dL (9-20); Carbon Dioxide 10 mmol/L (22-30); Chloride 108 mmol/L (98-107); Glucose 156 mg/dL (74-99); Non-African American GFR(CKD) 22 (>60 ml/min/1.73 sqM); Potassium 3.8 mmol/L (3.5-5.1); Sodium 132 mmol/L (137-145)
[2023-05-18 09:55] LABS: Crenated RBC Present; Rouleaux Present
[2023-05-18 10:01] LABS: Calcium 6.4 mg/dL (8.4-10.2)
[2023-05-18] MEDS ORDERED: SODIUM BICARB 8.4% 50 ML SYR (1 MEQ/ML) IV STA (10:15)
[2023-05-18] MEDS ORDERED: CALCIUM GLUCONATE IN NACL 2 GM in SALINE 1 100ML.BAG IVPB ONE (10:30)
[2023-05-18 12:52] LABS: Glucose,Whole Blood 207 mg/dL (70-110)
[2023-05-18] MEDS: MORPHINE SULFATE 4 MG/ML SYRINGE IVP PRN ×2 (13:24→22:14)
[2023-05-18 13:53] LABS: Reticulocyte % 1.7 % (0.5-2.0)
--- NOTE | 2023-05-18 14:03 | P.PN ---
Subjective Progress Note Date: 05/18/23 Hospital Course: 78-year-old male with history of MDS, coronary artery disease status post stent, chronic kidney disease, type 2 diabetes, hypothyroidism, dyslipidemia presenting from with concerns of abnormal labs as well as right arm cellulitis. In the ED, temperature was 98.7, pulse 91, respiratory rate blood pressure 135/53, saturating 100% on room air. Laboratory analysis showed WBC of 0.3, hemoglobin 6.9, sodium 134, bicarbonate 16, anion gap 12, creatinine is 2.86, glucose 172. EKG independently interpreted shows right bundle branch block, sinus rhythm. Right upper extremity ultrasound shows no discrete abnormality. Right arm shows no DVT. Patient did have fever following admission. Has neutropenic fever, currently on IV antibiotics. Orthopedics and oncology also following. Right arm symptoms improving. Renal function did get worse. Renal ultrasound shows a moderate right hydronephrosis. Renal function improving with fluids. Subjective: Patient seen and examined at bedside. No acute events overnight. Right arm pain improving. Pertinent positives and negatives as discussed above, a complete review of systems was performed and all other systems are negative. Vitals Signs Reviewed. General: nontoxic, no distress, appears at stated age Derm: warm, dry, right arm tenderness and erythema Head: atraumatic, normocephalic, symmetric Eyes: EOMI, no lid lag, anicteric sclera, pupils equal round reactive to light ENT: Nose and ears atraumatic Neck: No thyromegaly, supple Mouth: no lip lesion, mucus membranes moist Cardiovascular: S1S2 reg, no murmur, no edema Lungs: clear to auscultation bilateral, no rhonchi, no rales, no wheeze, no accessory muscle use Abdominal: soft, nontender to palpation, no guarding, no appreciable organomegaly Ext: no gross muscle atrophy, muscle strength muscle strength 5 out of 5 in all 4 extremities, no contractures Neuro: CN II-XII grossly intact Psych: Alert, oriented, appropriate affect Data Reviewed Today: Pertinent Labs: WBC 0.2, hemoglobin 6.5, platelet 13, sodium 132, bicarb 10, creatinine is 2.64, blood sugars range between 156-196 Imaging: No new imaging Assessment and Plan: Neutropenic fever Sepsis secondary to right arm cellulitis, improving Pancytopenia, status post 3 units of PRBCs History of MDS nonoliguric Acute kidney injury on chronic kidney disease, improving Metabolic acidosis Moderate Right hydronephrosis Type 2 diabetes Coronary artery disease status post stent History of orthostatic hypotension -On cefepime -Blood cultures negative growth to date -Right arm improving -Pancytopenia related to MDS -Oncology following, transfusing third unit of PRBCs, on filgrastrim -Patient may also need platelets -Continue IV fluids, hold diuretics -Renal function improving -IV bicarb 50 mEq -Patient continues to make urine, Fair catheter in place -Sliding scale insulin -Continue aspirin and Plavix, statin -Continue midodrine Chronic: Hypothyroidism Hypertension Dyslipidemia COPD DVT ppx: Not indicated Code status: No code Anticipated discharge place: Pending clinical course Anticipated discharge time: Pending clinical course Objective - Vital Signs Vital signs: Vital Signs Temp 97.8 F 05/18/23 13:52 Pulse 100 05/18/23 13:52 Resp 20 05/18/23 13:52 BP 92/48 05/18/23 13:52 Pulse Ox 94 L 05/18/23 13:52 FiO2 Intake & Output 05/17/23 05/18/23 05/18/23 18:59 06:59 18:59 Intake Total 310 0 Output Total 3900 Balance -3590 0 Intake: Blood Product 310 0 Unit 0 Rc As-1 Unit 310 [id number] Output: Urine 3900 Uretheral (Fair) 2100 Other: Voiding Method Diaper Diaper Diaper Indwelling Catheter Indwelling Catheter Indwelling Catheter # Bowel Movements 0 - Labs CBC & Chem 7: 05/18/23 07:22 05/18/23 07:22 Labs: Abnormal Lab Results - Last 24 Hours (Table) 05/16/23 05/17/23 05/17/23 Range/Units 09:38 07:10 07:10 WBC (3.8-10.6) k/uL RBC (4.30-5.90) m/uL Hgb (13.0-17.5) gm/dL Hct (39.0-53.0) % RDW (11.5-15.5) % Plt Count (150-450) k/uL Sodium 133 L (135-145) mmol/L Chloride (98-107) mmol/L Carbon Dioxide 12.9 L (21.6-31.8) mmol/L Anion Gap 14.10 H (4.00-12.00) mmol/L BUN 62.7 H (9.0-27.0) mg/dL Creatinine 3.0 H (0.6-1.5) mg/dL Est GFR (CKD-EPI) 20 L (>=60) BUN/Creatinine Ratio 20.90 H (12.00-20.00) Ratio Glucose 120 H (70-110) mg/dL POC Glucose (mg/dL) (70-110) mg/dL Hemoglobin A1c 6.5 H (<=6.0) % Calcium 7.5 L (8.7-10.3) mg/dL Crossmatch See Detail 05/17/23 05/17/23 05/17/23 Range/Units 14:45 17:26 20:45 WBC (3.8-10.6) k/uL RBC (4.30-5.90) m/uL Hgb (13.0-17.5) gm/dL Hct (39.0-53.0) % RDW (11.5-15.5) % Plt Count (150-450) k/uL Sodium 131 L (135-145) mmol/L Chloride (98-107) mmol/L Carbon Dioxide 11 L (21.6-31.8) mmol/L Anion Gap (4.00-12.00) mmol/L BUN 66 H (9.0-27.0) mg/dL Creatinine 2.71 H (0.6-1.5) mg/dL Est GFR (CKD-EPI) (>=60) BUN/Creatinine Ratio (12.00-20.00) Ratio Glucose 143 H (70-110) mg/dL POC Glucose (mg/dL) 184 H 196 H (70-110) mg/dL Hemoglobin A1c (<=6.0) % Calcium 7.0 L (8.7-10.3) mg/dL Crossmatch 05/18/23 05/18/23 05/18/23 Range/Units 07:22 07:22 07:46 WBC 0.2 L* (3.8-10.6) k/uL RBC 2.02 L (4.30-5.90) m/uL Hgb 6.5 L* (13.0-17.5) gm/dL Hct 18.4 L* (39.0-53.0) % RDW 19.0 H (11.5-15.5) % Plt Count 13 L* (150-450) k/uL Sodium 132 L (135-145) mmol/L Chloride 108 H (98-107) mmol/L Carbon Dioxide 10 L (21.6-31.8) mmol/L Anion Gap (4.00-12.00) mmol/L BUN 60 H (9.0-27.0) mg/dL Creatinine 2.64 H (0.6-1.5) mg/dL Est GFR (CKD-EPI) (>=60) BUN/Creatinine Ratio (12.00-20.00) Ratio Glucose 156 H (70-110) mg/dL POC Glucose (mg/dL) 184 H (70-110) mg/dL Hemoglobin A1c (<=6.0) % Calcium 6.4 L* (8.7-10.3) mg/dL Crossmatch 05/18/23 Range/Units 12:51 WBC (3.8-10.6) k/uL RBC (4.30-5.90) m/uL Hgb (13.0-17.5) gm/dL Hct (39.0-53.0) % RDW (11.5-15.5) % Plt Count (150-450) k/uL Sodium (135-145) mmol/L Chloride (98-107) mmol/L Carbon Dioxide (21.6-31.8) mmol/L Anion Gap (4.00-12.00) mmol/L BUN (9.0-27.0) mg/dL Creatinine (0.6-1.5) mg/dL Est GFR (CKD-EPI) (>=60) BUN/Creatinine Ratio (12.00-20.00) Ratio Glucose (70-110) mg/dL POC Glucose (mg/dL) 207 H (70-110) mg/dL Hemoglobin A1c (<=6.0) % Calcium (8.7-10.3) mg/dL Crossmatch Microbiology - Last 24 Hours (Table) 05/15/23 12:44 Blood Culture - Preliminary Blood 05/15/23 12:44 Blood Culture - Preliminary Blood
[2023-05-18 17:51] LABS: ALT 66 U/L (4-49); AST 115 U/L (17-59); African American GFR (CKD) 27 (>60 ml/min/1.73 sqM); Albumin 2.4 g/dL (3.5-5.0); Albumin/Globulin Ratio 0.6; Alkaline Phosphatase 126 U/L (38-126); Anion Gap 13 mmol/L; Bilirubin, Conjugated 5.2 mg/dL (0.0-0.3); Bilirubin,Unconjugated 1.7 mg/dL (0.0-1.1); Blood Urea Nitrogen 58 mg/dL (9-20); Calcium 7.1 mg/dL (8.4-10.2); Carbon Dioxide 12 mmol/L (22-30); Chloride 109 mmol/L (98-107); Globulin 3.7 g/dL; Glucose 162 mg/dL (74-99); LDH 253 U/L (120-246); Lipase 593 U/L (23-300); Non-African American GFR(CKD) 24 (>60 ml/min/1.73 sqM); Sodium 134 mmol/L (137-145); Total Bilirubin 8.6 mg/dL (0.2-1.3); Total Protein 6.1 g/dL (6.3-8.2)
[2023-05-18 18:01] LABS: Glucose,Whole Blood 183 mg/dL (70-110)
[2023-05-18] MEDS: FILGRASTIM-SNDZ 480 MCG/0.8 ML SYRINGE SQ SCH (18:09)
[2023-05-18 18:23] LABS: Uric Acid 3.9 mg/dL (3.5-8.5)
[2023-05-18 20:22] LABS: Glucose,Whole Blood 151 mg/dL (70-110)
[2023-05-18] MEDS: ATORVASTATIN 80 MG TAB PO SCH (22:13)
--- NOTE | 2023-05-18 23:15 | P.PN ---
Subjective Progress Note Date: 05/18/23 Principal diagnosis: neutropenia At today's visit patient is resting comfortably in bed. Patient is reporting increasing right elbow pain. States pain is 8/10. He is currently on tramadol. Hemoglobin 6.5 today, additional unit of PRBCs ordered. Platelets slightly improved at 13,000. Patient remains neutropenic despite 3 doses of Granix. Objective - Vital Signs Vital signs: Vital Signs Temp 97.8 F 05/18/23 13:52 Pulse 100 05/18/23 13:52 Resp 20 05/18/23 13:52 BP 92/48 05/18/23 13:52 Pulse Ox 94 L 05/18/23 13:52 FiO2 Intake & Output 05/17/23 05/18/23 05/18/23 18:59 06:59 18:59 Intake Total 310 0 Output Total 3900 Balance -3590 0 Intake: Blood Product 310 0 Unit 0 Rc As-1 Unit 310 [id number] Output: Urine 3900 Uretheral (Fiar) 2100 Other: Voiding Method Diaper Diaper Diaper Indwelling Catheter Indwelling Catheter Indwelling Catheter # Bowel Movements 0 - Constitutional General appearance: Present: average body habitus, no acute distress - EENT Eyes: Present: EOMI ENT: Present: hearing grossly normal - Respiratory Details: breathing is even and unlabored - Cardiovascular Details: skin is warm and dry - Integumentary Integumentary: Present: jaundiced, pale. Absent: cyanotic - Neurologic Neurologic Comment(s): generalized weakness - Musculoskeletal Musculoskeletal Comment(s): decreased ROM of right elbow with tenderness and erythema noted Musculoskeletal: Present: generalized weakness, strength equal bilaterally - Psychiatric Psychiatric: Present: A&O x's 3, appropriate affect, intact judgment & insight - Labs CBC & Chem 7: 05/18/23 07:22 05/18/23 16:38 Labs: Abnormal Lab Results - Last 24 Hours (Table) 05/16/23 05/17/23 05/17/23 Range/Units 09:38 07:10 07:10 WBC (3.8-10.6) k/uL RBC (4.30-5.90) m/uL Hgb (13.0-17.5) gm/dL Hct (39.0-53.0) % RDW (11.5-15.5) % Plt Count (150-450) k/uL Sodium 133 L (135-145) mmol/L Chloride (98-107) mmol/L Carbon Dioxide 12.9 L (21.6-31.8) mmol/L Anion Gap 14.10 H (4.00-12.00) mmol/L BUN 62.7 H (9.0-27.0) mg/dL Creatinine 3.0 H (0.6-1.5) mg/dL Est GFR (CKD-EPI) 20 L (>=60) BUN/Creatinine Ratio 20.90 H (12.00-20.00) Ratio Glucose 120 H (70-110) mg/dL POC Glucose (mg/dL) (70-110) mg/dL Hemoglobin A1c 6.5 H (<=6.0) % Calcium 7.5 L (8.7-10.3) mg/dL Crossmatch See Detail 05/17/23 05/17/23 05/17/23 Range/Units 14:45 17:26 20:45 WBC (3.8-10.6) k/uL RBC (4.30-5.90) m/uL Hgb (13.0-17.5) gm/dL Hct (39.0-53.0) % RDW (11.5-15.5) % Plt Count (150-450) k/uL Sodium 131 L (135-145) mmol/L Chloride (98-107) mmol/L Carbon Dioxide 11 L (21.6-31.8) mmol/L Anion Gap (4.00-12.00) mmol/L BUN 66 H (9.0-27.0) mg/dL Creatinine 2.71 H (0.6-1.5) mg/dL Est GFR (CKD-EPI) (>=60) BUN/Creatinine Ratio (12.00-20.00) Ratio Glucose 143 H (70-110) mg/dL POC Glucose (mg/dL) 184 H 196 H (70-110) mg/dL Hemoglobin A1c (<=6.0) % Calcium 7.0 L (8.7-10.3) mg/dL Crossmatch 05/18/23 05/18/23 05/18/23 Range/Units 07:22 07:22 07:46 WBC 0.2 L* (3.8-10.6) k/uL RBC 2.02 L (4.30-5.90) m/uL Hgb 6.5 L* (13.0-17.5) gm/dL Hct 18.4 L* (39.0-53.0) % RDW 19.0 H (11.5-15.5) % Plt Count 13 L* (150-450) k/uL Sodium 132 L (135-145) mmol/L Chloride 108 H (98-107) mmol/L Carbon Dioxide 10 L (21.6-31.8) mmol/L Anion Gap (4.00-12.00) mmol/L BUN 60 H (9.0-27.0) mg/dL Creatinine 2.64 H (0.6-1.5) mg/dL Est GFR (CKD-EPI) (>=60) BUN/Creatinine Ratio (12.00-20.00) Ratio Glucose 156 H (70-110) mg/dL POC Glucose (mg/dL) 184 H (70-110) mg/dL Hemoglobin A1c (<=6.0) % Calcium 6.4 L* (8.7-10.3) mg/dL Crossmatch 05/18/23 Range/Units 12:51 WBC (3.8-10.6) k/uL RBC (4.30-5.90) m/uL Hgb (13.0-17.5) gm/dL Hct (39.0-53.0) % RDW (11.5-15.5) % Plt Count (150-450) k/uL Sodium (135-145) mmol/L Chloride (98-107) mmol/L Carbon Dioxide (21.6-31.8) mmol/L Anion Gap (4.00-12.00) mmol/L BUN (9.0-27.0) mg/dL Creatinine (0.6-1.5) mg/dL Est GFR (CKD-EPI) (>=60) BUN/Creatinine Ratio (12.00-20.00) Ratio Glucose (70-110) mg/dL POC Glucose (mg/dL) 207 H (70-110) mg/dL Hemoglobin A1c (<=6.0) % Calcium (8.7-10.3) mg/dL Crossmatch Microbiology - Last 24 Hours (Table) 05/15/23 12:44 Blood Culture - Preliminary Blood 05/15/23 12:44 Blood Culture - Preliminary Blood - Imaging and Cardiology elbow xray, US and doppler of JOSIAH reviewed Assessment and Plan (1) MDS (myelodysplastic syndrome) Current Visit: Yes Status: Acute Priority: High Code(s): D46.9 - MYELODYSPLASTIC SYNDROME, UNSPECIFIED SNOMED Code(s): 345080434 (2) Pancytopenia due to chemotherapy Current Visit: Yes Status: Acute Priority: High Code(s): D61.810 - ANTINEOPLASTIC CHEMOTHERAPY INDUCED PANCYTOPENIA SNOMED Code(s): 7709065 (3) Neutropenic fever Current Visit: Yes Status: Acute Priority: High Code(s): D70.9 - NEUTROP ENIA, UNSPECIFIED; R50.81 - FEVER PRESENTING WITH CONDITIONS CLASSIFIED ELSEWHERE SNOMED Code(s): 058616052 Plan: Neutropenic fever -Pancultures-Chest x-ray showed no acute process, urine not highly suspicious. Blood cultures neg thus far -Duplex right upper extremity negative for DVT, forearm x-ray no evidence of acute fracture no erosions or foreign body, mild soft tissue swelling at the posterior aspect of the mid forearm, no discrete abnormality seen on ultrasound at the site of clinical concern. Orthopedics has evaluated patient. -Empiric antibiotics continue -GCSF ordered and continues Pancytopenia secondary to chemotherapy -Patient anemic secondary to MDS, CKD and chemotherapy. He has received 2 units PRBCs since admit. Hgb 6.5 today, no significant increase in Hgb post transfusions. Additional unit PRBCs ordered. Transfuse for Hgb <7 or if symptomatic -Platelets 13,000 today. Transfuse for platelet count less than 10,000 or if symptomatic. No aspirin, NSAIDs or anticoagulation. Use SCDs for DVT prophylaxis -WBC 0.2, no ANC reported. G-CSF started 05/15. Plan to use as few doses as possible. Based on patient's progress, may hold after ANC reaches 500 or, if patient still not doing well, may wait until ANC is 1000. -CBC with differential daily. Hemolysis workup ordered. Bilirubin elevated at 3.8 on 05/16 -Reviewed with patient concerns for the significant, persistent pancytopenia. He understands that this is effects of disease and treatment. This unfortunately is common when treating progressive MDS. Supportive care, transfusions, abx is standard of care in hopes that pt is able to recover. -Treat for infection-likely source the forearm. Morphine prn ordered for better pain control. Uric acid ordered, as imaging shows no acute processes and pt reports history of gouty arthritis -Cont to administer G-CSF and administer supportive transfusions as needed. Myelodysplastic syndrome -Red Cell aplasia -Has been on BERNARDA without significant stability of hemoglobin or reduction in transfusions needed -Just started on treatment with Dacogen. He is status post the first 5 day cycle, started 04/30-05/04 -Will continue to monitor and give transfusions as needed. If pancytopenia continues despite supportive measures, would be appropriate to discuss comfort care measures Attests: I have seen and examined pt, performed H&P, developed impression and plan of care. Discussed with dictator. Agree with documentation, dictated as a scribe
[2023-05-19] MEDS: SODIUM CHLORIDE 0.9% 1,000 ML IV SCH ×2 (00:59→05:38)
[2023-05-19] MEDS: MORPHINE SULFATE 4 MG/ML SYRINGE IVP PRN ×4 (05:37→19:58)
[2023-05-19] MEDS: CEFEPIME 1 GM in SODIUM CHLORIDE 0.9% 50 ML IVPB SCH ×2 (05:38→17:37)
[2023-05-19 06:36] LABS: Anisocytosis Slight; HCT 21.7 % (39.0-53.0); HGB 7.6 gm/dL (13.0-17.5); MCH 32.1 pg (25.0-35.0); MCV 91.8 fL (80.0-100.0); Mean Platelet Volume 13.2; RBC 2.36 m/uL (4.30-5.90); RDW 18.5 % (11.5-15.5)
[2023-05-19 06:54] LABS: ALT 61 U/L (4-49); AST 90 U/L (17-59); African American GFR (CKD) 32 (>60 ml/min/1.73 sqM); Albumin 2.3 g/dL (3.5-5.0); Albumin/Globulin Ratio 0.6; Alkaline Phosphatase 126 U/L (38-126); Anion Gap 14 mmol/L; Blood Urea Nitrogen 55 mg/dL (9-20); Calcium 6.9 mg/dL (8.4-10.2); Carbon Dioxide 12 mmol/L (22-30); Chloride 111 mmol/L (98-107); Globulin 3.6 g/dL; Glucose 133 mg/dL (74-99); Non-African American GFR(CKD) 28 (>60 ml/min/1.73 sqM); Potassium 3.7 mmol/L (3.5-5.1); Sodium 137 mmol/L (137-145); Total Bilirubin 9.5 mg/dL (0.2-1.3); Total Protein 5.9 g/dL (6.3-8.2)
[2023-05-19 07:00] LABS: WBC 0.2 k/uL (3.8-10.6)
[2023-05-19 07:01] LABS: Platelet Count 14 k/uL (150-450)
[2023-05-19 07:40] LABS: Glucose,Whole Blood 147 mg/dL (70-110)
[2023-05-19] MEDS: INSULIN ASPART (NovoLOG) 100 UNIT/ML VIAL SQ SCH ×4 (08:22→22:04)
[2023-05-19] MEDS: SYMBICORT 160-4.5 MCG INHALER INHALATION SCH ×2 (09:45→21:34)
[2023-05-19] MEDS: CHOLECALCIFEROL 25 MCG (1000 IU) TABLET PO SCH (09:47)
[2023-05-19] MEDS: LEVOTHYROXINE 137 MCG TAB PO SCH (09:48)
[2023-05-19] MEDS: TAMSULOSIN 0.4 MG CAP.ER.24H PO SCH (09:48)
[2023-05-19] MEDS: allopurinoL 100 MG TAB PO SCH ×2 (09:48→17:37)
[2023-05-19] MEDS: SODIUM BICARBONATE TAB 650 MG TAB PO SCH ×4 (09:48→20:01)
[2023-05-19] MEDS: MIDODRINE 5 MG TAB PO SCH ×3 (09:48→20:06)
[2023-05-19] MEDS: LACTATED RINGERS 1,000 ML IV SCH (11:18)
[2023-05-19 12:13] LABS: Glucose,Whole Blood 152 mg/dL (70-110)
[2023-05-19] MEDS: traMADol 50 MG TAB PO PRN (12:29)
--- NOTE | 2023-05-19 13:57 | P.PN ---
Subjective Progress Note Date: 05/19/23 Hospital Course: 78-year-old male with history of MDS, coronary artery disease status post stent, chronic kidney disease, type 2 diabetes, hypothyroidism, dyslipidemia presenting from with concerns of abnormal labs as well as right arm cellulitis. In the ED, temperature was 98.7, pulse 91, respiratory rate blood pressure 135/53, saturating 100% on room air. Laboratory analysis showed WBC of 0.3, hemoglobin 6.9, sodium 134, bicarbonate 16, anion gap 12, creatinine is 2.86, glucose 172. EKG independently interpreted shows right bundle branch block, sinus rhythm. Right upper extremity ultrasound shows no discrete abnormality. Right arm shows no DVT. Patient did have fever following admission. Has neutropenic fever, currently on IV antibiotics. Orthopedics and oncology also following. Right arm symptoms improving. Renal function did get worse. Renal ultrasound shows a moderate right hydronephrosis. Renal function improving with fluids. Subjective: Patient seen and examined at bedside. No acute events overnight. Right arm pain improving. Pertinent positives and negatives as discussed above, a complete review of systems was performed and all other systems are negative. Vitals Signs Reviewed. General: nontoxic, no distress, appears at stated age Derm: warm, dry, right arm tenderness and erythema Head: atraumatic, normocephalic, symmetric Eyes: EOMI, no lid lag, anicteric sclera, pupils equal round reactive to light ENT: Nose and ears atraumatic Neck: No thyromegaly, supple Mouth: no lip lesion, mucus membranes moist Cardiovascular: S1S2 reg, no murmur, no edema Lungs: clear to auscultation bilateral, no rhonchi, no rales, no wheeze, no accessory muscle use Abdominal: soft, nontender to palpation, no guarding, no appreciable organomegaly Ext: no gross muscle atrophy, muscle strength muscle strength 5 out of 5 in all 4 extremities, no contractures Neuro: CN II-XII grossly intact Psych: Alert, oriented, appropriate affect Data Reviewed Today: Pertinent Labs: WBC 0.2, hemoglobin 7.6, platelet 14, bicarb 12, creatinine 2.2, glucose ranged between 133-151 Imaging: No new imaging Assessment and Plan: Neutropenic fever Sepsis secondary to right arm cellulitis, improving Pancytopenia, status post 3 units of PRBCs History of MDS nonoliguric Acute kidney injury on chronic kidney disease, improving Metabolic acidosis Moderate Right hydronephrosis Type 2 diabetes Coronary artery disease status post stent History of orthostatic hypotension -On cefepime -Blood cultures negative growth to date -Right arm improving -Pancytopenia related to MDS -Oncology following, on filgrastrim -Continue IV fluids, hold diuretics -Renal function improving -Normal saline change to lactated Ringer, started on oral bicarbonate -Patient continues to make urine, Fair catheter in place -Sliding scale insulin -Continue aspirin and Plavix, statin -Continue midodrine Chronic: Hypothyroidism Hypertension Dyslipidemia COPD DVT ppx: Not indicated Code status: No code Anticipated discharge place: Pending clinical course Anticipated discharge time: Pending clinical course Objective - Vital Signs Vital signs: Vital Signs Temp 97.8 F 05/19/23 07:37 Pulse 80 05/19/23 07:37 Resp 19 05/19/23 07:37 BP 90/47 05/19/23 07:37 Pulse Ox 95 05/19/23 09:46 FiO2 Intake & Output 05/18/23 05/19/23 05/19/23 18:59 06:59 18:59 Intake Total 1320 500 Output Total 3400 Balance 1320 -2900 Intake: Intake, IV Titration 1010 Amount Calcium Gluconate in NaCl 100 2 gm In Saline 1 100ml. bag @ 100 mls/hr IVPB ONCE ONE Rx#:[id number] Sodium Chloride 0.9% 1, 910 000 ml @ 130 mls/hr IV . [id number] Rx#:[id number] Oral 500 Blood Product 310 Rc As-1 Unit 310 [id number] Output: Urine 3400 Other: Voiding Method Diaper Indwelling Catheter Indwelling Catheter Indwelling Catheter # Bowel Movements 0 - Labs CBC & Chem 7: 05/19/23 06:14 05/19/23 06:14 Labs: Abnormal Lab Results - Last 24 Hours (Table) 05/16/23 05/18/23 05/18/23 Range/Units 09:38 16:38 16:38 WBC (3.8-10.6) k/uL RBC (4.30-5.90) m/uL Hgb (13.0-17.5) gm/dL Hct (39.0-53.0) % RDW (11.5-15.5) % Plt Count (150-450) k/uL Haptoglobin 308.0 H (31.2-198.0) mg/dL Sodium 134 L (137-145) mmol/L Chloride 109 H (98-107) mmol/L Carbon Dioxide 12 L (22-30) mmol/L BUN 58 H (9-20) mg/dL Creatinine 2.49 H (0.66-1.25) mg/dL Glucose 162 H (74-99) mg/dL POC Glucose (mg/dL) (70-110) mg/dL Calcium 7.1 L (8.4-10.2) mg/dL Total Bilirubin 8.6 H (0.2-1.3) mg/dL Conjugated Bilirubin 5.2 H (0.0-0.3) mg/dL Unconjugated Bilirubin 1.7 H (0.0-1.1) mg/dL AST 115 H (17-59) U/L ALT 66 H (4-49) U/L Lactate Dehydrogenase 253 H (120-246) U/L Total Protein 6.1 L (6.3-8.2) g/dL Albumin 2.4 L (3.5-5.0) g/dL Lipase 593 H (23-300) U/L Crossmatch See Detail 05/18/23 05/18/23 05/19/23 Range/Units 17:50 20:19 06:14 WBC 0.2 L* (3.8-10.6) k/uL RBC 2.36 L (4.30-5.90) m/uL Hgb 7.6 L (13.0-17.5) gm/dL Hct 21.7 L (39.0-53.0) % RDW 18.5 H (11.5-15.5) % Plt Count 14 L* (150-450) k/uL Haptoglobin (31.2-198.0) mg/dL Sodium (137-145) mmol/L Chloride (98-107) mmol/L Carbon Dioxide (22-30) mmol/L BUN (9-20) mg/dL Creatinine (0.66-1.25) mg/dL Glucose (74-99) mg/dL POC Glucose (mg/dL) 183 H 151 H (70-110) mg/dL Calcium (8.4-10.2) mg/dL Total Bilirubin (0.2-1.3) mg/dL Conjugated Bilirubin (0.0-0.3) mg/dL Unconjugated Bilirubin (0.0-1.1) mg/dL AST (17-59) U/L ALT (4-49) U/L Lactate Dehydrogenase (120-246) U/L Total Protein (6.3-8.2) g/dL Albumin (3.5-5.0) g/dL Lipase (23-300) U/L Crossmatch 05/19/23 05/19/23 05/19/23 Range/Units 06:14 07:38 12:11 WBC (3.8-10.6) k/uL RBC (4.30-5.90) m/uL Hgb (13.0-17.5) gm/dL Hct (39.0-53.0) % RDW (11.5-15.5) % Plt Count (150-450) k/uL Haptoglobin (31.2-198.0) mg/dL Sodium (137-145) mmol/L Chloride 111 H (98-107) mmol/L Carbon Dioxide 12 L (22-30) mmol/L BUN 55 H (9-20) mg/dL Creatinine 2.20 H (0.66-1.25) mg/dL Glucose 133 H (74-99) mg/dL POC Glucose (mg/dL) 147 H 152 H (70-110) mg/dL Calcium 6.9 L (8.4-10.2) mg/dL Total Bilirubin 9.5 H (0.2-1.3) mg/dL Conjugated Bilirubin (0.0-0.3) mg/dL Unconjugated Bilirubin (0.0-1.1) mg/dL AST 90 H (17-59) U/L ALT 61 H (4-49) U/L Lactate Dehydrogenase (120-246) U/L Total Protein 5.9 L (6.3-8.2) g/dL Albumin 2.3 L (3.5-5.0) g/dL Lipase (23-300) U/L Crossmatch Microbiology - Last 24 Hours (Table) 05/15/23 12:44 Blood Culture - Preliminary Blood 05/15/23 12:44 Blood Culture - Preliminary Blood
[2023-05-19 17:19] LABS: Glucose,Whole Blood 159 mg/dL (70-110)
[2023-05-19] MEDS: FILGRASTIM-SNDZ 480 MCG/0.8 ML SYRINGE SQ SCH (17:36)
[2023-05-19 19:21] LABS: Bilirubin, Conjugated 5.7 mg/dL (0.0-0.3); Bilirubin,Unconjugated 1.5 mg/dL (0.0-1.1); Total Bilirubin 9.5 mg/dL (0.2-1.3)
[2023-05-19] MEDS: ATORVASTATIN 80 MG TAB PO SCH (20:01)
[2023-05-19 20:26] LABS: Glucose,Whole Blood 153 mg/dL (70-110)
[2023-05-20] MEDS: LACTATED RINGERS 1,000 ML IV SCH ×4 (00:37→21:31)
[2023-05-20] MEDS: CEFEPIME 1 GM in SODIUM CHLORIDE 0.9% 50 ML IVPB SCH ×2 (06:26→18:09)
[2023-05-20 06:50] LABS: Anisocytosis Slight; MCH 32.9 pg (25.0-35.0); MCHC 35.5 g/dL (31.0-37.0); MCV 92.5 fL (80.0-100.0); Macrocytosis Slight; Mean Platelet Volume 10.6; RBC 2.13 m/uL (4.30-5.90); RDW 19.2 % (11.5-15.5)
[2023-05-20 06:51] LABS: ALT 50 U/L (4-49); AST 60 U/L (17-59); African American GFR (CKD) 38 (>60 ml/min/1.73 sqM); Albumin/Globulin Ratio 0.6; Alkaline Phosphatase 142 U/L (38-126); Anion Gap 11 mmol/L; Blood Urea Nitrogen 51 mg/dL (9-20); Calcium 6.5 mg/dL (8.4-10.2); Carbon Dioxide 14 mmol/L (22-30); Chloride 110 mmol/L (98-107); Globulin 3.4 g/dL; Glucose 150 mg/dL (74-99); Non-African American GFR(CKD) 33 (>60 ml/min/1.73 sqM); Potassium 3.7 mmol/L (3.5-5.1); Sodium 135 mmol/L (137-145); Total Bilirubin 10.2 mg/dL (0.2-1.3); Total Protein 5.4 g/dL (6.3-8.2)
[2023-05-20 06:52] LABS: WBC 0.2 k/uL (3.8-10.6)
[2023-05-20 06:53] LABS: HCT 19.7 % (39.0-53.0); Platelet Count 18 k/uL (150-450)
[2023-05-20 06:54] LABS: INR 1.4 (<1.2); Prothrombin Time 13.8 sec (9.0-12.0)
[2023-05-20 07:25] LABS: Glucose,Whole Blood 164 mg/dL (70-110)
[2023-05-20] MEDS: traMADol 50 MG TAB PO PRN (07:55)
[2023-05-20] MEDS: MIDODRINE 5 MG TAB PO SCH ×3 (08:27→21:30)
[2023-05-20] MEDS: allopurinoL 100 MG TAB PO SCH ×2 (08:28→18:09)
[2023-05-20] MEDS: SODIUM BICARBONATE TAB 650 MG TAB PO SCH ×3 (08:28→21:30)
[2023-05-20] MEDS: LEVOTHYROXINE 137 MCG TAB PO SCH (08:28)
[2023-05-20] MEDS: TAMSULOSIN 0.4 MG CAP.ER.24H PO SCH (08:28)
[2023-05-20] MEDS: CHOLECALCIFEROL 25 MCG (1000 IU) TABLET PO SCH (08:28)
[2023-05-20] MEDS: INSULIN ASPART (NovoLOG) 100 UNIT/ML VIAL SQ SCH ×4 (08:28→21:31)
[2023-05-20 08:34] LABS: Neutrophils % (M) 15 %
[2023-05-20 08:35] LABS: Lymphocytes # (M) 0.16 k/uL (1.0-4.8); Monocytes # (M) 0.01 k/uL (0-1.0); Nucleated Red Blood Cells 10 /100 WBC (0-0); Total Cells Counted 20
[2023-05-20 08:38] LABS: Neutrophils # (M) 0.03 k/uL (1.3-7.7)
[2023-05-20] MEDS: HYDROmorphone 0.5 MG/0.5 ML SYRINGE IVP PRN ×3 (08:57→20:41)
[2023-05-20] MEDS: SYMBICORT 160-4.5 MCG INHALER INHALATION SCH ×2 (09:00→22:01)
--- NOTE | 2023-05-20 10:32 | US ---
EXAMINATION TYPE: US abdomen limited DATE OF EXAM: 05/20/2023 COMPARISON: NONE CLINICAL INDICATION: Male, 78 years old with history of RUQ US; Jaundice, elevated LFTs TECHNIQUE: Multiple sonographic images of the right upper quadrant are obtained. FINDINGS: EXAM MEASUREMENTS: Liver Length: 16.1 cm Gallbladder Wall: 0.3 cm CBD: 0.4 cm Right Kidney: 9.5x5.1x5.7 cm VARIETY SAW OPERATOR NOTES: Pancreas: Obscured by bowel gas Liver: wnl Gallbladder: small 0.8cm echogenic foci believed to be in the GB neck or cystic duct. Patient was un able to move positions to assess for mobility. Evidence for sonographic Flores's sign: No CBD: wnl Right Kidney: unchanged hydro Exam limited due to patient pain, body habitus, bowel gas, and patients inability to move positions o r move arm away from scanning area IMPRESSION: 1. Cholelithiasis with borderline gallbladder wall thickening. Common bile duct is within normal limi ts. 2. Stable moderate right-sided hydronephrosis.
--- NOTE | 2023-05-20 12:19 | P.PN ---
Subjective Progress Note Date: 05/20/23 Hospital Course: 78-year-old male with history of MDS, coronary artery disease status post stent, chronic kidney disease, type 2 diabetes, hypothyroidism, dyslipidemia presenting from with concerns of abnormal labs as well as right arm cellulitis. In the ED, temperature was 98.7, pulse 91, respiratory rate blood pressure 135/53, saturating 100% on room air. Laboratory analysis showed WBC of 0.3, hemoglobin 6.9, sodium 134, bicarbonate 16, anion gap 12, creatinine is 2.86, glucose 172. EKG independently interpreted shows right bundle branch block, sinus rhythm. Right upper extremity ultrasound shows no discrete abnormality. Right arm shows no DVT. Patient did have fever following admission. Has neutropenic fever, currently on IV antibiotics. Orthopedics and oncology also following. Right arm symptoms improving. Renal function did get worse. Renal ultrasound shows a moderate right hydronephrosis. Renal function improving with fluids. Patient also has conjugated hyperbilirubinemia. Subjective: Patient seen and examined at bedside. No acute events overnight. Right arm pain improving. Pertinent positives and negatives as discussed above, a complete review of sys tems was performed and all other systems are negative. Vitals Signs Reviewed. General: nontoxic, no distress, appears at stated age Derm: warm, dry, right arm tenderness and erythema Head: atraumatic, normocephalic, symmetric Eyes: EOMI, no lid lag, anicteric sclera, pupils equal round reactive to light ENT: Nose and ears atraumatic Neck: No thyromegaly, supple Mouth: no lip lesion, mucus membranes moist Cardiovascular: S1S2 reg, no murmur, no edema Lungs: clear to auscultation bilateral, no rhonchi, no rales, no wheeze, no accessory muscle use Abdominal: soft, nontender to palpation, no guarding, no appreciable organomegaly Ext: no gross muscle atrophy, muscle strength muscle strength 5 out of 5 in all 4 extremities, no contractures Neuro: CN II-XII grossly intact Psych: Alert, oriented, appropriate affect Data Reviewed Today: Pertinent Labs: WBC 0.2, hemoglobin 7, platelet 18, sodium 135, bicarb 14, creatinine 1.9, total bilirubin 10.2, mostly conjugated bilirubin Imaging: Right upper quadrant ultrasound that showed cholelithiasis with borderline gallbladder wall thickening Assessment and Plan: Conjugated bilirubinemia Neutropenic fever Sepsis secondary to right arm cellulitis, improving Pancytopenia, status post 3 units of PRBCs History of MDS nonoliguric Acute kidney injury on chronic kidney disease, improving Metabolic acidosis Moderate Right hydronephrosis Type 2 diabetes Coronary artery disease status post stent History of orthostatic hypotension -Gallbladder ultrasound shows small 0.8 cm echogenic focus in the gallbladder neck or cystic duct, borderline gallbladder wall thickening -Surgery consulted -On cefepime -Blood cultures negative growth to date -Right arm improving -Pancytopenia related to MDS -Oncology following, on filgrastrim -Continue IV fluids, hold diuretics -Renal function improving -Lactated Ringer, and on oral bicarbonate -Patient continues to make urine, Fair catheter in place -Sliding scale insulin -Continue aspirin and Plavix, statin -Continue midodrine Chronic: Hypothyroidism Hypertension Dyslipidemia COPD DVT ppx: Not indicated Code status: No code Anticipated discharge place: Pending clinical course Anticipated discharge time: Pending clinical course Objective - Vital Signs Vital signs: Vital Signs Temp 97.7 F 05/20/23 07:26 Pulse 71 05/20/23 07:26 Resp 20 05/20/23 07:26 BP 90/55 05/20/23 07:26 Pulse Ox 93 L 05/20/23 09:03 FiO2 21 05/20/23 09:03 Intake & Output 05/19/23 05/20/23 05/20/23 18:59 06:59 18:59 Intake Total 1500 500 Output Total 1800 1000 Balance -300 -500 Intake: Intake, IV Titration 1500 Amount Lactated Ringers 1,000 ml 1500 @ 125 mls/hr IV .Q8H [facility] Rx#:[id number] Oral 500 Output: Urine 1800 1000 Other: Voiding Method Indwelling Catheter Indwelling Catheter Indwelling Catheter # Bowel Movements 0 - Labs CBC & Chem 7: 05/20/23 05:33 05/20/23 05:33 Labs: Abnormal Lab Results - Last 24 Hours (Table) 05/19/23 05/19/23 05/19/23 Range/Units 17:17 18:20 20:21 WBC (3.8-10.6) k/uL RBC (4.30-5.90) m/uL Hgb (13.0-17.5) gm/dL Hct (39.0-53.0) % RDW (11.5-15.5) % Plt Count (150-450) k/uL Neutrophils # (Manual) (1.3-7.7) k/uL Lymphocytes # (Manual) (1.0-4.8) k/uL Nucleated RBCs (0-0) /100 WBC PT (9.0-12.0) sec INR (<1.2) Sodium (137-145) mmol/L Chloride (98-107) mmol/L Carbon Dioxide (22-30) mmol/L BUN (9-20) mg/dL Creatinine (0.66-1.25) mg/dL Glucose (74-99) mg/dL POC Glucose (mg/dL) 159 H 153 H (70-110) mg/dL Calcium (8.4-10.2) mg/dL Total Bilirubin 9.5 H (0.2-1.3) mg/dL Conjugated Bilirubin 5.7 H (0.0-0.3) mg/dL Unconjugated Bilirubin 1.5 H (0.0-1.1) mg/dL AST (17-59) U/L ALT (4-49) U/L Alkaline Phosphatase (38-126) U/L Total Protein (6.3-8.2) g/dL Albumin (3.5-5.0) g/dL 05/20/23 05/20/23 05/20/23 Range/Units 05:33 05:33 05:33 WBC 0.2 L* (3.8-10.6) k/uL RBC 2.13 L (4.30-5.90) m/uL Hgb 7.0 L (13.0-17.5) gm/dL Hct 19.7 L* (39.0-53.0) % RDW 19.2 H (11.5-15.5) % Plt Count 18 L* (150-450) k/uL Neutrophils # (Manual) 0.03 L* (1.3-7.7) k/uL Lymphocytes # (Manual) 0.16 L (1.0-4.8) k/uL Nucleated RBCs 10 H (0-0) /100 WBC PT 13.8 H (9.0-12.0) sec INR 1.4 H (<1.2) Sodium 135 L (137-145) mmol/L Chloride 110 H (98-107) mmol/L Carbon Dioxide 14 L (22-30) mmol/L BUN 51 H (9-20) mg/dL Creatinine 1.90 H (0.66-1.25) mg/dL Glucose 150 H (74-99) mg/dL POC Glucose (mg/dL) (70-110) mg/dL Calcium 6.5 L (8.4-10.2) mg/dL Total Bilirubin 10.2 H (0.2-1.3) mg/dL Conjugated Bilirubin (0.0-0.3) mg/dL Unconjugated Bilirubin (0.0-1.1) mg/dL AST 60 H (17-59) U/L ALT 50 H (4-49) U/L Alkaline Phosphatase 142 H (38-126) U/L Total Protein 5.4 L (6.3-8.2) g/dL Albumin 2.0 L (3.5-5.0) g/dL 05/20/23 Range/Units 07:24 WBC (3.8-10.6) k/uL RBC (4.30-5.90) m/uL Hgb (13.0-17.5) gm/dL Hct (39.0-53.0) % RDW (11.5-15.5) % Plt Count (150-450) k/uL Neutrophils # (Manual) (1.3-7.7) k/uL Lymphocytes # (Manual) (1.0-4.8) k/uL Nucleated RBCs (0-0) /100 WBC PT (9.0-12.0) sec INR (<1.2) Sodium (137-145) mmol/L Chloride (98-107) mmol/L Carbon Dioxide (22-30) mmol/L BUN (9-20) mg/dL Creatinine (0.66-1.25) mg/dL Glucose (74-99) mg/dL POC Glucose (mg/dL) 164 H (70-110) mg/dL Calcium (8.4-10.2) mg/dL Total Bilirubin (0.2-1.3) mg/dL Conjugated Bilirubin (0.0-0.3) mg/dL Unconjugated Bilirubin (0.0-1.1) mg/dL AST (17-59) U/L ALT (4-49) U/L Alkaline Phosphatase (38-126) U/L Total Protein (6.3-8.2) g/dL Albumin (3.5-5.0) g/dL
[2023-05-20] MEDS: MORPHINE SULFATE 4 MG/ML SYRINGE IVP PRN (12:28)
[2023-05-20 12:39] LABS: Glucose,Whole Blood 163 mg/dL (70-110)
[2023-05-20 17:39] LABS: Glucose,Whole Blood 185 mg/dL (70-110)
[2023-05-20] MEDS: FILGRASTIM-SNDZ 480 MCG/0.8 ML SYRINGE SQ SCH (18:09)
[2023-05-20 21:07] LABS: Glucose,Whole Blood 175 mg/dL (70-110)
[2023-05-20] MEDS: ATORVASTATIN 80 MG TAB PO SCH (21:30)
[2023-05-21] MEDS: HYDROmorphone 0.5 MG/0.5 ML SYRINGE IVP PRN ×5 (01:52→22:21)
[2023-05-21] MEDS: LACTATED RINGERS 1,000 ML IV SCH ×3 (01:55→17:56)
[2023-05-21] MEDS: MORPHINE SULFATE 4 MG/ML SYRINGE IVP PRN (04:53)
[2023-05-21] MEDS: CEFEPIME 1 GM in SODIUM CHLORIDE 0.9% 50 ML IVPB SCH ×2 (05:19→17:55)
[2023-05-21 07:09] LABS: Glucose,Whole Blood 180 mg/dL (70-110)
[2023-05-21] MEDS: allopurinoL 100 MG TAB PO SCH ×2 (07:40→17:55)
[2023-05-21] MEDS: SODIUM BICARBONATE TAB 650 MG TAB PO SCH ×3 (07:40→20:41)
[2023-05-21] MEDS: CHOLECALCIFEROL 25 MCG (1000 IU) TABLET PO SCH (07:40)
[2023-05-21] MEDS: TAMSULOSIN 0.4 MG CAP.ER.24H PO SCH (07:40)
[2023-05-21] MEDS: MIDODRINE 5 MG TAB PO SCH ×3 (07:41→20:37)
[2023-05-21] MEDS: LEVOTHYROXINE 137 MCG TAB PO SCH (07:41)
[2023-05-21] MEDS: INSULIN ASPART (NovoLOG) 100 UNIT/ML VIAL SQ SCH ×4 (07:41→20:37)
[2023-05-21] MEDS: SYMBICORT 160-4.5 MCG INHALER INHALATION SCH ×2 (08:20→18:30)
[2023-05-21] MEDS ORDERED: MAGNESIUM HYDROXIDE 2,400 MG/30 ML CUP PO STA (09:58)
[2023-05-21] MEDS ORDERED: MAGNESIUM HYDROXIDE 2,400 MG/30 ML CUP PO PRN (09:58)
--- NOTE | 2023-05-21 10:22 | P.PN ---
Subjective Progress Note Date: 05/21/23 Principal diagnosis: Febrile neutropenia In follow-up today patient reports improvement in his rt forearm pain, he can move it a little bit, still sore, also reports generalized pain. Can't remember last BM, not eating well, early satiety. No fevers, N,V, unusual bleeding. Objective - Vital Signs Vital signs: Vital Signs Temp 97.9 F 05/21/23 07:29 Pulse 85 05/21/23 07:29 Resp 20 05/21/23 07:29 BP 97/57 05/21/23 07:29 Pulse Ox 95 05/21/23 08:24 FiO2 21 05/20/23 09:03 Intake & Output 05/20/23 05/21/23 05/21/23 18:59 06:59 18:59 Intake Total 3180 Output Total 1500 800 Balance 1680 -800 Intake: Intake, IV Titration 1500 Amount Lactated Ringers 1,000 ml 1500 @ 125 mls/hr IV .Q8H [facility] Rx#:[id number] Oral 1680 Output: Urine 1500 800 Other: Voiding Method Indwelling Catheter Indwelling Catheter Indwelling Catheter - Constitutional General appearance: Present: average body habitus, cooperative, no acute distress - EENT Eyes: Present: EOMI, scleral icterus ENT: Present: hearing grossly normal, normal oropharynx - Respiratory Respiratory: bilateral: CTA - Cardiovascular Rhythm: regular Heart sounds: normal: S1, S2 Abnormal Heart Sounds: Present: systolic murmur. Absent: diastolic murmur, rub, S3 Gallop, S4 Gallop, click, other - Peripheral edema leg Peripheral Edema: bilateral: None - Gastrointestinal General gastrointestinal: Present: distended, soft. Absent: absent bowel sounds, decreased bowel sounds, hepatomegaly, hyperactive bowel sounds, normal bowel sounds, organomegaly, rigid, scaphoid, splenomegaly, tenderness, umbilical hernia, ventral hernia - Integumentary Integumentary: Present: jaundiced - Neurologic Neurologic: Present: CNII-XII intact (grossly) - Musculoskeletal Musculoskeletal: Present: generalized weakness - Psychiatric Psychiatric: Present: A&O x's 3, appropriate affect, intact judgment & insight - Labs CBC & Chem 7: 05/20/23 05:33 05/20/23 05:33 Labs: Abnormal Lab Results - Last 24 Hours (Table) 05/20/23 05/20/23 05/20/23 Range/Units 12:37 17:37 20:58 POC Glucose (mg/dL) 163 H 185 H 175 H (70-110) mg/dL 05/21/23 Range/Units 07:08 POC Glucose (mg/dL) 180 H (70-110) mg/dL Microbiology - Last 24 Hours (Table) 05/15/23 12:44 Blood Culture - Final Blood 05/15/23 12:44 Blood Culture - Final Blood - Imaging and Cardiology US - abdomen: report reviewed Assessment and Plan (1) Cellulitis Current Visit: Yes Status: Acute Priority: High Code(s): L03.90 - CELLULITIS, UNSPECIFIED SNOMED Code(s): 219528604 (2) Neutropenic fever Current Visit: Yes Status: Resolved Priority: High Code(s): D70.9 - NE UTROPENIA, UNSPECIFIED; R50.81 - FEVER PRESENTING WITH CONDITIONS CLASSIFIED ELSEWHERE SNOMED Code(s): 770490207 (3) Pancytopenia due to chemotherapy Current Visit: Yes Status: Acute Priority: High Code(s): D61.810 - ANTINEOPLASTIC CHEMOTHERAPY INDUCED PANCYTOPENIA SNOMED Code(s): 7520044 (4) Hyperbilirubinemia Current Visit: Yes Status: Acute Priority: High Code(s): E80.6 - OTHER DISORDERS OF BILIRUBIN METABOLISM SNOMED Code(s): 89601309 (5) MDS (myelodysplastic syndrome) Current Visit: Yes Status: Acute Priority: High Code(s): D46.9 - MYEL ODYSPLASTIC SYNDROME, UNSPECIFIED SNOMED Code(s): 187730896 Plan: Neutropenic fever -No fever over the weekend -Pancultures-neg -Pt reporting less pain in the rt forearm, no abnormalities on imaging, less redness. -Empiric antibiotics continue -GCSF ordered and continue. Will stop MARCY Pancytopenia secondary to chemotherapy -Patient anemic secondary to MDS, CKD and chemotherapy. He has received 3 units PRBCs since admit. Pending Hgb today. Has not had an appropriate increase in Hgb post transfusions. Cont to transfuse for Hgb <7 or if symptomatic -Pending plt counts. He has not had to be transfused with plt yet. Transfuse for platelet count less than 10,000 or if symptomatic. No aspirin, NSAIDs or anticoagulation. Use SCDs for DVT prophylaxis -Pending WBC and ANC. G-CSF started 05/15. Based on patient's progress, may hold after ANC reaches 500. May consider holding since pt has not had fever over the weekned. If pt not doing well, may wait until ANC is 1000. -CBC with differential daily-pending this AM results. -Reviewed with the patient concerns for the significant, persistent pancytopenia. He understands that this is effects of disease and treatment. This unfortunately is common when treating progressive MDS. Supportive care, transfusions, abx is standard of care in hopes that pt is able to recover. -Treat for infection-likely source the forearm. -Cont to administer G-CSF and give transfusions as needed. Myelodysplastic syndrome -Red Cell aplasia -Has been on BERNARDA in the past without significant stability of hemoglobin or reduction in transfusions needed -Just started on treatment with Dacogen. He is status post the first 5 day cycle, started 04/30-05/04 Pain -pt rating pain in forearm 7-10, also reporting some generalized pain -Pain meds adjusted -meds for prevention of narcotic induced constipation added Constipation -No BM since admit -MOM x 1 STAT ordered -MOM PRN and BID senna ordered Hyperbilirubinemia, elevated lipase -Progressive -lipase ordered for today -Changed to clear liquid diet-pt isn't eating much right now anyways -US abd report reviewed, no significant findings -CT abd with IV contrast ordered Dr lakeests: I have seen and examined pt, performed H&P, developed impression and plan of care. Discussed with dictator. Agree with documentation, dictated as a scribe.
[2023-05-21] MEDS: SENNOSIDES-DOCUSATE SODIUM 1 EACH TAB PO SCH ×2 (10:43→20:37)
[2023-05-21 11:21] LABS: ALT 50 U/L (10-49); AST 65 U/L (14-35); Albumin 1.9 d/dL (3.8-4.9); Albumin/Globulin Ratio 0.63 Ratio (1.60-3.17); Alkaline Phosphatase 157 U/L (41-126); BUN/Creat Ratio 25.18 Ratio (12.00-20.00); Blood Urea Nitrogen 55.4 mg/dL (9.0-27.0); Calcium 6.5 mg/dL (8.7-10.3); Carbon Dioxide 15.5 mmol/L (21.6-31.8); Chloride 107 mmol/L (96-109); Glucose 169 mg/dL (70-110); Potassium 3.8 mmol/L (3.5-5.5); Sodium 136 mmol/L (135-145); Total Bilirubin 9.4 mg/dL (0.3-1.2); Total Protein 4.9 d/dL (6.2-8.2)
[2023-05-21] MEDS: traMADol 50 MG TAB PO PRN ×2 (11:32→20:40)
[2023-05-21 11:48] LABS: Basophils # (A) 0 X 10*3/uL (0.00-0.10); Basophils % (A) 0 %; Eosinophils # (A) 0 X 10*3/uL (0.04-0.35); Eosinophils % (A) 0 %; HCT 18.9 % (39.6-50.0); HGB 6.2 d/dL (13.0-17.0); Immature Grans, Automated 0 %; Immature Platelet Fraction 10.9 % (1.1-6.1); Lymphocytes # (A) 0.13 X 10*3/uL (0.90-5.00); MCH 30.5 pg (27.0-32.0); MCHC 32.8 d/dL (32.0-37.0); MCV 93.1 FL (80.0-97.0); Mean Platelet Volume 13.1 FL (9.5-12.2); Monocytes # (A) 0.03 X 10*3/uL (0.20-1.00); NRBC Per 100 WBC 0.05 X 10*3/uL (0.00-0.01); Neutrophils # (A) 0.04 X 10*3/uL (1.80-7.70); Platelet Count 25 X 10*3/uL (140-440); RBC 2.03 X 10*6/uL (4.40-5.60); RDW 18.6 % (11.5-14.5)
--- NOTE | 2023-05-21 12:05 | P.GSCN ---
History of Present Illness Consult date: 05/21/23 History of present illness: CHIEF COMPLAINT: Abnormal labs and possible infection Reason for consult: Elevated bilirubin and gallbladder wall thickening HISTORY OF PRESENT ILLNESS: This is a 78-year-old male who presented to hospital with concerns for abnormal labs and possible cellulitis of the right arm. Patient has a known history of MDS and has been receiving chemotherapy. He is followed by oncology service. He has evidence of pancytopenia. Patient had abdominal ultrasound due to jaundice, elevated LFTs and right upper quadrant abdominal pain. Patient initially reports no abdominal pain but on exam he does have diffuse tenderness and tenderness to palpation of the right upper quadrant. Patient is jaundiced with a total bilirubin elevated at 10. He denies any nausea or vomiting. He does report a decreased appetite. Patient's Plavix is on hold. He does have a known history of coronary artery disease cardiac stents. Past surgical history does include an appendectomy. Patient is a poor historian. Patient denies alcohol use. She does report having bowel movements. PAST MEDICAL HISTORY: See below PAST SURGICAL HISTORY: See below MEDICATIONS: See below ALLERGIES: See below SOCIAL HISTORY: No illicit drug use. REVIEW OF SYSTEMS: CONSTITUTIONAL: Denies fever or chills. HEENT: Denies blurred vision, vision changes, or eye pain. Denies hemoptysis CARDIOVASCULAR: Denies chest pain or pressure. RESPIRATORY: No shortness of breath. GASTROINTESTINAL: See HPI for pertinent findings HEMATOLOGIC: Denies bleeding disorders. GENITOURINARY: Denies any blood in urine or increased urinary frequency. SKIN: Denies pruitis. Denies rash. PHYSICAL EXAM: VITAL SIGNS: Reviewed GENERAL: Well-developed in no acute distress. HEENT: sclera icterus present. Extraocular movements grossly intact. Moist buccal mucosa. Head is atraumatic, normocephalic. No nasal drainage. ABDOMEN: Soft. Distended. Diffuse tenderness. Right upper quadrant tenderness NEUROLOGIC: Awake and alert. a little Confused Skin: jaundiced LABORATORY DATA: WBC 0.20 Hgb 6.2 plt 25 Sodium 136 potassium 3.8 creatinine 2.2 Total bilirubin 10.2-9.4 AST 65 ALT 50 alk phos 157 Lipase 593 IMAGING: Abdominal ultrasound results show cholelithiasis with borderline gallbladder wall thickening. Common bile duct is within normal limits. Stable moderate right-sided hydronephrosis. ASSESSMENT: 1. Cholelithiasis with borderline gallbladder wall thickening noted on ultrasound 2. Jaundice with elevated total bilirubin and elevated liver enzymes 3. Elevated Lipase 4. Pancytopenia 5. History of MDS PLAN: -Further recommendations forthcoming per surgeon -Continue supportive care -Oncology has placed patient on clear liquid diet and CT abdomen -Oncology ordered 1 unit of blood for hemoglobin of 6.2 -Repeat labs in a.m. Physician General Farmer note has been reviewed by physician. Signing provider agrees with the documented findings, assessment, and plan of care. I have personally seen and examined the patient, reviewed the DENTAL RESIDENT /PAs history, exam and MDM and agree with the assessment and plan as written. Based on total visit time, I have performed more than 50% of the visit. As above: Patient with history of mild dysplasia on chemotherapy. Patient neutropenic. We were apparently consulted for elevated bilirubin. Denies abdominal pain. Ultrasound showed mild gallbladder wall thickening. Gallstones are present. No biliary dilation on ultrasound. Patient has a CAT scan abdomen pending. Patient with some confusion today as well. Doubt choledocholithiasis as the etiology for the patient's elevated bilirubin. Patient with evidence of hepatic failure at this time. Check ammonia level. No GI available. Consider transfer to higher level of care. Past Medical History Past Medical History: Asthma, Cancer, Heart Failure, Diabetes Mellitus, Prostate Disorder, Thyroid Disorder Additional Past Medical History / Comment(s): gout, "blood cancer" History of Any Multi-Drug Resistant Organisms: None Reported Past Surgical History: Appendectomy, Heart Catheterization, Prostate Surgery Past Anesthesia/Blood Transfusion Reactions: No Reported Reaction Smoking Status: Never smoker - Past Family History Father Family Medical History: No Reported History Mother Family Medical History: No Reported History Medications and Allergies Home Medications Medication Instructions Recorded Confirmed Type Furosemide [Lasix] 20 mg PO DAILY@79904/14/20 05/15/23 History Levothyroxine Sodium [Synthroid] 137 mcg PO DAILY@79904/14/20 05/15/23 History Tamsulosin [Flomax] 0.8 mg PO AC-BRKFST@82904/14/20 05/15/23 History allopurinoL [Zyloprim] 100 mg PO BID-W/MEALS@04/14/20 05/15/23 History glipiZIDE [Glucotrol XL] 2.5 mg PO DAILY@0904/14/20 05/15/23 History calcitrioL [Calcitriol] 0.25 mcg PO MOWEFR@0806/26/22 05/15/23 History ALPRAZolam [Xanax] 0.25 mg PO BID PRN 05/15/23 05/15/23 History Albuterol Inhaler [Ventolin Hfa 2 puff INHALATION RT-Q6H PRN 05/15/23 05/15/23 History Inhaler] Aspirin 81 mg PO DAILY@79905/15/23 05/15/23 History Atorvastatin [Lipitor] 80 mg PO HS@2100 05/15/23 05/15/23 History Budesonide/Formoterol Fumarate 2 puff INHALATION RT-BID@0800,1700 05/15/23 05/15/23 History [Symbicort 160-4.5 Mcg Inhaler] Cholecalciferol [Vitamin D3 (25 50 mcg PO DAILY@79905/15/23 05/15/23 History Mcg = 1000 Iu)] Clopidogrel [Plavix] 75 mg PO DAILY@79905/15/23 05/15/23 History Cyclobenzaprine [Flexeril] 5 mg PO TID PRN 05/15/23 05/15/23 History Guaifenesin/Dextromethorphan 5 - 10 ml PO Q8H PRN 05/15/23 05/15/23 History [Guaifenesin-Dm 100-10 mg/5 ml] HYDROcodone/APAP 5-325MG [[place] 1 tab PO Q6H PRN 05/15/23 05/15/23 History 5-325] Midodrine HCl [ProAmatine] 10 mg PO TID PRN 05/15/23 05/15/23 History Midodrine HCl [ProAmatine] 10 mg PO TID@0800,1400,2100 05/15/23 05/15/23 History Nitroglycerin Sl Tabs [Nitrostat] 0.4 mg SUBLINGUAL Q5M PRN 05/15/23 05/15/23 History Sildenafil Citrate 50 mg PO DAILY@0805/15/23 05/15/23 History Sildenafil Citrate [Sildenafil] 20 - 40 mg PO BID PRN 05/15/23 05/15/23 History Sodium Bicarbonate 325 mg PO DAILY@79905/15/23 05/15/23 History alprostadiL [Caverject] 10 mcg INJ DIRECTED 05/15/23 05/15/23 History Allergies Allergy/AdvReac Type Severity Reaction Status Date / Time No Known Allergies Allergy Verified 05/15/23 15:55 Surgical - Exam Vital Signs Temp Pulse Resp BP Pulse Ox 98.7 F 91 20 135/53 100 05/15/23 12:16 05/15/23 12:16 05/15/23 12:16 05/15/23 12:16 05/15/23 12:16 Results - Labs 05/21/23 06:16 05/21/23 06:16 Abnormal Lab Results - Last 24 Hours (Table) 05/20/23 05/20/23 05/20/23 Range/Units 12:37 17:37 20:58 POC Glucose (mg/dL) 163 H 185 H 175 H (70-110) mg/dL 05/21/23 Range/Units 07:08 POC Glucose (mg/dL) 180 H (70-110) mg/dL Microbiology - Last 24 Hours (Table) 05/15/23 12:44 Blood Culture - Final Blood 05/15/23 12:44 Blood Culture - Final Blood
[2023-05-21 12:24] LABS: Glucose,Whole Blood 189 mg/dL (70-110)
--- NOTE | 2023-05-21 14:25 | P.PN ---
Subjective Progress Note Date: 05/21/23 Hospital Course: 78-year-old male with history of MDS, coronary artery disease status post stent, chronic kidney disease, type 2 diabetes, hypothyroidism, dyslipidemia presenting from with concerns of abnormal labs as well as right arm cellulitis. In the ED, temperature was 98.7, pulse 91, respiratory rate blood pressure 135/53, saturating 100% on room air. Laboratory analysis showed WBC of 0.3, hemoglobin 6.9, sodium 134, bicarbonate 16, anion gap 12, creatinine is 2.86, glucose 172. EKG independently interpreted shows right bundle branch block, sinus rhythm. Right upper extremity ultrasound shows no discrete abnormality. Right arm shows no DVT. Patient did have fever following admission. Has neutropenic fever, currently on IV antibiotics. Orthopedics and oncology also following. Right arm symptoms improving. Renal function did get worse. Renal ultrasound shows a moderate right hydronephrosis. Renal function improving with fluids. Patient also has conjugated hyperbilirubinemia. Subjective: Patient seen and examined at bedside. No acute events overnight. Right arm pain improving. Pertinent positives and negatives as discussed above, a complete review of sys tems was performed and all other systems are negative. Vitals Signs Reviewed. General: nontoxic, no distress, appears at stated age Derm: warm, dry, right arm tenderness and erythema Head: atraumatic, normocephalic, symmetric Eyes: EOMI, no lid lag, anicteric sclera, pupils equal round reactive to light ENT: Nose and ears atraumatic Neck: No thyromegaly, supple Mouth: no lip lesion, mucus membranes moist Cardiovascular: S1S2 reg, no murmur, no edema Lungs: clear to auscultation bilateral, no rhonchi, no rales, no wheeze, no accessory muscle use Abdominal: soft, nontender to palpation, no guarding, no appreciable organomegaly Ext: no gross muscle atrophy, muscle strength muscle strength 5 out of 5 in all 4 extremities, no contractures Neuro: CN II-XII grossly intact Psych: Alert, oriented, appropriate affect Data Reviewed Today: Pertinent Labs: WBC 0.2, hemoglobin 6.2, platelet 25, creatinine 2.2, troponin pending 0.4, lipase 665 Imaging: No new vision Assessment and Plan: Conjugated hyperbilirubinemia Cholelithiasis with gallbladder wall thickening Neutropenic fever Sepsis secondary to right arm cellulitis, improving Pancytopenia, status post 3 units of PRBCs History of MDS nonoliguric Acute kidney injury on chronic kidney disease, improving Metabolic acidosis Moderate Right hydronephrosis Type 2 diabetes Coronary artery disease status post stent History of orthostatic hypotension -Surgery note reviewed, CT abdomen pending -Hematology note reviewed, another 1 unit of blood transfusion -On cefepime -Blood cultures negative growth to date -Right arm still present -Pancytopenia related to MDS -hold diuretics -Renal function stable -Lactated Ringer, and on oral bicarbonate -Patient continues to make urine, Fair catheter in place -Sliding scale insulin -Continue aspirin and Plavix, statin -Continue midodrine Chronic: Hypothyroidism Hypertension Dyslipidemia COPD DVT ppx: Not indicated Code status: No code Anticipated discharge place: Pending clinical course Anticipated discharge time: Pending clinical course Objective - Vital Signs Vital signs: Vital Signs Temp 98 F 05/21/23 12:44 Pulse 88 05/21/23 12:44 Resp 22 05/21/23 12:44 BP 121/63 05/21/23 12:44 Pulse Ox 94 L 05/21/23 12:44 FiO2 21 05/20/23 09:03 Intake & Output 05/20/23 05/21/23 05/21/23 18:59 06:59 18:59 Intake Total 3180 Output Total 1500 800 Balance 1680 -800 Intake: Intake, IV Titration 1500 Amount Lactated Ringers 1,000 ml 1500 @ 125 mls/hr IV .Q8H [facility] Rx#:[id number] Oral 1680 Output: Urine 1500 800 Other: Voiding Method Indwelling Catheter Indwelling Catheter Indwelling Catheter - Labs CBC & Chem 7: 05/21/23 06:16 05/21/23 06:16 Labs: Abnormal Lab Results - Last 24 Hours (Table) 05/20/23 05/20/23 05/21/23 Range/Units 17:37 20:58 06:16 WBC 0.20 H* (4.50-10.00) X 10*3/uL RBC 2.03 L (4.40-5.60) X 10*6/uL Hgb 6.2 H* (13.0-17.0) d/dL Hct 18.9 H* (39.6-50.0) % RDW 18.6 H (11.5-14.5) % Plt Count 25 L (140-440) X 10*3/uL MPV 13.1 H (9.5-12.2) FL Neutrophils # 0.04 H* (1.80-7.70) X 10*3/uL Lymphocytes # 0.13 L (0.90-5.00) X 10*3/uL Monocytes # 0.03 L (0.20-1.00) X 10*3/uL Eosinophils # 0 L (0.04-0.35) X 10*3/uL NRBC/100 WBC Diff 0.05 H (0.00-0.01) X 10*3/uL Immature Plt Fraction 10.9 H (1.1-6.1) % Carbon Dioxide (21.6-31.8) mmol/L Anion Gap (4.00-12.00) mmol/L BUN (9.0-27.0) mg/dL Creatinine (0.6-1.5) mg/dL Est GFR (CKD-EPI) (>=60) BUN/Creatinine Ratio (12.00-20.00) Ratio Glucose (70-110) mg/dL POC Glucose (mg/dL) 185 H 175 H (70-110) mg/dL Calcium (8.7-10.3) mg/dL Total Bilirubin (0.3-1.2) mg/dL AST (14-35) U/L ALT (10-49) U/L Alkaline Phosphatase (41-126) U/L Total Protein (6.2-8.2) d/dL Albumin (3.8-4.9) d/dL Albumin/Globulin Ratio (1.60-3.17) Ratio Lipase (23-300) U/L Crossmatch 05/21/23 05/21/23 05/21/23 Range/Units 06:16 07:08 10:08 WBC (4.50-10.00) X 10*3/uL RBC (4.40-5.60) X 10*6/uL Hgb (13.0-17.0) d/dL Hct (39.6-50.0) % RDW (11.5-14.5) % Plt Count (140-440) X 10*3/uL MPV (9.5-12.2) FL Neutrophils # (1.80-7.70) X 10*3/uL Lymphocytes # (0.90-5.00) X 10*3/uL Monocytes # (0.20-1.00) X 10*3/uL Eosinophils # (0.04-0.35) X 10*3/uL NRBC/100 WBC Diff (0.00-0.01) X 10*3/uL Immature Plt Fraction (1.1-6.1) % Carbon Dioxide 15.5 L (21.6-31.8) mmol/L Anion Gap 13.50 H (4.00-12.00) mmol/L BUN 55.4 H (9.0-27.0) mg/dL Creatinine 2.2 H (0.6-1.5) mg/dL Est GFR (CKD-EPI) 30 L (>=60) BUN/Creatinine Ratio 25.18 H (12.00-20.00) Ratio Glucose 169 H (70-110) mg/dL POC Glucose (mg/dL) 180 H (70-110) mg/dL Calcium 6.5 L (8.7-10.3) mg/dL Total Bilirubin 9.4 H (0.3-1.2) mg/dL AST 65 H (14-35) U/L ALT 50 H (10-49) U/L Alkaline Phosphatase 157 H (41-126) U/L Total Protein 4.9 L (6.2-8.2) d/dL Albumin 1.9 L (3.8-4.9) d/dL Albumin/Globulin Ratio 0.63 L (1.60-3.17) Ratio Lipase 665 H (23-300) U/L Crossmatch 05/21/23 05/21/23 Range/Units 12:21 13:08 WBC (4.50-10.00) X 10*3/uL RBC (4.40-5.60) X 10*6/uL Hgb (13.0-17.0) d/dL Hct (39.6-50.0) % RDW (11.5-14.5) % Plt Count (140-440) X 10*3/uL MPV (9.5-12.2) FL Neutrophils # (1.80-7.70) X 10*3/uL Lymphocytes # (0.90-5.00) X 10*3/uL Monocytes # (0.20-1.00) X 10*3/uL Eosinophils # (0.04-0.35) X 10*3/uL NRBC/100 WBC Diff (0.00-0.01) X 10*3/uL Immature Plt Fraction (1.1-6.1) % Carbon Dioxide (21.6-31.8) mmol/L Anion Gap (4.00-12.00) mmol/L BUN (9.0-27.0) mg/dL Creatinine (0.6-1.5) mg/dL Est GFR (CKD-EPI) (>=60) BUN/Creatinine Ratio (12.00-20.00) Ratio Glucose (70-110) mg/dL POC Glucose (mg/dL) 189 H (70-110) mg/dL Calcium (8.7-10.3) mg/dL Total Bilirubin (0.3-1.2) mg/dL AST (14-35) U/L ALT (10-49) U/L Alkaline Phosphatase (41-126) U/L Total Protein (6.2-8.2) d/dL Albumin (3.8-4.9) d/dL Albumin/Globulin Ratio (1.60-3.17) Ratio Lipase (23-300) U/L Crossmatch See Detail Microbiology - Last 24 Hours (Table) 05/15/23 12:44 Blood Culture - Final Blood 05/15/23 12:44 Blood Culture - Final Blood
[2023-05-21 17:24] LABS: Glucose,Whole Blood 183 mg/dL (70-110)
[2023-05-21] MEDS: FILGRASTIM-SNDZ 480 MCG/0.8 ML SYRINGE SQ SCH (17:55)
[2023-05-21 20:14] LABS: Glucose,Whole Blood 199 mg/dL (70-110)
[2023-05-21] MEDS: ATORVASTATIN 80 MG TAB PO SCH (20:37)
[2023-05-22] MEDS: traMADol 50 MG TAB PO PRN ×2 (00:28→03:55)
[2023-05-22] MEDS: HYDROmorphone 0.5 MG/0.5 ML SYRINGE IVP PRN ×4 (01:43→11:13)
[2023-05-22] MEDS: LACTATED RINGERS 1,000 ML IV SCH ×2 (01:44→14:33)
[2023-05-22] MEDS: CEFEPIME 1 GM in SODIUM CHLORIDE 0.9% 50 ML IVPB SCH (04:52)
[2023-05-22 06:31] LABS: Anisocytosis Slight; HCT 22.7 % (39.0-53.0); MCH 32.6 pg (25.0-35.0); MCHC 35.3 g/dL (31.0-37.0); MCV 92.2 fL (80.0-100.0); Macrocytosis Slight; Mean Platelet Volume 10.7; RBC 2.46 m/uL (4.30-5.90); RDW 18.5 % (11.5-15.5)
[2023-05-22 06:34] LABS: Platelet Count 38 k/uL (150-450); WBC 0.3 k/uL (3.8-10.6)
[2023-05-22 06:52] LABS: ALT 58 U/L (4-49); AST 99 U/L (17-59); African American GFR (CKD) 32 (>60 ml/min/1.73 sqM); Albumin/Globulin Ratio 0.5; Alkaline Phosphatase 233 U/L (38-126); Anion Gap 14 mmol/L; Blood Urea Nitrogen 67 mg/dL (9-20); Carbon Dioxide 13 mmol/L (22-30); Chloride 108 mmol/L (98-107); Glucose 155 mg/dL (74-99); Lipase 926 U/L (23-300); Non-African American GFR(CKD) 28 (>60 ml/min/1.73 sqM); Potassium 3.7 mmol/L (3.5-5.1); Sodium 135 mmol/L (137-145); Total Bilirubin 13.1 mg/dL (0.2-1.3)
[2023-05-22 06:56] LABS: Calcium 5.9 mg/dL (8.4-10.2)
[2023-05-22 07:13] LABS: Anisocytosis (M) Present; Polychromasia Present
[2023-05-22 07:34] LABS: Glucose,Whole Blood 174 mg/dL (70-110)
[2023-05-22] MEDS: SYMBICORT 160-4.5 MCG INHALER INHALATION SCH (07:52)
[2023-05-22] MEDS: SODIUM BICARBONATE TAB 650 MG TAB PO SCH (08:17)
[2023-05-22] MEDS: LEVOTHYROXINE 137 MCG TAB PO SCH (08:17)
[2023-05-22] MEDS: CHOLECALCIFEROL 25 MCG (1000 IU) TABLET PO SCH (08:17)
[2023-05-22] MEDS: allopurinoL 100 MG TAB PO SCH (08:17)
[2023-05-22] MEDS: TAMSULOSIN 0.4 MG CAP.ER.24H PO SCH (08:17)
[2023-05-22] MEDS: INSULIN ASPART (NovoLOG) 100 UNIT/ML VIAL SQ SCH ×2 (08:17→13:56)
[2023-05-22] MEDS: SENNOSIDES-DOCUSATE SODIUM 1 EACH TAB PO SCH (08:17)
[2023-05-22] MEDS: MIDODRINE 5 MG TAB PO SCH ×3 (08:17→14:33)
--- NOTE | 2023-05-22 11:59 | P.PN ---
Subjective Progress Note Date: 05/22/23 Principal diagnosis: Febrile neutropenia In follow-up today pt has declined, low BP, increased RR, he is a no code. He is able to move is rt arm more then on admit but, it looks worse-more swollen, hot to touch. Bilirubin cont to increase, urine color is stable compared to yes terday. He has not had a BM yet. Pain is generalized, pt cont to rate 7-10 even after analgesics/narcotics. US abd did not show any obstruction, pt unable to have CT abd because of GFR, pending CT without contrast. Pt remains pleasant when talking with him this AM, mild confusion. He swallowed water but could not swallow his pills. Objective - Vital Signs Vital signs: Vital Signs Temp 97.6 F 05/22/23 07:10 Pulse 93 05/22/23 08:55 Resp 18 05/22/23 09:08 BP 99/64 05/22/23 08:55 Pulse Ox 94 L 05/22/23 09:00 FiO2 21 05/20/23 09:03 Intake & Output 05/21/23 05/22/23 05/22/23 18:59 06:59 18:59 Intake Total 310 240 Output Total 900 800 Balance -590 -560 Intake: Oral 240 Blood Product 310 Rc As-1 Unit 310 [id number] Output: Urine 900 800 Other: Voiding Method Indwelling Catheter Indwelling Catheter - Constitutional General appearance: Present: average body habitus, cooperative, mild distress - EENT EENT Comment(s): very dry mucus membranes Eyes: Present: EOMI, scleral icterus ENT: Present: hearing grossly normal - Cardiovascular Rhythm: regular Heart sounds: normal: S1, S2 Abnormal Heart Sounds: Present: systolic murmur - Peripheral edema leg Peripheral Edema: bilateral: None - Gastrointestinal General gastrointestinal: Present: decreased bowel sounds, distended, soft - Integumentary Integumentary Comment(s): rt AC area pitting swelling, red, hot to touch - Neurologic Neurologic: Present: CNII-XII intact - Musculoskeletal Musculoskeletal: Present: generalized weakness - Psychiatric Psychiatric: Present: A&O x's 3, appropriate affect, intact judgment & insight - Labs CBC & Chem 7: 05/22/23 05:25 05/22/23 05:25 Labs: Abnormal Lab Results - Last 24 Hours (Table) 05/21/23 05/21/23 05/21/23 Range/Units 06:16 10:08 12:21 WBC 0.20 H* (4.50-10.00) X 10*3/uL RBC 2.03 L (4.40-5.60) X 10*6/uL Hgb 6.2 H* (13.0-17.0) d/dL Hct 18.9 H* (39.6-50.0) % RDW 18.6 H (11.5-14.5) % Plt Count 25 L (140-440) X 10*3/uL MPV 13.1 H (9.5-12.2) FL Neutrophils # 0.04 H* (1.80-7.70) X 10*3/uL Lymphocytes # 0.13 L (0.90-5.00) X 10*3/uL Monocytes # 0.03 L (0.20-1.00) X 10*3/uL Eosinophils # 0 L (0.04-0.35) X 10*3/uL NRBC/100 WBC Diff 0.05 H (0.00-0.01) X 10*3/uL Immature Plt Fraction 10.9 H (1.1-6.1) % Sodium (137-145) mmol/L Chloride (98-107) mmol/L Carbon Dioxide (22-30) mmol/L BUN (9-20) mg/dL Creatinine (0.66-1.25) mg/dL Glucose (74-99) mg/dL POC Glucose (mg/dL) 189 H (70-110) mg/dL Calcium (8.4-10.2) mg/dL Total Bilirubin (0.2-1.3) mg/dL AST (17-59) U/L ALT (4-49) U/L Alkaline Phosphatase (38-126) U/L Total Protein (6.3-8.2) g/dL Albumin (3.5-5.0) g/dL Lipase 665 H (23-300) U/L Crossmatch 05/21/23 05/21/23 05/21/23 Range/Units 13:08 17:20 20:13 WBC (4.50-10.00) X 10*3/uL RBC (4.40-5.60) X 10*6/uL Hgb (13.0-17.0) d/dL Hct (39.6-50.0) % RDW (11.5-14.5) % Plt Count (140-440) X 10*3/uL MPV (9.5-12.2) FL Neutrophils # (1.80-7.70) X 10*3/uL Lymphocytes # (0.90-5.00) X 10*3/uL Monocytes # (0.20-1.00) X 10*3/uL Eosinophils # (0.04-0.35) X 10*3/uL NRBC/100 WBC Diff (0.00-0.01) X 10*3/uL Immature Plt Fraction (1.1-6.1) % Sodium (137-145) mmol/L Chloride (98-107) mmol/L Carbon Dioxide (22-30) mmol/L BUN (9-20) mg/dL Creatinine (0.66-1.25) mg/dL Glucose (74-99) mg/dL POC Glucose (mg/dL) 183 H 199 H (70-110) mg/dL Calcium (8.4-10.2) mg/dL Total Bilirubin (0.2-1.3) mg/dL AST (17-59) U/L ALT (4-49) U/L Alkaline Phosphatase (38-126) U/L Total Protein (6.3-8.2) g/dL Albumin (3.5-5.0) g/dL Lipase (23-300) U/L Crossmatch See Detail 05/22/23 05/22/23 05/22/23 Range/Units 05:25 05:25 07:31 WBC 0.3 L* (4.50-10.00) X 10*3/uL RBC 2.46 L (4.40-5.60) X 10*6/uL Hgb 8.0 L (13.0-17.0) d/dL Hct 22.7 L (39.6-50.0) % RDW 18.5 H (11.5-14.5) % Plt Count 38 L D (140-440) X 10*3/uL MPV (9.5-12.2) FL Neutrophils # (1.80-7.70) X 10*3/uL Lymphocytes # (0.90-5.00) X 10*3/uL Monocytes # (0.20-1.00) X 10*3/uL Eosinophils # (0.04-0.35) X 10*3/uL NRBC/100 WBC Diff (0.00-0.01) X 10*3/uL Immature Plt Fraction (1.1-6.1) % Sodium 135 L (137-145) mmol/L Chloride 108 H (98-107) mmol/L Carbon Dioxide 13 L (22-30) mmol/L BUN 67 H (9-20) mg/dL Creatinine 2.19 H (0.66-1.25) mg/dL Glucose 155 H (74-99) mg/dL POC Glucose (mg/dL) 174 H (70-110) mg/dL Calcium 5.9 L* (8.4-10.2) mg/dL Total Bilirubin 13.1 H (0.2-1.3) mg/dL AST 99 H (17-59) U/L ALT 58 H (4-49) U/L Alkaline Phosphatase 233 H (38-126) U/L Total Protein 6.0 L (6.3-8.2) g/dL Albumin 2.0 L (3.5-5.0) g/dL Lipase 926 H (23-300) U/L Crossmatch - Imaging and Cardiology US - abdomen: report reviewed Assessment and Plan (1) Cellulitis Current Visit: Yes Status: Acute Priority: High Code(s): L03.90 - CELLULITIS, UNSPECIFIED SNOMED Code(s): 587188855 (2) Neutropenic fever Current Visit: Yes Status: Resolved Priority: High Code(s): D70.9 - NEUTROPENIA, UNSPECIFIED; R50.81 - FEVER PRESENTING WITH CONDITIONS CLASSIFIED ELSEWHERE SNOMED Code(s): 995155974 (3) Pancytopenia due to chemotherapy Current Visit: Yes Status: Acute Priority: High Code(s): D61.810 - ANTINEOPLASTIC CHEMOTHERAPY INDUCED PANCYTOPENIA SNOMED Code(s): 2369302 (4) Hyperbilirubinemia Current Visit: Yes Status: Acute Priority: High Code(s): E80.6 - OTHER DISORDERS OF BILIRUBIN METABOLISM SNOMED Code(s): 99303991 (5) MDS (myelodysplastic syndrome) Current Visit: Yes Status: Acute Priority: High Code(s): D46.9 - MYELODYSPLASTIC SYNDROME, UNSPECIFIED SNOMED Code(s): 744238161 Plan: Hyperbilirubinemia, pancreatitis -Bilirubin continues to increase, daily fractions shows elevation of both conjugated and on on conjugated but, conjugated is significantly elevated. -Lipase continues to increase -US previously did not show evidence of obstruction, no identified underlying cause. Pending CT abd without contrast. Unfortunately, due to patient's low WBCs and platelet counts he is a significantly high risk for complications for any intervention if obstruction is found. Neutropenic fever -Patient remains severely neutropenic -No recent fever -Pancultures-neg -Right forearm more swelling today, redness, no significant increase in pain per patient, he is moving it a very little bit. No abnormalities on imaging. -Empiric antibiotics continue -GCSF stopped today, concerns for side effects. WBC 0.3. Pancytopenia secondary to chemotherapy -Patient anemic secondary to MDS, CKD and chemotherapy. He has received 4 units PRBCs since admit. Hgb 8 today, no transfusion. After his transfusion yesterday, he had an appropriate response to the 1 unit he received. Previously has not had an appropriate increase in Hgb post transfusions. Cont to transfuse for Hgb <7 or if symptomatic -The patient's platelets have started to recover and trend upward now, platelets 38,000 today. He has not needed any platelet transfusions since admission. Transfuse for platelet count less than 10,000 or if symptomatic. No aspirin, NSAIDs or anticoagulation. Use SCDs for DVT prophylaxis -WBC 0.3, ANC negligible. G-CSF started 05/15. He has not had fever since admit, he continues on antibiotics. Holding to the patient's other multiple medical complications. -CBC with differential daily -Reviewed with the patient concerns for the significant, persistent pancytopenia. He understands that this is effects of disease and treatment. This unfortunately is common when treating progressive MDS. Supportive care, transfusions, abx is standard of care in hopes that pt is able to recover. -Treat for infection-likely source the forearm. -Cont to administer G-CSF and give transfusions as needed. Myelodysplastic syndrome -Red Cell aplasia -Has been on BERNARDA in the past without significant stability of hemoglobin or reduction in transfusions needed -Just started on treatment with Dacogen. He is status post the first 5 day cycle, started 04/30-05/04 -Discussed the case with patient's Primary Oncologist regarding hospice appropriateness. Family meeting plan for today at 1pm. Pain -pt continues to rate pain 7-10, even with change in frequency. -meds for prevention of narcotic induced constipation added Constipation -No BM since admit -Patient is receiving stool softeners twice a day scheduled, milk of magnesia as needed twice a day Hyperbilirubinemia, elevated lipase -Progressive -lipase continues to increase -Changed nothing by mouth with sips of water -US abd report reviewed, no significant findings -CT abd without contrast ordered stat Dr attests: I have seen and examined pt, performed H&P, developed impression and plan of care. Discussed with dictator. Agree with documentation, dictated as a scribe. Time with Patient: Greater than 30 (>60 min spent counseling pt and family, end of life discussions and coordinating care)
[2023-05-22 12:25] LABS: Glucose,Whole Blood 167 mg/dL (70-110)
[2023-05-22 12:50] VITALS: BP 95/56; PULSE 92; RESP 20; TEMP 97.9
--- NOTE | 2023-05-22 13:02 | P.PN ---
Subjective Progress Note Date: 05/22/23 CHIEF COMPLAINT: Elevated bilirubin HISTORY OF PRESENT ILLNESS: Patient lying in bed comfortably. Denies any abdominal pain. Denies any nausea or vomiting. Patient's total bilirubin has continued to increase from 9.4-13. Lipase is also increased. Computed tomography scan of the abdomen with contrast unable to complete due to patient's renal function. Afebrile. WBC 0.3 Hgb 8.0 platelets 38 creatinine 2.19 total bilirubin 13.1 LFTs trending upwards lipase increasing to 926. Ammonia level XXIV. PHYSICAL EXAM: VITAL SIGNS: Reviewed. GENERAL: Well-developed in no acute distress. HEENT: sclera icterus. ABDOMEN: Soft. Distended. Nontender. NEUROLOGIC: Alert and oriented. Cranial nerves II through XII grossly intact. Skin: Jaundiced ASSESSMENT: 1. Hepatic failure. Jaundice with elevated total bilirubin and elevated liver enzymes 2. Gallbladder wall thickening and cholelithiasis. Doubt choledocholithiasis as etiology for patient's elevated bilirubin. 3. Elevated Lipase 4. Pancytopenia 5. History of MDS PLAN: -Recommend transfer to tertiary care center for evaluation by GI service or liver specialist. There is no GI specialist available this week at our facility. Case discussed with medicine practitioner. Physician Director Of Entertainment note has been reviewed by physician. Signing provider agrees with the documented findings, assessment, and plan of care. Objective - Vital Signs Vital signs: Vital Signs Temp 97.6 F 05/22/23 07:10 Pulse 93 05/22/23 08:55 Resp 18 05/22/23 09:08 BP 99/64 05/22/23 08:55 Pulse Ox 94 L 05/22/23 09:00 FiO2 21 05/20/23 09:03 Intake & Output 05/21/23 05/22/23 05/22/23 18:59 06:59 18:59 Intake Total 310 240 Output Total 900 800 Balance -590 -560 Intake: Oral 240 Blood Product 310 Rc As-1 Unit 310 [id number] Output: Urine 900 800 Other: Voiding Method Indwelling Catheter Indwelling Catheter - Labs CBC & Chem 7: 05/22/23 05:25 05/22/23 05:25 Labs: Abnormal Lab Results - Last 24 Hours (Table) 05/21/23 05/21/23 05/21/23 Range/Units 06:16 10:08 12:21 WBC 0.20 H* (4.50-10.00) X 10*3/uL RBC 2.03 L (4.40-5.60) X 10*6/uL Hgb 6.2 H* (13.0-17.0) d/dL Hct 18.9 H* (39.6-50.0) % RDW 18.6 H (11.5-14.5) % Plt Count 25 L (140-440) X 10*3/uL MPV 13.1 H (9.5-12.2) FL Neutrophils # 0.04 H* (1.80-7.70) X 10*3/uL Lymphocytes # 0.13 L (0.90-5.00) X 10*3/uL Monocytes # 0.03 L (0.20-1.00) X 10*3/uL Eosinophils # 0 L (0.04-0.35) X 10*3/uL NRBC/100 WBC Diff 0.05 H (0.00-0.01) X 10*3/uL Immature Plt Fraction 10.9 H (1.1-6.1) % Sodium (137-145) mmol/L Chloride (98-107) mmol/L Carbon Dioxide (22-30) mmol/L BUN (9-20) mg/dL Creatinine (0.66-1.25) mg/dL Glucose (74-99) mg/dL POC Glucose (mg/dL) 189 H (70-110) mg/dL Calcium (8.4-10.2) mg/dL Total Bilirubin (0.2-1.3) mg/dL AST (17-59) U/L ALT (4-49) U/L Alkaline Phosphatase (38-126) U/L Total Protein (6.3-8.2) g/dL Albumin (3.5-5.0) g/dL Lipase 665 H (23-300) U/L Crossmatch 05/21/23 05/21/23 05/21/23 Range/Units 13:08 17:20 20:13 WBC (4.50-10.00) X 10*3/uL RBC (4.40-5.60) X 10*6/uL Hgb (13.0-17.0) d/dL Hct (39.6-50.0) % RDW (11.5-14.5) % Plt Count (140-440) X 10*3/uL MPV (9.5-12.2) FL Neutrophils # (1.80-7.70) X 10*3/uL Lymphocytes # (0.90-5.00) X 10*3/uL Monocytes # (0.20-1.00) X 10*3/uL Eosinophils # (0.04-0.35) X 10*3/uL NRBC/100 WBC Diff (0.00-0.01) X 10*3/uL Immature Plt Fraction (1.1-6.1) % Sodium (137-145) mmol/L Chloride (98-107) mmol/L Carbon Dioxide (22-30) mmol/L BUN (9-20) mg/dL Creatinine (0.66-1.25) mg/dL Glucose (74-99) mg/dL POC Glucose (mg/dL) 183 H 199 H (70-110) mg/dL Calcium (8.4-10.2) mg/dL Total Bilirubin (0.2-1.3) mg/dL AST (17-59) U/L ALT (4-49) U/L Alkaline Phosphatase (38-126) U/L Total Protein (6.3-8.2) g/dL Albumin (3.5-5.0) g/dL Lipase (23-300) U/L Crossmatch See Detail 05/22/23 05/22/23 05/22/23 Range/Units 05:25 05:25 07:31 WBC 0.3 L* (4.50-10.00) X 10*3/uL RBC 2.46 L (4.40-5.60) X 10*6/uL Hgb 8.0 L (13.0-17.0) d/dL Hct 22.7 L (39.6-50.0) % RDW 18.5 H (11.5-14.5) % Plt Count 38 L D (140-440) X 10*3/uL MPV (9.5-12.2) FL Neutrophils # (1.80-7.70) X 10*3/uL Lymphocytes # (0.90-5.00) X 10*3/uL Monocytes # (0.20-1.00) X 10*3/uL Eosinophils # (0.04-0.35) X 10*3/uL NRBC/100 WBC Diff (0.00-0.01) X 10*3/uL Immature Plt Fraction (1.1-6.1) % Sodium 135 L (137-145) mmol/L Chloride 108 H (98-107) mmol/L Carbon Dioxide 13 L (22-30) mmol/L BUN 67 H (9-20) mg/dL Creatinine 2.19 H (0.66-1.25) mg/dL Glucose 155 H (74-99) mg/dL POC Glucose (mg/dL) 174 H (70-110) mg/dL Calcium 5.9 L* (8.4-10.2) mg/dL Total Bilirubin 13.1 H (0.2-1.3) mg/dL AST 99 H (17-59) U/L ALT 58 H (4-49) U/L Alkaline Phosphatase 233 H (38-126) U/L Total Protein 6.0 L (6.3-8.2) g/dL Albumin 2.0 L (3.5-5.0) g/dL Lipase 926 H (23-300) U/L Crossmatch
[2023-05-22] MEDS ORDERED: HYDROmorphone 1 MG/ML 1 ML SYRINGE IVP STA (13:26)
[2023-05-22] MEDS ORDERED: HYDROmorphone 1 MG/ML 1 ML SYRINGE IVP PRN (13:26)
[2023-05-22 13:35] VITALS: BMI 28.7
--- NOTE | 2023-05-22 14:15 | P.PN ---
Subjective Progress Note Date: 05/22/23 78-year-old male with history of MDS, coronary artery disease status post stent, chronic kidney disease, type 2 diabetes, hypothyroidism, dyslipidemia presenting from with concerns of abnormal labs as well as right arm cellulitis. In the ED, temperature was 98.7, pulse 91, respiratory rate blood pressure 135/53, saturating 100% on room air. Laboratory analysis showed WBC of 0.3, hemoglobin 6.9, sodium 134, bicarbonate 16, anion gap 12, creatinine is 2.86, glucose 172. EKG independently interpreted shows right bundle branch block, sinus rhythm. Right upper extremity ultrasound shows no discrete abnormality. Right arm shows no DVT. Patient did have fever following admission. Has neutropenic fever, currently on IV antibiotics. Orthopedics and oncology also following. Right arm symptoms improving. Renal function did get worse, renal ultrasound shows a moderate right hydronephrosis, improving with fluids. Patient also has worsening conjugated hyperbilirubinemia. 05/22 Patient was seen and examined. Patient with worsening conjugated hyperbilirubinemia this morning. Surgery recommends transfer for higher level of care and GI evaluation. Case was discussed with the transfer center at [facility] and he has been placed on bed wait list. Case was discussed with transfer center at [facility] and patient was accepted by Dr. Hollingsworth pending bed availability. Recieved a call from nursing stating they are declining transfer and CT AP at this time and would like more information regarding hospice. General: toxic, no distress, appears at stated age Derm: warm, dry, right arm tenderness and erythema Head: atraumatic, normocephalic, symmetric Eyes: EOMI, no lid lag, anicteric sclera ENT: Nose and ears atraumatic Cardiovascular: S1S2 reg, no murmur, no edema Lungs: clear to auscultation bilateral, no rhonchi, no rales, no wheeze, no accessory muscle use Ext: no gross muscle atrophy, muscle strength muscle strength 5 out of 5 in all 4 extremities, no contractures Psych: Alert, oriented, appropriate affect Y Assessment and Plan: Conjugated hyperbilirubinemia likely due to hemolysis Cholelithiasis with gallbladder wall thickening Neutropenic sepsis econdary to right arm cellulitis, improving Pancytopenia, status post 4 units of PRBCs History of MDS Acute kidney injury on chronic kidney disease, improving Metabolic acidosis Moderate right hydronephrosis Type 2 diabetes Coronary artery disease status post stent History of orthostatic hypotension Based on my assessment of this patient, this patient meets a high complexity level of care. Patient has an acute diagnosis of neutropenic sepsis secondary to cellulitis that poses a threat to life or bodily function. He is also found to have a conjugated hyperbilirubinemia which is likely related to hemolysis however general surgery recommends transfer for general workup and higher level of care. Family has declined CTAP and MRCP requesting hospice consult. Acute hypoxic respiratory failure: Likely due to volume overload. Supplemental O2 to maintain O2 saturation > 92%. Conjugated hyperbilirubinemia: Likely due to hemolysis. Elevated T.Bili with relatively stable AST/ALT. Abd US does not show dilated GB ducts. Family requesting hospice. Declining CT AP, MRCP or transfer at this time. Cholelithiasis with gallbladder wall thickening Neutropenic sepsis econdary to right arm cellulitis: BCx negative. Continue Cefepime 1g IV BID. Continue LR at 125 cc/hr. Maintain MAP > 65. Telemetry monitoring. Pancytopenia: Status post 4 units of PRBCs. Transfuse if Hg < 7 or Plt < 10. History of MDS Acute kidney injury on chronic kidney disease: Appears at baseline. Metabolic acidosis Moderate right hydronephrosis Type 2 diabetes Coronary artery disease status post stent History of orthostatic hypotension I have reviewed the following trousseau consultant notes: Surgery and Oncology note. I have reviewed the results of the following tests: CBC, CMP. I have ordered the following tests: I have discussed the care of this patient with the following independent historian: Case discussed with RN. I have independently interpreted the following test below: I have discussed the management of this patient with the following physician: Case discussed with Dr. Hollingsworth at [facility]. Case discussed with Echo Oreilly with Oncology. Case discussed with Navya with Hospice. Objective - Vital Signs Vital signs: Vital Signs Temp 97.9 F 05/22/23 12:50 Pulse 92 05/22/23 12:50 Resp 20 05/22/23 12:50 BP 95/56 05/22/23 12:50 Pulse Ox 95 05/22/23 12:50 FiO2 21 05/20/23 09:03 Intake & Output 05/21/23 05/22/23 05/22/23 18:59 06:59 18:59 Intake Total 310 240 Output Total 900 800 Balance -590 -560 Weight 104.326 kg Intake: Oral 240 Blood Product 310 Rc As-1 Unit 310 [id number] Output: Urine 900 800 Other: Voiding Method Indwelling Catheter Indwelling Catheter Indwelling Catheter - Labs CBC & Chem 7: 05/22/23 05:25 05/22/23 05:25 Labs: Abnormal Lab Results - Last 24 Hours (Table) 05/21/23 05/21/23 05/21/23 Range/Units 13:08 17:20 20:13 WBC (3.8-10.6) k/uL RBC (4.30-5.90) m/uL Hgb (13.0-17.5) gm/dL Hct (39.0-53.0) % RDW (11.5-15.5) % Plt Count (150-450) k/uL Sodium (137-145) mmol/L Chloride (98-107) mmol/L Carbon Dioxide (22-30) mmol/L BUN (9-20) mg/dL Creatinine (0.66-1.25) mg/dL Glucose (74-99) mg/dL POC Glucose (mg/dL) 183 H 199 H (70-110) mg/dL Calcium (8.4-10.2) mg/dL Total Bilirubin (0.2-1.3) mg/dL AST (17-59) U/L ALT (4-49) U/L Alkaline Phosphatase (38-126) U/L Total Protein (6.3-8.2) g/dL Albumin (3.5-5.0) g/dL Lipase (23-300) U/L Crossmatch See Detail 05/22/23 05/22/23 05/22/23 Range/Units 05:25 05:25 07:31 WBC 0.3 L* (3.8-10.6) k/uL RBC 2.46 L (4.30-5.90) m/uL Hgb 8.0 L (13.0-17.5) gm/dL Hct 22.7 L (39.0-53.0) % RDW 18.5 H (11.5-15.5) % Plt Count 38 L D (150-450) k/uL Sodium 135 L (137-145) mmol/L Chloride 108 H (98-107) mmol/L Carbon Dioxide 13 L (22-30) mmol/L BUN 67 H (9-20) mg/dL Creatinine 2.19 H (0.66-1.25) mg/dL Glucose 155 H (74-99) mg/dL POC Glucose (mg/dL) 174 H (70-110) mg/dL Calcium 5.9 L* (8.4-10.2) mg/dL Total Bilirubin 13.1 H (0.2-1.3) mg/dL AST 99 H (17-59) U/L ALT 58 H (4-49) U/L Alkaline Phosphatase 233 H (38-126) U/L Total Protein 6.0 L (6.3-8.2) g/dL Albumin 2.0 L (3.5-5.0) g/dL Lipase 926 H (23-300) U/L Crossmatch 05/22/23 Range/Units 12:24 WBC (3.8-10.6) k/uL RBC (4.30-5.90) m/uL Hgb (13.0-17.5) gm/dL Hct (39.0-53.0) % RDW (11.5-15.5) % Plt Count (150-450) k/uL Sodium (137-145) mmol/L Chloride (98-107) mmol/L Carbon Dioxide (22-30) mmol/L BUN (9-20) mg/dL Creatinine (0.66-1.25) mg/dL Glucose (74-99) mg/dL POC Glucose (mg/dL) 167 H (70-110) mg/dL Calcium (8.4-10.2) mg/dL Total Bilirubin (0.2-1.3) mg/dL AST (17-59) U/L ALT (4-49) U/L Alkaline Phosphatase (38-126) U/L Total Protein (6.3-8.2) g/dL Albumin (3.5-5.0) g/dL Lipase (23-300) U/L Crossmatch
--- NOTE | 2023-05-23 08:14 | P.DS ---
Providers Date of admission: 05/15/23 15:56 Expected date of discharge: 05/23/23 Attending physician: Enzo Lomas MD Consults: 05/15/23 15:55 Consult Physician Urgent Consulting Provider: Ariel Moon Consult Reason/Comments: Forearm pain Do you want consulting provider notified?: Yes Consult Physician Urgent Consulting Provider: Braden Saavedra Consult Reason/Comments: Oncological care Do you want consulting provider notified?: Already Contacted 05/20/23 12:15 Consult Physician Routine Consulting Provider: Tho Caballero Consult Reason/Comments: Conjugated hyperbilirubinemia, gallbladder wall thickening, neutropenia Do you want consulting provider notified?: Yes [facility] Course: 78-year-old male with history of MDS, coronary artery disease status post stent, chronic kidney disease, type 2 diabetes, hypothyroidism, dyslipidemia presenting from with concerns of abnormal labs as well as right arm cellulitis. In the ED, temperature was 98.7, pulse 91, respiratory rate blood pressure 135/53, saturating 100% on room air. Laboratory analysis showed WBC of 0.3, hemoglobin 6.9, sodium 134, bicarbonate 16, anion gap 12, creatinine is 2.86, glucose 172. EKG independently interpreted shows right bundle branch block, sinus rhythm. Right upper extremity ultrasound shows no discrete abnormality. Right arm shows no DVT. Patient did have fever following admission. Has neutropenic fever, currently on IV antibiotics. Orthopedics and oncology also following. Right arm symptoms improving. Renal function did get worse, renal ultrasound shows a moderate right hydronephrosis, improving with fluids. Patient also has worsening conjugated hyperbilirubinemia. 05/22 Patient was seen and examined. Patient with worsening conjugated hyperbilirubinemia this morning. Surgery recommends transfer for higher level of care and GI evaluation. Case was discussed with the transfer center at [facility] and he has been placed on bed wait list. Case was discussed with transfer center at [facility] and patient was accepted by Dr. Hollingsworth pending bed availability. Family declined transfer and CT AP and agreed for inpatient hospice. Patient was discharged to inpatient hospice on 05/22. Pertient studies include RUE Duplex/XRay, Renal US, Abd US. General: toxic, moderate distress, appears at stated age Derm: warm, dry, right arm tenderness and erythema Head: atraumatic, normocephalic, symmetric Eyes: EOMI, no lid lag, anicteric sclera ENT: Nose and ears atraumatic Cardiovascular: S1S2 reg, no murmur, no edema Lungs: clear to auscultation bilateral, no rhonchi, no rales, no wheeze, no accessory muscle use Ext: no gross muscle atrophy, muscle strength muscle strength 5 out of 5 in all 4 extremities, no contractures Psych: Alert, oriented, appropriate affect Discharge Diagnosis: Conjugated hyperbilirubinemia likely due to hemolysis Cholelithiasis with gallbladder wall thickening Neutropenic sepsis econdary to right arm cellulitis, improving Pancytopenia, status post 4 units of PRBCs History of MDS Acute kidney injury on chronic kidney disease, improving Metabolic acidosis Moderate right hydronephrosis Type 2 diabetes Coronary artery disease status post stent History of orthostatic hypotension This complex discharge took 35 minutes to complete. Patient Condition at Discharge: Poor Plan - Discharge Summary Discharge Rx Participant: No New Discharge Prescriptions: No Action glipiZIDE [Glucotrol XL] 2.5 mg PO DAILY@0900 Tamsulosin [Flomax] 0.8 mg PO AC-BRKFST@0830 Levothyroxine Sodium [Synthroid] 137 mcg PO DAILY@0800 Furosemide [Lasix] 20 mg PO DAILY@0800 allopurinoL [Zyloprim] 100 mg PO BID-W/MEALS@08,19 Budesonide/Formoterol Fumarate [Symbicort 160-4.5 Mcg Inhaler] 2 puff INHALATION RT-BID@0800,1700 Cholecalciferol [Vitamin D3 (25 Mcg = 1000 Iu)] 50 mcg PO DAILY@0800 Guaifenesin/Dextromethorphan [Guaifenesin-Dm 100-10 mg/5 ml] 5 - 10 ml PO Q8H PRN PRN Reason: Cough HYDROcodone/APAP 5-325MG [[place] 5-325] 1 tab PO Q6H PRN PRN Reason: Severe Pain (Scale 7 To 10) Midodrine HCl [ProAmatine] 10 mg PO TID PRN PRN Reason: low blood pressure Nitroglycerin Sl Tabs [Nitrostat] 0.4 mg SUBLINGUAL Q5M PRN PRN Reason: Chest Pain Sildenafil Citrate 50 mg PO DAILY@0800 Sildenafil Citrate [Sildenafil] 20 - 40 mg PO BID PRN PRN Reason: blood flow Sodium Bicarbonate 325 mg PO DAILY@0800 calcitrioL [Calcitriol] 0.25 mcg PO MOWEFR@0800 Albuterol Inhaler [Ventolin Hfa Inhaler] 2 puff INHALATION RT-Q6H PRN PRN Reason: Shortness Of Breath ALPRAZolam [Xanax] 0.25 mg PO BID PRN PRN Reason: Anxiety alprostadiL [Caverject] 10 mcg INJ DIRECTED Aspirin 81 mg PO DAILY@0800 Atorvastatin [Lipitor] 80 mg PO HS@2100 Clopidogrel [Plavix] 75 mg PO DAILY@0800 Cyclobenzaprine [Flexeril] 5 mg PO TID PRN PRN Reason: Muscle Spasm Midodrine HCl [ProAmatine] 10 mg PO TID@0800,1400,2100 Discharge Medication List Furosemide [Lasix] 20 mg PO DAILY@0804/14/20 [History] Levothyroxine Sodium [Synthroid] 137 mcg PO DAILY@0804/14/20 [History] Tamsulosin [Flomax] 0.8 mg PO AC-BRKFST@82904/14/20 [History] allopurinoL [Zyloprim] 100 mg PO BID-W/MEALS@04/14/20 [History] glipiZIDE [Glucotrol XL] 2.5 mg PO DAILY@0904/14/20 [History] calcitrioL [Calcitriol] 0.25 mcg PO MOWEFR@0800 06/26/22 [History] ALPRAZolam [Xanax] 0.25 mg PO BID PRN 05/15/23 [History] Albuterol Inhaler [Ventolin Hfa Inhaler] 2 puff INHALATION RT-Q6H PRN 05/15/23 [History] Aspirin 81 mg PO DAILY@0805/15/23 [History] Atorvastatin [Lipitor] 80 mg PO HS@2100 05/15/23 [History] Budesonide/Formoterol Fumarate [Symbicort 160-4.5 Mcg Inhaler] 2 puff INHALATION RT-BID@0800,1700 05/15/23 [History] Cholecalciferol [Vitamin D3 (25 Mcg = 1000 Iu)] 50 mcg PO DAILY@0800 05/15/23 [History] Clopidogrel [Plavix] 75 mg PO DAILY@0805/15/23 [History] Cyclobenzaprine [Flexeril] 5 mg PO TID PRN 05/15/23 [History] Guaifenesin/Dextromethorphan [Guaifenesin-Dm 100-10 mg/5 ml] 5 - 10 ml PO Q8H PRN 05/15/23 [History] HYDROcodone/APAP 5-325MG [[place] 5-325] 1 tab PO Q6H PRN 05/15/23 [History] Midodrine HCl [ProAmatine] 10 mg PO TID PRN 05/15/23 [History] Midodrine HCl [ProAmatine] 10 mg PO TID@0800,1400,2100 05/15/23 [History] Nitroglycerin Sl Tabs [Nitrostat] 0.4 mg SUBLINGUAL Q5M PRN 05/15/23 [History] Sildenafil Citrate 50 mg PO DAILY@0805/15/23 [History] Sildenafil Citrate [Sildenafil] 20 - 40 mg PO BID PRN 05/15/23 [History] Sodium Bicarbonate 325 mg PO DAILY@79905/15/23 [History] alprostadiL [Caverject] 10 mcg INJ DIRECTED 05/15/23 [History] Follow up Appointment(s)/Referral(s): Braden Saavedra [STAFF PHYSICIAN] - 05/18/23 8:15 am Reinier Berrios PAC [Primary Care Provider] - 1-2 days Discharge Disposition: DISCH TO [facility]
== END 2023-05-22 15:46 | disposition hospice, inpatient (51) | DRG 871 ==
LOC: EC 12:06 → 5NMEDONC 15:56
PROVIDERS: ADMIT Student in an Organized Health Care Education/Training Program; ATTEND Student in an Organized Health Care Education/Training Program
DX: A41.89 Other specified sepsis (principal); D61.810 Antineoplastic chemotherapy induced pancytopenia; J96.01 Acute respiratory failure with hypoxia; L03.113 Cellulitis of right upper limb; I13.0 Hypertensive heart and chronic kidney disease with heart failure and stage 1 through stage 4 chronic kidney disease, or unspecified chronic kidney disease; E87.20 Acidosis, unspecified; N13.30 Unspecified hydronephrosis; N17.9 Acute kidney failure, unspecified; D46.A Refractory cytopenia with multilineage dysplasia; E03.9 Hypothyroidism, unspecified; D46.9 Myelodysplastic syndrome, unspecified; E11.22 Type 2 diabetes mellitus with diabetic chronic kidney disease; E78.5 Hyperlipidemia, unspecified; E80.7 Disorder of bilirubin metabolism, unspecified; F32.A Depression, unspecified; M10.021 Idiopathic gout, right elbow; I25.10 Atherosclerotic heart disease of native coronary artery without angina pectoris; I45.10 Unspecified right bundle-branch block; J44.9 Chronic obstructive pulmonary disease, unspecified; I50.9 Heart failure, unspecified; Z51.5 Encounter for palliative care; Z66 Do not resuscitate; K72.90 Hepatic failure, unspecified without coma; N18.9 Chronic kidney disease, unspecified; K80.20 Calculus of gallbladder without cholecystitis without obstruction; T45.1X5A Adverse effect of antineoplastic and immunosuppressive drugs, initial encounter; N42.9 Disorder of prostate, unspecified; W57.XXXA Bitten or stung by nonvenomous insect and other nonvenomous arthropods, initial encounter; Z79.02 Long term (current) use of antithrombotics/antiplatelets; Z79.51 Long term (current) use of inhaled steroids; Z79.82 Long term (current) use of aspirin; Z79.84 Long term (current) use of oral hypoglycemic drugs; Z79.890 Hormone replacement therapy; Z79.899 Other long term (current) drug therapy; Z85.6 Personal history of leukemia; Z95.5 Presence of coronary angioplasty implant and graft; Z99.3 Dependence on wheelchair
CPT/HCPCS: 36415; 76705; 76770; 80048; 80053; 81001; 82140; 82248; 83010; 83036; 83605; 83615; 83690; 83735; 84550; 85025; 85027; 85045; 85610; 85730; 86850; 86900; 86901; 86920; 87040; 93005; 94640; 94760; 96374; 96376; 99285

== ENCOUNTER 2023-05-22 15:23 | Inpatient (IN) | payer MEDICAID ==
[2023-05-22] MEDS ORDERED: ATROPINE OPHTH SOLN 1% 5ML BTL SUBLINGUAL PRN (15:31)
[2023-05-22] MEDS ORDERED: ACETAMINOPHEN SUPPOSITORY 650 MG SUPP RECTAL PRN (15:31)
[2023-05-22] MEDS ORDERED: MORPHINE SULFATE 4 MG/ML SYRINGE IV PRN (15:31)
[2023-05-22] MEDS ORDERED: GLYCOPYRROLATE 0.2 MG/ML 2 ML VIAL IVP PRN (15:31)
[2023-05-22] MEDS ORDERED: ONDANSETRON 4 MG/2 ML VIAL IVP PRN (15:31)
[2023-05-22] MEDS ORDERED: DRY MOUTH SPRAY 44.3 SPRAY/44.3 ML SPRAY MUCOUS MEM PRN (15:31)
[2023-05-22] MEDS ORDERED: SCOPOLAMINE 1 MG/72 HR PATCH TRANSDERM SCH (15:45)
[2023-05-22] MEDS: MORPHINE SULFATE (100 MG/2 ML) 100 MG in SODIUM CHLORIDE 0.9% 100 ML IV SCH (16:38)
[2023-05-22] MEDS: LORazepam 2 MG/ML INJ IV PRN (18:13)
[2023-05-22 20:05] LABS: Glucose,Whole Blood 177 mg/dL (70-110)
[2023-05-23] MEDS: MORPHINE SULFATE (100 MG/2 ML) 100 MG in SODIUM CHLORIDE 0.9% 100 ML IV SCH ×2 (05:06→17:20)
[2023-05-23] MEDS: LORazepam 2 MG/ML INJ IV PRN ×3 (05:28→12:29)
--- NOTE | 2023-05-23 13:09 | P.HPIM ---
History of Present Illness H&P Date: 05/23/23 78-year-old male with history of MDS, coronary artery disease status post stent, chronic kidney disease, type 2 diabetes, hypothyroidism, dyslipidemia presenting from with concerns of abnormal labs as well as right arm cellulitis. In the ED, temperature was 98.7, pulse 91, respiratory rate blood pressure 135/53, saturating 100% on room air. Laboratory analysis showed WBC of 0.3, hemoglobin 6.9, sodium 134, bicarbonate 16, anion gap 12, creatinine is 2.86, glucose 172. EKG independently interpreted shows right bundle branch block, sinus rhythm. Right upper extremity ultrasound shows no discrete abnormality. Right arm shows no DVT. Patient did have fever following admission. Has neutropenic fever, currently on IV antibiotics. Orthopedics and oncology also following. Right arm symptoms improving. Renal function did get worse, renal ultrasound shows a moderate right hydronephrosis, improving with fluids. Patient also has worsening conjugated hyperbilirubinemia. 05/22 Patient was seen and examined. Patient with worsening conjugated hyperbilirubinemia this morning. Surgery recommends transfer for higher level of care and GI evaluation. Case was discussed with the transfer center at [facility] and he has been placed on bed wait list. Case was discussed with transfer center at [facility] and patient was accepted by Dr. Hollingsworth pending bed availability. Family declined transfer and CT AP and agreed for inpatient hospice. 05/23 Patient was seen and examined. Currently on a morphine drip. Appears comfortable. General: toxic, no distress, appears at stated age Derm: warm, dry, right arm tenderness and erythema Head: atraumatic, normocephalic, symmetric Eyes: EOMI, no lid lag, anicteric sclera ENT: Nose and ears atraumatic Cardiovascular: good distal perfusion in all 4 extremities Lungs: agonal breathing Ext: no gross muscle atrophy, muscle strength muscle strength 5 out of 5 in all 4 extremities, no contractures Psych: Obtunded Conjugated hyperbilirubinemia likely due to hemolysis Cholelithiasis with gallbladder wall thickening Neutropenic sepsis econdary to right arm cellulitis, improving Pancytopenia, status post 4 units of PRBCs History of MDS Acute kidney injury on chronic kidney disease, improving Metabolic acidosis Moderate right hydronephrosis Type 2 diabetes Coronary artery disease status post stent History of orthostatic hypotension Comfort measures initiated. Titrate morphine drip. Atropine sublingual and Scopolamine patch for secretions. Ativan IV PRN for anxiety. Zofran PRN for N/V. Past Medical History Past Medical History: Asthma, Cancer, Heart Failure, Diabetes Mellitus, Prostate Disorder, Thyroid Disorder Additional Past Medical History / Comment(s): gout, "blood cancer" History of Any Multi-Drug Resistant Organisms: None Reported Past Surgical History: Appendectomy, Heart Catheterization, Prostate Surgery Past Anesthesia/Blood Transfusion Reactions: No Reported Reaction Past Psychological History: Depression Additional Psychological History / Comment(s): states when he was very depressed 25 years ago Smoking Status: Never smoker Past Alcohol Use History: None Reported Past Drug Use History: None Reported - Past Family History Father Family Medical History: No Reported History Mother Family Medical History: No Reported History Medications and Allergies Home Medications Medication Instructions Recorded Confirmed Type Furosemide [Lasix] 20 mg PO DAILY@79904/14/20 05/15/23 History Levothyroxine Sodium [Synthroid] 137 mcg PO DAILY@79904/14/20 05/15/23 History Tamsulosin [Flomax] 0.8 mg PO AC-BRKFST@82904/14/20 05/15/23 History allopurinoL [Zyloprim] 100 mg PO BID-W/MEALS@04/14/20 05/15/23 History glipiZIDE [Glucotrol XL] 2.5 mg PO DAILY@89904/14/20 05/15/23 History calcitrioL [Calcitriol] 0.25 mcg PO MOWEFR@0800 06/26/22 05/15/23 History ALPRAZolam [Xanax] 0.25 mg PO BID PRN 05/15/23 05/15/23 History Albuterol Inhaler [Ventolin Hfa 2 puff INHALATION RT-Q6H PRN 05/15/23 05/15/23 History Inhaler] Aspirin 81 mg PO DAILY@0805/15/23 05/15/23 History Atorvastatin [Lipitor] 80 mg PO HS@2100 05/15/23 05/15/23 History Budesonide/Formoterol Fumarate 2 puff INHALATION RT-BID@0800,1700 05/15/23 05/15/23 History [Symbicort 160-4.5 Mcg Inhaler] Cholecalciferol [Vitamin D3 (25 50 mcg PO DAILY@0805/15/23 05/15/23 History Mcg = 1000 Iu)] Clopidogrel [Plavix] 75 mg PO DAILY@79905/15/23 05/15/23 History Cyclobenzaprine [Flexeril] 5 mg PO TID PRN 05/15/23 05/15/23 History Guaifenesin/Dextromethorphan 5 - 10 ml PO Q8H PRN 05/15/23 05/15/23 History [Guaifenesin-Dm 100-10 mg/5 ml] HYDROcodone/APAP 5-325MG [[place] 1 tab PO Q6H PRN 05/15/23 05/15/23 History 5-325] Midodrine HCl [ProAmatine] 10 mg PO TID PRN 05/15/23 05/15/23 History Midodrine HCl [ProAmatine] 10 mg PO TID@0800,1400,2100 05/15/23 05/15/23 History Nitroglycerin Sl Tabs [Nitrostat] 0.4 mg SUBLINGUAL Q5M PRN 05/15/23 05/15/23 History Sildenafil Citrate 50 mg PO DAILY@79905/15/23 05/15/23 History Sildenafil Citrate [Sildenafil] 20 - 40 mg PO BID PRN 05/15/23 05/15/23 History Sodium Bicarbonate 325 mg PO DAILY@79905/15/23 05/15/23 History alprostadiL [Caverject] 10 mcg INJ DIRECTED 05/15/23 05/15/23 History Allergies Allergy/AdvReac Type Severity Reaction Status Date / Time No Known Allergies Allergy Verified 05/15/23 15:55 Physical Exam Vitals: Intake and Output 05/22/23 05/23/23 05/23/23 22:59 06:59 14:59 Intake Total 5.236 100.232 Output Total 1000 550 Balance -994.764 -449.768 Intake: Intake, IV Titration 5.236 100.232 Amount Morphine Sulfate (100 mg/ 5.236 100.232 2 ml) 100 mg In Sodium Chloride 0.9% 100 ml @ 2 MG/HR 2.04 mls/hr IV . Q24H [facility] Rx#:[id number] Output: Urine 1000 550 Other: Voiding Method Indwelling Catheter Indwelling Catheter Weight 104 kg Results Labs: Abnormal Lab Results - Last 24 Hours (Table) 05/22/23 Range/Units 20:03 POC Glucose (mg/dL) 177 H (70-110) mg/dL
== END 2023-05-23 19:31 | disposition expired | DRG 951 ==
LOC: 5NMEDONC 15:56
PROVIDERS: ADMIT Family Medicine; ATTEND Family Medicine
DX: Z51.5 Encounter for palliative care (principal); A41.9 Sepsis, unspecified organism; D61.818 Other pancytopenia; E87.20 Acidosis, unspecified; N17.9 Acute kidney failure, unspecified; L03.113 Cellulitis of right upper limb; N13.30 Unspecified hydronephrosis; D46.9 Myelodysplastic syndrome, unspecified; D70.9 Neutropenia, unspecified; E03.9 Hypothyroidism, unspecified; E11.22 Type 2 diabetes mellitus with diabetic chronic kidney disease; Z79.890 Hormone replacement therapy; E78.5 Hyperlipidemia, unspecified; N18.9 Chronic kidney disease, unspecified; I25.10 Atherosclerotic heart disease of native coronary artery without angina pectoris; I45.10 Unspecified right bundle-branch block; F32.A Depression, unspecified; I50.9 Heart failure, unspecified; M10.9 Gout, unspecified; J45.909 Unspecified asthma, uncomplicated; K80.20 Calculus of gallbladder without cholecystitis without obstruction; R50.81 Fever presenting with conditions classified elsewhere; Z79.02 Long term (current) use of antithrombotics/antiplatelets; Z79.51 Long term (current) use of inhaled steroids; Z79.82 Long term (current) use of aspirin; Z79.84 Long term (current) use of oral hypoglycemic drugs; Z79.899 Other long term (current) drug therapy; Z95.5 Presence of coronary angioplasty implant and graft